=== PATIENT | male | born 1965 | race African-American/Black ===

== ENCOUNTER 2020-05-19 09:39 | Outpatient (REF) | payer MEDICAID, OTHER, SELFPAY ==
--- NOTE | 2020-05-19 09:50 | FL_ITS ---
EXAMINATION: BARIUM SWALLOW CLINICAL INFORMATION: Dysphagia. COMPARISON: None TECHNIQUE: Routine barium swallow was performed in upright and lying position. FINDINGS: Following oral administration of thick barium and barium-coated turkey, there is normal propagation of bolus from the oral cavity through the pharynx, esophagus into stomach without any evidence of obstruction, narrowing or stricture. On placing patient prone lying and oral administration of thin barium, there is good distention of the entire esophagus without any intraluminal filling defect or extrinsic compression. There is a small hiatal hernia noted. IMPRESSION: Small hiatal hernia without reflux.
--- NOTE | 2020-05-19 09:51 | XR_ITS ---
EXAMINATION: XR CHEST CLINICAL INFORMATION: Cough. COMPARISON: None TECHNIQUE: 2 views of the chest were obtained. FINDINGS: The lungs are well-expanded and clear. The heart size and pulmonary vascularity is normal. No gross bony abnormality seen. IMPRESSION: Unremarkable chest exam.
== END 2020-05-19 09:40 | disposition home or self-care (01) ==
LOC: HO.XRAY 09:39
PROVIDERS: Visit Provider Nurse Practitioner Family
DX: R10.13 Epigastric pain (principal); R06.6 Hiccough
CPT/HCPCS: 71046; 74220

== ENCOUNTER 2020-07-21 08:31 | Outpatient (REF) | payer MEDICAID, OTHER, SELFPAY ==
[2020-07-21 09:15] LABS: Hematocrit 46.9 % (42-52); Hemoglobin 15.7 g/dl (14.0-18.0); Mean Corpuscular HGB Conc 33.5 g/dl (31.0-36.0); Mean Corpuscular Hemoglobin 29.7 pg (27.0-33.0); Mean Corpuscular Volume 88.7 fL (80-98); Mean Platelet Volume 8.5 fL (9.4-12.4); Platelet Count 319 X10*3/uL (160-400); Red Blood Count 5.29 X10*6/uL (4.60-5.80); Red Cell Distribution Width 12.6 % (11.0-16.0); White Blood Count 4.6 X10*3/uL (4.8-10.8)
[2020-07-21 09:55] LABS: Prostate Specific Antigen 0.93 ng/mL (<0.05-4.0)
[2020-07-25 18:32] LABS: Testosterone, Total 235 ng/dL (250-1100)
== END 2020-07-21 08:32 | disposition home or self-care (01) ==
LOC: HO.LAB 08:31
PROVIDERS: PCP Nurse Practitioner Family; Visit Provider Urology
DX: E29.1 Testicular hypofunction (principal)
CPT/HCPCS: 36415; 84153; 84403; 85027

== ENCOUNTER → 2020-08-11 09:02 | Outpatient (BNVA) | payer MEDICAID, OTHER, SELFPAY | PROVIDERS: Visit Provider Urology | DX: Z76.89 Persons encountering health services in other specified circumstances (principal) ==

== ENCOUNTER → 2021-04-05 11:06 | Outpatient (BNVA) | payer MEDICAID, OTHER, SELFPAY | PROVIDERS: Visit Provider Urology ==

== ENCOUNTER → 2021-05-06 14:48 | Outpatient (BNV) | payer SELFPAY | PROVIDERS: Visit Provider Internal Medicine Medical Oncology | DX: D72.819 Decreased white blood cell count, unspecified (principal) | CPT/HCPCS: 99213 ==

== ENCOUNTER 2022-05-12 13:40 | Outpatient (REF) | payer MEDICAID, OTHER, SELFPAY ==
--- NOTE | ~2022-05-12 | XR_ITS ---
EXAMINATION: XR KNEE, LEFT XR LOWER LEG, LEFT CLINICAL INFORMATION: Pain COMPARISON: None TECHNIQUE: Left knee is imaged in 3 views. The left lower leg is imaged in 3 separate views. There are a total of 6 views. FINDINGS: There is no acute or healing fracture, dislocation, destructive process. There are old healed fractures with mild posttraumatic deformity involving the proximal tibial metaphyseal diaphyseal junction and proximal fibular shaft. There is no significant knee joint compartment narrowing or erosive change or subchondral sclerosis. There is small to moderate suprapatellar effusion. Spurring at the quadriceps insertion patella is present and there is some minor spurring at the origin patellar tendon and insertion patella tendon proximal anterior tibia. Deep infrapatellar recess is preserved. The remainder of the left lower leg tibia and fibula are unremarkable. The ankle mortise is symmetric. Subtalar joint is unremarkable. There is a bulky posterior calcaneal spur with normal retrocalcaneal recess. XR/XR tibia fibula LT 2V IMPRESSION: 1. No acute or healing fracture or dislocation. 2. Old healed fractures proximal tibia and fibula. 3. Small to moderate suprapatellar effusion. 4. Spurring quadriceps and patella tendon enthesis. 5. Bulky posterior calcaneal spur.
--- NOTE | ~2022-05-12 | XR_ITS ---
EXAMINATION: XR KNEE, LEFT XR LOWER LEG, LEFT CLINICAL INFORMATION: Pain COMPARISON: None TECHNIQUE: Left knee is imaged in 3 views. The left lower leg is imaged in 3 separate views. There are a total of 6 views. FINDINGS: There is no acute or healing fracture, dislocation, destructive process. There are old healed fractures with mild posttraumatic deformity involving the proximal tibial metaphyseal diaphyseal junction and proximal fibular shaft. There is no significant knee joint compartment narrowing or erosive change or subchondral sclerosis. There is small to moderate suprapatellar effusion. Spurring at the quadriceps insertion patella is present and there is some minor spurring at the origin patellar tendon and insertion patella tendon proximal anterior tibia. Deep infrapatellar recess is preserved. The remainder of the left lower leg tibia and fibula are unremarkable. The ankle mortise is symmetric. Subtalar joint is unremarkable. There is a bulky posterior calcaneal spur with normal retrocalcaneal recess. XR/XR knee LT 4V IMPRESSION: 1. No acute or healing fracture or dislocation. 2. Old healed fractures proximal tibia and fibula. 3. Small to moderate suprapatellar effusion. 4. Spurring quadriceps and patella tendon enthesis. 5. Bulky posterior calcaneal spur.
== END 2022-05-12 13:41 | disposition home or self-care (01) ==
LOC: HO.XRAY 13:40
PROVIDERS: PCP Nurse Practitioner Primary Care; Visit Provider Nurse Practitioner Primary Care
DX: M25.362 Other instability, left knee (principal); M79.605 Pain in left leg; Z87.81 Personal history of (healed) traumatic fracture
CPT/HCPCS: 73564; 73590

== ENCOUNTER 2023-03-05 21:02 | Outpatient (REF) | payer MEDICAID, OTHER, SELFPAY | END 2023-03-05 21:03 | disposition home or self-care (01) | LOC: HO.HHCLNP 21:02 | PROVIDERS: Visit Provider Internal Medicine Geriatric Medicine | DX: R30.0 Dysuria (principal); R68.83 Chills (without fever); R31.0 Gross hematuria; Z87.438 Personal history of other diseases of male genital organs | CPT/HCPCS: 87086; 87088; 87147; 87186 ==

== ENCOUNTER 2023-04-10 09:49 | Outpatient (AMB) | payer MEDICAID, SELFPAY ==
--- NOTE | 2023-04-10 10:02 | MHC.OFFVIS ---
Intake Vital Signs 04/10/23 10:04 Height 5 ft 9 in Weight 187 lb 6.287 oz BMI 27.7 BP 140/74 H Blood Pressure Location Lt brachial Position Sitting Pulse 78 Intake Visit Reasons: Colonoscopy Screening Intake Note: Darin presents in the office as a colonoscopy screening. CC: Due for a colonoscopy and not having any concerns at this time. He does get severe heartburn but the omeprazole seems to help him. 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- amlodipine 5 mg PO DAILY aspirin 1 tab PO QAM atorvastatin 1 tab PO DAILY blood sugar diagnostic (FreeStyle Lite Strips) cetirizine 1 tab PO DAILY cholecalciferol (vitamin D3) 1 cap PO DAILY glipizide 10 mg PO ibuprofen 1 tab PO TID insulin glargine (Lantus Solostar U-100 Insulin) 40 units subcut BEDTIME insulin lispro (Humalog KwikPen (U-100) Insulin) 0 - 12 units subcut DIRECTED lancets (TRUEplus Lancets) naproxen 1 tab PO BID PRN omeprazole 10 mg PO DAILY polyvinyl alcohol 1.4% drps ophthalmic (eye) syringe with needle (Monoject TB Safety Syringe) As directed tadalafil 5 mg PO DAILY tamsulosin 0.4 mg PO QAM HPI Colonoscopy Screening HPI Details 57 year old? male is here today for pre colonoscopy screening.? Patient was sent to us by his PCP.? This is his first colonoscopy screening.? Patient reports that he moves his bowels without any issues. Patient reports that about couple weeks ago he started with severe epigastric burning specially when he lays down. Started taking omeprazole 10 mg and reports that it is not helping. Patient used to take omeprazole in the past for similar symptoms. Patient feels that his symptoms are worse now. Patient denies any nausea or vomiting. Denies any personal or family history of gastrointestinal disease, colon polyps, or cancer.? Denies history of difficulty with sedation or anesthesia in the past.? Negative for history of sleep apnea.? Denies any history of cardiac, renal, pulmonary, or hepatic disease.?? No history of infectious? diseases like hepatitis A, B, C, HIV or tuberculosis.? Patient is not on any anticoagulation therapy regularly, however occasionally patient will take aspirin or ibuprofen for pain PFSH Medical History Low back pain Dyslipidemia HTN (hypertension) BPH (benign prostatic hyperplasia) Incomplete emptying of bladder Weak urinary stream Peyronie's disease Erectile dysfunction due to arterial insufficiency Hypogonadism in male Elevated PSA Diabetes mellitus Surgical History (Updated 04/10/23 @ 10:06 by MARYJANE Pardo) Hx of colonoscopy History of hernia surgery Family History Mother Breast cancer Social History Household Members: Spouse and Children Housing: House Are you a primary director of health care marketing to a significant other at home: No Do you presently have visiting nurse or other home services: No Patient Tobacco Use Status: Never used Tobacco service: No Current occupational status: unemployed Review of Systems Const Denies weight gain and Denies weight loss ENT Reports no additional complaints, Denies dysphagia and Denies odynophagia Card Reports no additional complaints Resp Reports no additional complaints GI Denies abdominal pain, Denies belching, Denies melena, Denies bloating, Denies change in bowel habits, Denies dysphagia, Denies excessive flatus, Denies dyspepsia, Reports heartburn, Denies diarrhea, Denies loose stools, Denies nausea, Denies odynophagia and Denies vomiting Reports no additional complaints Musc Reports no additional complaints Neuro Reports no additional complaints Psych Reports no additional complaints Endo Reports no additional complaints Physical Exam Vital Signs: Last Vital Signs Pulse 78 04/10/23 10:04 BP 140/74 H 04/10/23 10:04 BMI result Body Mass Index 27.7 Const General: healthy appearing, no acute distress and well developed Nutritional Appearance: well nourished Orientation/consciousness: patient oriented x3 HEENT Head: Yes normal to inspection, Yes normocephalic and Yes atraumatic Face and sinus: Yes normal facial exam Mouth: Normal oral and palatal mucosa present Throat: Yes posterior oropharynx normal, Yes tonsils normal and Yes uvula midline Eyes General: appearance normal, both eyes and all related structures Neck Neck: Yes normal visual inspection, Yes full ROM and Yes trachea midline Thyroid: Thyroid normal Resp Effort & Inspection: normal respiratory effort, able to speak in complete sentences, no tracheal deviation and symmetric chest movement Auscultation: clear to auscultation bilaterally Cardio Rate: regular rate Heart sounds: S1 normal heart sound present and S2 normal heart sound present GI Inspection: Yes normal to inspection and No distended Palpation (GI): Soft to palpation, not firm, nontender and No hepatosplenomegaly present Auscultation: normal bowel sounds General: Yes no CVA tenderness Back/Spine/Pelvis Back: no CVA tenderness Skin General skin exam: elasticity normal, turgor normal and dry skin Neuro General: patient oriented x3 Psych Appearance: grossly normal Mental Status: mental status grossly normal Speech and movement: Normal speech and movement present Assessment & Plan Assessment & Plan (1) Screen for colon cancer: Code(s): Z12.11 - Encounter for screening for malignant neoplasm of colon Plan: Patient denies any cardiac or respiratory symptoms.? Denies any issues with anesthesia in the past.? Denies any history of sleep apnea.? No history infectious diseases in the past or present.? Not on any anticoagulation therapy, however patient does use aspirin and ibuprofen occasionally. Patient was encouraged to stop that week before the procedure..? No family or personal history of colon cancer or polyps.? Patient denies melena, hematochezia, unintentional weight loss or ribbon like stools.? Patient will return in 5 weeks to discuss going for procedure. Severe epigastric discomfort and acid reflux now. (2) GERD (gastroesophageal reflux disease): Code(s): K21.9 - Gastro-esophageal reflux disease without esophagitis Qualifiers: Esophagitis presence: esophagitis presence not specified Qualified Code(s): K21.9 - Gastro-esophageal reflux disease without esophagitis Plan: Patient reports severe acid reflux. Patient reports severe burning in the chest specially when he lays down at nighttime. He is currently taking omeprazole 10 mg. Will stop that and start him on pantoprazole 40 mg in the morning. Patient can take famotidine at bedtime. Will send him to get H pylori testing. Will treat empirically if positive. Patient will also be sent for upper endoscopy to further evaluate for gastritis, esophagitis, duodenitis, gastric or peptic ulcers, H pylori, better at. I will see him in 5 weeks, sooner on as needed basis. Patient is agreeable to this plan and verbalizes understanding of instructions. He was given the opportunity to ask questions and all questions answered. Thank you for allowing me to participate in his care Orders: Orders H pylori Ag Stool Today K21.9 - Gastro-esophageal reflux disease without esophagitis Medications: New pantoprazole take one tablet half an hour before breakfast 40 mg PO DAILY 30 tabs 2RF K21.9 - Gastro-esophageal reflux disease without esophagitis famotidine (Pepcid) 20 mg PO BEDTIME 30 tabs 3RF K21.9 - Gastro-esophageal reflux disease without esophagitis Coding Level of Care Code New Pt Level 4 (99432) Diagnoses Screen for colon cancer Z12.11 Gastroesophageal reflux disease, unspecified whether esophagitis present K21.9 Esophagitis presence: esophagitis presence not specified Time Spent (min) 45 Comment 30 minutes spent with patient and additional 15 minutes spent reviewing his records
[2023-04-10 10:04] VITALS: BP 140/74; PULSE 78; BMI 27.7
== END 2023-04-10 10:37 | disposition home or self-care (01) ==
PROVIDERS: PCP Nurse Practitioner Primary Care; Visit Provider Nurse Practitioner Family
DX: Z12.11 Encounter for screening for malignant neoplasm of colon (principal); K21.9 Gastro-esophageal reflux disease without esophagitis; Z01.818 Encounter for other preprocedural examination
CPT/HCPCS: 99204

== ENCOUNTER → 2023-04-10 09:49 | Outpatient (BNVA) | payer MEDICAID, OTHER, SELFPAY | PROVIDERS: PCP Nurse Practitioner Primary Care; Visit Provider Nurse Practitioner Family | DX: Z01.818 Encounter for other preprocedural examination (principal); K21.9 Gastro-esophageal reflux disease without esophagitis; Z79.899 Other long term (current) drug therapy | CPT/HCPCS: 99212 ==

== ENCOUNTER 2023-04-23 14:20 | Outpatient (REF) | payer MEDICAID, OTHER, SELFPAY | END 2023-04-23 14:21 | disposition home or self-care (01) | LOC: HO.LNP 14:20 | PROVIDERS: Visit Provider Nurse Practitioner Family | DX: K21.9 Gastro-esophageal reflux disease without esophagitis (principal) | CPT/HCPCS: 87338 ==

== ENCOUNTER 2023-05-10 11:22 | Outpatient (AMB) | payer SELFPAY ==
--- NOTE | 2023-05-10 11:38 | A.OFFVIS_ITS ---
Intake Intake Visit Reasons: follow up Intake Note: Patient is Present for Follow Up Urology Medication: Tadalafil, Tamsulosin Antibiotic Allergies:None Blood Thinners: Aspirin Pharmacy: [facility] Allergies No Known Allergies [No Known Allergies*] Allergy (Verified 05/10/23 11:39) HPI HPI Comments History of Present Illness Details Darin is a very pleasant [facility] male. He is seen for the following urologic conditions. Dr Kelly - hypogonadism - erectile dysfunction in setting of elisa arelissteve Has not been seen a number of years Continues to take daily tadalafil 5 mg for bladder control and erections Refill provided 3 month follow-up lab work Hypogonadism: He presents today for further evaluation and followup of his hypogonadism - stop taking the injectables approximately 1 year ago Initial symptoms include erectile dysfunction Yes decreased libido Yes change in mood/depression Yes in muscle size/strength Yes increased fatigue/malaise Yes increased abdominal fat No tender breasts/gynecomastia No hair loss No osteopenia No The onset of symptoms has been gradual. Associate conditions include obstructive sleep apnea No CAD No diabetes Yes dyslipidemia Yes hypertension Yes obesity No stress - financial, family, employment No heavy alcohol or illicit drug use No He has been taking previously tried gels without symptomatic success. Laboratory results Baseline T is borderline lw 250-300 on repeat testing Clomid Testing 07/14 , testosterone 373 09/15 - T 340, HbA1c 8.8 01/13 , PSA 0.65 05/15 , testosterone 499 11/14 PSA 1.1 T 232 05/16 PSA 3.5 CBC NAD T level 01/15 PSA 2.7 06/17 T 527 PSA 1.04 CBC 48 01/16 T 550 PSA 3.0 Hct 47, 07/18 T240 PSA 1.1 HCT 46 - 01/17 T 300 PSA 0.6, Hct 47 Current therapy includes - no therapy Response to therapy has been review labs in 6m. Erectile dysfunction: He presents today for for continued evaluation and management of erectile dysfunction - has been using penile constriction ring. This is been somewhat helpful. Not currently using medications Procedure(s)/Diagnosis causing dysfunction include diabetes. Current treatment includes no current oral pills Treatment side effects include back pain with cialis, headache with cialis Prior therapies include oral medications. At this time he experiences erections are partial and adequate for vaginal penetration, SKYLER 8-11 Moderate ED. Nocturnal erections do not occur. Currently they are in a stable relationship. Associated problems hypertension No diabetes Yes dyslipidemia Yes Overall he is satisfied with the current management. Therapeutic plan includes maintaining current therapy PFSH Medical History Low back pain Dyslipidemia HTN (hypertension) BPH (benign prostatic hyperplasia) Incomplete emptying of bladder Weak urinary stream Peyronie's disease Erectile dysfunction due to arterial insufficiency Hypogonadism in male Elevated PSA Diabetes mellitus Surgical History Hx of colonoscopy History of hernia surgery Family History Mother Breast cancer Social History Household Members: Spouse and Children Housing: House Are you a primary critical care nurse to a significant other at home: No Do you presently have visiting nurse or other home services: No Patient Tobacco Use Status: Never used Tobacco service: No Current occupational status: unemployed Review of Systems Const Denies chills and Denies fever(s) Card Reports no additional complaints and Denies syncope Resp Denies cough GI Denies abdominal pain and Denies heartburn Reports as per HPI and Denies change in libido Neuro Denies syncope Psych Denies change in libido Endo Denies change in libido Physical Exam Const General: cooperative, healthy appearing, comfortable and no acute distress Orientation/consciousness: patient oriented x3 HEENT Face and sinus: Yes normal facial exam Mouth: moist mucous membranes Neck Neck: Yes normal visual inspection, Yes full ROM and Yes trachea midline Chest Chest palpation & inspection: normal inspection of the chest Resp Effort & Inspection: normal respiratory effort, able to speak in complete sentences and no respiratory distress GI Inspection: Yes normal to inspection Back/Spine/Pelvis Cervical Spine: normal cervical lordosis Thoracic/Lumbar Spine: thoracic and lumbar spine normal to inspection Skin General skin exam: no rashes or lesions noted Neuro General: patient oriented x3, gait normal, tone normal and moves all extremities Extrem General: Yes normal to inspection and Yes capillary refill normal Assessment & Plan Assessment & Plan (1) Weak urinary stream: Code(s): R39.12 - Poor urinary stream (2) Hypogonadism in male: Code(s): E29.1 - Testicular hypofunction (3) Erectile dysfunction due to arterial insufficiency: Code(s): N52.01 - Erectile dysfunction due to arterial insufficiency Plan Three follow-up labs Orders: Orders Prostate Specific Antigen 3 Months E29.1 - Testicular hypofunction Testosterone, Free/Total 3 Months E29.1 - Testicular hypofunction Patient Instructions: Imaging studies, laboratory and physical exam results were discussed and reviewed in detail. No major barriers to patient understanding were identified. An opportunity to ask questions regarding the treatment plan was provided. All questions were answered. The patient expressed understanding and agreement with the above treatment plan. The patient is aware they should contact our office by phone for worsening of their current condition or the appearance of new urologic symptoms. Compliance is encouraged with any medications and followup testing that is ordered. It is a privilege to participate in the urologic care of your patient. If you have any questions or concerns regarding treatment for the above conditions, or other urologic issues, please do not hesitate to contact me. The office telephone contact is [phone]. This note is constructed using voice recognition software. While every effort has been made to ensure accuracy supervisor aluminum boat assembly errors may have been included. Yours sincerely, Dr Hernan Gordon MD, [facility] - Urology Providers of Expert, Compassionate Care for the Genitourinary System Coding Level of Care Code Est Pt Level 4 (64289) Diagnoses Weak urinary stream R39.12 Hypogonadism in male E29.1 Erectile dysfunction due to arterial insufficiency N52.01
== END 2023-05-10 12:30 | disposition home or self-care (01) ==
PROVIDERS: PCP Nurse Practitioner Primary Care; Visit Provider Urology
DX: R39.12 Poor urinary stream (principal); E29.1 Testicular hypofunction; N52.01 Erectile dysfunction due to arterial insufficiency
CPT/HCPCS: 99213

== ENCOUNTER → 2023-05-10 11:22 | Outpatient (BNVA) | payer MEDICAID, OTHER, SELFPAY | PROVIDERS: PCP Nurse Practitioner Primary Care; Visit Provider Urology | DX: E29.1 Testicular hypofunction (principal); R39.12 Poor urinary stream; N52.01 Erectile dysfunction due to arterial insufficiency | CPT/HCPCS: 99212 ==

== ENCOUNTER 2023-05-15 09:43 | Outpatient (AMB) | payer SELFPAY ==
[2023-05-15 10:00] VITALS: BP 146/73; PULSE 85; BMI 28.5
--- NOTE | 2023-05-15 10:00 | A.OFFVIS_ITS ---
Intake Vital Signs 05/15/23 10:00 Height 5 ft 9 in Weight 193 lb 1.999 oz BMI 28.5 BP 146/73 H Blood Pressure Location Lt brachial Position Sitting Pulse 85 Pulse Source Pulse Oximeter Intake Visit Reasons: 5 week follow up Intake Note: Pt presents to the office today for a 5 week follow up. Pt states his acid reflux is doing better and states it is not as bad as before. Pt also denies any N/V/D. Allergies No Known Allergies [No Known Allergies*] Allergy (Verified 05/15/23 10:03) HPI 5 week follow up HPI Details LAST VISIT Screen for colon cancer Patient denies any cardiac or respiratory symptoms.? Denies any issues with anesthesia in the past.? Denies any history of sleep apnea.? No history infectious diseases in the past or present.? Not on any anticoagulation therapy, however patient does use aspirin and ibuprofen occasionally. Patient was encouraged to stop that week before the procedure..? No family or personal history of colon cancer or polyps.? Patient denies melena, hematochezia, unintentional weight loss or ribbon like stools.? Patient will return in 5 weeks to discuss going for procedure. Severe epigastric discomfort and acid reflux now. GERD (gastroesophageal reflux disease) Patient reports severe acid reflux. Patient reports severe burning in the chest specially when he lays down at nighttime. He is currently taking omeprazole 10 mg. Will stop that and start him on pantoprazole 40 mg in the morning. Patient can take famotidine at bedtime. Will send him to get H pylori testing. Will treat empirically if positive. Patient will also be sent for upper endoscopy to further evaluate for gastritis, esophagitis, duodenitis, gastric or peptic ulcers, H pylori, Hendrickson's. I will see him in 5 weeks, sooner on as needed basis. Patient is agreeable to this plan and verbalizes understanding of instructions. He was given the opportunity to ask questions and all questions answered. ? TODAY'S VISIT Patient is here today for follow-up. Patient reports that he started taking pantoprazole and famotidine and only uses 1 or 2 times a week if he has acid reflux. Patient reports he has scratchy throat whenever he eats peanuts, walnuts or any other nuts. Patient reports that he never had a colonoscopy, however upon reviewing his records noted that patient had colonoscopy in november of 2013. Colonoscopy was normal, no polyps, mild diverticulosis to right side of his colon. No family history of colorectal cancer. Patient denies issues with anesthesia in the past. Not on any anticoagulation therapy, however is on his MAR. Patient states that he only uses aspirin or ibuprofen occasionally. No history of sleep apnea. Patient denies any nausea or vomiting. Denies any abdominal pain or discomfort. Moving his bowels without any issues. Patient denies melena, hematochezia, unintentional weight loss or ribbon like stools. Occasional dyspepsia without dysphagia or odynophagia. ON LICENSE OF [facility] Medical History Low back pain Dyslipidemia HTN (hypertension) BPH (benign prostatic hyperplasia) Incomplete emptying of bladder Weak urinary stream Peyronie's disease Erectile dysfunction due to arterial insufficiency Hypogonadism in male Elevated PSA Diabetes mellitus Surgical History Hx of colonoscopy History of hernia surgery Family History Mother Breast cancer Social History Household Members: Spouse and Children Housing: House Are you a primary home care consultant to a significant other at home: No Do you presently have visiting nurse or other home services: No Patient Tobacco Use Status: Never used Tobacco service: No Current occupational status: unemployed Review of Systems Const Denies weight gain and Denies weight loss ENT Reports no additional complaints, Denies dysphagia and Denies odynophagia Card Reports no additional complaints Resp Reports no additional complaints GI Denies abdominal pain, Denies belching, Denies melena, Denies bloating, Denies change in bowel habits, Denies dysphagia, Denies excessive flatus, Denies dyspepsia, Denies heartburn, Denies diarrhea, Denies loose stools, Denies nausea, Denies odynophagia and Denies vomiting Reports no additional complaints Musc Reports no additional complaints Neuro Reports no additional complaints Psych Reports no additional complaints Endo Reports no additional complaints Physical Exam Vital Signs: Last Vital Signs Pulse 85 05/15/23 10:00 BP 146/73 H 05/15/23 10:00 BMI result Body Mass Index 28.5 Const General: healthy appearing, no acute distress and well developed Nutritional Appearance: well nourished Orientation/consciousness: patient oriented x3 HEENT Head: Yes normal to inspection, Yes normocephalic and Yes atraumatic Face and sinus: Yes normal facial exam Mouth: Normal oral and palatal mucosa present Throat: Yes posterior oropharynx normal, Yes tonsils normal and Yes uvula midline Eyes General: appearance normal, both eyes and all related structures Neck Neck: Yes normal visual inspection, Yes full ROM and Yes trachea midline Thyroid: Thyroid normal Resp Effort & Inspection: normal respiratory effort, able to speak in complete sentences, no tracheal deviation and symmetric chest movement Auscultation: clear to auscultation bilaterally Cardio Rate: regular rate Heart sounds: S1 normal heart sound present and S2 normal heart sound present GI Inspection: Yes normal to inspection and No distended Palpation (GI): Soft to palpation, not firm, nontender and No hepatosplenomegaly present Auscultation: normal bowel sounds General: Yes no CVA tenderness Back/Spine/Pelvis Back: no CVA tenderness Skin General skin exam: elasticity normal, turgor normal and dry skin Neuro General: patient oriented x3 Psych Appearance: grossly normal Mental Status: mental status grossly normal Speech and movement: Normal speech and movement present Assessment & Plan Assessment & Plan (1) Screen for colon cancer: Code(s): Z12.11 - Encounter for screening for malignant neoplasm of colon (2) GERD (gastroesophageal reflux disease): Code(s): K21.9 - Gastro-esophageal reflux disease without esophagitis Qualifiers: Esophagitis presence: esophagitis presence not specified Qualified Code(s): K21.9 - Gastro-esophageal reflux disease without esophagitis Plan Patient will use famotidine on as needed basis. Discussed with patient avoiding dietary triggers and late night snacking. Patient will be sent for upper endoscopy. Patient reports feeling scratchy throat every time he eats any type of not. Will send him for RAST allergy in test. Patient denies dyspepsia, dysphagia or odynophagia. H pylori negative. Patient never had colonoscopy in the past. Denies any issues with anesthesia in the past. No history of sleep apnea. Not on any anticoagulation medication per patient even though on the list. Please verify with patient that he is not taking aspirin. What to expect before during and after the procedure discussed with patient. Clear liquid diet stressed as well as good bowel prep. I will see patient after the procedure, sooner on as needed basis. Patient is agreeable to this plan and verbalizes understanding of instructions. He was given the opportunity to ask questions and all questions answered. Thank you for allowing me to participate in his care Orders: Orders Rast Allergen Today K21.9 - Gastro-esophageal reflux disease without esophagitis Medications: New bisacodyl (Dulcolax (bisacodyl)) take 4 tabs at noon the day before your colonoscopy 20 mg (4 x 5 mg) PO ONCE 1 day 4 tabs 0RF Z12.11 - Encounter for screening for malignant neoplasm of colon polyethylene glycol 3350 (Miralax) As directed by gastroenterology department at [facility] 238 grams PO ONCE 238 grams 0RF Z12.11 - Encounter for screening for malignant neoplasm of colon Coding Level of Care Code Est Pt Level 3 (75522) Diagnoses Screen for colon cancer Z12.11 Gastroesophageal reflux disease, unspecified whether esophagitis present K21.9 Esophagitis presence: esophagitis presence not specified Time Spent (min) 30 Comment 20 minutes spent with patient and additional 10 minutes spent reviewing his records
== END 2023-05-15 11:37 | disposition home or self-care (01) ==
PROVIDERS: PCP Nurse Practitioner Primary Care; Visit Provider Nurse Practitioner Family
DX: K21.9 Gastro-esophageal reflux disease without esophagitis (principal); Z12.11 Encounter for screening for malignant neoplasm of colon
CPT/HCPCS: 99213

== ENCOUNTER → 2023-05-15 09:43 | Outpatient (BNVA) | payer MEDICAID, OTHER, SELFPAY | PROVIDERS: PCP Nurse Practitioner Primary Care; Visit Provider Nurse Practitioner Family ==

== ENCOUNTER 2023-05-15 11:22 | Outpatient (REF) | payer MEDICAID, OTHER, SELFPAY | END 2023-05-15 11:23 | disposition home or self-care (01) | LOC: HO.HHCL 11:22 | PROVIDERS: Visit Provider Nurse Practitioner Family | DX: Z01.818 Encounter for other preprocedural examination (principal); K21.9 Gastro-esophageal reflux disease without esophagitis | CPT/HCPCS: 36415; 86003; 99212 ==

== ENCOUNTER 2023-07-24 10:15 | Outpatient (REF) | payer SELFPAY ==
[2023-07-24 11:14] LABS: MANUAL DIFF FLAG NO
[2023-07-24 11:31] LABS: Basophils Percent Auto 0.5 % (0-2); Eosinophils Absolute Auto 0.2 X10*3/uL (0.0-0.4); Eosinophils Percent Auto 3.5 % (0-4); Hematocrit 43.3 % (42.0-52.0); Hemoglobin 14.6 g/dl (14.0-18.0); Imm Gran Abs Auto 0.01 X10*3/uL (0.00-0.03); Imm Gran Pct Auto 0.2 % (0.0-0.4); Lymphocytes Absolute Auto 2.3 X10*3/uL (1.2-4.9); Lymphocytes Percent Auto 54.3 % (20-40); Mean Corpuscular HGB Conc 33.7 g/dl (31.0-36.0); Mean Corpuscular Hemoglobin 29.1 pg (27.0-33.0); Mean Corpuscular Volume 86.4 fL (80.0-98.0); Mean Platelet Volume 8.9 fL (9.4-12.4); Monocytes Absolute Auto 0.4 X10*3/uL (0.1-1.2); Neutrophils Absolute Auto 1.4 x10*3/uL (2.0-8.3); Neutrophils Percent Auto 31.5 % (45-73); Platelet Count 310 X10*3/uL (160-400); Red Blood Count 5.01 X10*6/uL (4.60-5.80); Red Cell Distribution Width 12.9 % (11.0-16.0); White Blood Count 4.3 X10*3/uL (4.8-10.8)
[2023-07-24 11:54] LABS: Alanine Aminotransferase 26 U/L (0-40); Albumin Level 4.3 g/dL (3.5-5.0); Alkaline Phosphatase 62 U/L (39-117); Anion Gap 13 (12-20); Aspartate Amino Transferase 28 U/L (5-37); Bilirubin Total 0.6 mg/dL (0.0-1.0); Blood Urea Nitrogen 10 mg/dL (9-16); Calcium 9.8 mg/dL (8.4-10.2); Carbon Dioxide 27 mmol/L (22-29); Chloride 109 mmol/L (96-108); Estimated Glomerular Filt Rate > 60; Glucose Random 99 mg/dL (60-115); Sodium 145 mmol/L (135-145); Total Protein 6.9 g/dL (6.5-8.0)
== END 2023-07-24 10:16 | disposition home or self-care (01) ==
LOC: HO.HHCL 10:15
PROVIDERS: Visit Provider Internal Medicine Medical Oncology
DX: D72.819 Decreased white blood cell count, unspecified (principal)
CPT/HCPCS: 36415; 80053; 85025

== ENCOUNTER 2023-08-09 09:19 | Outpatient (REF) | payer MEDICAID, OTHER, SELFPAY ==
[2023-08-09 12:21] LABS: Prostate Specific Antigen 0.67 ng/mL (<0.05-4.0)
[2023-08-20 11:43] LABS: Testosterone, Total 272 ng/dL (250-1100)
== END 2023-08-09 09:20 | disposition home or self-care (01) ==
LOC: HO.HHCL 09:19
PROVIDERS: Visit Provider Urology
DX: E29.1 Testicular hypofunction (principal); Z12.5 Encounter for screening for malignant neoplasm of prostate
CPT/HCPCS: 36415; 84153; 84402; 84403

== ENCOUNTER 2023-08-22 15:15 | Outpatient (AMB) | payer SELFPAY ==
--- NOTE | 2023-08-22 15:16 | MHC.OFFVIS ---
Intake Intake Visit Reasons: follow up/PSA(set) Intake Note: Patient presents today for a follow-up on: PSA Meds- Tamsulosin, Tadalafil Allergies to Antibiotic- No Known Allergies Blood Thinner- Aspirin (Patient stated not longer taking Aspirin) Adult Basic Education Teacher Required: No Allergies No Known Allergies [No Known Allergies*] Allergy (Verified 08/22/23 15:19) HPI HPI Comments History of Present Illness Details Darin is a very pleasant [facility] male. He is a patient of Dr. John. He is seen for the following urologic conditions. - hypogonadism - erectile dysfunction in setting of diabetes Telemedicine Evaluation 15 min Consultation [employer] Kayley Video attempted Three-month follow-up tele Lab work shows Continues to take daily tadalafil 5 mg for bladder control and erections 3 month follow-up lab work 08/22 T 272 P 0.7 Hypogonadism: He presents today for further evaluation and followup of his hypogonadism - stop taking the injectables approximately 1 year ago Initial symptoms include erectile dysfunction Yes decreased libido Yes change in mood/depression Yes in muscle size/strength Yes increased fatigue/malaise Yes increased abdominal fat No tender breasts/gynecomastia No hair loss No osteopenia No The onset of symptoms has been gradual. Associate conditions include obstructive sleep apnea No CAD No diabetes Yes dyslipidemia Yes hypertension Yes obesity No stress - financial, family, employment No heavy alcohol or illicit drug use No He has been taking previously tried gels without symptomatic success. Laboratory results Baseline T is borderline lw 250-300 on repeat testing Clomid Testing 07/14 , testosterone 373 09/15 - T 340, HbA1c 8.8 01/13 , PSA 0.65 05/15 , testosterone 499 11/14 PSA 1.1 T 232 05/16 PSA 3.5 CBC NAD T level 01/15 PSA 2.7 06/17 T 527 PSA 1.04 CBC 48 01/16 T 550 PSA 3.0 Hct 47, 07/18 T240 PSA 1.1 HCT 46 - 01/17 T 300 PSA 0.6, Hct 47 Current therapy includes - no therapy Response to therapy has been review labs in 6m. Erectile dysfunction: He presents today for for continued evaluation and management of erectile dysfunction - has been using penile constriction ring. This is been somewhat helpful. Not currently using medications Procedure(s)/Diagnosis causing dysfunction include diabetes. Current treatment includes no current oral pills Treatment side effects include back pain with cialis, headache with cialis Prior therapies include oral medications. At this time he experiences erections are partial and adequate for vaginal penetration, SKYLER 8-11 Moderate ED. Nocturnal erections do not occur. Currently they are in a stable relationship. Associated problems hypertension No diabetes Yes dyslipidemia Yes Overall he is satisfied with the current management. Therapeutic plan includes maintaining current therapy PFSH Medical History Low back pain Dyslipidemia HTN (hypertension) BPH (benign prostatic hyperplasia) Incomplete emptying of bladder Weak urinary stream Peyronie's disease Erectile dysfunction due to arterial insufficiency Hypogonadism in male Elevated PSA Diabetes mellitus Surgical History Hx of colonoscopy History of hernia surgery Family History Mother Breast cancer Social History Household Members: Spouse and Children Housing: House Are you a primary rn medicare to a significant other at home: No Do you presently have visiting nurse or other home services: No Patient Tobacco Use Status: Never used Tobacco service: No Current occupational status: unemployed Review of Systems Const All systems reviewed & are unremarkable except as noted in HPI and below Reports no additional complaints Resp Reports no additional complaints GI Reports no additional complaints Reports as per HPI Musc Reports no additional complaints Physical Exam Telemedicine evaluation Appropriate responses Regular breathing rate and rhythm HEENT Head: Yes normal to inspection Ears: hearing grossly normal bilaterally Eyes General: appearance normal, both eyes and all related structures Neck Neck: Yes normal visual inspection Chest Chest palpation & inspection: normal inspection of the chest Resp Effort & Inspection: normal respiratory effort and able to speak in complete sentences Assessment & Plan Assessment & Plan (1) Hypogonadism in male: Code(s): E29.1 - Testicular hypofunction (2) Erectile dysfunction due to arterial insufficiency: Code(s): N52.01 - Erectile dysfunction due to arterial insufficiency (3) Peyronie's disease: Code(s): N48.6 - Induration penis plastica Plan Six-month follow-up Patient Instructions: Imaging studies, laboratory and physical exam results were discussed and reviewed in detail. No major barriers to patient understanding were identified. An opportunity to ask questions regarding the treatment plan was provided. All questions were answered. The patient expressed understanding and agreement with the above treatment plan. The patient is aware they should contact our office by phone for worsening of their current condition or the appearance of new urologic symptoms. Compliance is encouraged with any medications and followup testing that is ordered. It is a privilege to participate in the urologic care of your patient. If you have any questions or concerns regarding treatment for the above conditions, or other urologic issues, please do not hesitate to contact me. The office telephone contact is [phone]. This note is constructed using voice recognition software. While every effort has been made to ensure accuracy railroad signal operator errors may have been included. Yours sincerely, Dr Hernan Gordon MD, PATR[facility] - Urology Providers of Expert, Compassionate Care for the Genitourinary System Telehealth Telehealth Location of provider rendering services: practice address Location of patient: address on file Patient Identification confirmed using: Name, : Yes Telehealth method: voice only Patient verbally consented to treatment: Yes Patient verbally consented to billing insurance company: Yes Patient informed of any privacy concerns related to visit: Yes Coding Level of Care Code Tele Est Pt Level 3 (35766) Diagnoses Hypogonadism in male E29.1 Erectile dysfunction due to arterial insufficiency N52.01 Peyronie's disease N48.6
== END 2023-08-22 15:46 | disposition home or self-care (01) ==
LOC: HO.HUSH 15:16
PROVIDERS: PCP Nurse Practitioner Primary Care; Visit Provider Urology
DX: E29.1 Testicular hypofunction (principal); N52.01 Erectile dysfunction due to arterial insufficiency; N48.6 Induration penis plastica
CPT/HCPCS: 99213

== ENCOUNTER → 2023-08-22 15:15 | Outpatient (BNVA) | payer SELFPAY | PROVIDERS: PCP Nurse Practitioner Primary Care; Visit Provider Urology ==

== ENCOUNTER 2023-11-22 10:27 | Outpatient (REF) | payer MEDICAID, OTHER, SELFPAY ==
[2023-11-22 11:30] LABS: MANUAL DIFF FLAG NO
[2023-11-22 11:39] LABS: Basophils Percent Auto 0.2 % (0-2); Eosinophils Absolute Auto 0.1 X10*3/uL (0.0-0.4); Eosinophils Percent Auto 3.2 % (0-4); Hematocrit 45.2 % (42.0-52.0); Hemoglobin 15.7 g/dl (14.0-18.0); Imm Gran Abs Auto 0.01 X10*3/uL (0.00-0.03); Imm Gran Pct Auto 0.2 % (0.0-0.4); Lymphocytes Percent Auto 46.4 % (20-40); Mean Corpuscular HGB Conc 34.7 g/dl (31.0-36.0); Mean Corpuscular Hemoglobin 29.9 pg (27.0-33.0); Mean Corpuscular Volume 86.1 fL (80.0-98.0); Mean Platelet Volume 9.3 fL (9.4-12.4); Monocytes Absolute Auto 0.3 X10*3/uL (0.1-1.2); Monocytes Percent Auto 7.8 % (2-11); Neutrophils Absolute Auto 1.8 x10*3/uL (2.0-8.3); Neutrophils Percent Auto 42.2 % (45-73); Platelet Count 303 X10*3/uL (160-400); Red Blood Count 5.25 X10*6/uL (4.60-5.80); Red Cell Distribution Width 12.5 % (11.0-16.0); White Blood Count 4.4 X10*3/uL (4.8-10.8)
[2023-11-22 11:44] LABS: Alanine Aminotransferase 25 U/L (0-40); Albumin Level 4.3 g/dL (3.5-5.0); Alkaline Phosphatase 71 U/L (39-117); Anion Gap 9 (12-20); Aspartate Amino Transferase 25 U/L (5-37); Bilirubin Total 0.7 mg/dL (0.0-1.0); Blood Urea Nitrogen 9 mg/dL (9-16); Calcium 9.5 mg/dL (8.4-10.2); Carbon Dioxide 30 mmol/L (22-29); Chloride 109 mmol/L (96-108); Cholesterol 175 mg/dL (<200); Estimated Glomerular Filt Rate > 60; Glucose Random 92 mg/dL (60-115); HDL Cholesterol 41 mg/dL (>40); LDL Cholesterol Calculated 114 mg/dL (<100); Potassium 3.9 mmol/L (3.3-5.1); Sodium 144 mmol/L (135-145); Total Protein 7.1 g/dL (6.5-8.0); Triglycerides 103 mg/dL (<150)
== END 2023-11-22 10:28 | disposition home or self-care (01) ==
LOC: HO.HHCL 10:27
PROVIDERS: Internal Medicine Medical Oncology; Visit Provider Nurse Practitioner Primary Care
DX: E11.69 Type 2 diabetes mellitus with other specified complication (principal); E78.5 Hyperlipidemia, unspecified; R74.8 Abnormal levels of other serum enzymes; D72.819 Decreased white blood cell count, unspecified
CPT/HCPCS: 36415; 80053; 80061; 82550; 85025

== ENCOUNTER 2024-02-19 10:47 | Outpatient (AMB) | payer MEDICAID, SELFPAY ==
--- NOTE | 2024-02-19 11:27 | MHC.OFFVIS ---
Intake Visit Reasons: 6m/PVR Intake Note: Patient presents today for a 6m follow-up and PVR Meds- Tamsulosin, Tadalafil Allergies to Antibiotic- NoNE Blood Thinner- NONE Transfer Table Operator Helper Required: No Allergies No Known Allergies [No Known Allergies*] Allergy (Verified 02/19/24 11:29) HPI Comments Details: Darin is a very pleasant [facility] male. He is a patient of Dr. John. He is seen for the following urologic conditions. - hypogonadism - erectile dysfunction in setting of diabetes Six-month follow-up Continues to take daily tadalafil 5 mg for bladder control and erections 3 month follow-up lab work 08/22 T 272 P 0.7 Hypogonadism: He presents today for further evaluation and followup of his hypogonadism - stop taking the injectables approximately 1 year ago Initial symptoms include erectile dysfunction Yes decreased libido Yes change in mood/depression Yes in muscle size/strength Yes increased fatigue/malaise Yes increased abdominal fat No tender breasts/gynecomastia No hair loss No osteopenia No The onset of symptoms has been gradual. Associate conditions include obstructive sleep apnea No CAD No diabetes Yes dyslipidemia Yes hypertension Yes He has been taking previously tried gels without symptomatic success. Laboratory results Baseline T is borderline lw 250-300 on repeat testing Clomid Testing 07/14 , testosterone 373 09/15 - T 340, HbA1c 8.8 01/13 , PSA 0.65 05/15 , testosterone 499 11/14 PSA 1.1 T 232 05/16 PSA 3.5 CBC NAD T level 01/15 PSA 2.7 06/17 T 527 PSA 1.04 CBC 48 01/16 T 550 PSA 3.0 Hct 47, 07/18 T240 PSA 1.1 HCT 46 - 01/17 T 300 PSA 0.6, Hct 47 Current therapy includes - no therapy Response to therapy has been review labs in 6m. Erectile dysfunction: He presents today for for continued evaluation and management of erectile dysfunction - has been using penile constriction ring. This is been somewhat helpful. Not currently using medications Procedure(s)/Diagnosis causing dysfunction include diabetes. Current treatment includes no current oral pills Treatment side effects include back pain with cialis, headache with cialis Prior therapies include oral medications. At this time he experiences erections are partial and adequate for vaginal penetration, SKYLER 8-11 Moderate ED. Nocturnal erections do not occur. Currently they are in a stable relationship. Associated problems hypertension No diabetes Yes dyslipidemia Yes Overall he is satisfied with the current management. Therapeutic plan includes maintaining current therapy PFSH Medical History Low back pain Dyslipidemia HTN (hypertension) BPH (benign prostatic hyperplasia) Incomplete emptying of bladder Weak urinary stream Peyronie's disease Erectile dysfunction due to arterial insufficiency Hypogonadism in male Elevated PSA Diabetes mellitus Surgical History Hx of colonoscopy History of hernia surgery Family History Mother Breast cancer Social History Household Members: Spouse and Children Housing: House Are you a primary neonatal intensive care nurse to a significant other at home: No Do you presently have visiting nurse or other home services: No Patient Tobacco Use Status: Never used Tobacco service: No Current occupational status: unemployed Review of Systems Const Denies chills and Denies fever(s) Card Reports no additional complaints and Denies syncope Resp Denies cough GI Denies abdominal pain and Denies heartburn Reports as per HPI and Denies change in libido Neuro Denies syncope Psych Denies change in libido Endo Denies change in libido Physical Exam Const General: cooperative, healthy appearing, comfortable and no acute distress Orientation/consciousness: patient oriented x3 HEENT Face and sinus: Yes normal facial exam Mouth: moist mucous membranes Neck Neck: Yes normal visual inspection, Yes full ROM and Yes trachea midline Chest Chest palpation & inspection: normal inspection of the chest Resp Effort & Inspection: normal respiratory effort, able to speak in complete sentences and no respiratory distress GI Inspection: Yes normal to inspection Back/Spine/Pelvis Cervical Spine: normal cervical lordosis Thoracic/Lumbar Spine: thoracic and lumbar spine normal to inspection Skin General skin exam: no rashes or lesions noted Neuro General: patient oriented x3, gait normal, tone normal and moves all extremities Extrem General: Yes normal to inspection and Yes capillary refill normal Results AMB Urinalysis, Automated UA Leukoctes 0 Janell/uL Last Edit by XOCHITL Walters on 02/19/24 11:38 UA Nitrite Negative Last Edit by XOCHITL Walters on 02/19/24 11:38 UA Urobilinogen 0.2 mg/dL Last Edit by XOCHITL Walters on 02/19/24 11:38 UA Protein 30 mg/dL Last Edit by XOCHITL Walters on 02/19/24 11:38 UA pH 6.5 Last Edit by XOCHITL Walters on 02/19/24 11:38 UA Blood 0 Jonah/uL Last Edit by XOCHITL Walters on 02/19/24 11:38 UA Specific Sen[place] 1.020 Last Edit by XOCHITL Walters on 02/19/24 11:38 UA Ketone Positive Last Edit by XOCHITL Walters on 02/19/24 11:38 UA Bilirubin 0 mg/dL Last Edit by XOCHITL Walters on 02/19/24 11:38 UA Glucose 1000 mg/dL Last Edit by XOCHITL Walters on 02/19/24 11:38 Results Reviewed Results Reviewed: Laboratory Last Values Urine pH (Auto) 6.5 02/19/24 11:37 Specific Seneca (Auto) 1.020 02/19/24 11:37 Urine Protein (Auto) 30 mg/dL 02/19/24 11:37 Glucose (UA)(Auto) 1000 mg/dL 02/19/24 11:37 Urine Ketones (Auto) Positive 02/19/24 11:37 Urine Blood (Auto) 0 Jonah/uL 02/19/24 11:37 Urine Nitrite (Auto) Negative 02/19/24 11:37 Urine Bilirubin (Auto) 0 mg/dL 02/19/24 11:37 Urine Urobilinogen (Auto) 0.2 mg/dL 02/19/24 11:37 Leukocyte Esterase (Auto) 0 Janell/uL 02/19/24 11:37 Assessment & Plan Assessment & Plan (1) Hypogonadism in male: Code(s): E29.1 - Testicular hypofunction Category: Medical (2) Erectile dysfunction due to arterial insufficiency: Code(s): N52.01 - Erectile dysfunction due to arterial insufficiency Category: Medical (3) Weak urinary stream: Code(s): R39.12 - Poor urinary stream Category: Medical Plan Six-month follow-up testosterone and PSA Orders: Orders Testosterone, Total 6 Months E29.1 - Testicular hypofunction AMB Urinalysis Automated 02/19/24 Z13.9 - Encounter for screening, unspecified Prostate Specific Antigen 6 Months E29.1 - Testicular hypofunction Patient Instructions: Imaging studies, laboratory and physical exam results were discussed and reviewed in detail. No major barriers to patient understanding were identified. An opportunity to ask questions regarding the treatment plan was provided. All questions were answered. The patient expressed understanding and agreement with the above treatment plan. The patient is aware they should contact our office by phone for worsening of their current condition or the appearance of new urologic symptoms. Compliance is encouraged with any medications and followup testing that is ordered. It is a privilege to participate in the urologic care of your patient. If you have any questions or concerns regarding treatment for the above conditions, or other urologic issues, please do not hesitate to contact me. The office telephone contact is [phone]. This note is constructed using voice recognition software. While every effort has been made to ensure accuracy film processing utility worker errors may have been included. Yours sincerely, Dr Hernan Gordon MD, PATRIC[facility] - Urology Providers of Expert, Compassionate Care for the Genitourinary System Coding Level of Care Code Est Pt Level 3 (00797) Diagnoses Hypogonadism in male E29.1 Erectile dysfunction due to arterial insufficiency N52.01 Weak urinary stream R39.12
== END 2024-02-19 12:16 | disposition home or self-care (01) ==
PROVIDERS: PCP Nurse Practitioner Primary Care; Visit Provider Urology
DX: E29.1 Testicular hypofunction (principal); N52.01 Erectile dysfunction due to arterial insufficiency; R39.12 Poor urinary stream
CPT/HCPCS: 99213

== ENCOUNTER → 2024-02-19 10:47 | Outpatient (BNVA) | payer SELFPAY | PROVIDERS: PCP Nurse Practitioner Primary Care; Visit Provider Urology | DX: E29.1 Testicular hypofunction (principal); N52.01 Erectile dysfunction due to arterial insufficiency; R39.12 Poor urinary stream | CPT/HCPCS: 81003; 99212 ==

== ENCOUNTER 2024-11-14 09:08 | Outpatient (REF) | payer MEDICAID, SELFPAY ==
--- OUTSIDE RECORDS SUMMARY | 2024-11-14 09:35 | XMS_ITS | Encounter Summary ---
Author Organization [employer] Address [address] [facility] 7t [place] [address] Care Team Providers Care Dump Motor Operator Name Role Phone Litzy John Primary Care Provider [phone] Kb Tineo PharmD Unavailable [phone] Reason for Visit * Reason Onset Date Comments Nurse Triage 08/21/2023 Encounter Details Date Type Department Care Team ([facility] st Contact Info) Description 08/21/2023 Telephone [facility] [address] [place], [place] [phone] Litzy John ANP [address] [place], [place] [phone] Nurse Triage Social History Tobacco Use Types Packs/Day Years Used Date Smoking Tobacco: Never Smokeless Tobacco: Never Alcohol Use Standard Drinks/Week Comments Not Currently 0 (1 standard drink = 0.6 oz pur e alcohol) Housing Stability Answer Date Recorded What is your housing situation today? I have ashley reina 05/15/[address] you li ve. Do you have problems with any of the following? None of the above 05/15/2023 Food Insecurity Answer Date Recorded Within the past 12 months, y ou worried that your food would run out before you got money to buy more: Never True 05/15/2023 Within the past 12 months,th e food you bought just didn't last and you didn't have enough money to get more: Never True Transportation Answer Date Recorded In the past 12 months, has l ack of transportation kept you from medical appts, meetings, work or from getting things needed for daily living? No 05/15/2023 Utilities Answer Date Recorded In the past 12 months, has t he electric, gas, oil or water company threatened to shut off services in your home? No 05/15/2023 Depression Answer Date Recorded Patient Health Questionnaire-2 Score 0 01/04/2023 Sex and Gender Information Value Date Recorded Sex Assigned at Male 05/29/2022 10:20 AM EDT Legal Sex Male 10:20 AM EDT Gender Identity Male 05/29/2022 10:20 AM EDT Sexual Orientation Straight 05/29/2022 10 :20 AM EDT documented as of this encounter Miscellaneous Notes * Telephone Encounter - Carin De La Cruz RN - 08/21/2023 1:58 PM EST Triage call , Pt reports covid positive via home test today 08/21/23. Pt symptoms are a low grade fever, 99.6, cough, nasal congestion, drainage, sneezing. Pt is advised reasons to seek assist in ED is if fever of 103 or higher, difficulty breathing with chest pain/pressure. Pt denies these symptoms. Pt is given home care advise, increase liquids to 6-8 glasses daily warm liquids like decaf tea with honey and lemon , broth , juices and water. Use honey 1-2 tsp for cough, sore throat. cough dropsor OTC cough syrups that are cough suppressant. Use tylenol/motrin for discomfort. 5 days of isolation starting 08/22/23. Good hand washing. Pt is given phone number for [facility] [employer] televisit for milena [phone]. No further questions offered. Will call back if needed. Protocol Used: COVID-19 - Diagnosed or Suspected (Adult) Care Advice Discussed: * Reassurance and Education - Positive COVID-19 Lab Test and Mild Symptoms * General Care Advice for COVID-19 Symptoms * Cough Medicines * Cough Syrup With Dextromethorphan * Humidifier * Coughing Spells * Pain and Fever Medicines * Reasons To Call Back - Fever over 103 F (39.4 C) - Fever lasts over 3 days - Fever returns after being gone for 24 hours - Chest pain or difficulty breathing occurs - You become worse * COVID-19 - How to Protect Others - When You Are Sick With COVID-19 * Clean Your Hands Often * Telephone Encounter - Rhonda Quiñones - 08/21/2023 11:46 AM EST Symptom: COVID-19 positive today 08/21/23 Outcome: Schedule a same-day appointment or talk to a nurse or provider today Reason: Caller denied all higher acuity questions The caller accepted this outcome Pt informs has fever and cough documented in this encounter Plan of Treatment Upcoming Encounters Date Type Department Care Team (Late st Contact Info) Description 11/26/2024 2:00 PM EDT Office Visit [facility] OPT[facility] [address] [place] [address] Tika Juan, OD [address] [place] [address] 12/08/2024 1:00 PM EDT Medication Management [facility] [address] [place] [address] Kb Tineo, PharmD [address] [place] [address] documented as of this encounter Visit Diagnoses Not on filedocumented in this encounter Care Teams Dump Motor Operator Relationship Specialty Start Date End Date Litzy John ANP [address] [place] [address] PCP - General Family Medicine 03/23/21 Kb Tineo, PharmD [address] [place] [address] Pharmacist Internal Medicine 06/25/24 documented as of this encounter
--- OUTSIDE RECORDS SUMMARY | 2024-11-14 09:35 | XMS_ITS | Referral Summary ---
Author Organization [facility] Address [address] [place] [address] Care Team Providers Care Volunteer Coordinator Name Role Phone Litzy John Primary Care Provider [phone] Allergies No known active allergies Medications ProAir HFA 90 mcg/actuation inhaler INHALE 2 PUFFS BY MOUTH EVERY 4 TO 6 HOURS NEEDED 0 Active atorvastatin (LIPITOR) 10 mg tablet Take 10 mg by mouth daily. 1 Active blood pressure test kit-large kit USE TO CHECK BLOOD PRESSURE 0 Active Freestyle Lite test strips TEST BLOOD SUGAR 4 TIMES A DAY 1 Active FreeStyle [place] Lite meter TEST BLOOD SUGAR 4 TIMES A DAY 0 Active cholecalcifero l (VITAMIN D3) 2,000 unit capsule Take 1 capsule by mouth daily. 1 Active glipiZIDE (GLUCOTROL) 10 mg tablet TAKE 2 TABLETS BY MOUTH TWICE DAILY WITH BREAKFAST & WITH DINNER 1 Active ibuprofen (MOTRIN) 600 mg tablet Take 600 mg by mouth 3 times a day with meals. 1 Active Lantus Solostar U-100 Insulin 100 unit/mL (3 mL) insulin pen INJECT 40 UNITS SUBCUTANEOUSLY AT BEDTIME DIRECTED 1 Active HumaLOG KwikPen Insulin 100 unit/mL insulin pen INJECT 0-12 UNITS SUBCUTANEOUSLY BEFORE MEALS DIRECTED 1 Active TRUEplus Lancets lancet 33 gauge TEST BLOOD SUGAR FOUR TIMES DAILY 1 Active losartan (COZAAR) 50 mg tablet Take 50 mg by mouth daily. 1 Active naproxen (NAPROSYN) 500 mg tablet TAKE 1 TABLET BY MOUTH TWICE DAILY WITH FOOD NEEDED 0 Active Hypodermic [place] 23 gauge x 1 1/2 needle USE TO inject testosterone 0 Active omeprazole (PriLOSEC) 20 mg capsule TAKE 1 CAPSULE BY MOUTH TWICE DAILY 30-60 MINUTES BEFORE A MEAL 1 Active Pentips 4 mm x 32 g USE FOUR TIMES DAILY WITH lantus AND humalog 1 Active Artificial Tears, polyvin alc, 1.4 % ophthalmic solution PLACE 1 DROP INTO THE AFFECTED EYE(S) 4-6 TIMES DAILY DIRECTED 1 Active simvastatin (ZOCOR) 20 mg tablet Simvastatin 20 MG Oral Tablet Refills: 0 Active Active BD Tuberculin Syringe 1 mL 27 x 1/2 syringe USE TO draw UP testosterone 0 Active amLODIPine (NORVASC) 5 mg tablet Take 5 mg by mouth once a day. 2 Active cetirizine (ZyrTEC) 10 mg tablet Take 10 mg by mouth once a day. 2 Active docusate sodium (COLACE) 100 mg capsule Colace CAPS Refills: 0 Active Active montelukast (SINGULAIR) 10 mg tablet SMARTSI Tablet(s) By Mouth Every Evening 2 Active terazosin (HYTRIN) 5 mg capsule Take 5 mg by mouth nightly. 1 Active triamcinolone acetonide (KENALOG) 0.1% cream Apply topically to the affected area 2 times a day. 1 Active triamcinolone acetonide (KENALOG) 0.5% ointment Apply topically to the affected area 2 times a day. 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 Social History Tobacco Use Types Packs/Day Years Used Date Smoking Tobacco: Never Smokeless Tobacco: Never Comments:: Sex and Gender Information Value Date Recorded Sex Assigned at Not on file Legal Sex Male 4:40 PM EDT Gender Identity Not on file Sexual Orientation Not on file Last Filed Vital Signs Vital Sign Reading Time Taken Comments Blood Pressure 153/81 09/12/2021 9:53 AM EST Pulse 80 09/12/2021 9:53 AM EST Temperature - - Respiratory Rate - - Oxygen Saturation - - Inhaled Oxygen Concentration - - Weight - - Height - - Body Mass Index - - Plan of Treatment Upcoming Encounters Date Type Department Care Team (Late st Contact Info) Description 03/12/2025 1:00 PM EDT Office Visit [facility] [address] [place] [address] Electric Frying Pan Repairer: Chantal Pisano MD [address] [place] [address] [id number] Insurance [employer] HSNO/FREE CARE Care Teams Volunteer Coordinator Relationship Specialty Start Date End Date Litzy John [address] [place] [address] [facility] - General 01/26/23
--- OUTSIDE RECORDS SUMMARY | 2024-11-14 09:35 | XMS_ITS | Patient Health Record ---
Author Organization [facility] Address [address] [place] [phone] Care Team Providers Care Digital Sales Representative Name Role Phone Eliseo, Rell Primary Care Provider Renard Salas [phone] Reason For Referral No Information Encounters Encounter Location Date Provider Diagnosis [facility] [address] [place] [phone] 01/22/2024 Renard Chiu Plan Of Treatment No Information Insurance Providers Payer Name Payer Address Payer Phone Subscriber Number Group Number Insured Name Patient Relationship to Insured Coverage Start Date Coverage End Date [facility] [address] [facility] [phone] [id number] LIEN BHATT Self - patient is the insured
--- OUTSIDE RECORDS SUMMARY | 2024-11-14 09:35 | XMS_ITS | Clinical Summary ---
Author Organization [facility] Address [address] [place] [address] Care Team Providers Care Rotary Adjuster Name Role Phone Litzy John Primary Care Provider [phone] Allergies No known active allergies Medications ProAir HFA 90 mcg/actuation inhaler INHALE 2 PUFFS BY MOUTH EVERY 4 TO 6 HOURS NEEDED 0 Active atorvastatin (LIPITOR) 10 mg tablet Take 10 mg by mouth daily. 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 Family History Medical History Relation Name Comments No Known Problems Father Other Mother Family History of cancer Other Sister Family History of diabetes mellitus Relation Name Status Comments Father Alive Mother Sister Social History Tobacco Use Types Packs/Day Years [...] Description 03/12/2025 1:00 PM EDT Office Visit [facility] [address] [place] [address] Motor Vehicle Clerk: Chantal Pisano MD [address] [place] [address] Health Maintenance Due Date Last Done Comments Basic Metabolic Panel 1965 Cologuard 1965 Colon Cancer Screening 1965 Colonoscopy 1965 FOBT / Fit Test 1965 HIV Screening 1965 Hepatitis C Screening 1965 Sigmoidoscopy 1965 Urine Microalbumin 1973 Hepatitis B Vaccines (2 of 3 - 19+ 3-dose series) 05/01/2012 04/03/2012 Ophthalmology Exam 01/25/2022 01/25/2021, 0 01/25/2021, 01/25/2021, Additional history exists RSV Vaccine (60+ years old a nd patients) (1 - Risk 60-74 years 1-dose series) 2023 Alcohol/Substance Use Screening 07/30/2024 Depression Screening and Follow-Up 07/30/2024 Social Drivers of Health Melony ual Screening 07/30/2024 Hemoglobin A1C 12/21/2024 06/23/2024, 02/21/2024 DTaP,Tdap,and Td Vaccines (2 - Td or Tdap) 07/06/2025 07/06/2015 Zoster Vaccines Completed 08/11/2020, 05/24/2020 Influenza Vaccine Completed 06/23/2024, , 04/11/2022, Additional history exists Pneumococcal Vaccine: 50+ Years Completed , 04/30/2009 COVID-19 Vaccine Completed 08/11/2024, 04/2024, 09/04/2022, Additional history exists [place] [address] [place] [address] HSNO/FREE CARE Care Teams Rotary Adjuster Relationship Specialty Start Date End Date Litzy John [address] [place] [address] PCP - General 01/26/23
--- OUTSIDE RECORDS SUMMARY | 2024-11-14 09:35 | XMS_ITS | Encounter Summary ---
Author Organization [employer] Address [address] [place] [address] 7 [place] [address] Care Team Providers Care Database Security Administrator Name Role Phone Alvaro Litzy EDGAR Primary Care Provider [phone] Kb Tineo PharmD Unavailable [phone] Encounter Details Date Type Department Care Team (Latest Contact Info) Description 01/20/2022 Abstract [facility] Dental, Provider, DDS Social History Tobacco Use Types Packs/Day Years Used Date Smoking Tobacco: Never Assessed Sex and Gender Information Value Date Recorded Sex Assigned at Male 05/29/2022 10:20 AM EDT Legal Sex Male 10:20 AM EDT Gender Identity Male 05/29/2022 10:20 AM EDT Sexual Orientation Straight 05/29/2022 10 :20 AM EDT documented as of this encounter Plan of Treatment Upcoming Encounters Date Type Department Care Team (Late st Contact Info) Description 11/26/2024 2:00 PM EDT Office Visit [facility] [address] [place] [address] Drake, Tika, OD [address] [place] [address] 12/08/2024 1:00 PM EDT Medication Management [facility] [address] [place] [address] Kb Tineo, PharmD [address] [place] [address] documented as of this encounter Visit Diagnoses Not on filedocumented in this encounter Care Teams Database Security Administrator Relationship Specialty Start Date End Date Litzy John ANP [address] [place] [address] PCP - General Family Medicine 03/23/21 Kb Tineo, Keli [address] [place] [address] Pharmacist Internal Medicine 06/25/24 documented as of this encounter
--- OUTSIDE RECORDS SUMMARY | 2024-11-14 09:35 | XMS_ITS | Encounter Summary ---
Author Organization [employer] Address [address] [place] [address] [address] [place] [address] Care Team Providers Care Punch Press Operator Name Role Phone Alvaro Litzy EDGAR Primary Care Provider [phone] Kb Tineo PharmD Unavailable [phone] Encounter Details Date Type Department Care Team (Late st Contact Info) Description 08/21/2022 Abstract [facility] [address] [place] [address] Meryl Pettit, PharmD [address] [place] [address] Social History Tobacco Use Types Packs/Day Years [...] Description 11/26/2024 2:00 PM EDT Office Visit [facility] [address] [place] [address] Tika Juan, OD [address] [place] [address] 12/08/2024 1:00 PM EDT Medication Management [facility] [address] [place] [address] Kb Tineo, PharmD [address] [place] [address] documented as of this encounter Visit Diagnoses Not on filedocumented in this encounter Care Teams Punch Press Operator Relationship Specialty Start Date End Date Litzy John ANP [address] [place] [address] PCP - General Family Medicine 03/23/21 Kb Tineo, PharmD [address] [place] [address] Pharmacist Internal Medicine 06/25/24 documented as of this encounter
--- OUTSIDE RECORDS SUMMARY | 2024-11-14 09:35 | XMS_ITS | Encounter Summary ---
Author Organization [employer] Address [address] [place] [address] 7 [place] [address] Care Team Providers Care Nocturnist Name Role Phone Alvaro Litzy EDGAR Primary Care Provider [phone] Kb Tineo PharmD Unavailable [phone] Encounter Details Date Type Department Care Team (Latest Contact Info) Description 09/03/2020 Abstract [facility] Dental, Provider, DDS Social History Tobacco [...] Description 11/26/2024 2:00 PM EDT Office Visit [facility] OPT[facility] [address] [place] [address] Drake, Tika, OD [address] [place] [address] 12/08/2024 1:00 PM EDT Medication Management [facility] MED[facility] [address] [place] [address] Kb Tineo, PharmD [address] [place] [address] documented as of this encounter Visit Diagnoses Not on filedocumented in this encounter Care Teams Nocturnist Relationship Specialty Start Date End Date Litzy John ANP [address] [place] [address] PCP - General Family Medicine 03/23/21 Kb Tineo, Keli [address] [place] [address] Pharmacist Internal Medicine 06/25/24 documented as of this encounter
--- OUTSIDE RECORDS SUMMARY | 2024-11-14 09:35 | XMS_ITS | Encounter Summary ---
Author Organization [facility] Address [address] [place] [address] Care Team Providers Care Conical Mixer Name Role Phone Litzy John Primary Care Provider [phone] Encounter Details Date Type Department Care Team (Late st Contact Info) Description 03/20/2024 Telephone [facility] Phys[facility] Referral Services [address] [place] [address] Litzy John [address] [place] [address] Social History Tobacco Use Types Packs/Day Years Used Date Smoking Tobacco: Never Smokeless Tobacco: Never Comments:: Sex and Gender Information Value Date Recorded Sex Assigned at Not on file Legal Sex Male 4:40 PM EDT Gender Identity Not on file Sexual Orientation Not on file documented as of this encounter Plan of Treatment Upcoming Encounters Date Type Department Care Team (Late st Contact Info) Description 03/12/2025 1:00 PM EDT Office Visit [facility] [address] [place] [address] Help Desk Intern: Chantal Pisano MD [address] [place] [address] documented as of this encounter Visit Diagnoses Not on filedocumented in this encounter Care Teams Conical Mixer Relationship Specialty Start Date End Date Litzy John [address] [place] [address] PCP - General 01/26/23 documented as of this encounter
--- OUTSIDE RECORDS SUMMARY | 2024-11-14 09:35 | XMS_ITS | Encounter Summary ---
Author Organization [employer] Address [address] [place] [address] 7 [place] [address] Care Team Providers Care Exterior Door Installer Name Role Phone Litzy John HERVE Primary Care Provider [phone] Kb Tineo PharmD Unavailable [phone] Encounter Details Date Type Department Care Team (Late st Contact Info) Description 08/21/2022 Orders Only [facility] PEDS [address] [place] [address] Chantal Grant LPN Social History Tobacco Use Types Packs/Day Years [...] Description 11/26/2024 2:00 PM EDT Office Visit [facility] OPTOMETRY [address] [place] [address] Drake, Tika, OD [address] [place] [address] 12/08/2024 1:00 PM EDT Medication Management [facility] MEDICINE [address] [place] [address] Kb Tineo, PharmD [address] [place] [address] documented as of this encounter Visit Diagnoses Not on filedocumented in this encounter Care Teams Exterior Door Installer Relationship Specialty Start Date End Date Litzy John ANP [address] [place] [address] PCP - General Family Medicine 03/23/21 Kb Tineo PharmD [address] [place] [address] Pharmacist Internal Medicine 06/25/24 documented as of this encounter
--- OUTSIDE RECORDS SUMMARY | 2024-11-14 09:35 | XMS_ITS | Encounter Summary ---
Author Organization [employer] Address [address] [place] [address] [address]t [place] [address] Care Team Providers Care Lockstitch Tunnel Elastic Operator Name Role Phone Litzy John Primary Care Provider [phone] Kb Tineo PharmD Unavailable [phone] Encounter Details Date Type Department Care Team (Late Contact Info) Description 02/13/2023 Orders Only [facility] MEDICINE [address] [place], [place] [phone] Litzy John ANP [address] [place], [place] [phone] Elevated CK (Primary Dx) Social History Tobacco Use Types Packs/Day Years Used Date Smoking Tobacco: Never Smokeless Tobacco: Never Alcohol Use Standard Drinks/Week Comments Not Currently 0 (1 standard drink = 0.6 oz pur e alcohol) Depression Answer Date Recorded Patient Health Questionnaire-2 Score 0 01/04/2023 Sex and Gender Information Value Date Recorded Sex Assigned at Male 05/29/2022 10:20 AM EDT Legal Sex Male 10:20 AM EDT Gender Identity Male 05/29/2022 10:20 AM EDT Sexual Orientation Straight 05/29/2022 10 :20 AM EDT COVID-19 Exposure Response Date Recorded In the last 10 days, have yo u been in contact with someone who was confirmed or suspected to have Coronavirus/COVID-19? No / Unsure 01/17/2023 9:23 AM EDT documented as of this encounter Plan of Treatment Upcoming Encounters Date Type Department Care Team (Late Contact Info) Description 11/26/2024 2:00 PM EDT Office Visit [facility] OPT[facility]ET[facility] [address] [place] [address] Tika Juan, OD [address] [place] [address] 12/08/2024 1:00 PM EDT Medication Management [facility] MEDICINE [address] [place] [address] Kb Tineo, PharmDianne [address] [place] [address] documented as of this encounter Visit Diagnoses Diagnosis Elevated CK- Primary Other nonspecific abnormal serum enzyme levels documented in this encounter Care Teams Lockstitch Tunnel Elastic Operator Relationship Specialty Start Date End Date Litzy John ANP [address] [place] [address] PCP - General Family Medicine 03/23/21 Kb Tineo, PharmD [address] [place] [address] Pharmacist Internal Medicine 06/25/24 documented as of this encounter
--- OUTSIDE RECORDS SUMMARY | 2024-11-14 09:36 | XMS_ITS | Clinical Summary ---
Author Organization [facility] Address [address] [place] [address] Care Team Providers Care Shop Helper Name Role Phone Unavailable Primary Care Provider Unavailabl e Source Comments PLEASE NOTE, if this patient is a minor, it may be UNLAWFUL to discuss sensitive information that is contained in these records (such as FAMILY PLANNING, MENTAL HEALTH or SUBSTANCE ABUSE) with the minor patient's parent or other person without the patient's specific authorization.[facility] Immunizations Immunization Administration Dates Next Due Moderna COVID-19 Vaccine, re d cap blue label, 12+ Primary Series 06/08/2021,11/16/2020,10/19/2020 Social History Tobacco Use Types Packs/Day Years Used Date Smoking Tobacco: Never Assessed Social Connections Answer Date Recorded Social Connections and Isolation 0 10/19/2020 Financial Resource Strain Answer Date R ecorded Financial Resource Strain 0 2020 Stress Answer Date Recorded Stress 0 10/19/2020 Physical Activity Answer Date Recorded Physical Activity 0 10/19/2020 Food Insecurity Answer Date Recorded Food 0 10/19/2020 Transportation Needs Answer Date Record ed Transportation 0 10/19/2020 Housing Stability Answer Date Recorded Housing 0 10/19/2020 Safety and Environment Answer Date Dylon rded Safety 0 10/19/2020 Utilities Answer Date Recorded Utilities 0 10/19/2020 Employment Answer Date Recorded Employment 0 10/19/2020 Sex and Gender Information Value Date Recorded Sex Assigned at Not on file Legal Sex Male 11:25 AM PDT Gender Identity Not on file Sexual Orientation Not on file Plan of Treatment Health Maintenance Due Date Last Done Comments Anxiety Screening 1963 Diabetes Screening 1963 Hepatitis C Screening 1963 Lipid Screening 1963 Tobacco Screening 1963 HIV Screening 1978 Hypertension Screening (#1) 1981 Imm-DTaP/Tdap/Td (1 - Tdap) 1982 CT Colonography 2008 Colonoscopy 2008 Colorectal Cancer Screening 2008 FIT/gFOBT 2008 Fecal DNA 2008 Flexible Sigmoidoscopy 2008 Imm-Zoster, Recombinant (1 of 2) 2013 [id number] ( season) 2024 06/08/2021, 11/16/2020, 10/19/2020 Imm-Influenza (#1) 2024 Alcohol and Drug Screen 07/30/2024 Depression Annual Screen 07/30/2024 Insurance [place] Member Subscriber Plan / Payer (Ef fective 2020-Present) Name:Darin Hopkins Relation to Subscriber:Self Name:Darin Hopkins Payer ID:[id number] Group ID:Not on file Type:Medicaid Address: [address] SAFETY NET
--- OUTSIDE RECORDS SUMMARY | 2024-11-14 09:36 | XMS_ITS | Encounter Summary ---
Author Organization [employer] Address [address] [place] [address] Care Team Providers Care Information Architect Name Role Phone Alvaro Litzy EDGAR Primary Care Provider [phone] Kb Tineo PharmD Unavailable [phone] Encounter Details Date Type Department Care Team (Latest Contact Info) Description 11/10/2024 Travel Social History Tobacco Use Types Packs/Day Years Used Date Smoking Tobacco: Never Smokeless Tobacco: Never Alcohol Use Standard Drinks/Week Comments Not Currently 0 (1 standard drink = 0.6 oz pur e alcohol) Depression Answer Date Recorded Patient Health Questionnaire-9 Score 1 02/21/2024 Patient Health Questionnaire-9 Score 1 02/21/2024 Last PHQ-9: Questionnaire Data Not on file 0 02/21/2024 Housing Stability Answer Date Recorded What is your housing situation today? I have ashley reina 11/10/[address] you li ve. Do you have problems with any of the following? None of the above 11/10/2024 Food Insecurity Answer Date Recorded Within the past 12 months, y ou worried that your food would run out before you got money to buy more: Never True 11/10/2024 Within the past 12 months,th e food [...] t he electric, gas, oil or water [employer] threatened to shut off services in your home? No 11/10/2024 Depression Answer Date Recorded Patient Health Questionnaire-2 Score 0 02/21/2024 Internet Access Answer Date Recorded Internet Access Q1 Yes 03/31/2024 Internet Access Q2 Not on file 03/31/2024 Sex and Gender Information Value Date Recorded Sex Assigned at Male 05/29/2022 10:20 AM EDT Legal Sex Male 10:20 AM EDT Gender Identity Male 05/29/2022 10:20 AM EDT Sexual Orientation Straight 05/29/2022 10 :20 AM EDT documented as of this encounter Plan of Treatment Upcoming Encounters Date Type Department Care Team (Late st Contact Info) Description 11/26/2024 2:00 PM EDT Office Visit [facility] OPTOMETRY [address] [place] [address] Darke, Tika, OD [address] [place] [address] 12/08/2024 1:00 PM EDT Medication Management [facility] MEDICINE [address] [place] [address] Kb Tineo, PharmD [address] [place] [address] documented as of this encounter Visit Diagnoses Not on filedocumented in this encounter Additional Health Concerns Assessment Noted Time PHQ-9 Depression Total Score: 1 02/21/20 24 11:15 AM EDT documented as of this encounter Care Teams Information Architect Relationship Specialty Start Date End Date Litzy John ANP [address] [place] [phone] PCP - General Family Medicine 03/23/21 Kb Tineo, AsifD [address] [place] [phone] Pharmacist Internal Medicine 06/25/24 documented as of this encounter
--- OUTSIDE RECORDS SUMMARY | 2024-11-14 09:36 | XMS_ITS | Clinical Summary ---
Author Organization [employer] Address [address] [place] [address] 7[address] [place] [address] Care Team Providers Care Car Ferrier Name Role Phone Alvaro Litzy EDGAR Primary Care Provider [phone] Kb Tineo PharmD Unavailable [phone] Allergies Active Allergy Reactions Criticality Noted Date Comments Empagliflozin Rash Low 06/06/2022 Other reaction(s): Rash Ezetimibe Abdominal Pain 06/25/2024 Self discontinued due to abdominal pain and exacerbation of GERD symptoms Statins 06/09/2022 Other reaction(s): Muscle pain Medications ProAir HFA 108 (90 Base) MCG/ACT inhaler INHALE 2 PUFFS EVERY 4 TO 6 HOURS NEEDED 022 Active polyvinyl alcohol (Liquifilm Tears) 1.4 % ophthalmic solution PLACE 1 DROP INTO THE AFFECTED EYE(S) 4 TO 6 TIMES A DAY 023 Active famotidine (Pepcid) 20 MG tablet Take 20 mg by mouth at bedtime. 024 Active glipiZIDE (Glucotrol) 10 MG tabletIndication s:Hypertension associated with diabetes ([facility]/HCC) TAKE 2 TABLET BY MOUTH IN THE MORNING BEFORE MEAL 180 tablet 3 024 Active Continuous Glucose Mortgage Assistant (FreeStyle Gisell 2 [place]) deviceIndication s:Type 2 diabetes mellitus with hyperlipidemia (CMS/HCC) ([facility]) Scan sensor every 8 hours 1 each 024 Active glucose blood (FreeStyle Precision Connor Test) test stripIndications :Type 2 diabetes mellitus with hyperlipidemia (CMS/HCC) ([facility]) Use to test blood sugar 5 times daily 100 each 12 024 2024 Active D3 Super Strength 50 MCG (2000 UT) capsule TAKE 1 CAPSULE BY MOUTH EVERY DAY 90 capsule 3 024 Active FREESTYLE LITE test stripIndications :Type 2 diabetes mellitus without complications ([facility]/HCC) Use to test blood sugar 3 times daily 100 each 12 024 2024 Active Blood Glucose Monitoring Suppl (FreeStyle [place] Lite) w/Device kitIndications:T ype 2 diabetes mellitus without complications ([facility]/HCC) Use to test blood sugar 3 times daily 1 kit 024 Active TRUEplus Lancets 33G miscIndications: Type 2 diabetes mellitus without complications ([facility]) USE DIRECTED TO TEST BLOOD SUGAR THREE TIMES DAILY 100 each 3 024 Active Alcohol Swabs (Alcohol Prep) 70 % padsIndications: Type 2 diabetes mellitus without complications ([facility]) USE TO CLEAN SKIN AND CHECK BLOOD SUGAR THREE TIMES DAILY 100 each 3 024 Active Continuous Glucose Sensor (FreeStyle Gisell 2 Sensor) miscIndications: Type 2 diabetes mellitus with hyperlipidemia (CMS/HCC) ([facility]) USE DIRECTED TO TEST BLOOD SUGAR. CHANGE EVERY 14 DAYS 2 each 3 025 Active Semaglutide, 2 MG/DOSE, (Ozempic, 2 MG/DOSE,) 8 MG/3ML solution pen-injectorIndi cations:Type 2 diabetes mellitus with hyperlipidemia (CMS/HCC) ([facility]) Inject 0.75 mL (2 mg) under the skin 1 (one) time per week. 3 mL 5 025 Active insulin glargine (Lantus SoloStar) 100 UNIT/ML penIndications:T ype 2 diabetes mellitus with hyperlipidemia (CMS/HCC) ([facility]) INJECT 36 UNITS SUBCUTANEOUSLY AT BEDTIME DIRECTED 15 mL 3 025 Active aspirin 81 MG chewable tabletIndication s:Type 2 diabetes mellitus with hyperlipidemia (CMS/HCC) ([facility]/HCC) Take 1 tablet by mouth daily 90 tablet 3 025 Active amLODIPine (Norvasc) 5 MG tabletIndication s:Hypertension associated with diabetes ([facility]) TAKE 1 TABLET BY MOUTH EVERY DAY 90 tablet 3 025 Active insulin pen needle (BD Pen Needle Latosha U/F) 32G x 4 mm miscIndications: Type 2 diabetes mellitus with hyperlipidemia (CMS/HCC) ([facility]) USE FOUR TIMES DAILY WITH INSULIN 100 each 5 025 Active tamsulosin (Flomax) 0.4 MG 24 hr capsuleIndicatio ns:Benign prostatic hyperplasia without urinary obstruction TAKE 1 CAPSULE BY MOUTH EVERY DAY IN THE MORNING 90 capsule 1 025 Active insulin lispro (HumaLOG) 100 UNIT/ML injectionIndicat ions:Type 2 diabetes mellitus with hyperlipidemia (CMS/HCC) ([facility]) INJECT 0 TO 12 UNITS SUBCUTANEOUSLY BEFORE MEALS DIRECTED PER SLIDING SCALE 15 mL 2 025 Active tadalafil (Cialis) 5 MG tabletIndication s:Benign prostatic hyperplasia without urinary obstruction Take 1 tablet (5 mg) by mouth Once per day. 90 tablet 1 025 Active evolocumab (Repatha SureClick) 140 MG/ML injectionIndicat ions:Type 2 diabetes mellitus with hyperlipidemia (CMS/HCC) ([facility]),Statin intolerance,Card iovascular event risk Inject 1 mL (140 mg) under the skin every 14 (fourteen) days. 2.1 mL 11 025 Active tadalafil (Cialis) 5 MG tablet Take 1 tablet by mouth in the morning. 023 2024 Discontinued(R eorder (will not trigger notification to Pharmacy)) tamsulosin (Flomax) 0.4 MG 24 hr capsuleIndicatio ns:Benign prostatic hyperplasia without urinary obstruction TAKE 1 CAPSULE BY MOUTH EVERY MORNING 90 capsule 1 024 2024 Discontinued insulin lispro (HumaLOG) 100 UNIT/ML injectionIndicat ions:Type 2 diabetes mellitus with hyperlipidemia (CMS/HCC) ([facility]) INJECT 0 TO 12 UNITS SUBCUTANEOUSLY BEFORE MEALS DIRECTED PER SLIDING SCALE 15 mL 2 024 2024 Discontinued Active Problems Problem Noted Date Diagnosed Date Tooth sensitivity 03/25/2024 Keratoconjunctivitis sicca 02/06/2024 Elevated creatine kinase 02/06/2024 Leukopenia 02/06/2024 Missing teeth, acquired 09/04/2023 Right sided sciatica 02/09/2023 Assessment & Plan (02/09/2023 3:20 PM EDT): Possibly pain described is from sciatica vs muscular in nature w no alarming features and normal neuro exam. -warm compresses in area of pain. -Tylenol PRN for mild pain. -NSAIDs 400 mg PRN for moderate pain -advise to return to clinic if no improvement in next week for further evaluation. 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, associated with type 2 diabetes mellitus 11/24/2022 Combined form of age-related cataract, both eyes 11/24/2022 Cardiovascular event risk 09/04/2022 Overview (09/04/2022): 10-yr ASCVD risk 30.2% 05/2022 Environmental and seasonal allergies 08/21/2022 Weak urinary stream 08/21/2022 Muscle pain 06/19/2022 Heartburn 01/14/2018 Hypercholesterolemia 05/12/2014 Pinguecula of both eyes 05/12/2014 Presbyopia of both eyes 05/12/2014 Hyperlipidemia 12/06/2012 Hypoalphalipoproteinemia 12/06/2012 Hypertension 07/12/2012 Assessment & Plan (02/09/2023 3:18 PM EDT): Today BP 158/87 and after manual recheck 142/90. Pt reports taking his BP meds regularly (Amlodipine at night) and states home BP never above 140/90. Reports at dentist today his BP was 136/80. Possibly elevated BP is secondary to pain. -advise pt to check home BP 3 times / wk and bring readings to PCP at next appt already scheduled for 2 mo. Keratitis 07/12/2012 Low back pain 04/03/2012 Benign prostatic hyperplasia without urinary obs truction 12/21/2011 Shoulder joint pain 12/21/2011 Type 2 diabetes mellitus with hyperlipidemia ([facility]/HCC) 12/18/2011 Overview (02/21/2024): Lab Results Component Value Date HGBA1C 11.3 (A) 02/21/2024 HGBA1C 10.1 (A) 11/22/2023 HGBA1C 9.6 (A) 04/12/2023 A1c remains far above goal </= 7.0 Taking all meds except mealtime insulin. Will refer to CDTM. CGM pending PA approval. Not taking 6 units mealtime insulin w/ breakfast & dinner (Rx to adds 2 units for every 50 above 200) - does not want to take at this time, would prefer to see CDTM b/f re-starting or adding additional PO meds. Cont this and Cont Lantus 46 units daily humalog 6 units BID (not taking, would prefer to avoid) Glipizide 10mg 2 tabs AM Ozempic 1mg every 7d Subcutaneously Had genital rash w/ SGLT2i, trialed x2 Intolerant to statin w/ muscle pain and elevated CK Not on ACEi, yes on ASA (had side effects w/ ARB, not clear ACEi tried) eye exam: 05/20/2022 mild NPDR with subtle macular edema in both eyes. Trulicity was trialed in past and caused GI side effects but we're not sure quite what. Likely bloating. Did have diarrhea w/ metformin. Tolerating ozempic well. Resolved Problems Problem Noted Date Diagnosed Date Resolved Date Increased frequency of urination 08/21/2022 09/04/2022 Encounters Date Type Department Care Team Description 11/10/2024 3:00 PM EDT Office Visit [facility] MEDICINE [address] [place] [address] Litzy John ANP Screening for malignant neoplasm of colon (Primary Dx); Screening for colon cancer; Benign prostatic hyperplasia without urinary obstruction; Type 2 diabetes mellitus with hyperlipidemia (CMS/HCC) ([facility]/HCC); Elevated creatine kinase; Statin intolerance; Healthcare maintenance; Cardiovascular event risk 11/10/2024 Travel 11/04/2024 Refill [facility] MEDICINE [address] [place], [place] [phone] Litzy John ANP Type 2 diabetes mellitus with hyperlipidemia (CMS/HCC) ([facility]/HCC) 11/02/2024 Refill [facility] MEDICINE [address] [place] [address] Litzy John ANP Benign prostatic hyperplasia without urinary obstruction 10/14/2024 Refill [facility] PEDS [address] [facility] [place] [address] Litzy John ANP Type 2 diabetes mellitus with hyperlipidemia (CMS/HCC) ([facility]) 09/28/2024 Refill [facility] [address] [place] [address] Litzy John ANP Hypertension associated with diabetes (CMS/HCC) ([facility]/HCC) 09/26/2024 3:00 PM EST Office Visit [facility] ADULT DENTAL [address] [place] [address] Sandra Sanz Dental plaque (Primary Dx); Tooth sensitivity 09/26/2024 Travel from Last 3 Months Immunizations Name Administration Dates Next Due Hep A, Adult 04/03/2012,07/27/2011 Hep B, adult 04/03/2012 HepB-CpG 09/26/2024,08/11/2024 Influenza injectable quadriv alent IIV4 with preservative 04/17/2018,04/30/2017,05/15/2016,04/26 Influenza injectable quadriv alent preservative free 04/12/2023,04/11/2022,07/07/2021,05/12,05/27/2019 Influenza, IIV3, injectable 05/04/2014 Influenza, Split (incl. josé fied surface antigen) 07/15/2013,04/03/2012 Influenza, seasonal, injecta ble, preservative free 06/23/2024 MMR 07/27/2011 Moderna Covid-19 Vaccine 12+ 02/24/2022 Moderna Covid-19 Vaccine 6+ Bivalent 09/04/2022 Pfizer Covid-19 Vaccine 12+ 08/11/2024, Pneumococcal Conjugate PCV 20 06/23/2024 Pneumococcal Polysaccharide PPSV23 04/30/2009 Tdap 07/06/2015 Zoster, Recombinant 08/11/2020,05/24/2020 Family History Medical History Relation Name Comments Hypertension Mother Diabetes Sister Relation Name Status Comments Mother Sister Social History Tobacco Use Types Packs/Day Years Used Date Smoking Tobacco: Never Smokeless Tobacco: Never Tobacco Cessation:Counseling Given: Not Answered Alcohol Use Standard Drinks/Week Comments Not Currently [...] Orientation Straight 05/29/2022 10 :20 AM EDT Last Filed Vital Signs Vital Sign Reading Time Taken Comments Blood Pressure 139/82 11/10/2024 3:08 PM EDT Pulse 90 11/10/2024 3:08 PM EDT Temperature 36.8 ??C (98.3 ??F) 11/10/2024 3:08 PM ED T Respiratory Rate 14 11/10/2024 3:08 PM EDT Oxygen Saturation 96% 11/10/2024 3:08 PM EDT Inhaled Oxygen Concentration - - Weight 86 kg (189 lb 9.6 oz) 11/10/2024 3:08 PM EDT Height 175.3 cm (5' 9 ) 02/21/2024 11:07 AM EDT Body Mass Index 28 02/21/2024 11:07 AM EDT Plan of Treatment Upcoming Encounters Date Type Department Care Team (Late st Contact Info) Description 11/26/2024 2:00 PM EDT Office Visit [facility] OPTOMETRY [address] [place] [address] Drake, Tika, OD [address] [place] [address] 12/08/2024 1:00 PM EDT Medication Management [facility] MEDICINE [address] [place] [address] Kb Tineo, PharmD [address] [place] [address] Health Maintenance Due Date Last Done Comments CT Colonography 1963 FIT DNA/Cologuard 1963 FIT 1963 FOBT 1963 HIV Screening 1963 Sigmoidoscopy 1963 Diabetes: Foot Exam 1973 Alcohol/Substance Use Screening 1975 Hepatitis C Screening 1981 RSV Patients and Patients Aged 60 years or older (1 - Risk 60-74 years 1-dose series) 2023 Colonoscopy 12/17/2023 12/16/2013 Colorectal Cancer Screening 12/17/2023 Diabetes: Urine Protein Screening 01/06/2024 01/05/2023, 11/21/2021, 02/25/2021, Additional history exists Dental Oral Exam 09/26/2024 03/25/2024, 01/05/2023 Lipid Panel 11/21/2024 11/22/2023, 06/0 03/2023, 06/16/2022, Additional history exists Diabetes: Hemoglobin A1C 12/24/2024 025, 06/23/2024, 02/21/2024, Additional history exists Depression Screening 02/20/2025 02/21/2024, 02/21/20 Dental X-Ray: Bitewings 03/26/2025 03/25/2024, 01/05 Dental Prophylaxis 03/27/2025 09/26/2024, 0 03/25/2024, 09/04/2023, Additional history exists Eye Exam 05/27/2025 05/27/2024, 04/30, 05/27/2024, Additional history exists DTaP/Tdap/Td Vaccines (2 - Td or Tdap) 07/06/2025 07/06/2015 SDOH Screening 11/10/2025 11/10/2024 Tobacco Screening 11/10/2025 11/10/2024 Dental X-Ray: Full Mouth 03/26/2027 03/25/2024, 10/2020 Hepatitis A Vaccines Aged Out 04/03/2012, 07/27/20 11 No longer eligible based on patient's age to complete this topic Zoster Vaccines Completed 08/11/2020, 05/24/2020 Influenza Vaccine Completed 06/23/2024, , 04/11/2022, Additional history exists Pneumococcal Vaccine: 50+ Years Completed 06/23/2024, 04/30/2009 COVID-19 Vaccine Completed 08/11/2024, 04/2024, 09/04/2022, Additional history exists Hepatitis B Vaccines Completed 09/26/2024, 08/11/2024, 04/03/2012 HIB Vaccines Aged Out No longer eligi ble based on patient's age to complete this topic HPV Vaccines Aged Out No longer eligi ble based on patient's age to complete this topic IPV Vaccines Aged Out No longer eligi ble based on patient's age to complete this topic Meningococcal Vaccine Aged Out No idalia alissa eligible based on patient's age to complete this topic RSV under 20 months Aged Out No longe r eligible based on patient's age to complete this topic Rotavirus Vaccines Aged Out No longer eligible based on patient's age to complete this topic Procedures Procedure Name Priority Date/Time Associated Diagnosis Comments CASE PRESENTATION, DETAILED AND EXTENSIVE TREATMENT PLANNING Routine 09/26/2024 3:00 PM EST Dental plaque ORAL HYGIENE INSTRUCTIONS Routine 09/26/2024 3:00 PM EST Dental plaque PROPHYLAXIS - ADULT Routine 09/26/2024 3 :00 PM EST Dental plaque POCT GLYCATED HEMOGLOBIN, TOTAL Routine 09/26/2024 1:55 PM EST Type 2 diabetes mellitus with hyperlipidemia (CMS/HCC) ([facility]) INTRAORAL - COMPLETE SERIES OF RADIOGRAPHIC IMAGES Routine 03/25/2024 1:00 PM EDT Tooth sensitivity Missing teeth, acquired Dental plaque PERIODIC ORAL EVALUATION - ESTABLISHED PATIENT Routine 03/25/2024 1:00 PM EDT LIPID PANEL, STANDARD Routine 11/22/2023 10:28 AM EDT Type 2 diabetes mellitus with hyperlipidemia (CMS/HCC) (CMS/HCC) ALBUMIN, RANDOM URINE W/CREATININE Routine 01/05/2023 10:29 AM EDT HM COLONOSCOPY Routine 12/16/2013 from Last 3 Months or Most Recently Relevant to Health Maintenance Results * (ABNORMAL) POCT HGB A1C (09/26/2024 1:55 PM EST) Hemoglobin A1C 7.0(A) 4.0 - 6.0 % QC Media Lot # [id number] Lot# Expiration Date Blood 09/26/2024 1:55 PM EST [facility] POINT OF CARE TEST ENTER/EDIT OR DERABLES Final Result * (ABNORMAL) Lipid Panel, Standard (11/22/2023 10:28 AM EDT) Triglycerides 103 <150 mg/dL [facility] Comment:Desirable Triglyceri de: less than 150 mg/dLBorderline High Triglyceride 150-199 mg/dLHigh Triglyceride: 200-499 mg/dLVery High Triglyceride: greater than or equal to 5OO mg/dL Cholesterol 175 <200 mg/dL [facility] Comment:Desirable Cholestero l: less than 200 mg/dLBorderline High Cholesterol: 200-239 mg/dLHigh Cholesterol: greater than 239 mg/dL LDL Cholesterol Calculated 114(H) <100 mg/dL [facility] Comment:Desirable LDL: less than 100 mg/dLNear Optimal/Above Optimal LDL: 110- 129 mg/dLBorderline High LDL: 130-159 mg/dLHigh LDL: 160-189 mg/dLVery High LDL: greater than or equal to 190 mg/dL HDL Cholesterol 41 >40 mg/dL [facility] Comment:Desirable HDL: great er than 40 mg/dL Note: This HDL assay may give artificially low results in patients with liver disease. Blood Venous blood specimen / Unknown 11/22/2023 10:28 AM EDT 11/22/2023 11:26 AM EDT Litzy John ANP LAB BLOOD ORDERABLES Final Resul t Performing Organization Address City/[facility] Co de Phone Number [facility] [address] [place] [address] [phone] * Albumin, Random Urine W/Creatinine (01/05/2023 10:29 AM EDT) Creatinine, Random Urine 260 20 - 320 mg/dL [facility] [place] [facility] Albumin, Urine 1.0 See Note: mg/dL [facility] [place] [facility] Comment: Reference Range: Reference Range Not established Albumin/Creatinin e Ratio, Random Urine 4 <30 mcg/mg creat [facility] [place] [facility] Comment: The ADA defines abnormalities in albumin excretion as follows: Albuminuria Category ?Result (mcg/mg creatinine) Normal to Mildly increased ?? <30 Moderately increased ? 30-299 Severely increased ? > OR = 300 The ADA recommends that at least two of three specimens collected within a 3-6 month period be abnormal before considering a patient to be within a diagnostic category. 01/05/2023 10:2 9 AM EDT 01/05/2023 10:30 AM EDT Narrative [facility] - 01/10/2023 3:14 PM EDT FASTING:YES FASTING: YES Litzy John ANP LAB URINE ORDERABLES Final Resul t Performing Organization Address City/[facility] Co de Phone Number [facility] [address], [place] [address] [facility] [place] [facility] [address] [place] [address] * Hm Colonoscopy (12/16/2013) Colonoscopy Normal Normal us Historical Provider HEALTH MAINTENANCE Final Result from Last 3 Months or Most Recently Relevant to Health Maintenance Insurance HEALTH LIMITED [place] ADULT DENTAL - [facility] FULL (MEDICAID) Care Teams Car Ferrier Relationship Specialty Start Date End Date Litzy John, HERVE [address] [place] [address] PCP - General Family Medicine 03/23/21 Kb Tineo, AsifD [address] [place] [address] Pharmacist Internal Medicine 06/25/24
--- OUTSIDE RECORDS SUMMARY | 2024-11-14 09:36 | XMS_ITS | Encounter Summary ---
Author Organization [employer] Address [address] [facility] 7t [place] [address] Care Team Providers Care Automotive Design Drafter Name Role Phone Litzy John Primary Care Provider [phone] Kb Tineo PharmD Unavailable [phone] Reason for Visit * Reason Onset Date Comments Nurse Triage 06/25/2023 Encounter Details Date Type Department Care Team ([facility] st Contact Info) Description 06/25/2023 Telephone [facility] [address] [place], [place] [phone] Litzy John ANP [address] [place], [place] [phone] Nurse Triage Social History Tobacco Use Types [...] - Carin De La Cruz RN - 06/25/2023 10:57 AM EST Triage call Pt reports excessive diarrhea Pt unable to count how many episodes in a day. Pt reports 06/20/23 had a crown put on a tooth and in brim plater 06/21/23 Pt started with episodes of diarrhea and hasn't stopped. Pt reports that the dental work was the only thing done differently. Pt denies abdominal pain, neg for fever, temp is 97.1, hasn't traveled outside the country. Pt is drinking adequate liquids and continues to eat but, eating doesn't trigger diarrhea it just happens all day long. Diarrhea is described as watery, brownish-yellow in color. Pt is advised to come to [facility] today, open till 8pm. Pt is advised will probably be given an apt to come back later in afternoon and Pt agrees with this disposition. Insurance is verified as active prior to booking. Protocol Used: Diarrhea (Adult) Protocol-Based Disposition: See in Office or Video Visit Today Video visit not offered Positive Triage Question: * Severe diarrhea (e.g., 7 or more times / day more than normal) and present > 24 hours (1 day) * All higher-acuity triage questions were negative Care Advice Discussed: * Reassurance and Education - Diarrhea * Fluid Therapy During Severe Diarrhea * Food and Nutrition During Severe Diarrhea * Wash Your Hands * Expected Course * Reasons To Call Back - Signs of dehydration occur (e.g., no urine over 12 hours, very dry mouth, lightheaded, etc.) - Severe diarrhea lasts more than a day - Diarrhea lasts over 7 days - You become worse * Telephone Encounter - Yary Scott - 06/25/2023 10:35 AM EST Symptom: Diarrhea Outcome: Schedule an appointment to be seen within 24 hours Reason: Caller denied all higher acuity questions The caller accepted this outcome Please contact pt at [phone] documented in this encounter Plan of Treatment Upcoming Encounters Date Type Department Care Team (Late st Contact Info) Description 11/26/2024 2:00 PM EDT Office Visit [facility] [address] [place] [address] Tika Juan, OD [address] [place] [address] 12/08/2024 1:00 PM EDT Medication Management [facility] [address] [place] [address] Kb Tineo, PharmD [address] [place] [address] documented as of this encounter Visit Diagnoses Not on filedocumented in this encounter Care Teams Automotive Design Drafter Relationship Specialty Start Date End Date Litzy John ANP [address] [place] [address] PCP - General Family Medicine 03/23/21 Kb Tineo, PharmD [address] [place] [id number] Pharmacist Internal Medicine 06/25/24 documented as of this encounter
--- OUTSIDE RECORDS SUMMARY | 2024-11-14 09:36 | XMS_ITS | Encounter Summary ---
Author Organization [employer] Address [address] [facility] 7t [place] [address] Care Team Providers Care Paper Guillotine Operator Name Role Phone Litzy John Primary Care Provider [phone] Kb Tineo PharmD Unavailable [phone] Reason for Visit * Reason Comments follow up extended Encounter Details Date Type Department Care Team (Latest Contact Info) Description 11/10/2024 3:00 PM EDT Office Visit [facility] MEDICINE [address] [place], [place] [phone] Litzy John ANP [address] [place], [place] [phone] Screening for malignant neoplasm of colon (Primary Dx); Screening for colon cancer; Benign prostatic hyperplasia without urinary obstruction; Type 2 diabetes mellitus with hyperlipidemia (CMS/HCC) (CMS/HCC); Elevated creatine kinase; Statin intolerance; Healthcare maintenance; Cardiovascular event risk Social History Tobacco Use Types Packs/Day Years [...] the past 12 months, has t he [employer], gas, oil or water company threatened to [...] AM EDT documented as of this encounter Last Filed Vital Signs Vital Sign Reading [...] 9.6 oz) 11/10/2024 3:08 PM EDT Height - - Body Mass Index 28 02/21/2024 11:07 AM EDT documented in this encounter Progress Notes * HERVE Castillo - 11/10/2024 3:00 PM EDT Subjective Patient ID: Darin Hopkins is a 59 y.o. male who presents for follow up extended. HPI Here today for follow-up DM/BPH. Lab Results Component Value Date HGBA1C 7.0 (A) 09/26/2024 HGBA1C 8.1 (A) 06/23/2024 HGBA1C 11.3 (A) 02/21/2024 Meeting with [facility] pharmacist Kb Tineo, next appt 12/08/24. The 10-year ASCVD risk score (Ar HERNANDEZ, et al., 2019) is: 28.9% Values used to calculate the score: Age: 59 years Sex: Male Is Non- : Yes Diabetic: Yes Tobacco smoker: No Systolic Blood Pressure: 139 mmHg Is BP treated: Yes HDL Cholesterol: 41 mg/dL Total Cholesterol: 175 mg/dL He is intolerant to statins and had muscle pain and weakness with associated elevated CK. He also had abdominal pain and worsening GERD with zetia (tried 09/2022-04/2024, earlier tried 02/2015-06/2015). I would like him to be on PCSK9i given intolerance to statins and zetia, h/o DM w/ hyperlipidemia and high ASCVD risk. Will pursue PA. Lab Results Component Value Date CKTOTAL 478 (H) 11/22/2023 CKTOTAL 643 (H) 01/05/2023 He is unable to attend specialist appts in [place] (where his insurance is accepted) for rheum eval (sent d/t CK elevation). Denies muscle pain today, will recheck CK. BPH: was following w/ urology but now unable to d/t insurance. Taking cialis 5mg daily and tamsulosin 0.4mg daily. Sx moderately controlled but still w/ urinary frequency intermittently. Would like to try a new med if one were available. Non-smoker Review of Systems Constitutional: Negative for fatigue, fever and unexpected weight change. HENT: Negative for sore throat. Respiratory: Negative for chest tightness, shortness of breath and wheezing. Gastrointestinal: Negative for constipation. Endocrine: Negative for polydipsia, polyphagia and polyuria. Genitourinary: Positive for decreased urine volume and frequency. Negative for difficulty urinating, dysuria, flank pain, hematuria, penile pain and urgency. Musculoskeletal: Negative for back pain. Skin: Negative for rash. Neurological: Negative for headaches. Psychiatric/Behavioral: Negative for sleep disturbance. The patient is nervous/anxious. Objective BP 139/82 (BP Location: Left arm, Patient Position: Sitting, BP Cuff Size: Adult) Pulse90 Temp 98.3 ??F (36.8 ??C) (Temporal) Resp 14 Wt 189 lb 9.6 oz (86 kg) SpO2 96% BMI 28.00 kg/m?? Physical Exam Vitals reviewed. Constitutional: General: He is not in acute distress. Appearance: Normal appearance. He is not ill-appearing. HENT: Head: Normocephalic and atraumatic. Eyes: General: No scleral icterus. Extraocular Movements: Extraocular movements intact. Pupils: Pupils are equal, round, and reactive to light. Cardiovascular: Rate and Rhythm: Normal rate and regular rhythm. Heart sounds: No murmur heard. Pulmonary: Effort: Pulmonary effort is normal. No accessory muscle usage or respiratory distress. Musculoskeletal: Right lower leg: No edema. Left lower leg: No edema. Neurological: Mental Status: He is alert and oriented to person, place, and time. Gait: Gait normal. Psychiatric: Mood and Affect: Mood normal. Behavior: Behavior normal. Assessment/Plan Diagnoses and all orders for this visit: Screening for malignant neoplasm of colon Screening for colon cancer Referred previously to GI due to stool change however patient reports this was diet related and hasresolved. Will send for Cologuard given he is unable to travel at present to specialist elsewhere in the state. - Cologuard?? colon cancer screening Benign prostatic hyperplasia without urinary obstruction He will continue Cialis and tamsulosin daily I will look to see if there is any additional researchdoes support other medication including possibly adding finasteride. He continues to have some weakstream and urinary frequency. - PSA,Total; Future - tadalafil (Cialis) 5 MG tablet; Take 1 tablet (5 mg) by mouth Once per day. Type 2 diabetes mellitus with hyperlipidemia (CMS/HCC) (CMS/HCC) A1c is at goal. Continue to follow with CDE TM He is intolerant to statins and had muscle pain and weakness with associated elevated CK. He also had abdominal pain and worsening GERD with zetia (tried 09/2022-04/2024, earlier tried 02/2015-06/2015). I would like him to be on PCSK9i given intolerance to statins and zetia, h/o DM w/ hyperlipidemia and high ASCVD risk. Will pursue PA. Foot exam at follow-up. Lab Results Component Value Date HGBA1C 7.0 (A) 09/26/2024 PMH: Type 2 DM, HTN, hyperlipidemia, BPH, mild nonproliferative diabetic retinopathy with macular edema, sciatica Medication trial hx: Jardiance- rash Statin- muscle pain Ezetimibe- abdominal pain, exacerbation of GERD Losartan- discontinued 2021 due to nasal congestion and flushing DM Current Pharmacologic Therapy: Glipizide 20 mg (2 x 10 mg) po QAM before a meal Lantus 36 units subcutaneously at bedtime (actual use: 30-36 units) Humalog 0-12 units subcutaneously three times daily before meals as directed by sliding scale (actual use: varies) Ozempic 2 mg subcutaneously once weekly Additional recommendations per ADA: On aspirin: Yes, for primary prevention On statin: No (does not tolerate statin or ezetimibe, referral to cardiology) On ACEI/ARB: No (discontinued 2021 d/t intolerance) Dental Exam in the past 6 mo: No ([facility] Dental scheduled 09/26/2024) Eye Exam in the past 12 mo: Yes ([facility] Eye care, 05/27/24 mild nonproliferative diabetic retinopathy with macular edema) - Lipid Panel, Standard; Future - Comprehensive Metabolic Panel; Future - Albumin, Random Urine W/Creatinine - CBC auto differential; Future Elevated creatine kinase - Creatine Kinase, Total; Future Statin intolerance Healthcare maintenance - Hepatitis C Antibody with Reflex to HCV, RNA, Quantitative, Real-Time PCR; Future Future Appointments Date Time Provider Department Center 11/26/2024 2:00 PM Tika Juan, [facility] 12/08/2024 1:00 PM Asif PerezD MEDICINE [facility] documented in this encounter Plan of Treatment Upcoming Encounters Date Type Department Care Team (Late st Contact Info) Description 11/26/2024 2:00 PM EDT Office Visit [facility] OPTOM[facility] [address] [place] [address] Tika Juan, OD [address] [place] [address] 12/08/2024 1:00 PM EDT Medication Management [facility] MEDICINE [address] [place] [address] Kb Tineo, PharmD [address] [place] [address] Scheduled Orders Name Type Priority Associated Diagnoses Orde r Schedule Cologuard?? colon cancer screening Lab Routine Screening for colon cancer Ordered: 11/10/2024 PSA,Total Lab Routine Benign prostatic hyperplasia without urinary obstruction Expected: 11/10/2024 (Approximate), Expires: 11/10/2025 Lipid Panel, Standard Lab Routine Type 2 diabetes mellitus with hyperlipidemia (CMS/HCC) (CMS/HCC) Expected: 11/10/2024 (Approximate), Expires: 11/10/2025 Comprehensive Metabolic Panel Lab Routine Type 2 diabetes mellitus with hyperlipidemia (CMS/HCC) (CMS/HCC) Expected: 11/10/2024 (Approximate), Expires: 11/10/2025 Albumin, Random Urine W/Creatinine Lab Routine Type 2 diabetes mellitus with hyperlipidemia (CMS/HCC) (CMS/HCC) Ordered: 11/10/2024 Creatine Kinase, Total Lab Routine Elevated creatine kinase Expected: 11/10/2024 (Approximate), Expires: 11/10/2025 CBC auto differential Lab Routine Type 2 diabetes mellitus with hyperlipidemia (CMS/HCC) (CMS/HCC) Expected: 11/10/2024 (Approximate), Expires: 11/10/2025 Hepatitis C Antibody with Reflex to HCV, RNA, Quantitative, Real-Time PCR Lab Routine Healthcare maintenance Expected: 11/10/2024 (Approximate), Expires: 11/10/2025 documented as of this encounter Visit Diagnoses Diagnosis Screening for malignant neoplasm of colon- Primary Screening for colon cancer Special screening for malignant neoplasms, colon Benign prostatic hyperplasia without urinary obstruction Type 2 diabetes mellitus with hyperlipidemia (CMS/HCC) (CMS/HCC) Elevated creatine kinase Other nonspecific abnormal serum enzyme levels Statin intolerance Healthcare maintenance Cardiovascular event risk documented in this encounter Additional Health Concerns Assessment Noted Time PHQ-9 Depression Total Score: 1 02/21/20 24 11:15 AM EDT documented as of this encounter Care Teams Paper Guillotine Operator Relationship Specialty Start Date End Date Litzy John ANP [address] [place] [address] PCP - General Family Medicine 03/23/21 Kb Tineo, PharmD [address] [place] [id number] Pharmacist Internal Medicine 06/25/24 documented as of this encounter
--- OUTSIDE RECORDS SUMMARY | 2024-11-14 09:36 | XMS_ITS ---
Author Organization [facility] Address [address] [place] [phone] Care Team Providers Care Automotive Technician Name Role Phone Rell Gomes Primary Care Provider Renard Salas [phone] REASON FOR VISIT colon screening Encounters Encounter Location Date Provider Diagnosis [facility] [address] [place] [phone] 03/12/2024 Renard Chiu Plan Of Treatment No Information Progress Notes * LIEN BHATTDOB:1965 (59 yo M)Acc No.[id number]:03/12/2024 Progress Notes Patient:?LIEN BHATT Provider:?Renard Chiu MD :1965???Age:58 Y???Sex:Male Jemal e:03/12/2024 Address:[address] [place] [address] Pcp:Rell Gomes Subjective: * Chief Complaints: * ???1. Colon screening. * Medical History:? Objective: * Vitals:? Assessment: Plan: * Treatment: * * The named appointment provid er may or may not be the originator of this progress note, and it is not deemed complete until electronically signed by the appointment provider. Sign off status: Pending * Provider:?Renard Chiu MD Date:? 024 Generated for Cesar maharaj/Sonal/eTjasonsmitting on:?11/14/2024 09:35 AM EDT
--- OUTSIDE RECORDS SUMMARY | 2024-11-14 09:36 | XMS_ITS ---
Author Organization [facility] Address [address] [place] [phone] Care Team Providers Care Porcelain Turner Name Role Phone Rell Gomes Primary Care Provider Renard Salas [phone] REASON FOR VISIT APPT WITH DR BASILIO CAMERON 03-12-2024 Encounters Encounter Location Date Provider Diagnosis [facility] [address] [place] [phone] 01/22/2024 Renard Chiu Plan Of Treatment No Information Progress Notes * LIEN BHATTDOB:1965 (58 yo M)Acc No.[id number]:01/22/2024 Patient:?LIEN BHATT :1965???Age:58 Y???Sex:Male Address:[address] [place] [address] [facility] , [place], [address] * true * Date:? Generated for Cesar maharaj/Sonal/eTransmitting on:?11/14/2024 09:35 AM EDT
[2024-11-14 11:22] LABS: MANUAL DIFF FLAG NO
[2024-11-14 11:27] LABS: Basophils Percent Auto 0.5 % (0-2); Eosinophils Absolute Auto 0.2 X10*3/uL (0.0-0.4); Eosinophils Percent Auto 3.5 % (0-4); Hematocrit 41.1 % (42.0-52.0); Hemoglobin 14.2 g/dl (14.0-18.0); Imm Gran Abs Auto 0.01 X10*3/uL (0.00-0.03); Imm Gran Pct Auto 0.2 % (0.0-0.4); Lymphocytes Percent Auto 46.6 % (20-40); Mean Corpuscular HGB Conc 34.5 g/dl (31.0-36.0); Mean Corpuscular Hemoglobin 29.6 pg (27.0-33.0); Mean Corpuscular Volume 85.6 fL (80.0-98.0); Monocytes Absolute Auto 0.4 X10*3/uL (0.1-1.2); Monocytes Percent Auto 8.5 % (2-11); Neutrophils Absolute Auto 1.7 x10*3/uL (2.0-8.3); Neutrophils Percent Auto 40.7 % (45-73); Platelet Count 339 X10*3/uL (160-400); Red Cell Distribution Width 12.7 % (11.0-16.0); White Blood Count 4.2 X10*3/uL (4.8-10.8)
[2024-11-14 11:58] LABS: Prostate Specific Antigen 0.92 ng/mL (<0.05-4.0)
[2024-11-14 14:54] LABS: Alanine Aminotransferase 29 U/L (0-40); Albumin Level 4.2 g/dL (3.5-5.0); Anion Gap 13 (12-20); Aspartate Amino Transferase 31 U/L (5-37); Bilirubin Total 0.4 mg/dL (0.0-1.0); Blood Urea Nitrogen 10 mg/dL (9-16); Calcium 9.5 mg/dL (8.4-10.2); Carbon Dioxide 26 mmol/L (22-29); Chloride 109 mmol/L (96-108); Cholesterol 169 mg/dL (<200); Estimated Glomerular Filt Rate > 60; Glucose Random 101 mg/dL (60-115); HDL Cholesterol 30 mg/dL (>40); LDL Cholesterol Calculated 112 mg/dL (<100); Sodium 144 mmol/L (135-145); Total Protein 6.4 g/dL (6.5-8.0); Triglycerides 137 mg/dL (<150)
[2024-11-14 19:10] LABS: Alkaline Phosphatase 67 U/L (39-117)
[2024-11-15 08:21] LABS: ~HepC Num1 0.06 S/CO (0.00-0.79); ~Hepatitis C Antibody Nonreactive (Nonreactive)
[2024-11-18 16:58] LABS: Testosterone, Total 203 ng/dL (250-1100)
== END 2024-11-14 09:09 | disposition home or self-care (01) ==
LOC: HO.HHCL 09:08
PROVIDERS: Internal Medicine Medical Oncology; Urology; Visit Provider Nurse Practitioner Primary Care
DX: Z00.00 Encounter for general adult medical examination without abnormal findings (principal); E11.69 Type 2 diabetes mellitus with other specified complication; R74.8 Abnormal levels of other serum enzymes; D72.819 Decreased white blood cell count, unspecified; E29.1 Testicular hypofunction
CPT/HCPCS: 36415; 80053; 80061; 82550; 84153; 84403; 85025; 86803

== ENCOUNTER 2024-12-12 16:12 | Outpatient (REF) | payer MEDICAID, SELFPAY ==
--- OUTSIDE RECORDS SUMMARY | 2024-12-12 16:15 | XMS_ITS | Encounter Summary ---
Author Organization [employer] Address [address] [place] [address] [address] [place] [address] Care Team Providers Care Internal Grinding Machine Operator Name Role Phone Litzy John HERVE Primary Care Provider [phone] Kb Tineo PharmD Unavailable [phone] Encounter Details Date Type Department Care Team (Late st Contact Info) Description 08/21/2022 Abstract [facility] MEDICINE [address] [place] [address] Meryl Pettit, PharmD [address] [place] [address] Social History Tobacco Use Types Packs/Day Years [...] Department Care Team (Late Contact Info) Description 12/24/2024 3:30 PM EDT Telemedicine [facility] MEDICINE [address] [place] [address] Kb Tineo, PharmD [address] [place] [address] 05/29/2025 1:00 PM EDT Office Visit [facility] OPT[facility]RY [address] [place] [address] Tika Juan, OD [address] [place] [address] documented as of this encounter Visit Diagnoses Not on filedocumented in this encounter Care Teams Internal Grinding Machine Operator Relationship Specialty Start Date End Date Litzy John ANP [address] [place] [address] PCP - General Family Medicine 03/23/21 Kb Tineo, AsifD [address] [place] [address] Pharmacist Internal Medicine 06/25/24 documented as of this encounter
--- OUTSIDE RECORDS SUMMARY | 2024-12-12 16:15 | XMS_ITS | Encounter Summary ---
Author Organization [employer] Address [address] [facility] 7t [place] [address] Care Team Providers Care Toll Collector Supervisor Name Role Phone Litzy John HERVE Primary Care Provider [phone] Kb Tineo PharmD Unavailable [phone] Encounter Details Date Type Department Care Team (Late st Contact Info) Description 08/21/2022 Orders Only [facility] [address] [place] [address] Chantal Grant LPN Social History Tobacco Use [...] Care Team (Late st Contact Info) Description 12/24/2024 3:30 PM EDT Telemedicine [facility] MEDICINE [address] [place] [address] Kb Tineo, PharmD [address] [place] [address] 05/29/2025 1:00 PM EDT Office Visit [facility] OPTOMETRY [address] [place] [address] Tika Juan, OD [address] [place] [address] documented as of this encounter Visit Diagnoses Not on filedocumented in this encounter Care Teams Toll Collector Supervisor Relationship Specialty Start Date End Date Litzy John ANP [address] [place] [address] PCP - General Family Medicine 03/23/21 Kb Tineo PharmD [address] [place] [address] Pharmacist Internal Medicine 06/25/24 documented as of this encounter
--- OUTSIDE RECORDS SUMMARY | 2024-12-12 16:15 | XMS_ITS | Clinical Summary ---
Author Organization [facility] Address [address] [place] [address] Care Team Providers Care Marine Gear Keeper Name Role Phone Unavailable Primary Care Provider [...] 2008 Imm-Zoster, Recombinant (1 of 2) 2013 [id number] ( season) 2024 06/08/2021, 11/16/2020, 10/19/2020 Imm-Influenza (#1) 2024 Alcohol and Drug Screen 07/30/2024 Depression Annual Screen 07/30/2024 Insurance [place] MEDICAID Member Subscriber Plan / Payer (Ef fective 2020-Present) Name:Darin Hopkins Relation to Subscriber:Self Name:Darin Hopkins Payer ID:[id number] Group ID:Not on file Type:Medicaid Address: [address] [employer]
--- OUTSIDE RECORDS SUMMARY | 2024-12-12 16:15 | XMS_ITS | Clinical Summary ---
Author Organization [employer] Address [address] [place] [address] 7[address] [place] [address] Care Team Providers Care Retail Equipment Associate Name Role Phone Litzy John Primary Care Provider [phone] Kb Tineo PharmD Unavailable [phone] Allergies Active Allergy Reactions Criticality Noted [...] mg by mouth at bedtime. 024 Active Continuous Glucose Hydraulic Hammer Operator (FreeStyle Gisell 2 [place]) deviceIndication s:Type 2 diabetes mellitus with hyperlipidemia (CMS/HCC) ([facility]) Scan sensor every 8 hours 1 each 024 Active D3 Super Strength 50 MCG (1999 UT) capsule TAKE 1 CAPSULE BY MOUTH EVERY DAY 90 capsule 3 024 Active FREESTYLE LITE test stripIndications :Type 2 diabetes mellitus without complications (CMS/HCC) Use to test blood sugar 3 times daily 100 each 12 024 2024 Active Blood Glucose Monitoring Suppl (FreeStyle Ravenna Lite) w/Device kitIndications:T ype 2 diabetes mellitus without complications ([facility]/HCC) Use to test blood sugar 3 times daily 1 kit 024 Active TRUEplus Lancets 33G miscIndications: Type 2 diabetes mellitus without complications ([facility]/HCC) USE DIRECTED TO TEST BLOOD SUGAR THREE TIMES DAILY 100 each 3 024 Active Alcohol Swabs (Alcohol Prep) 70 % padsIndications: Type 2 diabetes mellitus without complications ([facility]/HCC) USE TO CLEAN SKIN AND CHECK BLOOD SUGAR THREE TIMES DAILY 100 each 3 024 Active Semaglutide, 2 MG/DOSE, (Ozempic, 2 MG/DOSE,) 8 MG/3ML solution pen-injectorIndi cations:Type 2 diabetes mellitus with hyperlipidemia (CMS/HCC) ([facility]) Inject 0.75 mL (2 mg) under the skin 1 (one) time per week. 3 mL 5 025 Active insulin glargine (Lantus SoloStar) 100 UNIT/ML penIndications:T ype 2 diabetes mellitus with hyperlipidemia (CMS/HCC) ([facility]) INJECT 36 UNITS SUBCUTANEOUSLY AT BEDTIME DIRECTED 15 mL 3 025 Active aspirin 81 MG chewable tabletIndication s:Type 2 diabetes mellitus with hyperlipidemia (CMS/HCC) ([facility]) Take 1 tablet by mouth daily 90 tablet 3 025 Active amLODIPine (Norvasc) 5 MG tabletIndication s:Hypertension associated with diabetes ([facility]) TAKE 1 TABLET BY MOUTH EVERY DAY 90 tablet 3 025 Active insulin pen needle (BD Pen Needle Latosha U/F) 32G x 4 mm miscIndications: Type 2 diabetes mellitus with hyperlipidemia (CMS/HCC) ([facility]) USE FOUR TIMES DAILY WITH INSULIN 100 each 5 025 Active tamsulosin (Flomax) 0.4 MG 24 hr capsuleIndicatio ns:Benign prostatic hyperplasia without urinary obstruction TAKE 1 CAPSULE BY MOUTH EVERY DAY IN THE MORNING 90 capsule 1 025 Active insulin lispro (HumaLOG) 100 UNIT/ML injectionIndicat ions:Type 2 diabetes mellitus with hyperlipidemia (CMS/HCC) ([facility]) INJECT 0 TO 12 UNITS SUBCUTANEOUSLY BEFORE MEALS DIRECTED PER SLIDING SCALE 15 mL 2 025 Active tadalafil (Cialis) 5 MG tabletIndication s:Benign prostatic hyperplasia without urinary obstruction Take 1 tablet (5 mg) by mouth Once per day. 90 tablet 1 025 Active evolocumab (Repatha SureClick) 140 MG/ML injectionIndicat ions:Type 2 diabetes mellitus with hyperlipidemia (CMS/HCC) (CMS/HCC),Statin intolerance,Card iovascular event risk Inject 1 mL (140 mg) under the skin every 14 (fourteen) days. 2.1 mL 11 025 Active Continuous Glucose Sensor (FreeStyle Gisell 2 Sensor) miscIndications: Type 2 diabetes mellitus with hyperlipidemia (CMS/HCC) ([facility]) USE DIRECTED TO TEST BLOOD SUGAR. CHANGE EVERY 14 DAYS 2 each 3 025 Active glipiZIDE XL (Glucotrol XL) 10 MG 24 hr tabletIndication s:Type 2 diabetes mellitus with hyperlipidemia (CMS/HCC) ([facility]/H[facility]) Take 2 tablets (20 mg) by mouth Once per day. Do not crush, chew, or split. 60 tablet 11 025 Active glipiZIDE (Glucotrol) 10 MG tabletIndication s:Hypertension associated with diabetes (CMS/HCC) TAKE 2 TABLET BY MOUTH IN THE MORNING BEFORE MEAL 180 tablet 3 024 2024 Discontinued(A lternate therapy) glucose blood (FreeStyle Precision Connor Test) test stripIndications :Type 2 diabetes mellitus with hyperlipidemia (CMS/HCC) ([facility]) Use to test blood sugar 5 times daily 100 each 12 024 2024 Continuous Glucose Sensor (FreeStyle Gisell 2 Sensor) miscIndications: Type 2 diabetes mellitus with hyperlipidemia (CMS/HCC) ([facility]) USE DIRECTED TO TEST BLOOD SUGAR. CHANGE EVERY 14 DAYS 2 each 3 025 2024 Discontinued Active Problems Problem Noted Date [...] Encounters Date Type Department Care Team Description 12/12/2024 3:30 PM EDT Office Visit [facility] [address] [place] [phone] Radha Hickman FNP Type 2 diabetes mellitus with hyperlipidemia (CMS/HCC) (CMS/HCC) (Primary Dx); Left lower quadrant abdominal pain 12/12/2024 Travel 12/11/2024 Telephone [facility] [address] [place], [place] [phone] Luciana Rebollar MA Chart Prep 12/11/2024 Telephone [facility] [address] [place] [address] Litzy John ANP Nurse Triage 12/10/2024 Results Follow-Up [address] [address] Litzy John ANP Cologuard?? 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 (CMS/HCC) (Primary Dx); Combined form of age-related cataract, both eyes; Presbyopia of both eyes; Bilateral ocular hypertension 11/26/2024 Travel 11/24/2024 Refill [facility] [address] [place] [address] Litzy John ANP Type 2 diabetes mellitus with hyperlipidemia (CMS/HCC) (CMS/HCC) 11/18/2024 Telephone [facility] [address] [place] [address] Litzy John ANP Prior Auth Prescription (Repatha) 11/14/2024 Orders Only GENERIC EXTERNAL DATA DEPARTMENT Provider, Generic External Data 11/10/2024 3:00 PM EDT Office Visit [facility] [address] [place] [address] Litzy John ANP Screening for malignant neoplasm of colon (Primary Dx); Screening for colon cancer; Benign prostatic hyperplasia without urinary obstruction; Type 2 diabetes mellitus with hyperlipidemia (CMS/HCC) (CMS/HCC); Elevated creatine kinase; Statin intolerance; Healthcare maintenance; Cardiovascular event risk 11/10/2024 Travel 11/04/2024 Refill [facility] [address] [place] [address] Litzy John ANP Type 2 diabetes mellitus with hyperlipidemia (CMS/HCC) (CMS/HCC) 11/02/2024 Refill [facility] [address] [place] [address] Litzy John ANP Benign prostatic hyperplasia without urinary obstruction 10/14/2024 Refill [facility] [address] [place] [address] Litzy John ANP Type 2 diabetes mellitus with hyperlipidemia (CMS/HCC) (CMS/HCC) 09/28/2024 Refill [facility] [address] [place], [place] [phone] Litzy John ANP Hypertension associated with diabetes (CMS/HCC) (CMS/HCC) 09/26/2024 3:00 PM EST Office Visit [facility] ADULT DENTAL [address] [place] [address] Gibson Sanzaris Dental plaque (Primary Dx); Tooth sensitivity 09/26/2024 Travel from Last 3 Months Immunizations Immunization Administration Dates Next Due Hep A, Adult [...] Sign Reading Time Taken Comments Blood Pressure 122/71 12/12/2024 3:18 PM EDT Pulse 97 12/12/2024 3:18 PM EDT Temperature 36.8 ??C (98.3 ??F) 12/12/2024 3:18 PM ED T Respiratory Rate 22 12/12/2024 3:18 PM EDT Oxygen Saturation 96% 11/10/2024 3:08 PM EDT Inhaled Oxygen Concentration - - Weight 86.3 kg (190 lb 4 oz) 12/12/2024 3:18 PM EDT Height 175.3 cm (5' 9 ) 12/12/2024 3:18 PM EDT Body Mass Index 28.1 12/12/2024 3:18 PM EDT Plan of Treatment Upcoming Encounters Date Type Department Care Team (Late st Contact Info) Description 12/24/2024 3:30 PM EDT Telemedicine [facility] [address] [place] [address] Kb Tineo, PharmD [address] [place] [address] 05/29/2025 1:00 PM EDT Office Visit [facility] [address], [place] [phone] Drake, Tika, OD [address] [place] [address] Health Maintenance Due Date Last Done Comments CT Colonography 1963 FIT 1963 FOBT 1963 HIV Screening 1963 Sigmoidoscopy 1963 Diabetes: Foot Exam 1973 RSV Patients and Patients Aged 60 years or older (1 - Risk 60-74 years 1-dose series) 2023 Colonoscopy 12/17/2023 12/16/2013 Diabetes: Urine Protein Screening 01/06/2024 01/05/2023, 11/21/2021, 02/25/2021, Additional history exists Dental Oral Exam 09/26/2024 03/25/2024, 01/05/2023 Depression Screening 02/20/2025 02/21/2024, 02/21/20 Dental X-Ray: Bitewings 03/26/2025 03/25/2024, 01/05 Dental Prophylaxis 03/27/2025 09/26/2024, 0 03/25/2024, 09/04/2023, Additional history exists Diabetes: Hemoglobin A1C 06/14/2025 025, 09/26/2024, 06/23/2024, Additional history exists DTaP/Tdap/Td Vaccines (2 - Td or Tdap) 07/06/2025 07/06/2015 SDOH Screening 11/10/2025 11/10/2024 Lipid Panel 11/14/2025 11/14/2024, 10/29, 01/05/2023, Additional history exists Eye Exam 11/26/2025 11/26/2024, 10/30, 11/26/2024, Additional history exists Alcohol/Substance Use Screening 12/12/2025 12/12/2024 Tobacco Screening 12/12/2025 12/12/2024 Dental X-Ray: Full Mouth 03/26/2027 03/25/2024, 02/0 10/2020 Colorectal Cancer Screening 12/04/2027 FIT DNA/Cologuard 12/04/2027 12/03/2024 Hepatitis A Vaccines Aged Out 04/03/2012, 07/27/20 11 No longer eligible based on patient's age to complete this topic Zoster Vaccines Completed 08/11/2020, 05/24/2020 Influenza Vaccine Completed 06/23/2024, , 04/11/2022, Additional history exists Pneumococcal Vaccine: 50+ Years Completed 06/23/2024, 04/30/2009 COVID-19 Vaccine Completed 08/11/2024, 04/2024, 09/04/2022, Additional history exists Hepatitis B Vaccines Completed 09/26/2024, 08/11/2024, 04/03/2012 Hepatitis C Screening Completed 11/14/2024 HIB Vaccines Aged Out No longer eligi ble based on patient's age to complete this topic HPV Vaccines Aged Out No longer eligi ble based on patient's age to complete this topic IPV Vaccines Aged Out No longer eligi ble based on patient's age to complete this topic Meningococcal B Vaccine Aged Out No l onger eligible based on patient's age to complete [...] Procedure Name Priority Date/Time Associated Diagnosis Comments POCT GLYCATED HEMOGLOBIN, TOTAL Routine 12/12/2024 3:21 PM EDT Type 2 diabetes mellitus with hyperlipidemia (CMS/HCC) (CMS/HCC) POCT GLUCOSE Routine 12/12/2024 3:20 PM EDT Type 2 diabetes mellitus with hyperlipidemia (CMS/HCC) (CMS/HCC) LAB COLOGUARD?? COLON CANCER SCREEN Routine 12/03/2024 9:15 AM EDT Screening for colon cancer TESTOSTERONE, TOTAL, MALES (ADULT), IA Routine 11/14/2024 9:12 AM EDT COMPREHENSIVE METABOLIC PANEL Routine 11/14/2024 9:12 AM EDT PSA, TOTAL Routine 11/14/2024 9:12 AM EDT CBC WITH AUTO DIFFERENTIAL Routine 11/14/2024 9:12 AM EDT HEPATITIS C AB W/REFL TO HCV RNA, QN, PCR Routine 11/14/2024 9:12 AM EDT Healthcare maintenance CREATINE KINASE, TOTAL Routine 11/14/2024 9:12 AM EDT Elevated creatine kinase LIPID PANEL, STANDARD Routine 11/14/2024 9:12 AM EDT Type 2 diabetes mellitus with hyperlipidemia (CMS/HCC) (CMS/HCC) CASE PRESENTATION, DETAILED AND EXTENSIVE TREATMENT PLANNING Routine 09/26/2024 3:00 PM EST Dental plaque ORAL HYGIENE INSTRUCTIONS Routine 09/26/2024 3:00 PM EST Dental plaque PROPHYLAXIS - ADULT Routine 09/26/2024 3 :00 PM EST Dental plaque POCT GLYCATED HEMOGLOBIN, TOTAL Routine 09/26/2024 1:55 PM EST Type 2 diabetes mellitus with hyperlipidemia (CMS/HCC) (CMS/HCC) INTRAORAL - COMPLETE SERIES OF RADIOGRAPHIC IMAGES Routine 03/25/2024 1:00 PM EDT Tooth sensitivity Missing teeth, acquired Dental plaque PERIODIC ORAL EVALUATION - ESTABLISHED PATIENT Routine 03/25/2024 1:00 PM EDT ALBUMIN, RANDOM URINE W/CREATININE Routine 01/05/2023 10:29 AM EDT HM COLONOSCOPY Routine 12/16/2013 from Last 3 Months or Most Recently Relevant to Health Maintenance Results * (ABNORMAL) POCT HGB A1C (12/12/2024 3:21 PM EDT) Only the most recent of2 resultswithin the time period is included. Hemoglobin A1C 6.8(A) 4.0 - 6.0 % QC Media Lot # [id number] Lot# Expiration Date , Blood 12/12/2024 3:21 PM EDT Radhaflory Garciaso [facility] POINT OF CARE TEST ENTER/EDIT ORDERABLES Final Result * POCT Glucose (12/12/2024 3:20 PM EDT) Glucose Blood, POC 66 60 - 200 mg/dL QC Media Lot # [id number] Lot# Expiration Date 522 Blood Capillary blood specimen / Unknown 12/12/2024 3:20 PM EDT Radhachemo Garciaso [facility] POINT OF CARE TEST ENTER/EDIT ORDERABLES Final Result * Cologuard?? colon cancer screening (12/03/2024 9:15 AM EDT) Cologuard Result Negative Negative 12/10/19 12:39 PM EDT [facility] (CLIA #:[id number]) Comment: The Cologuard (TM) test was performed on this specimen. NEGATIVE TEST RESULT. A negative Cologuard result indicates a low likelihood that a colorectal cancer (CRC) or advanced adenoma (adenomatous polyps with more advanced pre-malignant features) is present. The chance that a person with a negative Cologuard test has a colorectal cancer is less than 1 in 1500 (negative predictive value >99.9%) or has an advanced adenoma is less than 5.3% (negative predictive value 94.7%). These data are based on a prospective cross-sectional study of 10,000 individuals at average risk for colorectal cancer who were screened with both Cologuard and colonoscopy. (Sabrina Davalos al, N Engl J Med 2014;370(14):1286- 1297) The normal value (reference range) for this assay is negative. COLOGUARD RE-SCREENING RECOMMENDATION: Periodic colorectal cancer screening is an important part of preventive healthcare for asymptomatic individuals at average risk for colorectal cancer. Following a negative Cologuard result, the [place] [employer] and U.S. Multi-Society Task Force screening guidelines recommend a Cologuard re-screening interval of 3 years. References: [place] [employer] Guideline for Colorectal Cancer Screening: https://www.cancer.org/cancer/nzqyt-yvsdbc-zrwmas/xbwcpggrr-asufcbpud-cbknrfn/ac s-rec ommendations.html.; Db DK, Mitzy CR, Patti GrullonK, Colorectal Cancer Screening: Recommendations for Physicians and Patients from the U.S. Multi-Society Task Force on Colorectal Cancer Screening , Am J Gastroenterology 2017; 112:2021-4699. TEST DESCRIPTION: Composite algorithmic analysis of stool DNA-biomarkers with hemoglobin immunoassay. ?? Quantitative values of individual biomarkers are not reportable and are not associated with individual biomarker result reference ranges. Cologuard is intended for colorectal cancer screening of adults of either sex, 45 years or older, who are at average-risk for colorectal cancer (CRC). Cologuard has been approved for use by the U.S. FDA. The performance of Cologuard was established in a cross sectional study of average-risk adults aged 50-84. Cologuard performance in patients ages 45 to 49 years was estimated by sub-group analysis of near-age groups. Colonoscopies performed for a positive result may find as the most clinically significant lesion: colorectal cancer [4.0%], advanced adenoma (including sessile serrated polyps greater than or equal to 1cm diameter) [20%] or non- advanced adenoma [31%]; or no colorectal neoplasia [45%]. These estimates are derived from a prospective cross-sectional screening study of 10,000 individuals at average risk for colorectal cancer who were screened with both Cologuard and colonoscopy. (Sabrina Davalos al, N Engl J Med 2014;370(14):0026-9670.) Cologuard may produce a false negative or false positive result (no colorectal cancer or precancerous polyp present at colonoscopy follow up). A negative Cologuard test result does not guarantee the absence of CRC or advanced adenoma (pre-cancer). The current Cologuard screening interval is every 3 years. ([place] [employer] and U.S. Multi-Society Task Force). Cologuard performance data in a 10,000 patient pivotal study using colonoscopy as the reference method can be accessed at the following location: www.[employer]/results. Additional description of the Cologuard test process, warnings and precautions can be found at www.[employer]. Stool specimen (specimen) 12/03/2024 9:15 AM EDT 12/04/2024 10:[address] [facility] MOLECULAR DIAGNOSTICS ORDERA BLES Final Result [facility] (CLIA #:[id number]) [address] [place] [address], * (ABNORMAL) CBC auto differential (11/14/2024 9:12 AM EDT) White Blood Count 4.2(L) 4.8 - 10.8 X10*3/uL [facility] Red Blood Count 4.80 4.60 - 5.80 X10*6/uL [facility] Hemoglobin 14.2 14.0 - 18.0 g/dl [facility] Hematocrit 41.1(L) 42.0 - 52.0 % [facility] Mean Corpuscular Volume 85.6 80.0 - 98.0 fL [facility] Mean Corpuscular Hemoglobin 29.6 27.0 - 33.0 pg [facility] Mean Corpuscular HGB Conc 34.5 31.0 - 36.0 g/dl [facility] Red Cell Distribution Width 12.7 11.0 - 16.0 % [facility] Platelet Count 339 160 - 400 X10*3/uL [facility] Mean Platelet Volume 9.0(L) 9.4 - 12.4 fL [facility] Neutrophils Percent Auto 40.7(L) 45 - 73 % [facility] Imm Gran Pct Auto 0.2 0.0 - 0.4 % [facility] Lymphocytes Percent Auto 46.6(H) 20 - 40 % [facility] Monocytes Percent Auto 8.5 2 - 11 % [facility] Eosinophils Percent Auto 3.5 0 - 4 % [facility] Basophils Percent Auto 0.5 0 - 2 % [facility] NRBC Pct Auto 0.0 0.0 - 0.2 /100WBC [facility] Neutrophils Absolute Auto 1.7(L) 2.0 - 8.3 x10*3/uL [facility] Imm Gran Abs Auto 0.01 0.00 - 0.03 X10*3/uL [facility] Lymphocytes Absolute Auto 2.0 1.2 - 4.9 X10*3/uL [facility] Monocytes Absolute Auto 0.4 0.1 - 1.2 X10*3/uL [facility] Eosinophils Absolute Auto 0.2 0.0 - 0.4 X10*3/uL [facility] Basophils Absolute Auto 0.0 0.0 - 0.2 X10*3/uL [facility] NRBC Abs Auto 0.000 0.0 - 0.012 X10*3/uL [facility] 11/14/2024 9:12 AM EDT 11/14/2024 11:17 AM EDT [facility] [place] LAB BLOOD ORDERAB LES Final Result Performing Organization Address City/[facility]/ZIP Co de Phone Number [facility] [address] [place] [phone] * Hepatitis C Antibody with Reflex to HCV, RNA, Quantitative, Real-Time PCR (11/14/2024 9:12 AM EDT) Hepatitis C Antibody Nonreactive Nonreactive [facility] Comment:Antibodies to HCV no t detected; does not exclude early acuteHCV infection. Blood Venous blood specimen / Unknown 11/14/2024 9:12 AM EDT 11/14/2024 11:17 AM EDT Litzy John [facility] LAB BLOOD ORDERABLES Final Resul t Performing Organization Address City/[facility]/ZIP Co de Phone Number [facility] [address] [place] [phone] * (ABNORMAL) Testosterone, Total, males (Adult), IA (11/14/2024 9:12 AM EDT) Testosterone, Total 203(A) 250 - 1100 ng/dL [facility] Comment:Men with clinically significant hypogonadalsymptoms and testosterone values repeatedly inthe range of the 200-300 ng/dL or less, maybenefit from testosterone treatment afteradequate risk and benefits counseling.For additional information, please refer tohttp://education.[employer]/faq/NbmgySlyktasixnhpERHELAXPZ744(This link is being provided for informational/educational purposes only.)This test was developed and its analytical performancecharacteristics have been determined by [employer] [place], [place]. It hasnot been cleared or approved by the U.S. Food and DrugAdministration. This assay has been validated pursuantto the CLIA regulations and is used for clinicalpurposes.THIS TEST WAS PERFORMED AT:[employer]/[facility] [place] [address]IECIPOBPRASHANTH LEGGETT MD,PHD 11/14/2024 9:12 AM EDT 11/14/2024 11:17 AM EDT us Generic External Data Provider LAB BLOOD ORDERAB LES Final Result [facility] [address] [place] [phone] * PSA,Total (11/14/2024 9:12 AM EDT) Prostate Specific Antigen 0.92 <0.05 - 4.0 ng/mL [facility] Comment:PSA methodology: Abb krysta Alinity i ChemiluminescentMicroparticle Immunoassay (CMIA) 11/14/2024 9:12 AM EDT 11/14/2024 11:17 AM EDT us Generic External Data Provider LAB BLOOD ORDERAB LES Final Result Performing Organization Address City/[facility]/ZIP Co de Phone Number [facility] [address] [place] [phone] * (ABNORMAL) Creatine Kinase, Total (11/14/2024 9:12 AM EDT) Creatine Kinase Total 452(H) 38 - 174 U/L [facility] Blood Venous blood specimen / Unknown 11/14/2024 9:12 AM EDT 11/14/2024 11:17 AM EDT [facility] LAB BLOOD ORDERABLES Final Resul t Performing Organization Address [facility] Co de Phone Number [facility] [address] [place] [phone] * (ABNORMAL) Lipid Panel, Standard (11/14/2024 9:12 AM EDT) Triglycerides 137 <150 mg/dL [facility] Comment:Desirable Triglyceri de: less than 150 mg/dLBorderline High Triglyceride 150-199 mg/dLHigh Triglyceride: 200-499 mg/dLVery High Triglyceride: greater than or equal to 5OO mg/dL Cholesterol 169 <200 mg/dL [facility] Comment:Desirable Cholestero l: less than 200 mg/dLBorderline High Cholesterol: 200-239 mg/dLHigh Cholesterol: greater than 239 mg/dL LDL Cholesterol Calculated 112(H) <100 mg/dL [facility] Comment:Desirable LDL: less than 100 mg/dLNear Optimal/Above Optimal LDL: 110- 129 mg/dLBorderline High LDL: 130-159 mg/dLHigh LDL: 160-189 mg/dLVery High LDL: greater than or equal to 190 mg/dL HDL Cholesterol 30(L) >40 mg/dL [facility] Comment:Desirable HDL: great er than 40 mg/dL Note: This HDL assay may give artificially low results in patients with liver disease. Blood Venous blood specimen / Unknown 11/14/2024 9:12 AM EDT 11/14/2024 11:17 AM EDT us Litzy EDGAR LAB BLOOD ORDERABLES Final Resul t Performing Organization Address City/[facility]/ZIP Co de Phone Number [facility] [address] [place] [phone] * (ABNORMAL) Comprehensive Metabolic Panel (11/14/2024 9:12 AM EDT) Sodium 144 135 - 145 mmol/L [facility] Potassium 4.0 3.3 - 5.1 mmol/L [facility] Chloride 109(H) 96 - 108 mmol/L [facility] Carbon Dioxide 26 22 - 29 mmol/L [facility] Anion Gap 13 12 - 20 [facility] Urea Nitrogen (BUN) 10 9 - 16 mg/dL [facility] Creatinine, Serum 1.03 0.5 - 1.4 mg/dL [facility] Estimated Glomerular Filt Rate >60 [facility] Comment:Chronic Kidney Disea se: Estimated GFR < 60 mL/min/1.48b2Vzegxi Kidney Disease: Estimated GFR < 15 mL/min/1.73m2 Glucose 101 60 - 115 mg/dL [facility] Calcium 9.5 8.4 - 10.2 mg/dL [facility] Bilirubin, Total 0.4 0.0 - 1.0 mg/dL [facility] Aspartate Amino Transferase 31 5 - 37 U/L [facility] Alanine Aminotransferase 29 0 - 40 U/L [facility] Total Protein 6.4(L) 6.5 - 8.0 g/dL [facility] Albumin Level 4.2 3.5 - 5.0 g/dL [facility] Alkaline Phosphatase 67 39 - 117 U/L [facility] 11/14/2024 9:12 AM EDT 11/14/2024 11:17 AM EDT us Generic External Data Provider LAB BLOOD ORDERAB LES Final Result [facility] [address] [place] [phone] [phone] * Albumin, Random Urine W/Creatinine (01/05/2023 10:29 AM EDT) Pathologist [facility] [place] Creatinine, Random Urine 260 20 - 320 mg/dL [facility] Albumin, Urine 1.0 See Note: mg/dL [facility] Comment: Reference Range: Reference Range Not established Albumin/Creatinin e Ratio, Random Urine 4 <30 mcg/mg creat [facility] Comment: The ADA defines abnormalities in albumin [...] 3:14 PM EDT FASTING:YES FASTING: YES Litzy EDGAR LAB URINE ORDERABLES Final Resul t [facility] [address], [place] [address] [facility] [address] [place] [address] * Colonoscopy (12/16/2013) Pathologist [facility] [place] Colonoscopy Normal Normal Historical Provider HEALTH MAINTENANCE Final Result from Last 3 Months or Most Recently Relevant to Health Maintenance Insurance [employer] [place] ADULT DENTAL - HSN FULL (MEDICAID) Care Teams Retail Equipment Associate Relationship Specialty Start Date End Date Litzy John ANP [address] [place] [address] PCP - General Family Medicine 03/23/21 Kb Tineo, AsifD [address] [place] [address] Pharmacist Internal Medicine 06/25/24
--- OUTSIDE RECORDS SUMMARY | 2024-12-12 16:15 | XMS_ITS | Encounter Summary ---
Author Organization [employer] Address [address] [place] [address] [address] [address] Care Team Providers Care Pulp Tester Name Role Phone Litzy John Primary Care Provider [phone] Kb Tineo PharmD Unavailable [phone] Encounter Details Date Type Department Care Team (Latest Contact Info) Description 01/20/2022 Abstract [facility] CONVERSIONS Dental, Provider, DDS Social History Tobacco [...] Info) Description 12/24/2024 3:30 PM EDT Telemedicine [facility] MEDICINE [address] [place] [address] Kb Tineo, PharmD [address] [place] [address] 05/29/2025 1:00 PM EDT Office Visit [facility] OPTOMETRY [address] [place] [address] Tika Juan, OD [address] [place] [address] documented as of this encounter Visit Diagnoses Not on filedocumented in this encounter Care Teams Pulp Tester Relationship Specialty Start Date End Date Litzy John ANP [address] [place] [address] PCP - General Family Medicine 03/23/21 Kb Tineo, Keli [address] [place] [address] Pharmacist Internal Medicine 06/25/24 documented as of this encounter
--- OUTSIDE RECORDS SUMMARY | 2024-12-12 16:15 | XMS_ITS | Encounter Summary ---
Author Organization [employer] Address [address] [place] [address] [address] [address] Care Team Providers Care Skimmer Reverberatory Name Role Phone Litzy John Primary Care Provider [phone] Kb Tineo PharmD Unavailable [phone] Encounter Details Date Type Department Care Team (Latest Contact Info) Description 09/03/2020 Abstract [facility] CONVERSIONS Dental, Provider, DDS Social History Tobacco [...] Info) Description 12/24/2024 3:30 PM EDT Telemedicine [facility] MEDICINE [address] [place] [address] Kb Tineo, PharmD [address] [place] [address] 05/29/2025 1:00 PM EDT Office Visit [facility] OPTOMETRY [address] [place] [address] Tika Juan, OD [address] [place] [address] documented as of this encounter Visit Diagnoses Not on filedocumented in this encounter Care Teams Skimmer Reverberatory Relationship Specialty Start Date End Date Litzy John ANP [address] [place] [address] PCP - General Family Medicine 03/23/21 Kb Tineo, Keli [address] [place] [address] Pharmacist Internal Medicine 06/25/24 documented as of this encounter
--- OUTSIDE RECORDS SUMMARY | 2024-12-12 16:15 | XMS_ITS ---
Author Organization [facility] Address [address] [place] [phone] Care Team Providers Care Asbestos Shingle Inspector Name Role Phone Rell Gomes Primary Care Provider Renard Salas [phone] REASON FOR VISIT APPT WITH DR BASILIO CAMERON 03-12-2024 Encounters Encounter Location Date Provider Diagnosis [facility] [address] [place] [phone] 01/22/2024 Renard Chiu Plan Of Treatment No Information Progress Notes * LIEN BHATTDOB:1965 (58 yo M)Acc No.[id number]:01/22/2024 Patient:?LIEN BHATT :1965???Age:58 Y???Sex:Male Address:[address] [place] [address] [address] [facility] , [place], [address] * true * Date:? Generated for Cesar maharaj/Sonal/eTransmitting on:?12/12/2024 04:15 PM EDT
--- OUTSIDE RECORDS SUMMARY | 2024-12-12 16:15 | XMS_ITS | Encounter Summary ---
Author Organization [email or web address] Address [address] [facility] 7t [place] [address] Care Team Providers Care Cloth Framer Name Role Phone Litzy John Primary Care Provider [phone] Kb Tineo PharmD Unavailable [phone] Reason for Visit * Reason Comments follow up extended Encounter Details Date Type Department Care Team (Latest Contact Info) Description 11/10/2024 3:00 PM EDT Office Visit [facility] MEDICINE [address] [place], [place] [phone] Litzy John ANP [address] [place] [address] Screening for malignant neoplasm of colon (Primary [...] 06/23/2024 HGBA1C 11.3 (A) 02/21/2024 Meeting with [facility] pharmacist Kb Tineo, next appt 12/08/24. ASCVD risk 31.1% He is intolerant to statins and had muscle pain and weakness with associated elevated CK. He also had abdominal pain and worsening GERD with zetia (tried 09/2022-04/2024, earlier tried 02/2015-06/2015). I would like him to be on PCSK9i given intolerance to statins and zetia, h/o DM w/ hyperlipidemia and high ASCVD risk. Will pursue PA. Lab Results Component Value Date CKTOTAL 452 (H) 11/14/2024 CKTOTAL 478 (H) 11/22/2023 CKTOTAL 643 (H) 01/05/2023 He is unable to attend specialist appts in [place] (where his insurance is accepted) for rheum eval (sent d/t CK elevation). Denies muscle pain today, will recheck CK. BPH: was following w/ urology but now unable to d/t insurance. Taking cialis 5mg daily and tamsulosin 0.4mg daily. Sx moderately controlled but still w/ urinary frequency intermittently. Would like to try a new med if one were available. Non-smoker Lab Results Component Value Date CHOLESTEROL 149 01/05/2023 HDLCHOL 39 (L) 01/05/2023 LDLCHOL 93 01/05/2023 TRIG 137 11/14/2024 TRIG 83 01/05/2023 Lab Results Component Value Date CHOL 169 11/14/2024 HDL 30 (L) 11/14/2024 LDLCHOLCAL 112 (H) 11/14/2024 TRIG 137 11/14/2024 TRIG 83 01/05/2023 Review of Systems Constitutional: Negative for fatigue, [...] Type 2 diabetes mellitus with hyperlipidemia (CMS/HCC) ([facility]) A1c is at goal. Continue to follow with CDTM He is intolerant to statins and had muscle pain and weakness with associated elevated CK. He also had abdominal pain and worsening GERD with zetia (tried 09/2022-04/2024, earlier tried 02/2015-06/2015). Trialed atorvastatin 40mg 11/2019-12/2020 and then trialed lower dose, pravastatin, simvastatin. Allyielded muscle pain and elevated CK. Trialed zetia 09/2022-04/2024, earlier tried 02/2015-06/2015, both with LIS abdominal pain and GERD sx I would like him to be on PCSK9i given intolerance to statins and zetia, h/o DM w/ hyperlipidemia and high ASCVD risk. He needs cardiovascular risk reduction. Will pursue PA. Foot exam at follow-up. [...] Exam in the past 6 mo: No ([facility] Dental scheduled 09/26/2024) Eye Exam in the past 12 mo: Yes ([facility] Eye care, 05/27/24 mild nonproliferative diabetic retinopathy with macular edema) - Lipid Panel, Standard; Future - Comprehensive Metabolic Panel; Future - Albumin, Random Urine W/Creatinine - CBC auto differential; Future Elevated creatine kinase - Creatine Kinase, Total; Future Statin intolerance Healthcare maintenance - Hepatitis C Antibody with Reflex to HCV, RNA, Quantitative, Real-Time PCR; Future Future Appointments Date Time Provider Department Center 12/24/2024 3:30 PM Kb Tineo, AsifD MEDICINE [facility] 05/29/2025 1:00 PM Tika Juan, OD [facility] documented in this encounter Plan of Treatment Upcoming Encounters Date Type Department Care Team (Late st Contact Info) Description 12/24/2024 3:30 PM EDT Telemedicine [facility] MEDICINE [address] [place] [address] Kb Tineo, PharmD [address] [place] [address] 05/29/2025 1:00 PM EDT Office Visit [facility] OPTOMETRY [address] [place] [address] Drake, Tika, OD [address] [place] [address] Scheduled Orders Name Type Priority Associated Diagnoses Orde r Schedule PSA,Total Lab Routine Benign prostatic hyperplasia without urinary obstruction Expected: 11/10/2024 (Approximate), Expires: 11/10/2025 Comprehensive Metabolic Panel Lab Routine Type 2 diabetes mellitus with hyperlipidemia (CMS/HCC) (CMS/HCC) Expected: 11/10/2024 (Approximate), Expires: 11/10/2025 Albumin, Random Urine W/Creatinine Lab Routine Type 2 diabetes mellitus with hyperlipidemia (CMS/HCC) (CMS/HCC) Ordered: 11/10/2024 CBC auto differential Lab Routine Type 2 diabetes mellitus with hyperlipidemia (CMS/HCC) (CMS/HCC) Expected: 11/10/2024 (Approximate), Expires: 11/10/2025 documented as of this encounter Procedures Procedure Name Priority Date/Time Associated Diagnosis Comments LAB COLOGUARD?? COLON CANCER SCREEN Routine 12/03/2024 9:15 AM EDT Screening for colon cancer HEPATITIS C AB W/REFL TO HCV RNA, QN, PCR Routine 11/14/2024 9:12 AM EDT Healthcare maintenance CREATINE KINASE, TOTAL Routine 11/14/2024 9:12 AM EDT Elevated creatine kinase LIPID PANEL, STANDARD Routine 11/14/2024 9:12 AM EDT Type 2 diabetes mellitus with hyperlipidemia (CMS/HCC) (CMS/HCC) documented in this encounter Results * Cologuard?? colon cancer screening (12/03/2024 9:15 AM EDT) Cologuard Result Negative Negative 12/10/19 12:39 PM EDT Diana (CLIA #:[id number]) Comment: The Cologuard (TM) test was performed [...] cancer. Following a negative Cologuard result, the [place] Cancer Society and U.S. Multi-Society Task Force screening guidelines recommend a Cologuard re-screening interval of 3 years. References: [place] [employer] Guideline for Colorectal Cancer Screening: https://www.cancer.org/cancer/soncu-zfiquw-reugfg/xzfcafepf-qqsbclptp-hububly/ac s-rec ommendations.html.; Db HERNANDEZ, Mitzy CR, Patti GrullonK, Colorectal Cancer Screening: Recommendations for Physicians and Patients from the U.S. Multi-Society Task Force on Colorectal Cancer Screening , Am J Gastroenterology 2017; 112:8777-5474. TEST DESCRIPTION: Composite algorithmic analysis of stool [...] (Sabrina Davalos al, N Engl J Med 2014;370(14):8853-5011.) Cologuard may produce a false negative or false positive result (no colorectal cancer or precancerous polyp present at colonoscopy follow up). A negative Cologuard test result does not guarantee the absence of CRC or advanced adenoma (pre-cancer). The current Cologuard screening interval is every 3 years. ([place] [employer] Society and U.S. Multi-Society Task Force). Cologuard performance data in a 10,000 patient pivotal study using colonoscopy as the reference method can be accessed at the following location: www.[employer]/results. Additional description of the Cologuard test process, warnings and precautions can be found at www.AgLocalrd.com. Stool specimen (specimen) 12/03/2024 9:15 AM EDT 12/04/2024 10:37 AM EDT [facility] MOLECULAR DIAGNOSTICS ORDERA BLES Final Result Diana (CLIA #:[id number]) [address] [place] [address], * Hepatitis C Antibody with Reflex to HCV, RNA, Quantitative, Real-Time PCR (11/14/2024 9:12 AM EDT) Hepatitis C Antibody Nonreactive Nonreactive [facility] Comment:Antibodies to HCV no t detected; does not exclude early acuteHCV infection. Blood Venous blood specimen / Unknown 11/14/2024 9:12 AM EDT 11/14/2024 11:17 AM EDT Litzy John ANP LAB BLOOD ORDERABLES Final Resul t Performing Organization Address City/[facility]/ZIP Co de Phone Number [facility] [address] [place] [phone] * (ABNORMAL) Creatine Kinase, Total (11/14/2024 9:12 AM EDT) Creatine Kinase Total 452(H) 38 - 174 U/L [facility] Blood Venous blood specimen / Unknown 11/14/2024 9:12 AM EDT 11/14/2024 11:17 AM EDT Litzy John [facility] LAB BLOOD ORDERABLES Final Resul t Performing Organization Address [facility] Co de Phone Number [facility] [address] [place] [phone] * (ABNORMAL) Lipid Panel, Standard (11/14/2024 9:12 AM EDT) Triglycerides 137 <150 mg/dL [facility] Comment:Desirable Triglyceri de: less than 150 mg/dLBorderline High Triglyceride 150-199 mg/dLHigh Triglyceride: 200-499 mg/dLVery High Triglyceride: greater than or equal to 5OO mg/dL Cholesterol 169 <200 mg/dL [facility] Comment:Desirable Cholestero l: less than 200 mg/dLBorderline High Cholesterol: 200-239 mg/dLHigh Cholesterol: greater than 239 mg/dL LDL Cholesterol Calculated 112(H) <100 mg/dL [facility] Comment:Desirable LDL: less than 100 mg/dLNear Optimal/Above Optimal LDL: 110- 129 mg/dLBorderline High LDL: 130-159 mg/dLHigh LDL: 160-189 mg/dLVery High LDL: greater than or equal to 190 mg/dL HDL Cholesterol 30(L) >40 mg/dL [facility] Comment:Desirable HDL: great er than 40 mg/dL Note: This HDL assay may give artificially low results in patients with liver disease. Blood Venous blood specimen / Unknown 11/14/2024 9:12 AM EDT 11/14/2024 11:17 AM EDT Litzy EDGAR LAB BLOOD ORDERABLES Final Resul t [facility] [address] [place] [phone] documented in this encounter Visit Diagnoses Diagnosis Screening for [...] documented as of this encounter Care Teams Cloth Framer Relationship Specialty Start Date End Date Litzy John ANP [address] [place] [address] PCP - General Family Medicine 03/23/21 Kb Tineo PharmD [address] [place] [address] Pharmacist Internal Medicine 06/25/24 documented as of this encounter
--- OUTSIDE RECORDS SUMMARY | 2024-12-12 16:15 | XMS_ITS | Encounter Summary ---
Author Organization [employer] Address [address] [facility] 7t [place] [address] Care Team Providers Care Quality Assurance Engineer Name Role Phone Litzy John ANP Primary Care Provider [phone] Kb Tineo PharmD Unavailable [phone] Encounter Details Date Type Department Care Team (Late Contact Info) Description 02/13/2023 Orders Only [facility] MEDICINE [address] [place] [address] [phone] Litzy John ANP [address] [place] [address] Elevated CK (Primary Dx) Social History Tobacco [...] Info) Description 12/24/2024 3:30 PM EDT Telemedicine [facility] MEDICINE [address] [place] [address] Kb Tineo, PharmD [address] [place] [address] 05/29/2025 1:00 PM EDT Office Visit [facility] OPTOMETRY [address] [place] [address] Tika Juan, OD [address] [place] [address] documented as of this encounter Visit Diagnoses Diagnosis Elevated CK- Primary Other nonspecific abnormal serum enzyme levels documented in this encounter Care Teams Quality Assurance Engineer Relationship Specialty Start Date End Date Litzy John ANP [address] [place] [address] PCP - General Family Medicine 03/23/21 Kb Tineo, PharmD [address] [place] [phone] Pharmacist Internal Medicine 06/25/24 documented as of this encounter
--- OUTSIDE RECORDS SUMMARY | 2024-12-12 16:15 | XMS_ITS ---
Author Organization [facility] Address [address] [place] [phone] Care Team Providers Care Assistant Grocery Name Role Phone Rell Gomes Primary Care Provider Renard Salas [phone] REASON FOR VISIT colon screening Encounters Encounter Location Date Provider Diagnosis [facility] [address] [place] [phone] 03/12/2024 Renard Chiu Plan Of Treatment No Information Progress Notes * LIEN BHATTDOB:1965 (59 yo M)Acc No.[id number]:03/12/2024 Progress Notes Patient:?LIEN BHATT Provider:?Renard Chiu MD :1965???Age:58 Y???Sex:Male Jemal e:03/12/2024 Address:[address] [place] [address] Pcp:Rell Gomes Subjective: * Chief Complaints: * [...] MD Date:? 024 Generated for Cesar maharaj/Sonal/eTjasonsmitting on:?12/12/2024 03:37 PM EDT
--- OUTSIDE RECORDS SUMMARY | 2024-12-12 16:15 | XMS_ITS | Patient Health Record ---
Author Organization [facility] Address [address] [place] [phone] Care Team Providers Care Electrical Engineer Mep Name Role Phone Eliseo, Rell Primary Care Provider Renard Salas [phone] Reason For Referral No Information Encounters Encounter Location Date Provider Diagnosis [facility] [address] [place] [phone] 01/22/2024 Renard Chiu Plan Of Treatment No Information Insurance Providers Payer Name Payer Address Payer Phone Subscriber Number Group Number Insured Name Patient Relationship to Insured Coverage Start Date Coverage End Date MEDICAID OF [facility] [address] [place] [phone] [id number] LIEN BHATT Self - patient is the insured
--- OUTSIDE RECORDS SUMMARY | 2024-12-12 16:16 | XMS_ITS | Encounter Summary ---
Author Organization [employer] Address [address] [facility] 7t [place] [address] Care Team Providers Care Patient Educator Name Role Phone Litzy John Primary Care Provider [phone] Kb Tineo PharmD Unavailable [phone] Reason for Visit * Reason Onset Date Comments Chart Prep 12/11/2024 Encounter Details Date Type Department Care Team (Late st Contact Info) Description 12/11/2024 Telephone [facility] MEDICINE [address] [place] [address] Luciana Rebollar MA Chart Prep Social History Tobacco Use Types Packs/Day Years [...] encounter Miscellaneous Notes * Telephone Encounter - Luciana Rebollar MA - 12/11/2024 3:33 PM EDT Chart Prep Labs: done Images: done Referrals: [facility] Ophthalmology Vaccines due: RSV Screenings: Urine protein, HIV Overdue care gaps: A1c, Glucose, SBIRT, PHQ-9, BRITTNEE-7, Oral health screening, and Tobacco documented in this encounter Plan of Treatment Upcoming Encounters Date Type Department Care Team (Late st Contact Info) Description 12/24/2024 3:30 PM EDT Telemedicine [facility] MEDICINE [address] [place] [address] Kb Tineo, PharmD [address] [place] [address] 05/29/2025 1:00 PM EDT Office Visit [facility] OPTOMETRY [address] [place] [address] Tika Juan, OD [address] [place] [address] documented as of this encounter Visit Diagnoses Not on filedocumented in this encounter Additional Health Concerns Assessment Noted Time PHQ-9 Depression Total Score: 1 02/21/20 24 11:15 AM EDT documented as of this encounter Care Teams Patient Educator Relationship Specialty Start Date End Date Litzy John ANP [address] [place] [address] PCP - General Family Medicine 03/23/21 Kb Tineo PharmD [address] [place] [address] Pharmacist Internal Medicine 06/25/24 documented as of this encounter
--- OUTSIDE RECORDS SUMMARY | 2024-12-12 16:16 | XMS_ITS | Encounter Summary ---
Author Organization [email or web address] Address [address] [facility] 7 [place] [address] Care Team Providers Care Kosher Dietary Service Supervisor Name Role Phone Litzy John Primary Care Provider [phone] Kb Tineo PharmD Unavailable [phone] Reason for Visit * Reason Onset Date Comments Nurse Triage 12/11/2024 Encounter Details Date Type Department Care Team (Late st Contact Info) Description 12/11/2024 Telephone [facility] MEDICINE [address] [place], [place] [phone] Litzy John ANP [address] [place], [place] [phone] Nurse Triage Social History Tobacco Use Types [...] encounter Miscellaneous Notes * Telephone Encounter - Rosmery Pelayo RN - 12/11/2024 2:30 PM EDT Call returned to Darin Hopkins to triage below. Reports having lower abdominal abdominal pain x 1 week. Per pt left lower quadrant. Not radiating to groin/testicles. No urinary sx. Denies any back/flank pain. No N/V,diarrhea or constipation. Pt advised of disposition, agrees to sick onsite with team provider. Reviewed home care advise, ER precautions and reasons to call back. Protocol Used: Abdominal Pain - Male (Adult) Protocol-Based Disposition: See in Office or Video Visit Today or Tomorrow Future Appointments Date Time Provider Department Center 12/12/2024 3:30 PM CONCEPCION Rucker MEDICINE [facility] 12/24/2024 3:30 PM Kb Tineo PharmD MEDICINE [facility] 05/29/2025 1:00 PM Tika Juan OD [facility] Insurance verified as active per Real Time Eligibility in [facility]. Positive Triage Question: * Mild pain (e.g., does not interfere with normal activities) and pain comes and goes (cramps) lasts > 48 hours (Exception: This same abdominal pain is a chronic symptom recurrent or ongoing AND present > 4 weeks.) * All higher-acuity triage questions were negative Care Advice Discussed: * Reassurance and Education - Stomach Pain * Drink Clear Fluids * Pass a Stool * Reasons To Call Back - Severe pain lasts over 1 hour - Constant pain lasts over 2 hours - You become worse * Telephone Encounter - Montez De Jesus - 12/11/2024 2:10 PM EDT Symptom: Abdominal Pain - Male Outcome: Schedule an appointment to be seen within 24 hours Reason: Caller denied all higher acuity questions The caller accepted this outcome. documented in this encounter Plan of Treatment Upcoming Encounters Date Type Department Care Team (Late st Contact Info) Description 12/24/2024 3:30 PM EDT Telemedicine [facility] MEDICINE [address] [place] [address] Kb Tineo, AsifD [address] [place] [address] 05/29/2025 1:00 PM EDT Office Visit [facility] OPTOMETRY [address] [place] [address] Drake, Tika, OD [address] [place] [address] documented as of this encounter Visit Diagnoses Not on filedocumented in this encounter Additional Health Concerns Assessment Noted Time PHQ-9 Depression Total Score: 1 02/21/20 24 11:15 AM EDT documented as of this encounter Care Teams Kosher Dietary Service Supervisor Relationship Specialty Start Date End Date Litzy John ANP [address] [place] [address] PCP - General Family Medicine 03/23/21 Kb Tineo, PharmD [address] [place] [address] Pharmacist Internal Medicine 06/25/24 documented as of this encounter
--- OUTSIDE RECORDS SUMMARY | 2024-12-12 16:16 | XMS_ITS | Encounter Summary ---
Author Organization [facility] Address [address] [place] [address] Care Team Providers Care Spark Tester Name Role Phone Alvaro Litzy Primary Care Provider Encounter Details Date Type Department Care Team (Late st Contact Info) Description 03/20/2024 Telephone [facility] Physician Referral Services [address] [place] [address] Litzy John [address] [place] [address] Social History Tobacco Use Types Packs/Day Years Used Date Smoking Tobacco: Never Smokeless Tobacco: Never Comments:: Sex and Gender Information Value Date Recorded Sex Assigned at Not on file Legal Sex Male 4:40 PM EDT Gender Identity Not on file Sexual Orientation Not on file documented as of this encounter Plan of Treatment Not on file documented as of this encounter Visit Diagnoses Not on filedocumented in this encounter Care Teams Spark Tester Relationship Specialty Start Date End Date Litzy John [address] [place] [address] PCP - General 01/26/23 documented as of this encounter
--- OUTSIDE RECORDS SUMMARY | 2024-12-12 16:16 | XMS_ITS | Encounter Summary ---
Author Organization [employer] Address [address] [facility] 7t [place] [address] Care Team Providers Care Lending Manager Name Role Phone Litzy John Primary Care Provider [phone] Kb Tineo PharmD Unavailable [phone] Encounter Details Date Type Department Care Team (Latest Contact Info) Description 12/12/2024 3:30 PM EDT Office Visit [facility] MEDICINE [address] [place], [place] [phone] Radha Hickman FNP [address] [place], [place] [phone] Type 2 diabetes mellitus with hyperlipidemia (CMS/HCC) (CMS/HCC) (Primary Dx); Left lower quadrant abdominal pain Social History Tobacco Use Types Packs/Day Years [...] 22 12/12/2024 3:18 PM EDT Oxygen Saturation - - Inhaled Oxygen Concentration - - Weight 86.3 kg (190 lb 4 oz) 12/12/2024 3:18 PM EDT Height 175.3 cm (5' 9 ) 12/12/2024 3:18 PM EDT Body Mass Index 28.1 12/12/2024 3:18 PM EDT documented in this encounter Plan of Treatment Upcoming Encounters Date Type Department Care Team (Late st Contact Info) Description 12/24/2024 3:30 PM EDT Telemedicine [facility] MEDICINE [address] [place], [place] [phone] Kb Tineo, PharmD [address] [place] [address] 05/29/2025 1:00 PM EDT Office Visit [facility] OPTOMETRY [address] [place], [place] [phone] Tika Juan, OD 230 [facility] [place] [address] Scheduled Orders Name Type Priority Associated Diagnoses Orde r Schedule CBC auto differential Lab Routine Left lower quadrant abdominal pain Expected: 12/12/2024 (Approximate), Expires: 12/11/2025 documented as of this encounter Procedures Procedure Name Priority Date/Time Associated Diagnosis Comments POCT GLYCATED HEMOGLOBIN, TOTAL Routine 12/12/2024 3:21 PM EDT Type 2 diabetes mellitus with hyperlipidemia ([facility]/HCC) ([facility]) POCT GLUCOSE Routine 12/12/2024 3:20 PM EDT Type 2 diabetes mellitus with hyperlipidemia (CMS/HCC) ([facility]) documented in this encounter Results * (ABNORMAL) POCT HGB A1C (12/12/2024 3:21 PM EDT) Hemoglobin A1C 6.8(A) 4.0 - 6.0 % Probity Lot # [id number] Lot# Expiration Date ,919,803 Blood 12/12/2024 3:21 PM EDT [employer] POINT OF CARE TEST ENTER/EDIT ORDERABLES Final Result * POCT Glucose (12/12/2024 3:20 PM EDT) Glucose Blood, POC 66 60 - 200 mg/dL Probity Lot # [id number] Lot# Expiration Date ,63,923 Blood Capillary blood specimen / Unknown 12/12/2024 3:20 PM EDT [employer] POINT OF CARE TEST ENTER/EDIT ORDERABLES Final Result documented in this encounter Visit Diagnoses Diagnosis Type 2 diabetes mellitus with hyperlipidemia (CMS/HCC) ([facility])- Primary Left lower quadrant abdominal pain documented in this encounter Additional Health Concerns Assessment Noted Time PHQ-9 Depression Total Score: 1 02/21/20 11:15 AM EDT documented as of this encounter Care Teams Lending Manager Relationship Specialty Start Date End Date Litzy Jonh ANP [address] [place] [address] PCP - General Family Medicine 03/23/21 Kb Tineo PharmD [address] [place] [address] Pharmacist Internal Medicine 06/25/24 documented as of this encounter
--- OUTSIDE RECORDS SUMMARY | 2024-12-12 16:16 | XMS_ITS | Encounter Summary ---
Author Organization [employer] Address [address] [facility] 7t [place] [address] Care Team Providers Care Alodize Machine Helper Name Role Phone Litzy John ANP Primary Care Provider [phone] Kb Tineo PharmD Unavailable [phone] Reason for Visit * Reason Onset Date Comments Nurse Triage 06/25/2023 Encounter Details Date Type Department Care Team ([facility] st Contact Info) Description 06/25/2023 Telephone [facility] MEDICINE [address] [place], [place] [phone] Litzy John ANP [address] [place] [address] Nurse Triage Social History Tobacco Use Types [...] 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 Pt is advised to come to [facility] today, open till 8pm. Pt is [...] accepted this outcome Please contact pt at [phone] documented in this encounter Plan of Treatment Upcoming Encounters Date Type Department Care Team (Late st Contact Info) Description 12/24/2024 3:30 PM EDT Telemedicine [facility] MEDICINE [address] [place] [address] Kb Tineo, Keli [address] [place] [address] 05/29/2025 1:00 PM EDT Office Visit [facility] OPTOMETRY [address] [place] [address] Tika Juan, OD 230 [place] [address] documented as of this encounter Visit Diagnoses Not on filedocumented in this encounter Care Teams Alodize Machine Helper Relationship Specialty Start Date End Date Litzy John ANP [address] [place] [address] PCP - General Family Medicine 03/23/21 Kb Tineo, PharmD [address] [place] [address] Pharmacist Internal Medicine 06/25/24 documented as of this encounter
--- OUTSIDE RECORDS SUMMARY | 2024-12-12 16:16 | XMS_ITS | Encounter Summary ---
Author Organization [employer] Address [address] [facility] 7t [place] [address] Care Team Providers Care Guest Relations Officer Name Role Phone Litzy John Primary Care Provider Kb Tineo PharmD Unavailable [phone] Encounter Details Date Type Department Care Team ([facility] st Contact Info) Description 12/10/2024 Results Follow-Up [facility] MEDICINE [address] [place], [place] [phone] Litzy John ANP [address] [place] [address] Cologuard?? colon cancer screening, Lipid Panel, Standard, Creatine Kinase, Total, Hepatitis C Antibody with Reflex to HCV, RNA, Quantitative, Real-Time PCR Social History Tobacco Use Types Packs/Day Years [...] Info) Description 12/24/2024 3:30 PM EDT Telemedicine [facility] MEDICINE [address] [place] [address] Kb Tineo, Keli [address] [place] [address] 05/29/2025 1:00 PM EDT Office Visit [facility] OPTOMETRY [address] [place] [address] Drake, Tika, OD 230 [place] [address] documented as of this encounter Visit Diagnoses Not on filedocumented in this encounter Additional Health Concerns Assessment Noted Time PHQ-9 Depression Total Score: 1 02/21/20 24 11:15 AM EDT documented as of this encounter Care Teams Guest Relations Officer Relationship Specialty Start Date End Date Litzy John ANP [address] [place] [address] PCP - General Family Medicine 03/23/21 Kb Tineo, PharmD [address] [place] [address] Pharmacist Internal Medicine 06/25/24 documented as of this encounter
--- OUTSIDE RECORDS SUMMARY | 2024-12-12 16:16 | XMS_ITS | Encounter Summary ---
Author Organization [employer] Address 75 [facility] 7t [place] [address] Care Team Providers Care Manuscripts Archivist Name Role Phone Litzy John Primary Care Provider [phone] Kb Tineo PharmD Unavailable [phone] Encounter Details Date Type Department Care Team (Latest Contact Info) Description 12/12/2024 Travel Social History Tobacco Use Types Packs/Day [...] Info) Description 12/24/2024 3:30 PM EDT Telemedicine [facility] MEDICINE [address] [place] [address] Kb Tineo, PharmD [address] [place] [address] 05/29/2025 1:00 PM EDT Office Visit [facility] OPTOMETRY [address] [place] [address] Drake, Tika, OD 230 [place] [address] documented as of this encounter Visit Diagnoses Not on filedocumented in this encounter Additional Health Concerns Assessment Noted Time PHQ-9 Depression Total Score: 1 02/21/20 24 11:15 AM EDT documented as of this encounter Care Teams Manuscripts Archivist Relationship Specialty Start Date End Date Litzy John ANP [address] [place] [address] PCP - General Family Medicine 03/23/21 Kb Tineo, PharmD [address] [place] [address] Pharmacist Internal Medicine 06/25/24 documented as of this encounter
--- OUTSIDE RECORDS SUMMARY | 2024-12-12 16:16 | XMS_ITS | Clinical Summary ---
Author Organization [facility] Address [address] [place] [address] Care Team Providers Care Irrigation System Installer Name Role Phone Litzy John Primary Care Provider [phone] Allergies No known active allergies Medications ProAir HFA 90 mcg/actuation inhaler INHALE 2 PUFFS BY MOUTH EVERY 4 TO 6 HOURS NEEDED 0 Active atorvastatin (LIPITOR) 10 mg tablet Take 10 mg by mouth daily. 1 Active blood pressure test kit-large kit USE TO CHECK BLOOD PRESSURE 0 Active Freestyle Lite test strips TEST BLOOD SUGAR 4 TIMES A DAY 1 Active FreeStyle [place] Lite meter TEST BLOOD SUGAR 4 TIMES [...] DAILY WITH FOOD NEEDED 0 Active Hypodermic [place] 23 gauge x 1 1/2 needle USE [...] Mass Index - - Plan of Treatment Health Maintenance Due Date [...] 08/11/2024, 04/2024, 09/04/2022, Additional history exists Insurance [place] Care Teams Irrigation System Installer Relationship Specialty Start Date End Date Litzy John [address] [place] [address] PCP - General 01/26/23
--- OUTSIDE RECORDS SUMMARY | 2024-12-12 16:16 | XMS_ITS | Encounter Summary ---
Author Organization [employer] Address 75 [facility] 7t [place] [address] Care Team Providers Care Heading Up Machine Operator Name Role Phone Litzy John Primary Care Provider [phone] Kb Tineo PharmD Unavailable [phone] Reason for Visit * Reason Onset Date Comments Nurse Triage 08/21/2023 Encounter Details Date Type Department Care Team ([facility] st Contact Info) Description 08/21/2023 Telephone [facility] MEDICINE [address] [place], [place] [phone] Litzy John ANP [address] [place], [place] [phone] Nurse Triage Social History Tobacco Use Types [...] washing. Pt is given phone number for [employer] televisit for keirabianca [phone]. No further questions offered. Will call back [...] Info) Description 12/24/2024 3:30 PM EDT Telemedicine [facility] MEDICINE [address] [place] [address] Kb Tineo, Keli [address] [place] [address] 05/29/2025 1:00 PM EDT Office Visit [facility] OPTOMETRY [address] [place] [address] Drake, Tika, OD [address] [place] [address] documented as of this encounter Visit Diagnoses Not on filedocumented in this encounter Care Teams Heading Up Machine Operator Relationship Specialty Start Date End Date Litzy John ANP [address] [place] [address] PCP - General Family Medicine 03/23/21 Kb Tineo, PharmD [address] [place] [address] Pharmacist Internal Medicine 06/25/24 documented as of this encounter
--- OUTSIDE RECORDS SUMMARY | 2024-12-12 16:16 | XMS_ITS | Encounter Summary ---
Author Organization [employer] Address [address] [facility] 7t [place] [address] Care Team Providers Care Crop Ranch Hand Name Role Phone Litzy John Primary Care Provider [phone] Kb Tineo PharmD Unavailable [phone] Encounter Details Date Type Department Care Team (Latest Contact Info) Description 12/08/2024 Travel Social History Tobacco Use Types Packs/Day [...] Info) Description 12/24/2024 3:30 PM EDT Telemedicine [facility] MEDICINE [address] [place] [address] Kb Tineo, PharmD [address] [place] [address] 05/29/2025 1:00 PM EDT Office Visit [facility] OPTOMETRY [address] [place] [address] Drake, Tiak, OD [address] [place] [address] documented as of this encounter Visit Diagnoses Not on filedocumented in this encounter Additional Health Concerns Assessment Noted Time PHQ-9 Depression Total Score: 1 02/21/20 24 11:15 AM EDT documented as of this encounter Care Teams Crop Ranch Hand Relationship Specialty Start Date End Date Litzy John ANP [address] [place] [address] PCP - General Family Medicine 03/23/21 Kb Tineo, PharmD [address] [place] [address] Pharmacist Internal Medicine 06/25/24 documented as of this encounter
--- OUTSIDE RECORDS SUMMARY | 2024-12-12 16:16 | XMS_ITS | Referral Summary ---
Author Organization [facility] Address [address] [place] [address] Care Team Providers Care Forest Patrolman Name Role Phone Litzy John Primary Care Provider [phone] Allergies No known active allergies Medications ProAir HFA 90 mcg/actuation inhaler INHALE 2 PUFFS BY MOUTH EVERY 4 TO 6 HOURS NEEDED 0 Active atorvastatin (LIPITOR) 10 mg tablet Take 10 mg by mouth daily. 1 Active blood pressure test kit-large kit USE TO CHECK BLOOD PRESSURE 0 Active Freestyle Lite test strips TEST BLOOD SUGAR 4 TIMES A DAY 1 Active FreeStyle [place] Lite meter TEST BLOOD SUGAR 4 TIMES [...] DAILY WITH FOOD NEEDED 0 Active Hypodermic [place] 23 gauge x 1 1/2 needle USE [...] Mass Index - - Plan of Treatment Not on file Insurance [place] Care Teams Forest Patrolman Relationship Specialty Start Date End Date Litzy John [address] [place] [id number] PCP - General 01/26/23
[2024-12-12 17:48] LABS: MANUAL DIFF FLAG NO
[2024-12-12 18:05] LABS: Alanine Aminotransferase 27 U/L (0-40); Albumin Level 4.4 g/dL (3.5-5.0); Alkaline Phosphatase 67 U/L (39-117); Anion Gap 12 (12-20); Aspartate Amino Transferase 30 U/L (5-37); Bilirubin Total 0.4 mg/dL (0.0-1.0); Blood Urea Nitrogen 13 mg/dL (9-16); Calcium 9.7 mg/dL (8.4-10.2); Carbon Dioxide 27 mmol/L (22-29); Chloride 106 mmol/L (96-108); Estimated Glomerular Filt Rate > 60; Glucose Random 109 mg/dL (60-115); Potassium 3.9 mmol/L (3.3-5.1); Sodium 141 mmol/L (135-145)
[2024-12-12 18:15] LABS: Basophils Percent Auto 0.2 % (0-2); Eosinophils Absolute Auto 0.1 X10*3/uL (0.0-0.4); Eosinophils Percent Auto 2.6 % (0-4); Hemoglobin 14.8 g/dl (14.0-18.0); Imm Gran Abs Auto 0.02 X10*3/uL (0.00-0.03); Imm Gran Pct Auto 0.4 % (0.0-0.4); Lymphocytes Absolute Auto 2.5 X10*3/uL (1.2-4.9); Lymphocytes Percent Auto 45.6 % (20-40); Mean Corpuscular HGB Conc 34.4 g/dl (31.0-36.0); Mean Corpuscular Hemoglobin 29.6 pg (27.0-33.0); Mean Platelet Volume 8.7 fL (9.4-12.4); Monocytes Absolute Auto 0.4 X10*3/uL (0.1-1.2); Monocytes Percent Auto 8.2 % (2-11); Neutrophils Absolute Auto 2.3 x10*3/uL (2.0-8.3); Platelet Count 325 X10*3/uL (160-400); Red Cell Distribution Width 12.6 % (11.0-16.0); White Blood Count 5.4 X10*3/uL (4.8-10.8)
[2024-12-12 18:29] LABS: Prostate Specific Antigen 1.09 ng/mL (<0.05-4.0)
== END 2024-12-12 16:13 | disposition home or self-care (01) ==
LOC: HO.HHCL 16:12
PROVIDERS: Nurse Practitioner Primary Care; Visit Provider Nurse Practitioner Family
DX: R10.32 Left lower quadrant pain (principal); N40.0 Benign prostatic hyperplasia without lower urinary tract symptoms; E11.69 Type 2 diabetes mellitus with other specified complication; E78.5 Hyperlipidemia, unspecified
CPT/HCPCS: 36415; 80053; 84153; 85025

== ENCOUNTER 2025-02-16 15:12 | Emergency (ER) | payer MEDICAID, OTHER, SELFPAY ==
[2025-02-16 15:17] VITALS: BP 171/82; PULSE 76; RESP 16; TEMP 36.4; O2SAT 98; BMI 28.1
--- NOTE | 2025-02-16 15:17 | ED.GENADULT ---
HPI - General Adult General Chief complaint: General Medical Stated complaint: arm numbness Time Seen by Provider: 02/16/25 16:10 Related Data Home Medications ?Medication ?Instructions ?Recorded ?Confirmed atorvastatin 10 mg tablet 1 tab PO DAILY 05/06/21 12/08/24 blood sugar diagnostic (FreeStyle 05/06/21 12/08/24 Lite Strips) cetirizine 10 mg tablet 1 tab PO DAILY 05/06/21 12/08/24 cholecalciferol (vitamin D3) 50 1 cap PO DAILY 05/06/21 12/08/24 mcg (2,000 unit) capsule ibuprofen 600 mg tablet 1 tab PO TID 05/06/21 12/08/24 insulin glargine 100 unit/mL (3 40 unit subcut BEDTIME 05/06/21 12/08/24 mL) subcutaneous pen (Lantus Solostar U-100 Insulin) insulin lispro 100 unit/mL 0 - 12 unit subcut DIRECTED 05/06/21 12/08/24 subcutaneous pen (Humalog KwikPen (U-100) Insulin) lancets 33 gauge (TRUEplus Lancets) 05/06/21 12/08/24 naproxen 500 mg tablet 1 tab PO BID PRN Pain 05/06/21 12/08/24 amlodipine 5 mg tablet 5 mg PO DAILY 04/10/23 12/08/24 aspirin 81 mg chewable tablet 1 tab PO QAM 04/10/23 12/08/24 glipizide 10 mg tablet 10 mg PO DAILY 04/10/23 12/08/24 polyvinyl alcohol 1.4 % eye drops 1.4 drp ophthalmic (eye) DAILY 04/10/23 12/08/24 tamsulosin 0.4 mg capsule 0.4 mg PO QAM 04/10/23 12/08/24 Previous Rx's ?Medication ?Instructions ?Recorded syringe with needle 1 mL 25 gauge #4 ea 08/17/20 x 5/8 (Monoject TB Safety Syringe) pantoprazole 40 mg tablet,delayed 40 mg PO DAILY #30 tabs 04/10/23 release bisacodyl 5 mg tablet,delayed 20 mg (4 x 5 mg) PO ONCE 1 day #4 05/15/23 release (Dulcolax (bisacodyl)) tabs polyethylene glycol 3350 17 238 g PO ONCE #238 grams 05/15/23 gram/dose oral powder (Miralax) tadalafil 5 mg tablet 5 mg PO DAILY 90 days #90 tabs 02/19/24 famotidine 20 mg tablet 20 mg PO BEDTIME 90 days #90 tabs 09/08/24 Allergies Allergy/AdvReac Type Severity Reaction Status Date / Time No Known Allergies (No Known Allergy Verified 02/16/25 15:19 Allergies*) [facility] Past Medical History Medical History Low back pain Dyslipidemia HTN (hypertension) BPH (benign prostatic hyperplasia) Incomplete emptying of bladder Weak urinary stream Peyronie's disease Erectile dysfunction due to arterial insufficiency Hypogonadism in male Elevated PSA Diabetes mellitus Surgical History Hx of colonoscopy History of hernia surgery Family History Family History Mother Breast cancer Social History Social History Household Members: Spouse and Children Housing: House Are you a primary health care technician to a significant other at home: No Do you presently have visiting nurse or other home services: No Patient Tobacco Use Status: Never used Tobacco Smoked in Last 30 Days: No Use of substances other than those prescribed or required for medical reasons: No Advance Directives: No Advance Directives Information Provided: No Do you have a plan to hurt others: No Plan service: No Current occupational status: unemployed Physical Exam ED Vital Signs: Vital Signs - 24 hr 02/16/25 15:17 02/16/25 18:47 02/16/25 19:02 Temperature 97.5 F 97.5 F Pulse Rate 76 74 74 Respiratory Rate 16 18 18 Blood Pressure 171/82 H 108/72 108/72 Pulse Oximetry 98 98 98 Oxygen Delivery Method Room Air Room Air Room Air BMI result Body Mass Index 28.1 NIH Stroke Scale Internal: Initial- Upon Arrival Level of Consciousness: Alert Level of Consciousness Questions: Answers both questions correctly Level of Consciousness Commands: Performs both tasks correctly Best Gaze: Normal Visual: No visual loss Facial Palsy: Normal Motor Arm (Right): No drift Motor Arm (Left): No drift Motor Leg (Right): No drift Motor Leg (Left): No drift Limb Ataxia: Absent Sensory: Normal Best Language: No aphasia Dysarthia: Normal Extinction and Inattention: No abnormality Score: 0 Course Course Course Narrative: This is an RME performed by Ge Velasquez CNP: Additional HPI, ROS, PE not included below will be deferred to primary provider. Patient is a 59-year-old male, history of type 2 diabetes, hypertension who presents emergency department for evaluation. He states that he has been experiencing numbness to the right upper arm mid humerus to the elbow intermittently up to the shoulder over the past 2 weeks. However increase in numbness and duration since yesterday. No associated neck or shoulder pain. No numbness pain or weakness to the lower portion of the arm. Reports still having a strong rehab aide. Received call from [facility], Dr. Torres, patient advised to come to ED for work-up for TIA. NIH stroke score 0, no neurological deficits, full AROM to right shoulder and elbow Plan: serum labs, head CT, ECG Reevaluation(s) Reevaluation #1: see additional note from Dr. Burkett dated 02/16/25 Medications Administered Discontinued Medications Generic Name Dose Route Start Last Admin Trade Name Freq PRN Reason Stop Dose Admin Sodium Chloride 1,000 mls @ 999 mls/hr 02/16/25 17:37 02/16/25 18:42 Ns IV 02/16/25 18:37 Infused .Q1H1M ONE Infusion Medical Decision Making Lab Data 02/16/25 15:36 02/16/25 15:36 Labs: Lab Results 02/16/25 Range/Units 15:36 WBC 4.5 L (4.8-10.8) X10*3/uL RBC 4.90 (4.60-5.80) X10*6/uL Hgb 14.6 (14.0-18.0) g/dl Hct 41.8 L (42.0-52.0) % MCV 85.3 (80.0-98.0) fL MCH 29.8 (27.0-33.0) pg MCHC 34.9 (31.0-36.0) g/dl RDW 12.5 (11.0-16.0) % Plt Count 294 (160-400) X10*3/uL MPV 8.5 L (9.4-12.4) fL Immature Gran % (Auto) 0.2 (0.0-0.4) % Neut % (Auto) 37.8 L (45-73) % Lymph % (Auto) 48.1 H (20-40) % Hernando % (Auto) 9.1 (2-11) % Eos % (Auto) 4.4 H (0-4) % Baso % (Auto) 0.4 (0-2) % Lymph # (Auto) 2.2 (1.2-4.9) X10*3/uL Hernando # (Auto) 0.4 (0.1-1.2) X10*3/uL Eos # (Auto) 0.2 (0.0-0.4) X10*3/uL Baso # (Auto) 0.0 (0.0-0.2) X10*3/uL Abs Immat Gran (auto) 0.01 (0.00-0.03) X10*3/uL Absolute Neuts (auto) 1.7 L (2.0-8.3) x10*3/uL Absolute Nucleated RBC 0.000 (0.0-0.012) X10*3/uL Nucleated RBC % (auto) 0.0 (0.0-0.2) /100WBC PT 13.0 H (10.9-12.4) SEC INR 1.1 (0.9-1.1) Sodium 142 (135-145) mmol/L Potassium 3.9 (3.3-5.1) mmol/L Chloride 110 H (96-108) mmol/L Carbon Dioxide 24 (22-29) mmol/L Anion Gap 12 (12-20) BUN 12 (9-16) mg/dL Creatinine 1.01 (0.5-1.4) mg/dL Estim Creat Clear Calc 83.5 Estimated GFR > 60 Random Glucose 185 H (60-115) mg/dL Calcium 8.8 D (8.4-10.2) mg/dL Total Bilirubin 0.4 (0.0-1.0) mg/dL Direct Bilirubin 0.2 (0.0-0.5) mg/dL AST 41 H (5-37) U/L ALT 35 (0-40) U/L Alkaline Phosphatase 64 (39-117) U/L Total Creatine Kinase 808 H (38-174) U/L Total Protein 6.6 (6.5-8.0) g/dL Albumin 4.3 (3.5-5.0) g/dL TSH 0.94 (0.32-4.0) uIU/mL Discharge Plan Discharge Clinical Impression: Rhabdomyolysis Patient Disposition: Home, Self-Care Instructions: Rhabdomyolysis (ED) Additional Instructions: Drink plenty of fluids Your pain in the muscle is from the lack of fluids Follow with your PCP Prescriptions: No Action (DME) Monoject TB Safety Syringe 1 mL 25 gauge x 5/8 syringe See Rx Instructions .ROUTE .MEDSUPPLY Qty: 4 11RF Rx Instructions: As directed tadalafil 5 mg tablet 5 mg PO DAILY 90 Days Qty: 90 1RF famotidine 20 mg tablet 20 mg PO BEDTIME 90 Days Qty: 90 3RF cetirizine 10 mg tablet 1 tab PO DAILY atorvastatin 10 mg tablet 1 tab PO DAILY (DME) FreeStyle Lite Strips Strip MISCELLANEOUS QID ibuprofen 600 mg tablet 1 tab PO TID naproxen 500 mg tablet 1 tab PO BID PRN (Reason: Pain) insulin lispro [Humalog KwikPen Insulin] 100 unit/mL insulin pen 0 - 12 unit subcut DIRECTED insulin glargine [Lantus Solostar U-100 Insulin] 100 unit/mL (3 mL) insulin pen 40 unit subcut BEDTIME cholecalciferol (vitamin D3) 50 mcg (2,000 unit) capsule 1 cap PO DAILY (DME) lancets [TRUEplus Lancets] 33 gauge misc MISCELLANEOUS QID bisacodyl [Dulcolax (bisacodyl)] 5 mg tablet,delayed release (DR/EC) 20 mg PO ONCE 1 Days Qty: 4 0RF Rx Instructions: take 4 tabs at noon the day before your colonoscopy polyethylene glycol 3350 [Miralax] 17 gram/dose powder 238 g PO ONCE Qty: 238 0RF Rx Instructions: As directed by gastroenterology department at [facility] tamsulosin 0.4 mg capsule 0.4 mg PO QAM aspirin 81 mg tablet,chewable 1 tab PO QAM amlodipine 5 mg tablet 5 mg PO DAILY glipizide 10 mg tablet 10 mg PO DAILY polyvinyl alcohol 1.4 % drops 1.4 drp ophthalmic (eye) DAILY pantoprazole 40 mg tablet,delayed release (DR/EC) 40 mg PO DAILY Qty: 30 2RF Rx Instructions: take one tablet half an hour before breakfast Interventions: ED Discharge Assessment Last Done: 02/16/25 19:02 Discharge Date/Time: 02/16/25 19:03 Print Language: Romansh
--- NOTE | 2025-02-16 15:22 | ECG_ITS ---
Test Reason : parasites Blood Pressure : */* mmHG Vent. Rate : 77 BPM Atrial Rate : 77 BPM P-R Int : 198 ms QRS Dur : 102 ms QT Int : 360 ms P-R-T Axes : 47 255 47 degrees QTcB Int : 407 ms Normal sinus rhythm Right superior axis deviation Abnormal ECG When compared with ECG of 27-Apr-2014 10:00, No significant change was found Referred By: Elizabeth Velasquez Electronically Signed By: Dillon Owens
[2025-02-16 15:47] LABS: MANUAL DIFF FLAG NO
[2025-02-16 15:49] LABS: Hematocrit 41.8 % (42.0-52.0); Hemoglobin 14.6 g/dl (14.0-18.0); Imm Gran Abs Auto 0.01 X10*3/uL (0.00-0.03); Imm Gran Pct Auto 0.2 % (0.0-0.4); Lymphocytes Absolute Auto 2.2 X10*3/uL (1.2-4.9); Mean Corpuscular HGB Conc 34.9 g/dl (31.0-36.0); Mean Corpuscular Hemoglobin 29.8 pg (27.0-33.0); Mean Corpuscular Volume 85.3 fL (80.0-98.0); NRBC Abs Auto 0.000 X10*3/uL (0.0-0.012); NRBC Pct Auto 0.0 /100WBC (0.0-0.2); Platelet Count 294 X10*3/uL (160-400); Red Blood Count 4.90 X10*6/uL (4.60-5.80); White Blood Count 4.5 X10*3/uL (4.8-10.8)
[2025-02-16 16:00] LABS: INTERNATIONAL NORM RATIO 1.1 (0.9-1.1); Prothrombin Time 13.0 SEC (10.9-12.4)
--- OUTSIDE RECORDS SUMMARY | 2025-02-16 16:10 | XMS_ITS | Encounter Summary ---
Author Organization [employer] Address [address] [place] [address] [address] [place] [address] Care Team Providers Care Textbook Associate Name Role Phone Litzy John Primary Care Provider Kb Tineo PharmD Unavailable [phone] Encounter Details Date Type Department Care Team (Late st Contact Info) Description 08/21/2022 Abstract [facility] MEDICINE [address] [place] [address] Meryl Pettit, PharmD [address] [place] [address] Social History Tobacco Use Types Packs/Day Years [...] Care Team (Late st Contact Info) Description 04/28/2025 10:15 AM EDT Office Visit [facility] MEDICINE [address] [place] [address] Litzy John ANP [address] [place] [address] 05/29/2025 1:00 PM EDT Office Visit [facility] OPTOMETRY [address] [place] [address] Tika Juan, OD [address] [place] [address] documented as of this encounter Visit Diagnoses Not on filedocumented in this encounter Care Teams Textbook Associate Relationship Specialty Start Date End Date Litzy John ANP [address] [place] [address] PCP - General Family Medicine 03/23/21 Kb Tineo, AsifD [address] [place] [address] Pharmacist Internal Medicine 06/25/24 documented as of this encounter
--- OUTSIDE RECORDS SUMMARY | 2025-02-16 16:10 | XMS_ITS | Encounter Summary ---
Author Organization [facility] Address [address] [place] [address] Care Team Providers Care Marine Firer Name Role Phone Alvaro Litzy Primary Care Provider [phone] Encounter Details Date Type Department Care Team (Late st Contact Info) Description 03/20/2024 Telephone [facility] Physician Referral Services [address] [place] [address] Litzy John [address] [place] [address] Social History Tobacco Use Types Packs/Day Years [...] on filedocumented in this encounter Care Teams Marine Firer Relationship Specialty Start Date End Date Litzy John [address] [place] [address] PCP - General 01/26/23 documented as of this encounter
--- OUTSIDE RECORDS SUMMARY | 2025-02-16 16:10 | XMS_ITS | Clinical Summary ---
Author Organization [facility] Address [address] [place] [address] Care Team Providers Care Burring Wheel Operator Name Role Phone Unavailable Primary Care Provider [...] 2008 Fecal DNA 2008 Flexible Sigmoidoscopy 2008 Imm-Pneumococcal 50+ (1 of 1 - PCV) 2013 Imm-Zoster, Recombinant (1 of 2) 2013 Tun-[id number] ( season) 2024 06/08/2021, 11/16/2020, 10/19/2020 Alcohol and Drug Screen 07/30/2024 Depression Annual Screen 07/30/2024 Imm-Influenza (#1) 2025 Insurance [place] MED[place] HE[place]AF[place]Y NET
--- OUTSIDE RECORDS SUMMARY | 2025-02-16 16:10 | XMS_ITS | Patient Health Record ---
Author Organization [facility] Address [address] [place] [address] Care Team Providers Care Pain Management Nurse Name Role Phone Rell Gomes Primary Care Provider Renard Salas [phone] Reason For Referral No Information Plan Of Treatment No Information Insurance Providers Payer Name Payer Address Payer Phone Subscriber Number Group Number Insured Name Patient Relationship to Insured Coverage Start Date Coverage End Date MEDICAID OF [facility] [address] [place] [id number] LIEN BHATT Self - patient is the insured
[2025-02-16 16:25] LABS: Alanine Aminotransferase 35 U/L (0-40); Albumin Level 4.3 g/dL (3.5-5.0); Alkaline Phosphatase 64 U/L (39-117); Anion Gap 12 (12-20); Aspartate Amino Transferase 41 U/L (5-37); Blood Urea Nitrogen 12 mg/dL (9-16); Calcium 8.8 mg/dL (8.4-10.2); Carbon Dioxide 24 mmol/L (22-29); Chloride 110 mmol/L (96-108); Creatinine Clr Calc Pharmacy 83.5; Estimated Glomerular Filt Rate > 60; Potassium 3.9 mmol/L (3.3-5.1); Sodium 142 mmol/L (135-145); Total Protein 6.6 g/dL (6.5-8.0)
--- NOTE | 2025-02-16 16:58 | ED.GENADULT ---
HPI - General Adult General Chief complaint: General Medical Stated complaint: arm numbness Time Seen by Provider: 02/16/25 16:10 Source: patient Mode of arrival: ambulatory Limitations: no limitations History of Present Illness ED Provider: HPI narrative: Patient's history of hypotension diabetes hyperlipidemia not on any statin comes here for right upper extremity pain/muscular cramps for last 2 weeks off and on history of same in the past when was taking statins no headache no weakness no chest pain no shortness of breath Related Data Home Medications ?Medication ?Instructions ?Recorded ?Confirmed atorvastatin 10 mg tablet 1 tab PO DAILY 05/06/21 12/08/24 blood sugar diagnostic (FreeStyle 05/06/21 12/08/24 Lite Strips) cetirizine 10 mg tablet 1 tab PO DAILY 05/06/21 12/08/24 cholecalciferol (vitamin D3) 50 1 cap PO DAILY 05/06/21 12/08/24 mcg (2,000 unit) capsule ibuprofen 600 mg tablet 1 tab PO TID 05/06/21 12/08/24 insulin glargine 100 unit/mL (3 40 unit subcut BEDTIME 05/06/21 12/08/24 mL) subcutaneous pen (Lantus Solostar U-100 Insulin) insulin lispro 100 unit/mL 0 - 12 unit subcut DIRECTED 05/06/21 12/08/24 subcutaneous pen (Humalog KwikPen (U-100) Insulin) lancets 33 gauge (TRUEplus Lancets) 05/06/21 12/08/24 naproxen 500 mg tablet 1 tab PO BID PRN Pain 05/06/21 12/08/24 amlodipine 5 mg tablet 5 mg PO DAILY 04/10/23 12/08/24 aspirin 81 mg chewable tablet 1 tab PO QAM 04/10/23 12/08/24 glipizide 10 mg tablet 10 mg PO DAILY 04/10/23 12/08/24 polyvinyl alcohol 1.4 % eye drops 1.4 drp ophthalmic (eye) DAILY 04/10/23 12/08/24 tamsulosin 0.4 mg capsule 0.4 mg PO QAM 04/10/23 12/08/24 Previous Rx's ?Medication ?Instructions ?Recorded syringe with needle 1 mL 25 gauge #4 ea 08/17/20 x 5/8 (Monoject TB Safety Syringe) pantoprazole 40 mg tablet,delayed 40 mg PO DAILY #30 tabs 04/10/23 release bisacodyl 5 mg tablet,delayed 20 mg (4 x 5 mg) PO ONCE 1 day #4 05/15/23 release (Dulcolax (bisacodyl)) tabs polyethylene glycol 3350 17 238 g PO ONCE #238 grams 05/15/23 gram/dose oral powder (Miralax) tadalafil 5 mg tablet 5 mg PO DAILY 90 days #90 tabs 02/19/24 famotidine 20 mg tablet 20 mg PO BEDTIME 90 days #90 tabs 09/08/24 Allergies Allergy/AdvReac Type Severity Reaction Status Date / Time No Known Allergies (No Known Allergy Verified 02/16/25 15:19 Allergies*) Review of Systems Review of Systems: Yes all other systems are reviewed and are negative [facility] Past Medical History Medical History Low back pain Dyslipidemia HTN (hypertension) BPH (benign prostatic hyperplasia) Incomplete emptying of bladder Weak urinary stream Peyronie's disease Erectile dysfunction due to arterial insufficiency Hypogonadism in male Elevated PSA Diabetes mellitus Surgical History Hx of colonoscopy History of hernia surgery Family History Family History Mother Breast cancer Social History Social History Household Members: Spouse and Children Housing: House Are you a primary rn homecare to a significant other at home: No Do you presently have visiting nurse or other home services: No Patient Tobacco Use Status: Never used Tobacco Smoked in Last 30 Days: No Use of substances other than those prescribed or required for medical reasons: No Advance Directives: No Advance Directives Information Provided: No Do you have a plan to hurt others: No Plan service: No Current occupational status: unemployed Physical Exam ED Exam Exam: Appearance: Alert. Oriented X3. No acute distress. Eyes: PERRLA, No Nystagmus ENT: Pharynx normal. Oral Mucosa moist Neck: Normal inspection. Neck supple. CVS: Normal heart rate and rhythm. Pulses normal. Respiratory: No respiratory distress. Equal air entry bilateral, no wheezing/rales/rhonchi Abdomen: Soft and nontender. Bowel sounds are present, no mass palpable, no CVA tenderness Skin: Skin warm and dry. Normal skin color. Normal skin turgor. Extremities: No lower extremity edema. No calf tenderness Neuro: Oriented X 3. No motor deficit. No sensory deficit.No cerebellar signs , cranial nerves II-XII intact Vital Signs: Vital Signs - 24 hr 02/16/25 15:17 Temperature 97.5 F Pulse Rate 76 Respiratory Rate 16 Blood Pressure 171/82 H Pulse Oximetry 98 Oxygen Delivery Method Room Air BMI result Body Mass Index 28.1 NIH Stroke Scale Internal: Initial- Upon Arrival Level of Consciousness: Alert Level of Consciousness Questions: Answers both questions correctly Level of Consciousness Commands: Performs both tasks correctly Best Gaze: Normal Visual: No visual loss Facial Palsy: Normal Motor Arm (Right): No drift Motor Arm (Left): No drift Motor Leg (Right): No drift Motor Leg (Left): No drift Limb Ataxia: Absent Sensory: Normal Best Language: No aphasia Dysarthia: Normal Extinction and Inattention: No abnormality Score: 0 Medications Administered Generic Name Dose Route Start Last Admin Trade Name Freq PRN Reason Stop Dose Admin Sodium Chloride 1,000 mls @ 999 mls/hr 02/16/25 17:37 02/16/25 17:41 Ns IV 02/16/25 18:37 999 mls/hr .Q1H1M ONE Administration Medical Decision Making Medical Decision Making [facility] Narrative: Patient with muscular pain in the right arm similar to that when he used to take statin in the past patient has had elevated CPK lab shows CPK of 808 patient was given 1 L of IV fluids and p.o. fluids feeling much better will discharge patient home Differential Diagnosis Differential Diagnoses: The differential diagnosis associated with the presentation includes Myalgia/rhabdomyolysis Lab Data [facility] Lab Attestation statement: I reviewed the patient's lab results. 02/16/25 15:36 02/16/25 15:36 Labs: Lab Results 02/16/25 Range/Units 15:36 WBC 4.5 L (4.8-10.8) X10*3/uL RBC 4.90 (4.60-5.80) X10*6/uL Hgb 14.6 (14.0-18.0) g/dl Hct 41.8 L (42.0-52.0) % MCV 85.3 (80.0-98.0) fL MCH 29.8 (27.0-33.0) pg MCHC 34.9 (31.0-36.0) g/dl RDW 12.5 (11.0-16.0) % Plt Count 294 (160-400) X10*3/uL MPV 8.5 L (9.4-12.4) fL Immature Gran % (Auto) 0.2 (0.0-0.4) % Neut % (Auto) 37.8 L (45-73) % Lymph % (Auto) 48.1 H (20-40) % [place]te % (Auto) 9.1 (2-11) % Eos % (Auto) 4.4 H (0-4) % Baso % (Auto) 0.4 (0-2) % Lymph # (Auto) 2.2 (1.2-4.9) X10*3/uL [place] # (Auto) 0.4 (0.1-1.2) X10*3/uL Eos # (Auto) 0.2 (0.0-0.4) X10*3/uL Baso # (Auto) 0.0 (0.0-0.2) X10*3/uL Abs Immat Gran (auto) 0.01 (0.00-0.03) X10*3/uL Absolute Neuts (auto) 1.7 L (2.0-8.3) x10*3/uL Absolute Nucleated RBC 0.000 (0.0-0.012) X10*3/uL Nucleated RBC % (auto) 0.0 (0.0-0.2) /100WBC PT 13.0 H (10.9-12.4) SEC INR 1.1 (0.9-1.1) Sodium 142 (135-145) mmol/L Potassium 3.9 (3.3-5.1) mmol/L Chloride 110 H (96-108) mmol/L Carbon Dioxide 24 (22-29) mmol/L Anion Gap 12 (12-20) BUN 12 (9-16) mg/dL Creatinine 1.01 (0.5-1.4) mg/dL Estim Creat Clear Calc 83.5 Estimated GFR > 60 Random Glucose 185 H (60-115) mg/dL Calcium 8.8 D (8.4-10.2) mg/dL Total Bilirubin 0.4 (0.0-1.0) mg/dL Direct Bilirubin 0.2 (0.0-0.5) mg/dL AST 41 H (5-37) U/L ALT 35 (0-40) U/L Alkaline Phosphatase 64 (39-117) U/L Total Creatine Kinase 808 H (38-174) U/L Total Protein 6.6 (6.5-8.0) g/dL Albumin 4.3 (3.5-5.0) g/dL TSH 0.94 (0.32-4.0) uIU/mL Independent Interpretation I performed an independent interpretation of an: EKG Interpretation: Normal sinus rhythm ventricular rate 77 beats per minute normal interval normal axis no acute ST-T changes no acute ischemia Discharge Plan Discharge Clinical Impression: Rhabdomyolysis Patient Disposition: Home, Self-Care Instructions: Rhabdomyolysis (ED) Additional Instructions: Drink plenty of fluids Your pain in the muscle is from the lack of fluids Follow with your PCP Prescriptions: No Action (DME) Monoject TB Safety Syringe 1 mL 25 gauge x 5/8 syringe See Rx Instructions .ROUTE .MEDSUPPLY Qty: 4 11RF Rx Instructions: As directed tadalafil 5 mg tablet 5 mg PO DAILY 90 Days Qty: 90 1RF famotidine 20 mg tablet 20 mg PO BEDTIME 90 Days Qty: 90 3RF cetirizine 10 mg tablet 1 tab PO DAILY atorvastatin 10 mg tablet 1 tab PO DAILY (DME) FreeStyle Lite Strips Strip MISCELLANEOUS QID ibuprofen 600 mg tablet 1 tab PO TID naproxen 500 mg tablet 1 tab PO BID PRN (Reason: Pain) insulin lispro [Humalog KwikPen Insulin] 100 unit/mL insulin pen 0 - 12 unit subcut DIRECTED insulin glargine [Lantus Solostar U-100 Insulin] 100 unit/mL (3 mL) insulin pen 40 unit subcut BEDTIME cholecalciferol (vitamin D3) 50 mcg (2,000 unit) capsule 1 cap PO DAILY (DME) lancets [TRUEplus Lancets] 33 gauge misc MISCELLANEOUS QID bisacodyl [Dulcolax (bisacodyl)] 5 mg tablet,delayed release (DR/EC) 20 mg PO ONCE 1 Days Qty: 4 0RF Rx Instructions: take 4 tabs at noon the day before your colonoscopy polyethylene glycol 3350 [Miralax] 17 gram/dose powder 238 g PO ONCE Qty: 238 0RF Rx Instructions: As directed by gastroenterology department at [facility] tamsulosin 0.4 mg capsule 0.4 mg PO QAM aspirin 81 mg tablet,chewable 1 tab PO QAM amlodipine 5 mg tablet 5 mg PO DAILY glipizide 10 mg tablet 10 mg PO DAILY polyvinyl alcohol 1.4 % drops 1.4 drp ophthalmic (eye) DAILY pantoprazole 40 mg tablet,delayed release (DR/EC) 40 mg PO DAILY Qty: 30 2RF Rx Instructions: take one tablet half an hour before breakfast Print Language: Turkish
[2025-02-16 18:47] VITALS: BP 108/72; PULSE 74; RESP 18; O2SAT 98
[2025-02-16 19:02] VITALS: BP 108/72; PULSE 74; RESP 18; TEMP 36.4; O2SAT 98
[2025-02-17 18:13] LABS: Lyme Abs Screen <0.90 index
[2025-02-17 22:18] LABS: A. Phagocytphilium DNA,RT-PCR NOT DETECTED (NOT DETECTED); Babesia Microti DNA, RT-PCR NOT DETECTED (NOT DETECTED); Borrelia Miyamotoi,DNA RT-PCR NOT DETECTED (NOT DETECTED); E.Chaffeensis DNA RT-PCR NOT DETECTED (NOT DETECTED); Lyme(Borrelia ssp)DNA RT-PCR NOT DETECTED (NOT DETECTED)
== END 2025-02-16 19:03 | disposition home or self-care (01) ==
PROVIDERS: Nurse Practitioner Family; Emergency Provider Internal Medicine; PCP Nurse Practitioner Primary Care
DX: M62.82 Rhabdomyolysis (principal); R20.0 Anesthesia of skin; R29.700 NIHSS score 0; E11.9 Type 2 diabetes mellitus without complications; I10 Essential (primary) hypertension; E78.5 Hyperlipidemia, unspecified; M79.601 Pain in right arm; Z79.02 Long term (current) use of antithrombotics/antiplatelets; Z79.4 Long term (current) use of insulin; Z79.899 Other long term (current) drug therapy; Z79.82 Long term (current) use of aspirin
CPT/HCPCS: 36415; 80048; 80076; 82550; 84443; 85025; 85610; 86617; 86618; 87468; 87469; 87478; 87484; 87798; 93005; 96360; 99284; 99285

== ENCOUNTER → 2025-02-16 15:22 | Outpatient (BNV) | payer SELFPAY | PROVIDERS: Emergency Provider Internal Medicine; PCP Nurse Practitioner Primary Care; Visit Provider Internal Medicine Cardiovascular Disease | DX: R94.31 Abnormal electrocardiogram [ECG] [EKG] (principal); R20.2 Paresthesia of skin | CPT/HCPCS: 93010 ==

== ENCOUNTER 2025-02-20 13:41 | Outpatient (REF) | payer MEDICAID, OTHER, SELFPAY ==
--- NOTE | ~2025-02-20 | XR_ITS ---
EXAMINATION: XR SHOULDER, RIGHT CLINICAL INFORMATION: pain COMPARISON: None available. TECHNIQUE: AP external rotation, Grashey, scapular Y, and axillary views of the right shoulder. FINDINGS: No acute cortical disruption or malalignment. No lytic or blastic lesions. No metallic or radiopaque foreign body. No subcutaneous emphysema. XR/XR shoulder RT min 2V IMPRESSION: No acute fracture or dislocation. Negative x-ray examination. Electronically signed by: Adriano Ashraf MD 02/20/2025 02:08 PM EDT
--- OUTSIDE RECORDS SUMMARY | 2025-02-20 13:44 | XMS_ITS | Encounter Summary ---
Author Organization [facility] Address [address] [place] [address] Care Team Providers Care Gun Stocker Name Role Phone Alvaro Litzy Primary Care Provider [phone] Encounter Details Date Type Department Care Team (Late st Contact Info) Description 03/20/2024 Telephone [facility] Physician Referral Services [address] [place] [address] Litzy John [address] [place] [address] Social History Tobacco Use Types Packs/Day Years [...] on filedocumented in this encounter Care Teams Gun Stocker Relationship Specialty Start Date End Date Litzy John [address] [place] [address] PCP - General 01/26/23 documented as of this encounter
--- OUTSIDE RECORDS SUMMARY | 2025-02-20 13:44 | XMS_ITS | Clinical Summary ---
Author Organization [facility] Address [address] [place] [address] Care Team Providers Care Telephone Instrument Supervisor Name Role Phone Unavailable Primary Care Provider [...] 2013 Imm-Zoster, Recombinant (1 of 2) 2013 [id number] ( season) 2024 06/08/2021, 11/16/2020, 10/19/2020 Alcohol and Drug Screen 07/30/2024 Depression Annual Screen 07/30/2024 Imm-Influenza (#1) 2025 Insurance [place] MEDICAID HEALTH SAFETY NET
--- OUTSIDE RECORDS SUMMARY | 2025-02-20 13:44 | XMS_ITS | Patient Health Record ---
Author Organization [facility] Address [address] [place] [id number] Care Team Providers Care Controls Operator Molded Goods Name Role Phone Rell Gomes Primary Care Provider Renard Salas [phone] Reason For Referral No Information Plan Of Treatment No Information Insurance Providers Payer Name Payer Address Payer Phone Subscriber Number Group Number Insured Name Patient Relationship to Insured Coverage Start Date Coverage End Date MEDICAID OF [facility] [address] [place] [phone] [id number] LIEN BHATT Self - patient is the insured
[2025-02-20 13:51] LABS: MANUAL DIFF FLAG NO
[2025-02-20 14:24] LABS: Hematocrit 44.0 % (42.0-52.0); Hemoglobin 14.9 g/dl (14.0-18.0); Imm Gran Abs Auto 0.01 X10*3/uL (0.00-0.03); Imm Gran Pct Auto 0.3 % (0.0-0.4); Lymphocytes Absolute Auto 1.1 X10*3/uL (1.2-4.9); Mean Corpuscular HGB Conc 33.9 g/dl (31.0-36.0); Mean Corpuscular Hemoglobin 29.0 pg (27.0-33.0); Mean Corpuscular Volume 85.6 fL (80.0-98.0); NRBC Abs Auto 0.000 X10*3/uL (0.0-0.012); NRBC Pct Auto 0.0 /100WBC (0.0-0.2); Platelet Count 328 X10*3/uL (160-400); Red Blood Count 5.14 X10*6/uL (4.60-5.80); White Blood Count 3.1 X10*3/uL (4.8-10.8)
[2025-02-20 14:48] LABS: Alanine Aminotransferase 34 U/L (0-40); Albumin Level 4.5 g/dL (3.5-5.0); Alkaline Phosphatase 68 U/L (39-117); Anion Gap 9 (12-20); Aspartate Amino Transferase 45 U/L (5-37); Blood Urea Nitrogen 11 mg/dL (9-16); Calcium 9.3 mg/dL (8.4-10.2); Carbon Dioxide 28 mmol/L (22-29); Chloride 107 mmol/L (96-108); Estimated Glomerular Filt Rate > 60; Magnesium 2.1 mg/dL (1.6-2.6); Potassium 3.9 mmol/L (3.3-5.1); Sodium 140 mmol/L (135-145); Total Protein 7.0 g/dL (6.5-8.0)
[2025-02-24 20:29] LABS: CK-BB None Detected (None Detected); CK-MB 0 % (<5); CK-MM 98 % (95-100); Creatine Kinase Isoenzyme Itrp MACRO CK TYPE 1; Creatine Kinase,Total,Serum 957 U/L (22-308)
== END 2025-02-20 13:42 | disposition home or self-care (01) ==
LOC: HO.XRAY 13:41
PROVIDERS: PCP Nurse Practitioner Primary Care; Visit Provider Internal Medicine
DX: M25.511 Pain in right shoulder (principal); M62.82 Rhabdomyolysis
CPT/HCPCS: 36415; 73030; 80053; 82552; 83735; 84100; 85025

== ENCOUNTER → 2025-02-20 13:52 | Outpatient (BNV) | payer SELFPAY | PROVIDERS: PCP Nurse Practitioner Primary Care; Visit Provider Radiology Diagnostic Radiology | DX: M25.511 Pain in right shoulder (principal) | CPT/HCPCS: 73030 ==

== ENCOUNTER 2025-02-24 14:29 | Outpatient (REF) | payer MEDICAID, OTHER, SELFPAY ==
--- OUTSIDE RECORDS SUMMARY | 2025-02-24 15:08 | XMS_ITS | Encounter Summary ---
Author Organization [facility] Address [address] [place] [address] Care Team Providers Care University Tutor Name Role Phone Alvaro Litzy Primary Care Provider [phone] Encounter Details Date Type Department Care Team (Late st Contact Info) Description 03/20/2024 Telephone [facility] Physician Referral Services [address] [place] [address] Litzy John [address] [place] [address] Social History Tobacco Use Types Packs/Day Years [...] on filedocumented in this encounter Care Teams University Tutor Relationship Specialty Start Date End Date Litzy John [address] [place] [address] PCP - General 01/26/23 documented as of this encounter
--- OUTSIDE RECORDS SUMMARY | 2025-02-24 15:08 | XMS_ITS | Patient Health Record ---
Author Organization [facility] Address [address] [place] [id number] Care Team Providers Care Chief Controller Name Role Phone Rell Gomes Primary Care Provider Renard Salas [phone] Reason For Referral No Information Plan Of Treatment No Information Insurance Providers Payer Name Payer Address Payer Phone Subscriber Number Group Number Insured Name Patient Relationship to Insured Coverage Start Date Coverage End Date MEDICAID OF [facility] [address] [place] [phone] [id number] LIEN BHATT Self - patient is the insured
--- OUTSIDE RECORDS SUMMARY | 2025-02-24 15:08 | XMS_ITS | Encounter Summary ---
Author Organization [facility] Address [address] 7 [place] [address] Care Team Providers Care Import/Export Freight Forwarder Name Role Phone Litzy John Primary Care Provider [phone] Kb Tineo PharmD Unavailable [phone] Encounter Details Date Type Department Care Team (Late st Contact Info) Description 08/21/[address] [facility] MEDICINE [address] [place] [id number] Meryl Pettit, PharmD [address] [place] [phone] Social History Tobacco Use Types Packs/Day Years [...] Care Team (Late st Contact Info) Description 02/24/2025 3:20 PM EDT Office Visit [facility] W[facility]-IN [facility] [address] [place] [address] Arrived 04/28/2025 10:15 AM EDT Office Visit [facility] MEDICINE [address] [place] [phone] Litzy John ANP [address] [place] [phone] 05/29/2025 1:00 PM EDT Office Visit [facility] OPTOMETRY [address] [place], [place] [phone] Tika Juan, TEDDY [address] [place] [address] documented as of this encounter Visit Diagnoses Not on filedocumented in this encounter Care Teams Import/Export Freight Forwarder Relationship Specialty Start Date End Date Litzy John ANP [address] [place] [address] PCP - General Family Medicine 03/23/21 Kb Tineo, Keli [address] [place] [address] Pharmacist Internal Medicine 06/25/24 documented as of this encounter
--- OUTSIDE RECORDS SUMMARY | 2025-02-24 15:08 | XMS_ITS | Clinical Summary ---
Author Organization [facility] Address [address] [place] [address] Care Team Providers Care Simonizer Name Role Phone Unavailable Primary Care Provider [...] 2013 Imm-Zoster, Recombinant (1 of 2) 2013 [id number] ( season) 2024 06/08/2021, 11/16/2020, 10/19/2020 Alcohol and Drug Screen 07/30/2024 Depression Annual Screen 07/30/2024 Imm-Influenza (#1) 2025 Insurance [place] MEDICAID HEALTH SAFETY NET
[2025-02-24 16:09] LABS: MANUAL DIFF FLAG NO
[2025-02-24 16:27] LABS: Hematocrit 39.3 % (42.0-52.0); Hemoglobin 13.6 g/dl (14.0-18.0); Imm Gran Abs Auto 0.01 X10*3/uL (0.00-0.03); Imm Gran Pct Auto 0.2 % (0.0-0.4); Lymphocytes Absolute Auto 1.9 X10*3/uL (1.2-4.9); Mean Corpuscular HGB Conc 34.6 g/dl (31.0-36.0); Mean Corpuscular Hemoglobin 29.3 pg (27.0-33.0); Mean Corpuscular Volume 84.7 fL (80.0-98.0); NRBC Abs Auto 0.000 X10*3/uL (0.0-0.012); NRBC Pct Auto 0.0 /100WBC (0.0-0.2); Platelet Count 330 X10*3/uL (160-400); Red Blood Count 4.64 X10*6/uL (4.60-5.80); White Blood Count 5.2 X10*3/uL (4.8-10.8)
[2025-03-01 14:49] LABS: Testosterone, Free 57.8 pg/mL (35.0-155.0)
== END 2025-02-24 14:30 | disposition home or self-care (01) ==
LOC: HO.HHCL 14:29
PROVIDERS: Internal Medicine; PCP Nurse Practitioner Primary Care; Referring Provider Internal Medicine; Visit Provider Nurse Practitioner Primary Care
DX: M79.601 Pain in right arm (principal); M62.82 Rhabdomyolysis; E11.69 Type 2 diabetes mellitus with other specified complication; E78.5 Hyperlipidemia, unspecified; E55.9 Vitamin D deficiency, unspecified
CPT/HCPCS: 36415; 82306; 82550; 84402; 84403; 85025; 85652; 86140

== ENCOUNTER 2025-02-25 12:28 | Emergency (ER) | payer MEDICAID, OTHER, SELFPAY ==
[2025-02-25 12:34] VITALS: BP 157/74; PULSE 84; RESP 16; TEMP 36.8; O2SAT 96; BMI 28.1
--- NOTE | 2025-02-25 12:38 | ED.GENADULT ---
HPI - General Adult General Chief complaint: Recheck/Abnormal Lab/Rx Stated complaint: pt states Cpk # elevated since last time checked Time Seen by Provider: 02/25/25 13:09 Source: patient Mode of arrival: ambulatory Limitations: no limitations History of Present Illness ED Provider: Kanika Clark PA-C HPI narrative: Patient is a 59 year old assigned male at with a history of DM, GERD, ED, peyronie's disease, and elevated total CK presenting to the emergency department today with continued elevation of total CK. Patient states that he was seen on 02/16 for muscle cramping and was found to have elevated CK. Patient states that he was given some fluids, felt better, and was discharged home. Patient states that he followed up with his PCP who got repeat CK levels and they remain elevated. Patient denies any statin use, exercise, or any physical activity. Patient denies any dizziness, lightheadedness, abdominal pain, nausea, vomiting, fever, chills, blurry vision, double vision, loss of vision, chest pain, difficulty breathing, shortness of breath, back pain, night sweats, pain with urination, increased urinary frequency, increased urinary urgency, blood in his urine or stool, syncope or a near syncopal episode, recent trauma or falls, bowel incontinence, bladder incontinence, or any other complaints at this time. Patient's primary care provider, Litzy John, called and stated the patient has a mildly elevated ESR and CRP on outpatient labs. Also states that they are in the process of getting the patient into rheumatology for a muscle biopsy. Relieving factors: none Exacerbating factors: none Associated symptoms: denies other symptoms Related Data Home Medications ?Medication ?Instructions ?Recorded ?Confirmed atorvastatin 10 mg tablet 1 tab PO DAILY 05/06/21 12/08/24 blood sugar diagnostic (FreeStyle 05/06/21 12/08/24 Lite Strips) cetirizine 10 mg tablet 1 tab PO DAILY 05/06/21 12/08/24 cholecalciferol (vitamin D3) 50 1 cap PO DAILY 05/06/21 12/08/24 mcg (2,000 unit) capsule ibuprofen 600 mg tablet 1 tab PO TID 05/06/21 12/08/24 insulin glargine 100 unit/mL (3 40 unit subcut BEDTIME 10/08/21 05/12/25 mL) subcutaneous pen (Lantus Solostar U-100 Insulin) insulin lispro 100 unit/mL 0 - 12 unit subcut DIRECTED 05/06/21 12/08/24 subcutaneous pen (Humalog KwikPen (U-100) Insulin) lancets 33 gauge (TRUEplus Lancets) 05/06/21 12/08/24 naproxen 500 mg tablet 1 tab PO BID PRN Pain 05/06/21 12/08/24 amlodipine 5 mg tablet 5 mg PO DAILY 04/10/23 12/08/24 aspirin 81 mg chewable tablet 1 tab PO QAM 04/10/23 12/08/24 glipizide 10 mg tablet 10 mg PO DAILY 04/10/23 12/08/24 polyvinyl alcohol 1.4 % eye drops 1.4 drp ophthalmic (eye) DAILY 04/10/23 12/08/24 tamsulosin 0.4 mg capsule 0.4 mg PO QAM 04/10/23 12/08/24 Previous Rx's ?Medication ?Instructions ?Recorded syringe with needle 1 mL 25 gauge #4 ea 08/17/20 x 5/8 (Monoject TB Safety Syringe) pantoprazole 40 mg tablet,delayed 40 mg PO DAILY #30 tabs 04/10/23 release bisacodyl 5 mg tablet,delayed 20 mg (4 x 5 mg) PO ONCE 1 day #4 05/15/23 release (Dulcolax (bisacodyl)) tabs polyethylene glycol 3350 17 238 g PO ONCE #238 grams 05/15/23 gram/dose oral powder (Miralax) tadalafil 5 mg tablet 5 mg PO DAILY 90 days #90 tabs 02/19/24 famotidine 20 mg tablet 20 mg PO BEDTIME 90 days #90 tabs 09/08/24 Allergies Allergy/AdvReac Type Severity Reaction Status Date / Time No Known Allergies (No Known Allergy Verified 02/25/25 12:36 Allergies*) Review of Systems Constitutional: Constitutional: Reports no additional constitutional complaints, Denies chills, Denies fever(s) and Denies night sweats Eyes: Eyes: Reports no additional eye complaints, Denies blurry vision, Denies change in vision, Denies diplopia, Denies eye discharge, Denies loss of vision and Denies eye pain ENT: Denies dizziness Cardiovascular: Cardiovascular: Reports no additional cardiovascular complaints, Denies chest pain, Denies lightheadedness, Denies Loss of Consciousness and Denies dyspnea Respiratory: Respiratory: Reports no additional respiratory complaints and Denies dyspnea Gastrointestinal: Gastrointestinal: Reports no additional gastrointestinal complaints, Denies abdominal pain, Denies melena, Denies hematochezia, Denies change in bowel habits and Denies change in stool character Genitourinary: Genitourinary: Reports no additional male genitourinary complaints, Denies hematuria, Denies oliguria, Denies difficulty urinating, Denies dysuria, Denies urinary frequency, Denies urinary hesitancy, Denies urinary incontinence and Denies urinary urgency Musculoskeletal: Musculoskeletal: Reports no additional musculoskeletal complaints, Denies numbness and Denies tingling Neurologic: Denies dizziness, Denies loss of vision, Denies numbness and Denies tingling Psychiatric: Psychiatric: Reports no additional psychiatric complaints Endocrine: Endocrine: Reports no additional endocrine complaints Hematologic/Lymphatic: Hematologic/Lymphatic: Reports no additional hematologic/lymphatic complaints Allergic/Immunologic: Allergic/Immunologic: Reports no additional allergic/immunologic complaints [facility] Past Medical History Attestation statement: The following information was validated with the patient. Source: old records reviewed and nursing notes reviewed Medical History Low back pain Dyslipidemia HTN (hypertension) BPH (benign prostatic hyperplasia) Incomplete emptying of bladder Weak urinary stream Peyronie's disease Erectile dysfunction due to arterial insufficiency Hypogonadism in male Elevated PSA Diabetes mellitus Surgical History Hx of colonoscopy History of hernia surgery Family History Family History Mother Breast cancer Social History Social History Household Members: Spouse and Children Housing: House Are you a primary animal caregiver to a significant other at home: No Do you presently have visiting nurse or other home services: No Patient Tobacco Use Status: Never used Tobacco Smoked in Last 30 Days: No Use of substances other than those prescribed or required for medical reasons: No Advance Directives: No Advance Directives Information Provided: Yes service: No Current occupational status: unemployed Physical Exam ED Vital Signs: Vital Signs - 24 hr 02/25/25 12:34 02/25/25 14:20 02/25/25 16:00 Temperature 98.2 F 98.2 F Pulse Rate 84 77 71 Respiratory Rate 16 17 16 Blood Pressure 157/74 H 156/77 H 164/76 H Pulse Oximetry 96 98 98 Oxygen Delivery Method Room Air Room Air Room Air 02/25/25 18:24 02/25/25 19:02 Temperature 98.3 F 98.3 F Pulse Rate 74 74 Respiratory Rate 22 H 20 Blood Pressure 135/75 135/75 Pulse Oximetry 98 98 Oxygen Delivery Method Room Air Room Air BMI result Body Mass Index 28.1 Const General: cooperative, no acute distress, alert and awake Nutritional Appearance: well nourished Orientation/consciousness: patient oriented x3 HENMT Head: Yes normal to inspection and Yes atraumatic Ears: hearing grossly normal bilaterally and external ears normal General nose exam: Normal external nose present, no nasal discharge noted and no epistaxis Face and sinus: Yes normal facial exam, No abrasion and No laceration Mouth: Normal oral and palatal mucosa present, no drooling and no muffled voice Eyes General: appearance normal, both eyes and all related structures Periorbital: periorbital findings normal Eyelids: Yes eyelids normal Conjunctivae: conjunctivae normal Pupils: Equal, round and reactive pupils present EOM: EOMs intact bilaterally Neck Neck: Yes normal visual inspection, Yes full ROM and Yes no lymphadenopathy Resp Effort & Inspection: normal respiratory effort and able to speak in complete sentences Neuro General: patient oriented x3, moves all extremities and CN's II-XI intact bilaterally Cranial nerves: Yes Equal, round and reactive pupils present Cognition (Neuro): normal cognition Extrem General: Yes normal to inspection, Yes full ROM and Yes capillary refill normal Psych Appearance: grossly normal Mental Status: mental status grossly normal Affect: normal affect Attitude: cooperative Thought process: Normal thought process present Thought content: Normal thought content present Insight: Good insight present (Psych) Course Course Course Narrative: RME, this is a rapid medical exam performed by Holden Aly please refer to primary provider for complete H&P- 59-year-old male presents for evaluation of elevated CPK. He was seen here on 02/16/2025 and had an elevated CPK. He was discharged home after IV fluids and followed up in his doctor. He had repeat labs on 02/20/2025 and again yesterday. His CPK has been approximately the same level of 808 on his initial visit, 957 on the and 835 yesterday. He complains of some right shoulder and arm pain but denies any diffuse body aches. He reports that his glipizide was recently changed from long-acting to fast acting about 2 weeks ago but has not had any other medication changes. He reports feeling well otherwise. Plan for repeat labs including urinalysis and kidney function. Consultations Consultation #1: Attending note: Dr. Hood: The patient is a 59-year-old male who was sent to the emergency room because of elevated CPKs. He was seen here 9 days ago on February 16 with a chief complaint of muscle aches. At that visit he had a CPK of 808. He had outpatient testing on February 20 and again on February 24. CPKs were 957 and 835. He was apparently sent back to the emergency room by his PCP office because of this elevation of his CPK. His CPK today is 833. After 2 L of fluid his CPK was 842. A review of old records shows that in October of 2024 he had a CPK of 452. His renal function is at baseline and is normal. His urinalysis shows glucosuria but is negative for protein. A CPK of 800 or 900, although elevated, is not high enough to require hospitalization. I do not think that his CPKs are related to an acute muscle injury. The patient is otherwise medically stable and asymptomatic today. I do not think additional investigations or management from the emergency room is indicated. I think the patient may be discharged to follow up with his primary care doctor to pursue an outpatient workup of this problem. Medications Administered Discontinued Medications Generic Name Dose Route Start Last Admin Trade Name Freq PRN Reason Stop Dose Admin Sodium Chloride 1,000 mls @ 999 mls/hr 02/25/25 13:15 02/25/25 15:00 Ns IV 02/25/25 14:15 Infused .Q1H1M LIBBY Infusion Sodium Chloride 1,000 mls @ 999 mls/hr 02/25/25 15:00 02/25/25 16:45 Ns IV 02/25/25 16:00 Infused .Q1H1M LIBBY Infusion Medical Decision Making Medical Decision Making MDM Narrative: Patient is a 59 year old assigned male at with a history of DM, GERD, ED, peyronie's disease, and elevated total CK presenting to the emergency department today with continued elevation of total CK. Patient's physical exam was unremarkable. Patient's blood work showed total CK was 833. Patient's urine showed no acute process. I explained my physical exam findings as well as all test results to the patient. I answered all questions asked by the patient. Patient received 2 liters of IV fluid and a repeat CK was drawn at 842. I consulted with my attending physician, Dr. Hood, who stated there was nothing else to address emergently and the patient is already being established with a rheumatolgist on an outpatient basis which is who he needs to see to continue this work up on a non-emergent basis. I stressed the importance of the patient taking his medication as directed (either prescribed or as the over the counter packaging recommends). I stressed the importance of the patient following up with his primary care provider. I stressed the importance of the patient returning to the emergency department immediately if he were to develop any dizziness, shortness of breath, difficulty breathing, chest pain, blurry vision, loss of vision, nausea, vomiting, abdominal pain, fever, chills, back pain, or any other complaints. Patient verbalized agreement and understanding with this treatment plan and discharge. Differential Diagnosis Differential Diagnoses: The differential diagnosis associated with the presentation includes Autoimmune disease Transiently elevated total CK Admission/Observation Consideration of admission/observation: Escalation of care including admission/observation considered Patient would have been admitted to the hospital had his work up had any findings where hospital admission was appropriate and his clinical presentation warranted hospital admission. Consult Healthcare Provider Management of the patient was discussed with: Colon And Rectal Surgeon (consulted with my attending physician, Dr. Hood, as noted in the MDM Rationale portion of this note. ) and Primary Care Provider (spoke with Litzy John as noted in the MDM Rationale portion of this note) Lab Data [facility] Lab Attestation statement: I reviewed the patient's lab results. My interpretation of these results are in the MDM Rationale portion of this note. 02/25/25 12:43 02/25/25 12:43 Labs: Lab Results 02/25/25 02/25/25 02/25/25 Range/Units 12:43 13:15 17:09 WBC 5.1 (4.8-10.8) X10*3/uL RBC 4.89 (4.60-5.80) X10*6/uL Hgb 14.3 (14.0-18.0) g/dl Hct 41.3 L (42.0-52.0) % MCV 84.5 (80.0-98.0) fL MCH 29.2 (27.0-33.0) pg MCHC 34.6 (31.0-36.0) g/dl RDW 12.2 (11.0-16.0) % Plt Count 345 (160-400) X10*3/uL MPV 8.5 L (9.4-12.4) fL Immature Gran % (Auto) 0.2 (0.0-0.4) % Neut % (Auto) 49.5 (45-73) % Lymph % (Auto) 36.6 (20-40) % Dickenson % (Auto) 8.5 (2-11) % Eos % (Auto) 4.8 H (0-4) % Baso % (Auto) 0.4 (0-2) % Lymph # (Auto) 1.9 (1.2-4.9) X10*3/uL Dickenson # (Auto) 0.4 (0.1-1.2) X10*3/uL Eos # (Auto) 0.2 (0.0-0.4) X10*3/uL Baso # (Auto) 0.0 (0.0-0.2) X10*3/uL Abs Immat Gran (auto) 0.01 (0.00-0.03) X10*3/uL Absolute Neuts (auto) 2.5 (2.0-8.3) x10*3/uL Absolute Nucleated RBC 0.000 (0.0-0.012) X10*3/uL Nucleated RBC % (auto) 0.0 (0.0-0.2) /100WBC Sodium 141 (135-145) mmol/L Potassium 4.0 (3.3-5.1) mmol/L Chloride 105 (96-108) mmol/L Carbon Dioxide 27 (22-29) mmol/L Anion Gap 13 (12-20) BUN 7 L (9-16) mg/dL Creatinine 1.05 (0.5-1.4) mg/dL Estim Creat Clear Calc 80.3 Estimated GFR > 60 Random Glucose 230 H (60-115) mg/dL Calcium 9.7 (8.4-10.2) mg/dL Total Bilirubin 0.4 (0.0-1.0) mg/dL AST 41 H (5-37) U/L ALT 29 (0-40) U/L Alkaline Phosphatase 60 (39-117) U/L Total Creatine Kinase 833 H 842 H (38-174) U/L Total Protein 7.2 (6.5-8.0) g/dL Albumin 4.4 (3.5-5.0) g/dL Urine Color Yellow Urine Appearance Clear Urine pH 6.5 (5.0-9.0) Ur Specific Emerson 1.015 (1.005-1.025) Urine Protein Negative (Neg-Trace) mg/dL Urine Glucose (UA) 500 H (Negative) mg/dL Urine Ketones Negative (Negative) mg/dL Urine Blood Negative (Negative) Urine Nitrite Negative (Negative) Ur Leukocyte Esterase Small (1+) H (Negative) Urine RBC 0-2 (0-2) /HPF Urine WBC 6-10 H (0-5) /HPF Ur Squamous Epith Cells 0-2 (0-2) /HPF Urine Bacteria None Seen (None Seen) Hyaline Casts 0-2 (0-2) /LPF Urine Opiates Screen Not Detected (Not Detect) Ur Buprenorphine Scrn Not Detected (Not Detect) ng/mL Ur Oxycodone Screen Not Detected (Not Detect) ng/mL Urine Methadone Screen Not Detected (Not Detect) ng/mL Urine Fentanyl Screen Not Detected (Not Detect) Ur Barbiturates Screen Not Detected (Not Detect) Ur Phencyclidine Scrn Not Detected (Not Detect) Ur Amphetamines Screen Not Detected (Not Detect) U Benzodiazepines Scrn Not Detected (Not Detect) Urine Cocaine Screen Not Detected (Not Detect) U Marijuana (THC) Screen Not Detected (Not Detect) Discharge Plan Discharge Clinical Impression: Elevated CK Patient Disposition: Home, Self-Care Additional Instructions: Continue your outpatient work up for your elevated total CK, as directed. Follow up with your primary care provider. Return to the emergency department immediately if you develop any muscle cramping, numbness, tingling, dizziness, shortness of breath, difficulty breathing, chest pain, blurry vision, loss of vision, nausea, vomiting, abdominal pain, fever, chills, back pain, or any other complaints. Please see the information below about our Patient Portal. If you are not yet enrolled in the [facility] Patient Portal, you will receive an enrollment email invitation following your visit to any [facility] care setting. You may also self-enroll in the Patient Portal by visiting our website: [email or web address] The following information is required to access the Patient Portal: - Your [facility] Medical [place] Number - Your personal home email address (must match what is in your electronic medical record, Registration staff can assist with this) - Name - Date of Capabilities of the Patient Portal: - Message some providers - View upcoming appointments - Access your health summary, medical history, and visit history - View current conditions and allergies - View procedure and lab results - View your medications, including guidelines, side effects, and precautions - Complete pre-appointment questionnaires requested by your provider - Ready summary reports of your office visits and procedures To access the Patient Portal Mobile [employer], follow these directions: - Search [facility] in the [employer] Store or [employer] Store - Download the [employer] - Search for [facility] - Enter your login/password Prescriptions: No Action (DME) Monoject TB Safety Syringe 1 mL 25 gauge x 5/8 syringe See Rx Instructions .ROUTE .MEDSUPPLY Qty: 4 11RF Rx Instructions: As directed tadalafil 5 mg tablet 5 mg PO DAILY 90 Days Qty: 90 1RF famotidine 20 mg tablet 20 mg PO BEDTIME 90 Days Qty: 90 3RF cetirizine 10 mg tablet 1 tab PO DAILY atorvastatin 10 mg tablet 1 tab PO DAILY (DME) FreeStyle Lite Strips Strip MISCELLANEOUS QID ibuprofen 600 mg tablet 1 tab PO TID naproxen 500 mg tablet 1 tab PO BID PRN (Reason: Pain) insulin lispro [Humalog KwikPen Insulin] 100 unit/mL insulin pen 0 - 12 unit subcut DIRECTED insulin glargine [Lantus Solostar U-100 Insulin] 100 unit/mL (3 mL) insulin pen 40 unit subcut BEDTIME cholecalciferol (vitamin D3) 50 mcg (2,000 unit) capsule 1 cap PO DAILY (DME) lancets [TRUEplus Lancets] 33 gauge [facility] MISCELLANEOUS QID bisacodyl [Dulcolax (bisacodyl)] 5 mg tablet,delayed release (DR/EC) 20 mg PO ONCE 1 Days Qty: 4 0RF Rx Instructions: take 4 tabs at noon the day before your colonoscopy polyethylene glycol 3350 [Miralax] 17 gram/dose powder 238 g PO ONCE Qty: 238 0RF Rx Instructions: As directed by gastroenterology department at [facility] tamsulosin 0.4 mg capsule 0.4 mg PO QAM aspirin 81 mg tablet,chewable 1 tab PO QAM amlodipine 5 mg tablet 5 mg PO DAILY glipizide 10 mg tablet 10 mg PO DAILY polyvinyl alcohol 1.4 % drops 1.4 drp ophthalmic (eye) DAILY pantoprazole 40 mg tablet,delayed release (DR/EC) 40 mg PO DAILY Qty: 30 2RF Rx Instructions: take one tablet half an hour before breakfast Referrals: Litzy John ENVIRONMENTAL SCIENCES PROFESSOR [Primary Care Provider, Internal Medicine] Interventions: ED Discharge Assessment Last Done: 02/25/25 19:02 Discharge Date/Time: 02/25/25 19:02 Print Language: Georgian
[2025-02-25 12:47] LABS: MANUAL DIFF FLAG NO
[2025-02-25 12:49] LABS: Hematocrit 41.3 % (42.0-52.0); Hemoglobin 14.3 g/dl (14.0-18.0); Imm Gran Abs Auto 0.01 X10*3/uL (0.00-0.03); Imm Gran Pct Auto 0.2 % (0.0-0.4); Lymphocytes Absolute Auto 1.9 X10*3/uL (1.2-4.9); Mean Corpuscular HGB Conc 34.6 g/dl (31.0-36.0); Mean Corpuscular Hemoglobin 29.2 pg (27.0-33.0); Mean Corpuscular Volume 84.5 fL (80.0-98.0); NRBC Abs Auto 0.000 X10*3/uL (0.0-0.012); NRBC Pct Auto 0.0 /100WBC (0.0-0.2); Platelet Count 345 X10*3/uL (160-400); Red Blood Count 4.89 X10*6/uL (4.60-5.80); White Blood Count 5.1 X10*3/uL (4.8-10.8)
[2025-02-25 13:06] LABS: Alanine Aminotransferase 29 U/L (0-40); Albumin Level 4.4 g/dL (3.5-5.0); Alkaline Phosphatase 60 U/L (39-117); Anion Gap 13 (12-20); Aspartate Amino Transferase 41 U/L (5-37); Blood Urea Nitrogen 7 mg/dL (9-16); Calcium 9.7 mg/dL (8.4-10.2); Carbon Dioxide 27 mmol/L (22-29); Chloride 105 mmol/L (96-108); Creatinine Clr Calc Pharmacy 80.3; Estimated Glomerular Filt Rate > 60; Potassium 4.0 mmol/L (3.3-5.1); Sodium 141 mmol/L (135-145); Total Protein 7.2 g/dL (6.5-8.0)
--- NOTE | 2025-02-25 13:19 | PC.NURSE ---
Pt A&O X4 VSS NSR on monitor states onl complaint is cramps i arms and abnormal labs per his PCP.Pt onfull monitor
[2025-02-25 13:37] LABS: Appearance Urine Clear; Glucose Urine UA 500 mg/dL (Negative); PH 6.5 (5.0-9.0); Specific Gravity - Urine 1.015 (1.005-1.025); UMIC TRIGGER UACC YES
[2025-02-25 13:39] LABS: UACC Culture Trigger YES
--- OUTSIDE RECORDS SUMMARY | 2025-02-25 13:54 | XMS_ITS | Encounter Summary ---
Author Organization [facility] [employer] Address [address] [place] [address] Care Team Providers Care Hard Metals Engraver Hand Name Role Phone Litzy John Primary Care Provider [phone] Kb Tineo PharmD Unavailable [phone] Encounter Details Date Type Department Care Team (Late st Contact Info) Description 08/21/2022 Abstract [facility] [address] [place] [address] Meryl Pettit, PharmD [address] [place] [address] Social History Tobacco Use Types Packs/Day Years [...] Department Care Team (Late Contact Info) Description 04/28/2025 10:15 AM EDT Office Visit [facility] [address] [place] [address] Litzy John ANP [address] [place] [address] 05/29/2025 1:00 PM EDT Office Visit [facility] [address] [place] [id number] Tika Juan, OD [address] [place] [address] documented as of this encounter Visit Diagnoses Not on filedocumented in this encounter Care Teams Hard Metals Engraver Hand Relationship Specialty Start Date End Date Litzy John ANP [address] [place] [address] PCP - General Family Medicine 03/23/21 Kb Tineo, Keli [address] [place] [address] Pharmacist Internal Medicine 06/25/24 documented as of this encounter
--- OUTSIDE RECORDS SUMMARY | 2025-02-25 13:54 | XMS_ITS | Clinical Summary ---
Author Organization [facility] Address [address] [place] [address] Care Team Providers Care Remote Sensing Specialist Name Role Phone Unavailable Primary Care Provider [...] 2013 Imm-Zoster, Recombinant (1 of 2) 2013 [id number] ( season) 2024 06/08/2021, 11/16/2020, 10/19/2020 Alcohol and Drug Screen 07/30/2024 Depression Annual Screen 07/30/2024 Imm-Influenza (#1) 2025 Insurance [place]
--- OUTSIDE RECORDS SUMMARY | 2025-02-25 13:54 | XMS_ITS | Patient Health Record ---
Author Organization [facility] Address [address] [place] [id number] Care Team Providers Care Chassis Mechanic Name Role Phone Rell Gomes Primary Care Provider Renard Salas [phone] Reason For Referral No Information Plan Of Treatment No Information Insurance Providers Payer Name Payer Address Payer Phone Subscriber Number Group Number Insured Name Patient Relationship to Insured Coverage Start Date Coverage End Date MEDICAID OF [facility] [address] [place] [phone] [id number] LIEN BHATT Self - patient is the insured
--- OUTSIDE RECORDS SUMMARY | 2025-02-25 13:54 | XMS_ITS | Encounter Summary ---
Author Organization [facility] Address [address] [place] [address] Care Team Providers Care Rn Case Management Name Role Phone Alvaro Litzy Primary Care Provider [phone] Encounter Details Date Type Department Care Team (Late st Contact Info) Description 03/20/2024 Telephone [facility] Phys[facility] Referral [facility] [address] [place] [address] Litzy John [address] [place] [address] Social History Tobacco Use Types Packs/Day Years [...] Care Team (Late st Contact Info) Description 04/23/2025 10:40 AM EDT Office Visit [facility] [address] [place] [address] Turnstile Collector: Brian Mejia MD [address] [place] [id number] documented as of this encounter Visit Diagnoses Not on filedocumented in this encounter Care Teams Rn Case Management Relationship Specialty Start Date End Date Litzy John [address] [place] [address] PCP - General 01/26/23 documented as of this encounter
[2025-02-25 14:20] VITALS: BP 156/77; PULSE 77; RESP 17; O2SAT 98
[2025-02-25 16:00] VITALS: BP 164/76; PULSE 71; RESP 16; TEMP 36.8; O2SAT 98
[2025-02-25 17:53] LABS: Cannabinoid Screen Urine Not Detected (Not Detect)
[2025-02-25 18:24] VITALS: BP 135/75; PULSE 74; RESP 22; TEMP 36.8; O2SAT 98
[2025-02-25 19:02] VITALS: BP 135/75; PULSE 74; RESP 20; TEMP 36.8; O2SAT 98
== END 2025-02-25 19:02 | disposition home or self-care (01) ==
PROVIDERS: Physician Assistant; Physician Assistant Medical; Emergency Provider Emergency Medicine; PCP Nurse Practitioner Primary Care
DX: R74.8 Abnormal levels of other serum enzymes (principal); R70.0 Elevated erythrocyte sedimentation rate; R79.82 Elevated C-reactive protein (CRP); E11.9 Type 2 diabetes mellitus without complications; K21.9 Gastro-esophageal reflux disease without esophagitis; N48.6 Induration penis plastica; I10 Essential (primary) hypertension; Z79.899 Other long term (current) drug therapy
CPT/HCPCS: 36415; 80053; 80307; 81001; 82550; 85025; 87086; 96360; 96361; 99284

== ENCOUNTER 2025-02-27 11:26 | Outpatient (REF) | payer MEDICAID, OTHER, SELFPAY ==
--- OUTSIDE RECORDS SUMMARY | 2025-02-27 11:29 | XMS_ITS | Encounter Summary ---
Author Organization [employer] Address [address] [facility] 7 [place] [address] Care Team Providers Care Ticket Attendant Name Role Phone Litzy John Primary Care Provider [phone] Kb Tineo PharmD Unavailable [phone] Encounter Details Date Type Department Care Team (Late st Contact Info) Description 08/21/2022 Abstract [facility] MEDICINE [address] [place] [address] Meryl Pettit, PharmD [address] [place] [address] Social History Tobacco Use Types Packs/Day Years [...] Description 04/28/2025 10:15 AM EDT Office Visit [facility] MEDICINE [address] [place] [address] Litzy John ANP [address] [place] [address] 05/29/2025 1:00 PM EDT Office Visit [facility] OPTOMETRY [address] [place] [address] Tika Juan, OD 230 [place] [address] documented as of this encounter Visit Diagnoses Not on filedocumented in this encounter Care Teams Ticket Attendant Relationship Specialty Start Date End Date Litzy John ANP [address] [place] [address] PCP - General Family Medicine 03/23/21 Kb Tineo, Keli [address] [place] [address] Pharmacist Internal Medicine 06/25/24 documented as of this encounter
--- OUTSIDE RECORDS SUMMARY | 2025-02-27 11:30 | XMS_ITS | Patient Health Record ---
Author Organization [facility] Address [address] [place] [id number] Care Team Providers Care Asphalt Screed Operator Name Role Phone Rell Gomes Primary Care Provider Renard Salas [phone] Reason For Referral No Information Plan Of Treatment No Information Insurance Providers Payer Name Payer Address Payer Phone Subscriber Number Group Number Insured Name Patient Relationship to Insured Coverage Start Date Coverage End Date MEDICAID OF [facility] [address] [place] [address] [id number] LIEN BHATT Self - patient is the insured
--- OUTSIDE RECORDS SUMMARY | 2025-02-27 11:30 | XMS_ITS | Encounter Summary ---
Author Organization [facility] Address [address] [place] [address] Care Team Providers Care Front End Developer Designer Name Role Phone Alvaro Litzy Primary Care Provider Encounter Details Date Type Department Care Team (Late st Contact Info) Description 03/20/2024 Telephone [facility] Physician Referral Services [address] [place] [address] Litzy John [address] [place] [address] Social History Tobacco Use Types Packs/Day Years [...] Description 04/23/2025 10:40 AM EDT Office Visit [facility] [address] [place] [address] Source Inspector: Brian Mejia MD [address] [place] [address] documented as of this encounter Visit Diagnoses Not on filedocumented in this encounter Care Teams Front End Developer Designer Relationship Specialty Start Date End Date Litzy John [address] [place] [address] PCP - General 01/26/23 documented as of this encounter
[2025-03-02 11:43] LABS: Anti Nuclear Antibody Screen NEGATIVE (NEGATIVE)
== END 2025-02-27 11:27 | disposition home or self-care (01) ==
LOC: HO.HHCL 11:26
PROVIDERS: Visit Provider Internal Medicine
DX: Z01.84 Encounter for antibody response examination (principal); M62.82 Rhabdomyolysis
CPT/HCPCS: 36415; 86038

== ENCOUNTER 2025-04-07 09:48 | Outpatient (REF) | payer OTHER, SELFPAY ==
--- OUTSIDE RECORDS SUMMARY | 2024-03-12 10:40 | XMS_ITS ---
Author Organization [facility] Address [address] [place] [id number] Care Team Providers Care Wood Casket Assembler Name Role Phone Rell Gomes Primary Care Provider Renard Salas [phone] REASON FOR VISIT colon screening Encounters Encounter Location Date Provider Diagnosis [facility] [address] [place] [id number] 03/12/2024 Renard Chiu Plan Of Treatment No Information Progress Notes * LIEN BHATTDOB:1965 (59 yo M)Acc No.[id number]:03/12/2024 Progress Notes Patient: LIEN STERLING Provider: Jeff Chiu MD :1965 A ge:58 Y S ex:Male Date:03/12/2024 Address:[address] [place], [place] [id number] Pcp:Rell Gomes Subjective: * Chief Complaints: * 1 . Colon screening. * Medical History: Objective: * Vitals: Assessment: Plan: * Treatment: * * The named appointment provid er may or may not be the originator of this progress note, and it is not deemed complete until electronically signed by the appointment provider. Sign off status: Pending * Provider: Jeff Chiu MD Date: 0 03/12/2024 Generated for Cesar maharaj/Sonal/Javiitting on: 04/07/2025 11:31 AM EDT
--- OUTSIDE RECORDS SUMMARY | 2025-04-07 11:32 | XMS_ITS | Encounter Summary ---
Author Organization [employer] Address 75 [facility] 7 [place] [address] Care Team Providers Care Telecommunications Network Planner Name Role Phone Litzy John Primary Care Provider [phone] Kb Tineo PharmD Unavailable [phone] Encounter Details Date Type Department Care Team ([facility] st Contact Info) Description 02/25/2025 Telephone [facility] Walk-in Center [address] [place] [phone] Sandi Sousa LPN Social History Tobacco Use Types Packs/Day Years Used Date Smoking Tobacco: Never Smokeless Tobacco: Never Alcohol Use Standard Drinks/Week Comments Not Currently 0 (1 standard drink = 0.6 oz pur e alcohol) Depression Answer Date Recorded Patient Health Questionnaire-9 Score 0 12/12/2024 Patient Health Questionnaire-9 Score 0 12/12/2024 Last PHQ-9: Questionnaire Data Not on file 0 12/12/2024 Housing Stability Answer Date Recorded What is [...] Date Recorded Patient Health Questionnaire-2 Score 0 12/12/2024 Internet Access Answer Date Recorded Internet Access [...] Description 04/28/2025 10:15 AM EDT Office Visit [facility] MEDICINE [address] [place] [address] Litzy John ANP [address] [place] [address] 05/29/2025 1:00 PM EDT Office Visit [facility] OPTOMETRY [address] [place] [address] Drake, Tika, OD 230 [place] [address] documented as of this encounter Visit Diagnoses Not on filedocumented in this encounter Additional Health Concerns Assessment Noted Time PHQ-9 Depression Total Score: 0 12/13/19 25 4:15 PM EDT documented as of this encounter Care Teams Telecommunications Network Planner Relationship Specialty Start Date End Date Litzy John ANP [address] [place] [address] PCP - General Family Medicine 03/23/21 Kb Tineo, AsifD [address] [place] [address] Pharmacist Internal Medicine 06/25/24 documented as of this encounter
--- OUTSIDE RECORDS SUMMARY | 2025-04-07 11:32 | XMS_ITS | Clinical Summary ---
Author Organization [facility] Address [address] [place] [address] Care Team Providers Care Internet Sales Consultant Name Role Phone Unavailable Primary Care Provider [...] 2013 Imm-Zoster, Recombinant (1 of 2) 2013 Alcohol and Drug Screen 07/30/2024 Depression Annual Screen 07/30/2024 Gef-[id number]-83 ( - season) 2025 06/08/2021, 11/16/2020, 10/19/2020 Imm-Influenza (#1) 2025 Insurance [place]
--- OUTSIDE RECORDS SUMMARY | 2025-04-07 11:32 | XMS_ITS | Encounter Summary ---
Author Organization [employer] Address 75 [facility] 7 [place] [address] Care Team Providers Care Trombone Slide Assembler Name Role Phone Litzy John Primary Care Provider [phone] Kb Tineo PharmD Unavailable [phone] Encounter Details Date Type Department Care Team (Late st Contact Info) Description 08/21/[address] [facility] MEDICINE [address] [place] [address] Meryl Pettit, PharmD [address] [place] [address] Social History Tobacco Use Types Packs/Day Years [...] Description 04/28/2025 10:15 AM EDT Office Visit [facility] MEDICINE [address] [place] [address] Litzy John ANP [address] [place] [address] 05/29/2025 1:00 PM EDT Office Visit [facility] OPTOMETRY [address] [place] [address] Tika Juan, OD [address] [place] [address] documented as of this encounter Visit Diagnoses Not on filedocumented in this encounter Care Teams Trombone Slide Assembler Relationship Specialty Start Date End Date Litzy John ANP [address] [place] [address] PCP - General Family Medicine 03/23/21 Kb Tineo, Keli [address] [place] [address] Pharmacist Internal Medicine 06/25/24 documented as of this encounter
--- OUTSIDE RECORDS SUMMARY | 2025-04-07 11:32 | XMS_ITS | Encounter Summary ---
Author Organization [employer] Address 75 [facility] 7t [place] [address] Care Team Providers Care Chief Ii Dispatcher Name Role Phone Litzy John Primary Care Provider [phone] Kb Tineo PharmD Unavailable [phone] Encounter Details Date Type Department Care Team (Late Contact Info) Description 02/13/2023 Orders Only [facility] MEDICINE [address] [place] [address] Litzy John ANP [address] [place] [address] Elevated CK (Primary Dx) Social History Tobacco [...] Description 04/28/2025 10:15 AM EDT Office Visit [facility] [address] [place] [address] Litzy John ANP [address] [place] [address] 05/29/2025 1:00 PM EDT Office Visit [facility] OPTOMETRY [address] [place] [address] Tika Juan, OD [address] [place] [address] documented as of this encounter Visit Diagnoses Diagnosis Elevated CK- Primary Other nonspecific abnormal serum enzyme levels documented in this encounter Care Teams Chief Ii Dispatcher Relationship Specialty Start Date End Date Litzy John ANP [address] [place] [address] PCP - General Family Medicine 03/23/21 Kb Tineo, Keli [address] [place] [phone] Pharmacist Internal Medicine 06/25/24 documented as of this encounter
--- OUTSIDE RECORDS SUMMARY | 2025-04-07 11:32 | XMS_ITS | Encounter Summary ---
Author Organization [employer] Address 75 [facility] 7 [place] [address] Care Team Providers Care Workers Compensation Claims Adjuster Name Role Phone Litzy John Primary Care Provider [phone] Kb Tineo PharmD Unavailable [phone] Encounter Details Date Type Department Care Team (Late st Contact Info) Description 08/21/2022 Orders Only [facility] MED & PEDS [address] [place] [address] Chantal Grant LPN Social History Tobacco Use [...] Description 04/28/2025 10:15 AM EDT Office Visit [facility] MEDICINE [address] [place] [address] Litzy John ANP [address] [place] [address] 05/29/2025 1:00 PM EDT Office Visit [facility] OPTOMETRY [address] [place] [address] Tika Juan, OD [address] [place] [address] documented as of this encounter Visit Diagnoses Not on filedocumented in this encounter Care Teams Workers Compensation Claims Adjuster Relationship Specialty Start Date End Date Litzy John ANP [address] [place] [address] PCP - General Family Medicine 03/23/21 Kb Tineo PharmD [address] [place] [address] Pharmacist Internal Medicine 06/25/24 documented as of this encounter
--- OUTSIDE RECORDS SUMMARY | 2025-04-07 11:32 | XMS_ITS | Encounter Summary ---
Author Organization [employer] Address [address] 7t [place] [address] Care Team Providers Care Director Of Head Start Name Role Phone Litzy John Primary Care Provider [phone] Kb Tineo PharmD Unavailable [phone] Encounter Details Date Type Department Care Team ([facility] st Contact Info) Description 04/03/2025 Orders Only [facility] [address] [place] [address] Litzy John ANP [address] [place] [address] Elevated creatine kinase (Primary Dx) Social History Tobacco Use Types [...] AM EDT documented as of this encounter Progress Notes * HERVE Castillo - 04/03/2025 3:32 PM EDT Repeat CK documented in this encounter Plan of Treatment Upcoming Encounters Date Type Department Care Team (Late st Contact Info) Description 04/28/2025 10:15 AM EDT Office Visit [facility] MEDICINE [address] [place] [address] Litzy John ANP [address] [place] [address] 05/29/2025 1:00 PM EDT Office Visit [facility] OPTOMETRY [address] [place] [address] Drake, Tika, OD [address] [place] [address] Scheduled Orders Name Type Priority Associated Diagnoses Orde r Schedule Creatine Kinase Isoenzymes (CK Isoenzymes) w/ Total CK Lab Routine Elevated creatine kinase Expected: 04/03/2025 (Approximate), Expires: 04/03/2026 documented as of this encounter Visit Diagnoses Diagnosis Elevated creatine kinase- Primary Other nonspecific abnormal serum enzyme levels documented in this encounter Additional Health Concerns Assessment Noted Time PHQ-9 Depression Total Score: 0 12/13/19 25 4:15 PM EDT documented as of this encounter Care Teams Director Of Head Start Relationship Specialty Start Date End Date Litzy John ANP [address] [place] [address] PCP - General Family Medicine 03/23/21 Kb Tineo PharmD [address] [place] [address] Pharmacist Internal Medicine 06/25/24 documented as of this encounter
--- OUTSIDE RECORDS SUMMARY | 2025-04-07 11:32 | XMS_ITS | Encounter Summary ---
Author Organization [employer] Address 75 [facility] 7 [place] [address] Care Team Providers Care Dairy Equipment Repairer Name Role Phone Litzy John Primary Care Provider [phone] Kb iTneo PharmD Unavailable [phone] Reason for Visit * Reason Onset Date Comments Lab Orders 04/03/2025 Encounter Details Date Type Department Care Team (Late st Contact Info) Description 04/03/2025 Telephone [facility] MEDICINE [address] [place], [place] [phone] Litzy John ANP [address] [place], [place] [phone] Lab Orders Social History Tobacco Use Types Packs/Day Years [...] encounter Miscellaneous Notes * Telephone Encounter - Sheri Johnson RN - 04/03/2025 4:13 PM EDT Return call placed to the pt to inform that PCP has placed a blood work order for creatinine kinase. The pt states that he does not have an appointment with [facility] in [place] yet. The pt also wants PCP to know that he has new insurance through [facility] and hopefully he can be referred closer to [place]. The pt will follow up with PCP at 04/28 appt. * Telephone Encounter - HERVE Castillo - 04/03/2025 3:33 PM EDT Have ordered - does he have appt w/ rheum yet? * Telephone Encounter - Sheri Johnson RN - 04/03/2025 2:55 PM EDT Return call placed to the pt who states that he would an order for a total creatinine kinase ordered and drawn before his next appt with PCP on 04/28/2025. Per the pt chart it looks like this is drawnfrequently and last blood draw was on 02/25/2025. Pt would like to check as the levels has been consistently elevated. Pt informed that this request will be sent to PCP for approval * Telephone Encounter - Hawa Jenkins Syed - 04/03/2025 8:16 AM EDT Tc from pt requesting a lab order for cpk Contact pt at [phone] documented in this encounter Plan of Treatment Upcoming Encounters Date Type Department Care Team (Late st Contact Info) Description 04/28/2025 10:15 AM EDT Office Visit [facility] MEDICINE [address] [place] [address] Litzy John ANP [address] [place] [address] 05/29/2025 1:00 PM EDT Office Visit [facility] OPTOMETRY [address] [place] [address] Drake, Tika, OD [address] [place] [address] documented as of this encounter Visit Diagnoses Not on filedocumented in this encounter Additional Health Concerns Assessment Noted Time PHQ-9 Depression Total Score: 0 12/13/19 25 4:15 PM EDT documented as of this encounter Care Teams Dairy Equipment Repairer Relationship Specialty Start Date End Date Litzy John ANP [address] [place] [address] PCP - General Family Medicine 03/23/21 Kb Tineo, AsifD [address] [place] [address] Pharmacist Internal Medicine 06/25/24 documented as of this encounter
--- OUTSIDE RECORDS SUMMARY | 2025-04-07 11:32 | XMS_ITS | Encounter Summary ---
Author Organization [employer] Address 75 [facility] 7t [place] [address] Care Team Providers Care Volleyball Player Name Role Phone Litzy John Primary Care Provider [phone] Kb Tineo PharmD Unavailable [phone] Reason for Visit * Reason Onset Date Comments Nurse Triage 06/25/2023 Encounter Details Date Type Department Care Team ([facility] st Contact Info) Description 06/25/2023 Telephone [facility] MEDICINE [address] [place], [place] [phone] Litzy John ANP 230 [place], [place] [phone] Nurse Triage Social History Tobacco Use Types [...] crown put on a tooth and in sports anchor 06/21/23 Pt started with episodes of diarrhea [...] color. Pt is advised to come to [facility] today, open till 8pm. Pt is advised [...] accepted this outcome Please contact pt at [phone] documented in this encounter Plan of Treatment Upcoming Encounters Date Type Department Care Team (Late st Contact Info) Description 04/28/2025 10:15 AM EDT Office Visit [facility] MEDICINE [address] [place] [address] Litzy John ANP [address] [place] [address] 05/29/2025 1:00 PM EDT Office Visit [facility] OPTOMETRY [address] [place] [address] Drake, Tika, OD [address] [place] [address] documented as of this encounter Visit Diagnoses Not on filedocumented in this encounter Care Teams Volleyball Player Relationship Specialty Start Date End Date Litzy John ANP [address] [place] [address] PCP - General Family Medicine 03/23/21 Kb Tineo, AsifD [address] [place] [address] Pharmacist Internal Medicine 06/25/24 documented as of this encounter
--- OUTSIDE RECORDS SUMMARY | 2025-04-07 11:32 | XMS_ITS | Encounter Summary ---
Author Organization [employer] Address 75 [facility] 7 [place] [address] Care Team Providers Care Orchard Pruner Name Role Phone Litzy John Primary Care Provider [phone] Kb Tineo PharmD Unavailable [phone] Reason for Visit * Reason Onset Date Comments Prior Authorization 01/02/2025 Encounter Details Date Type Department Care Team (Late st Contact Info) Description 01/02/2025 Telephone [facility] MEDICINE [address] [place], [place] [phone] Litzy John ANP [address] [place], [place] [phone] Prior Authorization Social History Tobacco Use Types Packs/Day Years [...] encounter Miscellaneous Notes * Telephone Encounter - Keisha Mcrae - 01/05/2025 3:33 PM EDT Returned call to [facility]/Michelle who informed PA denied due to pt not meeting criteria: Baseline LDLfor Repatha needs to be equal to or greater than 190mg. No step therapy or covered alternatives suggested by [facility] pharmacy reviewer. * Telephone Encounter - Shaila Howell - 01/02/2025 12:40 PM EDT NELSON Payne at [facility] requesting a call back regarding a pa denial. Call back number is PA # [id number] documented in this encounter Plan of Treatment Upcoming Encounters Date Type Department Care Team (Late st Contact Info) Description 04/28/2025 10:15 AM EDT Office Visit [facility] MEDIC[facility] [address] [place] [address] Litzy John, ANP [address] [place] [address] 05/29/2025 1:00 PM EDT Office Visit [facility] OPTOMETRY [address] [place] [address] Tika Juan, OD [address] [place] [address] documented as of this encounter Visit Diagnoses Not on filedocumented in this encounter Additional Health Concerns Assessment Noted Time PHQ-9 Depression Total Score: 0 12/13/19 4:15 PM EDT documented as of this encounter Care Teams Orchard Pruner Relationship Specialty Start Date End Date Litzy John ANP [address] [place] [address] PCP - General Family Medicine 03/23/21 Kb Tineo, Keli [address] [place], [place] [phone] Pharmacist Internal Medicine 06/25/24 documented as of this encounter
--- OUTSIDE RECORDS SUMMARY | 2025-04-07 11:32 | XMS_ITS | Encounter Summary ---
Author Organization [facility] Address [address] [place] [address] Care Team Providers Care Vault Mechanic Name Role Phone Alvaro Litzy Primary Care Provider [phone] Encounter Details Date Type Department Care Team (Late st Contact Info) Description 03/20/2024 Telephone [facility] Physician Referral Services [address] [place] [address] Litzy John [address] [place] [address] Social History Tobacco Use Types Packs/Day Years [...] Description 04/23/2025 10:40 AM EDT Office Visit [facility]ology [facility] [address] [place] [address] Blast Furnace Tender: Brian Mejia MD [address] [place] [address] documented as of this encounter Visit Diagnoses Not on filedocumented in this encounter Care Teams Vault Mechanic Relationship Specialty Start Date End Date Litzy John [address] [place] [address] PCP - General 01/26/23 documented as of this encounter
--- OUTSIDE RECORDS SUMMARY | 2025-04-07 11:32 | XMS_ITS | Clinical Summary ---
Author Organization [employer] Address [address] [place] [address] Care Team Providers Care Developer Programmer Name Role Phone Stacey Dougherty Primary Care Provider [phone] Kb Tineo PharmD Unavailable [phone] Allergies Active Allergy Reactions Criticality Noted [...] mouth at bedtime. 024 Active Continuous Glucose Qual Research Manager (FreeStyle Gisell 2 [place]) deviceIndication s:Type 2 diabetes mellitus with hyperlipidemia (CMS/HCC) ([facility]) Scan sensor every 8 hours 1 each 024 Active Blood Glucose Monitoring Suppl (FreeStyle [place] Lite) w/Device kitIndications:T ype 2 diabetes mellitus without complications (CMS/HCC) Use to test blood sugar 3 times daily 1 kit 024 Active TRUEplus Lancets 33G miscIndications: Type 2 diabetes mellitus without complications (CMS/HCC) USE DIRECTED TO TEST BLOOD SUGAR THREE TIMES DAILY 100 each 3 024 Active aspirin 81 MG chewable tabletIndication s:Type 2 diabetes mellitus with hyperlipidemia (CMS/HCC) ([facility]) Take 1 tablet by mouth daily 90 tablet 3 025 Active amLODIPine (Norvasc) 5 MG tabletIndication s:Hypertension associated with diabetes ([facility]/HCC) TAKE 1 TABLET BY MOUTH EVERY DAY 90 tablet 3 025 Active tamsulosin (Flomax) 0.4 MG 24 hr capsuleIndicatio ns:Benign prostatic hyperplasia without urinary obstruction TAKE 1 CAPSULE BY MOUTH EVERY DAY IN THE MORNING 90 capsule 1 025 Active insulin lispro (HumaLOG) 100 UNIT/ML injectionIndicat ions:Type 2 diabetes mellitus with hyperlipidemia (CMS/HCC) ([facility]) INJECT 0 TO 12 UNITS SUBCUTANEOUSLY BEFORE MEALS DIRECTED PER SLIDING SCALE 15 mL 2 025 Active tadalafil (Cialis) 5 MG tabletIndication s:Benign prostatic hyperplasia without urinary obstruction Take 1 tablet (5 mg) by mouth Once per day. 90 tablet 1 025 Active evolocumab (Repatha SureClick) 140 MG/ML injectionIndicat ions:Type 2 diabetes mellitus with hyperlipidemia (CMS/HCC) ([facility]),Statin intolerance,Card iovascular event risk Inject 1 mL (140 mg) under the skin every 14 (fourteen) days. 2.1 mL 025 Active glipiZIDE XL (Glucotrol XL) 10 MG 24 hr tabletIndication s:Type 2 diabetes mellitus with hyperlipidemia (CMS/HCC) ([facility]) Take 2 tablets (20 mg) by mouth Once per day. Do not crush, chew, or split. 60 tablet 025 Active semaglutide (Ozempic, 1 MG/DOSE,) 4 MG/3ML solution pen-injector Inject 1 mg under the skin 1 (one) time per week. 3 mL 025 Active Alcohol Swabs (Alcohol Prep) 70 % padsIndications: Type 2 diabetes mellitus without complications ([facility]) USE DIRECTED TO TEST BLOOD SUGAR THREE TIMES DAILY 100 each 11 025 Active Lantus SoloStar 100 UNIT/ML penIndications:T ype 2 diabetes mellitus with hyperlipidemia (CMS/HCC) ([facility]) INJECT 36 UNITS SUBCUTANEOUSLY AT BEDTIME DIRECTED 15 mL 3 025 Active Continuous Glucose Sensor (FreeStyle Gisell 2 Sensor) miscIndications: Type 2 diabetes mellitus with hyperlipidemia (CMS/HCC) ([facility]) USE DIRECTED TO TEST BLOOD SUGAR CHANGE EVERY 14 DAYS 2 each 3 025 Active glucose blood (FREESTYLE LITE) test stripIndications :Type 2 diabetes mellitus without complications ([facility]) USE DIRECTED TO TEST BLOOD SUGAR THREE TIMES DAILY 100 strip 11 025 Active Pentips Generic Pen [place] 32G X 4 MM miscIndications: Type 2 diabetes mellitus with hyperlipidemia (CMS/HCC) ([facility]) USE FOUR TIMES DAILY WITH INSULIN 100 each 5 025 Active FREESTYLE LITE test stripIndications :Type 2 diabetes mellitus without complications ([facility]) Use to test blood sugar 3 times daily 100 each 12 024 2024 Discontinued insulin glargine (Lantus SoloStar) 100 UNIT/ML penIndications:T ype 2 diabetes mellitus with hyperlipidemia (CMS/HCC) ([facility]) INJECT 36 UNITS SUBCUTANEOUSLY AT BEDTIME DIRECTED 15 mL 3 025 2024 Discontinued insulin pen needle (BD Pen Needle Latosha U/F) 32G x 4 mm miscIndications: Type 2 diabetes mellitus with hyperlipidemia (CMS/HCC) ([facility]) USE FOUR TIMES DAILY WITH INSULIN 100 each 5 025 2024 Discontinued Continuous Glucose Sensor (FreeStyle Gisell 2 Sensor) miscIndications: Type 2 diabetes mellitus with hyperlipidemia (CMS/HCC) ([facility]) USE DIRECTED TO TEST BLOOD SUGAR. CHANGE EVERY 14 DAYS 2 each 3 025 2024 Discontinued(R eorder (will not trigger notification to Pharmacy)) Active Problems Problem Noted Date Diagnosed Date Right arm pain 02/20/2025 Acute pain of right shoulder 02/20/2025 Non-traumatic rhabdomyolysis 02/20/2025 Assessment & Plan (02/20/2025 3:58 PM EDT): Hi order labs to be repeated including a CK plan is if CK is persistently high or worse he will have to go back to the emergency room for IV fluids Nummular eczema 01/09/2025 Tinea pedis of right foot 01/09/2025 Assessment & Plan (01/11/2025 5:03 PM EDT): Topical azole rx for once nightly, no maceration between toes, or eruption elsewhere. Return to clinic for failure to resolve. Left lower quadrant abdominal pain 12/13/2024 Tooth sensitivity 03/25/2024 Keratoconjunctivitis sicca 02/06/2024 Elevated [...] Encounters Date Type Department Care Team Description 04/03/2025 Orders Only [facility] [address] [place] [phone] Stacey Dougherty ANP Elevated creatine kinase (Primary Dx) 04/03/[address] [address] Stacey Dougherty ANP Lab Orders 03/30/2025 Refill [facility] [address] [place] [address] Stacey Dougherty ANP Type 2 diabetes mellitus with hyperlipidemia (CMS/HCC) ([facility]) 03/17/[address] [address] Stacey Dougherty ANP Type 2 diabetes mellitus without complications (CMS/HCC) 03/13/[address] [address] Stacey Dougherty ANP Prior Authorization 03/10/[address] [address] Hubbard LakeLorenza dejesus FNP Type 2 diabetes mellitus with hyperlipidemia (CMS/HCC) (CMS/HCC) 03/09/[address] [address] Kb Tineo, Keli Type 2 diabetes mellitus with hyperlipidemia (CMS/HCC) ([facility]) 03/05/[address] [address] Stacey Dougherty ANP CTK test 03/03/2025 Orders Only [facility] [address] [place] [phone] Provider, MD Jacky 03/02/2025 Results Follow-Up [address] [address] Stacey Dougherty ANP Testosterone, Free (Dialysis) And Total, MS 02/26/[address] [address] Stacey Dougherty ANP 02/25/2025 Results Follow-Up [address] [address] Stacey Dougherty ANP C-reactive Protein, Sed Rate by Modified Westergren, REBECCA Screen,IFA, with Reflex to Titer and Pattern 02/25/2025 Telephone [facility] [address] [place] [phone] Sandi Sousa LPN 02/25/2025 Orders Only GENERIC EXTERNAL DATA DEPARTMENT Provider, Generic External Data 02/24/2025 3:20 PM EDT [facility] [address] [address] Michell Torres MD Non-traumatic rhabdomyolysis (Primary Dx) 02/24/2025 Travel 02/23/2025 Orders Only [address] [address] Rebeka Saavedra MD Right arm pain (Primary Dx) 02/23/2025 Orders Only [address] [address] Stacey Dougherty ANP Elevated creatine kinase (Primary Dx) 02/23/2025 Results Follow-Up [address] [address] Rebeka Saavedra MD CBC auto differential, Comprehensive Metabolic Panel, Magnesium, Additional followed-up results: 2 02/20/2025 1:00 PM EDT [facility] [address] [address] Rebeka Saavedra MD Right arm pain (Primary Dx); Acute pain of right shoulder; Non-traumatic rhabdomyolysis 02/20/2025 Travel 02/16/2025 2:00 PM EDT [facility] [address] [address] Michell Torres MD Cervical radiculopathy (Primary Dx) 02/16/2025 Orders Only GENERIC EXTERNAL DATA DEPARTMENT Provider, Generic External Data 02/16/2025 Travel 02/13/[address] [address] Kb Tineo, PharmD 02/05/2025 Refill [facility] [address] [address] Alix Walton NP 01/29/2025 Telephone [facility] [address] [place] [address] Stacey Dougherty ANP Prior Authorization 01/19/2025 Refill [facility] [address] [place] [address] Stacey Dougherty ANP Type 2 diabetes mellitus without complications ([facility]/HCC) 01/09/2025 4:00 PM EDT Office Visit [facility] [address] [place] [phone] Alix Walton, DAVID Tinea pedis of right foot (Primary Dx) 01/08/2025 Orders Only [facility] [address] [place] [phone] Stacey Dougherty ANP from Last 3 Months Immunizations Immunization Administration [...] Sign Reading Time Taken Comments Blood Pressure 157/83 02/24/2025 3:06 PM EDT Pulse 84 02/24/2025 3:06 PM EDT Temperature 36.9 C (98.4 F) 02/24/2025 3:06 PM EDT Respiratory Rate 17 02/24/2025 3:06 PM EDT Oxygen Saturation 98% 02/24/2025 3:06 PM EDT Inhaled Oxygen Concentration - - Weight 87.7 kg (193 lb 6.4 oz) 02/24/2025 3:06 P M EDT Height 175.3 cm (5' 9 ) 01/09/2025 3:57 PM EDT Body Mass Index 28.56 01/09/2025 3:57 PM EDT Plan of Treatment Upcoming Encounters Date Type Department Care Team (Late st Contact Info) Description 04/28/2025 10:15 AM EDT Office Visit [facility] [address] [place] [address] Stacey Dougherty, ANP [address] [place] [address] 05/29/2025 1:00 PM EDT Office Visit [facility] [address] [place], [place] [phone] Drake, Tika, OD [address] [place] [address] Health Maintenance Due Date Last Done Comments CT Colonography 1963 FIT 1963 HIV Screening 1963 Sigmoidoscopy 1963 Diabetes: Foot Exam 1973 RSV Patients and Patients Aged 60 years or older (1 - Risk 60-74 years 1-dose series) 2023 Colonoscopy 12/17/2023 12/16/2013 Diabetes: Urine Protein Screening 01/06/2024 01/05/2023, 11/21/2021, 02/25/2021, Additional history exists Dental Oral Exam 09/26/2024 03/25/2024, 01/05/2023 Dental X-Ray: Bitewings 03/26/2025 03/25/2024, 01/05 Dental Prophylaxis 03/27/2025 09/26/2024, 0 03/25/2024, 09/04/2023, Additional history exists Influenza Vaccine (#1) 2025 , 04/12/2023, 04/11/2022, Additional history exists Diabetes: Hemoglobin A1C 06/14/2025 025, 09/26/2024, 06/23/2024, Additional history exists DTaP/Tdap/Td Vaccines (2 - Td or Tdap) 07/06/2025 07/06/2015 Disability Screening 11/10/2025 11/10/2024 SDOH Screening 11/10/2025 11/10/2024 Lipid Panel 11/14/2025 11/14/2024, 10/29, 01/05/2023, Additional history exists Eye Exam 11/26/2025 11/26/2024, 10/30, 11/26/2024, Additional history exists FOBT 12/03/2025 12/03/2024 Alcohol/Substance Use Screening 12/12/2025 12/12/2024 Depression Screening 12/12/2025 12/12/2024, 12/13/19 Tobacco Screening 02/16/2026 02/16/2025 Dental X-Ray: Full Mouth 03/26/2027 03/25/2024, 10/2020 Colorectal Cancer Screening 12/04/2027 FIT DNA/Cologuard 12/04/2027 12/03/2024 Hepatitis A Vaccines Aged Out 04/03/2012, 07/27/20 11 No longer eligible based on patient's age to complete this topic Zoster Vaccines Completed 08/11/2020, 05/24/2020 Pneumococcal Vaccine: 50+ Years Completed 06/23/2024, 04/30/2009 [...] Procedure Name Priority Date/Time Associated Diagnosis Comments REBECCA SCREEN (QUEST) Routine 02/27/2025 2: 53 PM EDT REBECCA SCREEN, IFA, W/REFL TITER AND PATTERN Routine 02/27/2025 11:45 AM EDT Non-traumatic rhabdomyolysis CREATINE KINASE, TOTAL Routine 02/25/2025 5:09 PM EDT DRUG MONITOR, PANEL 1, SCREEN, URINE Routine 02/25/2025 1:15 PM EDT URINALYSIS, COMPLETE, WITH REFLEX TO CULTURE Routine 02/25/2025 1:15 PM EDT CREATINE KINASE, TOTAL Routine 02/25/2025 12:43 PM EDT COMPREHENSIVE METABOLIC PANEL Routine 02/25/2025 12:43 PM EDT CBC WITH AUTO DIFFERENTIAL Routine 02/25/2025 12:43 PM EDT CULTURE, URINE, ROUTINE Routine 02/25/2025 12:00 AM EDT SED RATE BY MODIFIED WESTERGREN Routine 02/24/2025 2:38 PM EDT Non-traumatic rhabdomyolysis C-REACTIVE PROTEIN Routine 02/24/2025 2: 38 PM EDT Non-traumatic rhabdomyolysis CREATINE KINASE, TOTAL Routine 02/24/2025 2:38 PM EDT Right arm pain VITAMIN D,25-OH,TOTAL,IA Routine 02/24/2025 2:38 PM EDT Vitamin D deficiency TESTOSTERONE, FREE (DIALYSIS) AND TOTAL,MS Routine 02/24/2025 2:38 PM EDT Hypogonadism in male CBC WITH AUTO DIFFERENTIAL Routine 02/24/2025 2:38 PM EDT Type 2 diabetes mellitus with hyperlipidemia (CMS/HCC) (CMS/HCC) XR SHOULDER 2+ VIEWS RIGHT Routine 02/20/2025 1:55 PM EDT Acute pain of right shoulder CREATINE KINASE ISOENZYMES (CK ISOENZYMES) WITH TOTAL CK Routine 02/20/2025 1:50 PM EDT Non-traumatic rhabdomyolysis PHOSPHATE ( PHOSPHORUS) Routine 02/20/2025 1:50 PM EDT Non-traumatic rhabdomyolysis MAGNESIUM Routine 02/20/2025 1:50 PM EDT Non-traumatic rhabdomyolysis COMPREHENSIVE METABOLIC PANEL Routine 02/20/2025 1:50 PM EDT Non-traumatic rhabdomyolysis CBC WITH AUTO DIFFERENTIAL Routine 02/20/2025 1:50 PM EDT Non-traumatic rhabdomyolysis TICK BORNE DISEASE BY PCR Routine 02/16/2025 3:36 PM EDT LYME DISEASE AB W/REFL TO BLOT (IGG, IGM) Routine 02/16/2025 3:36 PM EDT CREATINE KINASE, TOTAL Routine 02/16/2025 3:36 PM EDT TSH W/REFLEX TO FT4 Routine 02/16/2025 3 :36 PM EDT BASIC METABOLIC PANEL Routine 02/16/2025 3:36 PM EDT HEPATIC FUNCTION PANEL Routine 02/16/2025 3:36 PM EDT PROTHROMBIN TIME-INR Routine 02/16/2025 3:36 PM EDT CBC WITH AUTO DIFFERENTIAL Routine 02/16/2025 3:36 PM EDT POCT GLYCATED HEMOGLOBIN, TOTAL Routine 12/12/2024 3:21 PM EDT Type 2 diabetes mellitus with hyperlipidemia (CMS/HCC) (CMS/HCC) LAB COLOGUARD COLON CANCER SCREEN Routine 12/03/2024 9:15 AM EDT Screening for colon cancer HEPATITIS C AB W/REFL TO HCV RNA, QN, PCR Routine 11/14/2024 9:12 AM EDT Healthcare maintenance LIPID PANEL, STANDARD Routine 11/14/2024 9:12 AM EDT Type 2 diabetes mellitus with hyperlipidemia (CMS/HCC) (CMS/HCC) PROPHYLAXIS - ADULT Routine 09/26/2024 3 :00 PM EST Dental plaque INTRAORAL - COMPLETE SERIES OF RADIOGRAPHIC IMAGES Routine 03/25/2024 1:00 PM EDT Tooth sensitivity Missing teeth, acquired Dental plaque PERIODIC ORAL EVALUATION - ESTABLISHED PATIENT Routine 03/25/2024 1:00 PM EDT ALBUMIN, RANDOM URINE W/CREATININE Routine 01/05/2023 10:29 AM EDT HM COLONOSCOPY Routine 12/16/2013 from Last 3 Months or Most Recently Relevant to Health Maintenance Results * REBECCA SCREEN (QUEST) (02/27/2025 2:53 PM EDT) us Historical Provider LAB BLOOD ORDERABLES Becky l Result * REBECCA Screen,IFA, with Reflex to Titer and Pattern (02/27/2025 11:45 AM EDT) Anti Nuclear Antibody Screen NEGATIVE NEGATIVE [facility] Comment:REBECCA IFA is a first l ine screen for detecting thepresence of up to approximately 150 autoantibodies invarious autoimmune diseases. A negative REBECCA IFA resultsuggests an REBECCA-associated autoimmune disease is notpresent at this time, but is not definitive. If thereis high clinical suspicion for Sjogren's syndrome,testing for anti-SS-A/Ro antibody should be considered.Anti-Savanna-1 antibody should be considered for clinicallysuspected inflammatory myopathies.AC-0: NegativeInternational Consensus on REBECCA Patterns(https://doi.org/10.1515/xyiv-8121-6317)For additional information, please refer tohttp://education.[employer]/faq/ZUA148(This link is being provided for informational/educational purposes only.)THIS TEST WAS PERFORMED AT:[employer] [place] [phone] ZAZUETA MD REBECCA Titer TNP [facility] REBECCA Pattern TNP [facility] REBECCA TITER 2 (REF LAB) [facility] REBECCA Pattern 2 TNP [facility] REBECCA TITER 3 [facility] REBECCA PATTERN 3 [facility] Blood Venous blood specimen / Unknown 02/27/2025 11:45 AM EDT 02/27/2025 2:07 PM EDT us Michell Torres MD LAB BLOOD ORDERABLES Final Re sult Performing Organization Address [facility]/ZIP Co de Phone Number [facility] [address] [place] [phone] * (ABNORMAL) Creatine Kinase, Total (02/25/2025 5:09 PM EDT) Only the most recent of4 resultswithin the time period is included. Creatine Kinase Total 842(H) 38 - 174 U/L [facility] 02/25/2025 5:09 PM EDT 02/25/2025 5:12 PM EDT us Generic External Data Provider LAB BLOOD ORDERAB LES Final Result Performing Organization Address [facility]/ZIP Co de Phone Number [facility] [address] [place] [phone] * (ABNORMAL) Urinalysis, Complete, with Reflex to Culture (02/25/2025 1:15 PM EDT) Color Urine Yellow [facility] Appearance Urine Clear [facility] PH 6.5 5.0 - 9.0 [facility] Glucose Urine UA 500(A) Negative mg/dL [facility] Urine Blood Negative Negative [facility] Specific [place] - Urine 1.015 1.005 - 1.025 [facility] Urine Protein Negative Neg-Trace mg/dL [facility] Urine Ketones Negative Negative mg/dL [facility] Nitrite Urine Negative Negative [facility] Leukocyte Esterase Urine Small (1+)(A) Negative [facility] RBC Urine 0-2 0 - 2 /HPF [facility] Urine WBC 6-10(A) 0 - 5 /HPF [facility] Urine Squamous Epithelial Cell 0-2 0 - 2 /HPF [facility] Urine Bacteria None Seen None Seen [facility] Hyaline Casts, Urine 0-2 0 - 2 /LPF [facility] 02/25/2025 1:15 PM EDT 02/25/2025 1:32 PM EDT Narrative [facility] - 02/25/2025 1:40 PM EDT [id number], [employer] us Generic External Data Provider LAB URINE ORDERAB LES Final Result [facility] [address] [place] [address] [phone] * Drug Monitoring, Panel 1, Screen, Urine (02/25/2025 1:15 PM EDT) Opiate Screen Urine Not Detected Not Detect [facility] Comment:Opiate cut-off is 30 0 ng/mL.Positive results are unconfirmed and should not be used fornon-medical purposes. Barbiturates, Urine Not Detected Not Detect [facility] Comment:Barbiturate cut-off is 200 ng/mL.Positive results are unconfirmed and should not be used fornon-medical purposes. Phencyclidine Screen Urine Not Detected Not Detect [facility] Comment:Phencyclidine cut-of f is 25 ng/mL.Positive results are unconfirmed and should not be used fornon-medical purposes. Amphetamine Screen Urine Not Detected Not Detect [facility] Comment:Amphetamine cut-off is 1000 ng/mL.Positive results are unconfirmed and should not be used fornon-medical purposes. Benzodiazepines Screen Urine Not Detected Not Detect [facility] Comment:Benzodiazepine cut-o ff is 200 ng/mL.Positive results are unconfirmed and should not be used fornon-medical purposes. Cocaine Screen Urine Not Detected Not Detect [facility] Comment:Cocaine cut-off is 3 00 ng/mL.Positive results are unconfirmed and should not be used fornon-medical purposes. Cannabinoid Screen Urine Not Detected Not Detect [facility] Comment:Cannabinoid cut-off is 50 ng/mL.Positive results are unconfirmed and should not be used fornon-medical purposes. Methadone Screen, Urine Not Detected Not Detect ng/mL [facility] Comment:Methadone cut-off is 300 ng/mL.Positive results are unconfirmed and should not be used fornon-medical purposes. FENTANYL URINE Not Detected Not Detect [facility] Comment:Fentanyl cut-off is 1 ng/mL.Positive results are unconfirmed and should not be used fornon-medical purposes. Oxycodone Urine Screen Not Detected Not Detect ng/mL [facility] Comment:Oxycodone cut-off is 100 ng/mL.Positive results are unconfirmed and should not be used fornon-medical purposes. Buprenorphine Screen Not Detected Not Detect ng/mL [facility] Comment:Buprenorphine cut-of f is 5 ng/mL.Positive results are unconfirmed and should not be used fornon-medical purposes. 02/25/2025 1:15 PM EDT 02/25/2025 5:40 PM EDT Generic External Data Provider LAB URINE ORDERAB LES Final Result [facility] [address] [place] [address] [phone] * (ABNORMAL) CBC auto differential (02/25/2025 12:43 PM EDT) Only the most recent of4 resultswithin the time period is included. White Blood Count 5.1 4.8 - 10.8 X10*3/uL [facility] Red Blood Count 4.89 4.60 - 5.80 X10*6/uL [facility] Hemoglobin 14.3 14.0 - 18.0 g/dl [facility] Hematocrit 41.3(L) 42.0 - 52.0 % [facility] Mean Corpuscular Volume 84.5 80.0 - 98.0 fL [facility] Mean Corpuscular Hemoglobin 29.2 27.0 - 33.0 pg [facility] Mean Corpuscular HGB Conc 34.6 31.0 - 36.0 g/dl [facility] Red Cell Distribution Width 12.2 11.0 - 16.0 % [facility] Platelet Count 345 160 - 400 X10*3/uL [facility] Mean Platelet Volume 8.5(L) 9.4 - 12.4 fL [facility] Neutrophils Percent Auto 49.5 45 - 73 % [facility] Imm Gran Pct Auto 0.2 0.0 - 0.4 % [facility] Lymphocytes Percent Auto 36.6 20 - 40 % [facility] Monocytes Percent Auto 8.5 2 - 11 % [facility] Eosinophils Percent Auto 4.8(H) 0 - 4 % [facility] Basophils Percent Auto 0.4 0 - 2 % [facility] NRBC Pct Auto 0.0 0.0 - 0.2 /100WBC [facility] Neutrophils Absolute Auto 2.5 2.0 - 8.3 x10*3/uL [facility] Imm Gran Abs Auto 0.01 0.00 - 0.03 X10*3/uL [facility] Lymphocytes Absolute Auto 1.9 1.2 - 4.9 X10*3/uL [facility] Monocytes Absolute Auto 0.4 0.1 - 1.2 X10*3/uL [facility] Eosinophils Absolute Auto 0.2 0.0 - 0.4 X10*3/uL [facility] Basophils Absolute Auto 0.0 0.0 - 0.2 X10*3/uL [facility] NRBC Abs Auto 0.000 0.0 - 0.012 X10*3/uL [facility] 02/25/2025 12:4 3 PM EDT 02/25/2025 12:46 PM EDT us Generic External Data Provider LAB BLOOD ORDERAB LES Final Result [facility] [address] [place] [phone] * (ABNORMAL) Comprehensive Metabolic Panel (02/25/2025 12:43 PM EDT) Only the most recent of2 resultswithin the time period is included. Sodium 141 135 - 145 mmol/L [facility] Potassium 4.0 3.3 - 5.1 mmol/L [facility] Chloride 105 96 - 108 mmol/L [facility] Carbon Dioxide 27 22 - 29 mmol/L [facility] Anion Gap 13 12 - 20 [facility] Urea Nitrogen (BUN) 7(L) 9 - 16 mg/dL [facility] Creatinine, Serum 1.05 0.5 - 1.4 mg/dL [facility] Creatinine Clr Calc Pharmacy 80.3 [facility] Comment:eGFR (calculated fro m the MDRD study equation) and eCrCl(calculated from the Cockcroft-Gault equation) are based ondifferent parameters and may not yield comparable results.If eCrCl result is absurd, please check patient'sheight/weight. Estimated Glomerular Filt Rate >60 [facility] Comment:Chronic Kidney Disea se: Estimated GFR < 60 mL/min/1.53h4Klbusz Kidney Disease: Estimated GFR < 15 mL/min/1.73m2 Glucose 230(H) 60 - 115 mg/dL [facility] Calcium 9.7 8.4 - 10.2 mg/dL [facility] Bilirubin, Total 0.4 0.0 - 1.0 mg/dL [facility] Aspartate Amino Transferase 41(H) 5 - 37 U/L [facility] Alanine Aminotransferase 29 0 - 40 U/L [facility] Total Protein 7.2 6.5 - 8.0 g/dL [facility] Albumin Level 4.4 3.5 - 5.0 g/dL [facility] Alkaline Phosphatase 60 39 - 117 U/L [facility] 02/25/2025 12:4 3 PM EDT 02/25/2025 12:46 PM EDT us Generic External Data Provider LAB BLOOD ORDERAB LES Final Result Performing Organization Address City/[facility]/ZIP Co de Phone Number [facility] [address] [place] [phone] * Culture, Urine, Routine (02/25/2025 12:00 AM EDT) Urine Urine specimen obtained by clean catch procedure / Unknown 02/25/2025 02/25/2025 Comment:UACC Narrative [facility] - 02/26/2025 11:28 AM EDT Urine Culture No growth. Specimen Source: Urine clean catch Generic External Data Provider LAB MICROBIOLOGY - GENERAL ORDERABLES Final Result Performing Organization Address City/[facility] Co de Phone Number [facility] [address] [place] [phone] * Vitamin D, 25-Hydroxy, Total, Immunoassay (02/24/2025 2:38 PM EDT) Vitamin D 25-OH Total 34.2 >30 ng/mL [facility] Comment: Health Based Reference Values*< 20 ng/mL Lsoujnjpt67-22 ng/mL Insufficient> 30 ng/mL Sufficient*Cristian GUTIERREZ. N Engl J Med. 2007;357:266-280There is no well-established upper level of normal vitamin Dlevels. Some laboratories use 50 ng/mL as an upper limit ofnormal. However, toxicity is patient-dependent and may occurat any level. Careful correlation with the patient'spresentation is necessary and, if there is concern forvitamin D toxicity, treatment should be consideredirrespective of the serum level.Care must be taken in interpreting Vitamin D results fromdifferent laboratories and methodologies. Published datademonstrated that results from patients undergoinghemodialysis may show a negative bias when tested withvarious automated 25-OH vitamin D assays when compared toLC-MS/MS.When testing samples from patients whose predominant form ofVitamin D is Vitamin D2, such as patients receiving VitaminD2 supplementation, results that are subtherapeutic shouldbe confirmed with another method such as LC-MS/MS. Blood Venous blood specimen / Unknown 02/24/2025 2:38 PM EDT 02/24/2025 4:09 PM EDT us tSacey EDGAR LAB BLOOD ORDERABLES Final Resul t Performing Organization Address [facility]/ZIP Co de Phone Number [facility] [address] [place] [address] [phone] * (ABNORMAL) Sed Rate by Modified Vilma (02/24/2025 2:38 PM EDT) Erythrocyte Sedimentation Rate 30(H) 0 - 15 MM/HR [facility] Comment:Patients with polycy themia and many hemoglobin abnormalitiesmay have depressed sed rates whereas patients with anemiamay have elevated sed rates. Blood Venous blood specimen / Unknown 02/24/2025 2:38 PM EDT 02/25/2025 1:49 PM EDT us Michell Torres MD LAB BLOOD ORDERABLES Final Re sult Performing Organization Address [facility] Co de Phone Number [facility] [address] [place] [address] [phone] * Testosterone, Free (Dialysis) And Total, MS (02/24/2025 2:38 PM EDT) Testosterone, Total 265 250 - 1100 ng/dL [facility] Comment:Men with clinically significant hypogonadalsymptoms and testosterone values repeatedly inthe range of the 200-300 ng/dL or less, maybenefit from testosterone treatment afteradequate risk and benefits counseling.For additional information, please refer tohttp://education.[employer]/faq/MlyesCajsgdfkupjgHMILTBDOO954(This link is being provided for informational/educational purposes only.)This test was developed and its analytical performancecharacteristics have been determined by [employer]. It hasnot been cleared or approved by the U.S. Food and DrugAdministration. This assay has been validated pursuantto the CLIA regulations and is used for clinicalpurposes. Testosterone, Free 57.8 35.0 - 155.0 pg/mL [facility] Comment:This test was develo ped and its analytical performancecharacteristics have been determined by [employer] [place], [place]. It hasnot been cleared or approved by the U.S. Food and DrugAdministration. This assay has been validated pursuantto the CLIA regulations and is used for clinicalpurposes.THIS TEST WAS PERFORMED AT:[employer]/[facility] [place] [address]WXTZABDPRASHANTH LEGGETT MD,PHD Blood Venous blood specimen / Unknown 02/24/2025 2:38 PM EDT 02/24/2025 4:09 PM EDT us Stacey EDGAR LAB BLOOD ORDERABLES Final Resul t Performing Organization Address [facility]/ZIP Co de Phone Number [facility] [address] [place] [phone] * (ABNORMAL) C-reactive Protein (02/24/2025 2:38 PM EDT) C Reactive Protein 5.62(H) < or = 0.50 mg/dL [facility] Blood Venous blood specimen / Unknown 02/24/2025 2:38 PM EDT 02/25/2025 1:49 PM EDT us Michell Torres MD LAB BLOOD ORDERABLES Final Re sult Performing Organization Address [facility]/ZIP Co de Phone Number [facility] [address] [place] [address] [phone] * XR Shoulder 2+ Views Right (02/20/2025 1:55 PM EDT) Anatomical Region Laterality Modality Upper Extremities, Shoulder Right Radi ographic Imaging 02/20/2025 1:55 PM EDT Narrative 02/20/2025 2:11 PM EDT [address] [address] XRay Report Signed Patient: Darin Hopkins MR#: [id number] 75 : 1965 Acct:[id number] Age/Sex: 59 / M ADM Date: 02/20/25 Loc: HO.XRAY Attending Dr: Rebeka Mosqueda MD Ordering Physician: Rebeka Saavedra MD Date of Service: 02/20/25 Procedure(s): XR shoulder RT min 2V Accession Number(s): [id number] cc: Rebeka Saavedra MD; STACEY DOUGHERTY NP EXAMINATION: XR SHOULDER, RIGHT CLINICAL INFORMATION: pain COMPARISON: None available. TECHNIQUE: AP external rotation, Grashey, scapular Y, and axillary views of the right shoulder. FINDINGS: No acute cortical disruption or malalignment. No lytic or blastic lesions. No metallic or radiopaque foreign body. No subcutaneous emphysema. XR/XR shoulder RT min 2V IMPRESSION: No acute fracture or dislocation. Negative x-ray examination. Electronically signed by: Adriano Ashraf MD 02/20/2025 02:08 PM EDT Dictated By: Adriano Marino MD Signed By: <Electronically signed by Adriano Lopez MD in OV> 02/20/25 1408 DD/ 1355 TD/TT: 02/20/25 1404 Associate Dean Of Students: Procedure Note Donotuseinterpreter, Image - 02/20/[address] [address] XRay Report Signed Patient: Darin Hopkins CMR#: [id number] 75 : 1965Acct:[id number] Age/Sex: 59 / MADM Date: 02/20/25 Loc: HO.XRAY Attending Dr: Rebeka Mosqueda MD Ordering Physician: Rebeka Savaedra MD Date of Service: 02/20/25 Procedure(s): XR shoulder RT min 2V Accession Number(s): [id number] cc: Rebeka Saavedra MD; STACEY DOUGHERTY NP EXAMINATION: XR SHOULDER, RIGHT CLINICAL INFORMATION: pain COMPARISON: None available. TECHNIQUE: AP external rotation, Grashey, scapular Y, and axillary views of the right shoulder. FINDINGS: No acute cortical disruption or malalignment. No lytic or blastic lesions. No metallic or radiopaque foreign body. No subcutaneous emphysema. XR/XR shoulder RT min 2V IMPRESSION: No acute fracture or dislocation. Negative x-ray examination. Electronically signed by: Adriano Ashraf MD 02/20/2025 02:08 PM EDT RP Dictated By: Adriano Marino MD Signed By: <Electronically signed by Adriano Lopez MDin OV> 02/20/25 1408 DD/ 1355 TD/TT: 02/20/25 1404 Associate Dean Of Students: us Rebeka Mosqueda MD IMG XR PROCEDURES Mateus yolette Result - Final * Phosphate (As Phosphorus) (02/20/2025 1:50 PM EDT) Phosphorus 2.8 2.7 - 4.5 mg/dL [facility] Blood Venous blood specimen / Unknown 02/20/2025 1:50 PM EDT 02/20/2025 1:50 PM EDT us Rebeka Mosqueda MD LAB BLOOD ORDERABLES Final Result [facility] [address] [place] [phone] * Magnesium (02/20/2025 1:50 PM EDT) Magnesium 2.1 1.6 - 2.6 mg/dL [facility] Blood Venous blood specimen / Unknown 02/20/2025 1:50 PM EDT 02/20/2025 1:50 PM EDT us Rebeka Mosqueda MD LAB BLOOD ORDERABLES Final Result [facility] [address] [place], [place] [phone] * (ABNORMAL) Creatine Kinase Isoenzymes (CK Isoenzymes) w/ Total CK (02/20/2025 1:50 PM EDT) Creatine Kinase, Total 957(A) 22 - 308 U/L [facility] CK-MM 98 95 - 100 % [facility] Comment:MACRO CK TYPE 1= 2% Ck-Mb 0 <5 % [facility] CK-BB None Detected None Detected % [facility] Creatine Kinase Isoenzyme Interpretation MACRO CK TYPE 1 [facility] Comment:Macro CK type 1 migr ates to a position betweenCK-MM and CK-BB and can be interpreted as MB inquantitative assays. They are generally com-plexes of CK-BB and immunoglobulins, but in a fewcases they have been reported to be complexes ofCK- MM and IgA. Macro CK type 1 has been identi-fied as a CK-BB bound to IgG, a CK-MM bound toIgA, a CK-MB bound to IgG and a CK-BB bound to IgAor IgM. The macro CK type 1 complex predominantlyappears in older patients with an average age thatis greater than 65 years. No correlation betweenthe macro CK type 1 and any specific disease hasbeen found, although the activity of the macro CKtype 1 has been known to persist for longer thana year.THIS TEST WAS PERFORMED AT:[employer]/[facility]ITALAFCITJBZN[address] [place] [address]UELFENAPRASHANTH LEGGETT MD,PHD Blood Venous blood specimen / Unknown 02/20/2025 1:50 PM EDT 02/20/2025 1:50 PM EDT us Rebeka Mosqueda MD LAB BLOOD ORDERABLES Final Result Performing Organization Address City/[facility]/ZIP Co de Phone Number [facility] [address] [place] [phone] * TSH with Reflex to Free T4 (02/16/2025 3:36 PM EDT) Pathologist [facility] TSH reflex Free T4 0.94 0.32 - 4.0 uIU/mL [facility] 02/16/2025 3:36 PM EDT 02/16/2025 3:46 PM EDT us Generic External Data Provider LAB BLOOD ORDERAB LES Final Result Performing Organization Address [facility] Co de Phone Number [facility] [address] [place] [phone] * Tick-borne Disease, Acute Molecular Panel (02/16/2025 3:36 PM EDT) Pathologist [facility] Babesia microti DNA, Real Time PCR NOT DETECTED NOT DETECTED [facility] Comment:This test was develo ped and its analytical performancecharacteristics have been determined by [employer]. It has not been cleared or approved by theFDA. This assay has been validated pursuant to the CLIAregulations and is used for clinical purposes.THIS TEST WAS PERFORMED AT:[employer] [place] [phone] ZAZUETA MD Ehrlichia chaffensis DNA Real Time PCR NOT DETECTED NOT DETECTED [facility] Comment:This test was develo ped and its analytical performancecharacteristics have been determined by [employer]. It has not been cleared or approved by theFDA. This assay has been validated pursuant to the CLIAregulations and is used for clinical purposes.THIS TEST WAS PERFORMED AT:[employer] [place] [phone] ZAZUETA MD Anaplasma phagocytophilum DNA, QL Real Time PCR NOT DETECTED NOT DETECTED [facility] Comment:This test was develo ped and its analytical performancecharacteristics have been determined by [employer]. It has not been cleared or approved by theFDA. This assay has been validated pursuant to the CLIAregulations and is used for clinical purposes. Borrelia Species DNA, Ql Real Time PCR NOT DETECTED NOT DETECTED [facility] Comment:This test was develo ped and its analytical performancecharacteristics have been determined by [employer]. It has not been cleared or approved by theFDA. This assay has been validated pursuant to the CLIAregulations and is used for clinical purposes.For additional information, please refer tohttps://education.[employer]/faq/bcj366(This link is being provided for informational/educational purposes only.)THIS TEST WAS PERFORMED AT:[employer] [address] [phone] ZAZUETA MD Borrelia Miyamotoi DNA, Ql Real Time PCR NOT DETECTED NOT DETECTED [facility] Comment:This test was develo ped and its analytical performancecharacteristics have been determined by [employer]. It has not been cleared or approved by theFDA. This assay has been validated pursuant to the CLIAregulations and is used for clinical purposes.THIS TEST WAS PERFORMED AT:[employer] [address] [phone] ZAZUETA MD Comment SEE NOTE [facility] Comment:A negative result do es not exclude Borrelia infectionas the concentration of the organism in blood may be lowor non-existent in patients with Lyme disease, and maydepend on timing of specimen collection from onset ofsymptoms. Clinical correlation is recommended andadditional studies such as serologic testing may beindicated.THIS TEST WAS PERFORMED AT:[employer] [address] [phone] ZAZUETA MD 02/16/2025 3:36 PM EDT 02/16/2025 3:46 PM EDT us Generic External Data Provider LAB BLOOD ORDERAB LES Final Result Performing Organization Address [facility] Co de Phone Number [facility] [address] [place] [address] [phone] * Lyme Disease Ab with Reflex to Blot (IgG, IgM) (02/16/2025 3:36 PM EDT) [facility] Lyme Antibody Screen <0.90 index [facility] Comment:Index Interpretation ----- < 0.90 Negative 0.90-1.09 Equivocal > 1.09 PositiveAs recommended by the Food and Drug Administration(FDA), all samples with positive or equivocalresults in a Borrelia burgdorferi antibody screenwill be tested using a blot method. Positive orequivocal screening test results should not beinterpreted as truly positive until verified as suchusing a supplemental assay (e.g., B. burgdorferi blot).The screening test and/or blot for B. burgdorferiantibodies may be falsely negative in early stagesof Lyme disease, including the period when erythemamigrans is apparent.THIS TEST WAS PERFORMED AT:[employer] [place] [phone] ZAZUETA MD Lyme Blot [facility] 02/16/2025 3:36 PM EDT 02/16/2025 3:46 PM EDT [employer] External Data Provider LAB BLOOD ORDERAB LES Final Result Performing Organization Address [facility] Co de Phone Number [facility] [address] [place] [phone] * (ABNORMAL) Prothrombin Time-INR (02/16/2025 3:36 PM EDT) [facility] Prothrombin Time 13.0(H) 10.9 - 12.4 SEC [facility] INTERNATIONAL NORM RATIO 1.1 0.9 - 1.1 [facility] Comment:INTERNATIONAL NORMAL IZED RATIO (INR) REFERENCE RANGES Reference RangeFor patients not on anticoagulant therapy: 0.9 - 1.1INR ranges for oral anticoagulanttherapy:For prevention and treatment of venous thrombosis and pulmonary embolism: 2.0 - 3.0For acute myocardial infarction with aspirin therapy: 2.0 - 3.0For acute myocardial infarction without aspirin therapy: 3.0 - 4.0For patients with mechanical prosthetic heart valves: 2.5 - 3.5 02/16/2025 3:36 PM EDT 02/16/2025 3:46 PM EDT Generic External Data Provider LAB BLOOD ORDERAB LES Final Result Performing Organization Address [facility] Co de Phone Number [facility] [address] [place] [address] [phone] * (ABNORMAL) Hepatic Function Panel (02/16/2025 3:36 PM EDT) Bilirubin, Total 0.4 0.0 - 1.0 mg/dL [facility] Bilirubin, Direct 0.2 0.0 - 0.5 mg/dL [facility] Aspartate Amino Transferase 41(H) 5 - 37 U/L [facility] Alanine Aminotransferase 35 0 - 40 U/L [facility] Total Protein 6.6 6.5 - 8.0 g/dL [facility] Albumin Level 4.3 3.5 - 5.0 g/dL [facility] Alkaline Phosphatase 64 39 - 117 U/L [facility] 02/16/2025 3:36 PM EDT 02/16/2025 3:46 PM EDT [employer] External Data Provider LAB BLOOD ORDERAB LES Final Result Performing Organization Address [facility] Co de Phone Number [facility] [address] [place] [address] [phone] * (ABNORMAL) Basic Metabolic Panel (02/16/2025 3:36 PM EDT) Sodium 142 135 - 145 mmol/L [facility] Potassium 3.9 3.3 - 5.1 mmol/L [facility] Chloride 110(H) 96 - 108 mmol/L [facility] Carbon Dioxide 24 22 - 29 mmol/L [facility] Anion Gap 12 12 - 20 [facility] Urea Nitrogen (BUN) 12 9 - 16 mg/dL [facility] Creatinine, Serum 1.01 0.5 - 1.4 mg/dL [facility] Creatinine Clr Calc Pharmacy 83.5 [facility] Comment:eGFR (calculated fro m the MDRD study equation) and eCrCl(calculated from the Cockcroft-Gault equation) are based ondifferent parameters and may not yield comparable results.If eCrCl result is absurd, please check patient'sheight/weight. Estimated Glomerular Filt Rate >60 [facility] Comment:Chronic Kidney Disea se: Estimated GFR < 60 mL/min/1.56k0Mweelz Kidney Disease: Estimated GFR < 15 mL/min/1.73m2 Glucose 185(H) 60 - 115 mg/dL [facility] Calcium 8.8 8.4 - 10.2 mg/dL [facility] 02/16/2025 3:36 PM EDT 02/16/2025 3:46 PM EDT us Generic External Data Provider LAB BLOOD ORDERAB LES Final Result [facility] [address] [place] [phone] * (ABNORMAL) POCT HGB A1C (12/12/2024 3:21 PM EDT) Hemoglobin A1C 6.8(A) 4.0 - 6.0 % QC Media Lot # [id number] Lot# Expiration Date ,[id number],856 Blood 12/12/2024 3:21 PM EDT us Radha Hickman [employer] PILOT POINT OF CARE TEST ENTER/EDIT ORDERABLES Final Result * Cologuard?? colon cancer screening (12/03/2024 9:15 AM EDT) Cologuard Result Negative Negative 12/10/19 12:39 PM EDT [employer] (CLIA #:[id number]) Comment: The Cologuard (TM) test was performed [...] cancer. Following a negative Cologuard result, the [place] [employer] and U.S. Multi-Society Task Force screening guidelines recommend a Cologuard re-screening interval of 3 years. References: [place] [employer] Guideline for Colorectal Cancer Screening: https://www.cancer.org/cancer/ioisd-lbotfk-brvdtm/aktraksfx-seokikkvo-tognsxj/ac s-rec ommendations.html.; Db DK, Mitzy PACE, Patti GrullonK, Colorectal Cancer Screening: Recommendations for Physicians and Patients from the U.S. Multi-Society Task Force on Colorectal Cancer Screening , Am J Gastroenterology 2017; 112:6316-5497. TEST DESCRIPTION: Composite algorithmic analysis of stool DNA-biomarkers with hemoglobin immunoassay. Quantitative values of individual biomarkers are not [...] screened with both Cologuard and colonoscopy. (Sabrina Stanton et al, N Engl J Med 2014;370(14):4155-2009.) Cologuard may produce a false negative or false positive result (no colorectal cancer or precancerous polyp present at colonoscopy follow up). A negative Cologuard test result does not guarantee the absence of CRC or advanced adenoma (pre-cancer). The current Cologuard screening interval is every 3 years. ([place] [employer] and U.S. Multi-Society Task Force). Cologuard performance data in a 10,000 patient pivotal study using colonoscopy as the reference method can be accessed at the following location: www.[employer]/results. Additional description of the Cologuard test process, warnings and precautions can be found at www.[employer]og[employer]rd.com. Stool specimen (specimen) 12/03/2024 9:15 AM EDT 12/04/2024 10:37 AM EDT [facility] MOLECULAR DIAGNOSTICS ORDERA BLES Final Result [facility] (CLIA #:[id number]) [address] [place] [address], * Hepatitis C Antibody with Reflex to HCV, RNA, Quantitative, Real-Time PCR (11/14/2024 9:12 AM EDT) Hepatitis C Antibody Nonreactive Nonreactive [facility] Comment:Antibodies to HCV no t detected; does not exclude early acuteHCV infection. Blood Venous blood specimen / Unknown 11/14/2024 9:12 AM EDT 11/14/2024 11:17 AM EDT Stacey Dougherty [facility] LAB BLOOD ORDERABLES Final Resul t Performing Organization Address [facility] de Phone Number [facility] [address] [place] [phone] * (ABNORMAL) Lipid Panel, Standard (11/14/2024 9:12 AM EDT) Triglycerides 137 <150 mg/dL [facility] Comment:Desirable Triglyceri de: less than 150 mg/dLBorderline High Triglyceride 150-199 mg/dLHigh Triglyceride: 200-499 mg/dLVery High Triglyceride: greater than or equal to 5OO mg/dL Cholesterol 169 <200 mg/dL [facility] Comment:Desirable Cholestero l: less than 200 mg/dLBorderline High Cholesterol: 200-239 mg/dLHigh Cholesterol: greater than 239 mg/dL LDL Cholesterol Calculated 112(H) <100 mg/dL [facility] Comment:Desirable LDL: less than 100 mg/dLNear Optimal/Above Optimal LDL: 110- 129 mg/dLBorderline High LDL: 130-159 mg/dLHigh LDL: 160-189 mg/dLVery High LDL: greater than or equal to 190 mg/dL HDL Cholesterol 30(L) >40 mg/dL [facility] Comment:Desirable HDL: great er than 40 mg/dL Note: This HDL assay may give artificially low results in patients with liver disease. Blood Venous blood specimen / Unknown 11/14/2024 9:12 AM EDT 11/14/2024 11:17 AM EDT Stacey Dougherty AN[facility] LAB BLOOD ORDERABLES Final Resul t Performing Organization Address [facility] Co de Phone Number [facility] [address] [place] [phone] * Albumin, Random Urine W/Creatinine (01/05/2023 10:29 AM EDT) Pathologist [facility] Creatinine, Random Urine 260 20 - 320 mg/dL [facility] Albumin, Urine 1.0 See Note: mg/dL [facility] Comment: Reference Range: Reference Range Not established Albumin/Creatinin e Ratio, Random Urine 4 <30 mcg/mg creat [facility] Comment: The ADA defines abnormalities in albumin excretion as follows: Albuminuria Category Result (mcg/mg creatinine) Normal to Mildly increased <30 Moderately increased 30-299 Severely increased > OR = 300 The ADA recommends that at least two of three specimens collected within a 3-6 month period be abnormal before considering a patient to be within a diagnostic category. 01/05/2023 10:2 9 AM EDT 01/05/2023 10:30 AM EDT Narrative [facility] - 01/10/2023 3:14 PM EDT FASTING:YES FASTING: YES [facility] LAB URINE ORDERABLES Final Resul t [facility] [address], [place] [address] [employer] [place] [employer] [address] [place] [address] * Colonoscopy (12/16/2013) [facility] Colonoscopy Normal Normal Historical Provider HEALTH MAINTENANCE Final Result from Last 3 Months or Most Recently Relevant to Health Maintenance Insurance [employer] HSN FULL DENTAL-[facility] MEDICAID LIMITED ADULT DENTAL - HSN FULL (MEDICAID) Care Teams Developer Programmer Relationship Specialty Start Date End Date Stacey Dougherty ANP [address] [place] [address] PCP - General Family Medicine 03/23/21 Kb Tineo, AsifD [address] [place] [address] Pharmacist Internal Medicine 06/25/24
--- OUTSIDE RECORDS SUMMARY | 2025-04-07 11:32 | XMS_ITS | Clinical Summary ---
Author Organization [facility] Address [address] [place] [address] Care Team Providers Care Leveling Machine Operator Name Role Phone Litzy John Primary Care Provider Allergies No known active allergies Medications ProAir HFA 90 mcg/actuation inhaler INHALE 2 PUFFS BY MOUTH EVERY 4 TO 6 HOURS NEEDED 0 Active atorvastatin (LIPITOR) 10 mg tablet Take 10 mg by mouth daily. 1 Active blood pressure test kit-large kit USE TO CHECK BLOOD PRESSURE 0 Active Freestyle Lite test strips TEST BLOOD SUGAR 4 TIMES A DAY 1 Active FreeStyle Seeley Lite meter TEST BLOOD SUGAR 4 TIMES [...] DAILY WITH FOOD NEEDED 0 Active Hypodermic Elida 23 gauge x 1 1/2 needle USE [...] OU 05/12/2014 Pinguecula of both eyes 05/12/2014 Encounters Date Type Department Care Team Description 02/24/2025 Telephone [facility] [address] [place] [address] Electrician Helper: Saray Schultz Telephone Intake, Staff PAC Appt Request - New from Last 3 Months Family History Medical History Relation Name Comments [...] Description 04/23/2025 10:40 AM EDT Office Visit [facility] [address] [place] [address] Electrician Helper: Brian Mejia MD [address] [place] [address] Health Maintenance Due Date Last Done Comments Basic Metabolic Panel 1963 Cologuard 1963 Colon Cancer Screening 1963 Colonoscopy 1963 FOBT / Fit Test 1963 HIV Screening 1963 Hepatitis C Screening 1963 Sigmoidoscopy 1963 Urine Microalbumin 1973 Ophthalmology Exam 01/25/2022 01/25/2021, 0 01/25/2021, 01/25/2021, Additional history exists RSV Vaccine (60+ years old a nd patients) (1 - Risk 60-74 years 1-dose series) 2023 Alcohol/Substance Use Screening 07/30/2024 Depression Screening and Follow-Up 07/30/2024 Social Drivers of Health Melony ual Screening 07/30/2024 Hemoglobin A1C 12/21/2024 06/23/2024, 02/21/2024 Influenza Vaccine (#1) 2025 , 04/12/2023, 04/11/2022, Additional history exists DTaP,Tdap,and Td Vaccines (2 - Td or Tdap) 07/06/2025 07/06/2015 Zoster Vaccines Completed 08/11/2020, 05/24/2020 Pneumococcal Vaccine: 50+ Years Completed , 04/30/2009 COVID-19 Vaccine Completed 08/11/2024, 04/2024, 09/04/2022, Additional history exists Hepatitis B Vaccines Completed 09/26/2024, 08/11/2024, 04/03/[address] [place] [address] [place] [address] HSNO/FREE CARE Care Teams Leveling Machine Operator Relationship Specialty Start Date End Date Litzy John [address] [place] [address] PCP - General 01/26/23
--- OUTSIDE RECORDS SUMMARY | 2025-04-07 11:32 | XMS_ITS | Encounter Summary ---
Author Organization [employer] Address 75 [facility] 7t [place] [address] Care Team Providers Care Testing Coordinator Name Role Phone Litzy John Primary Care Provider [phone] Kb Tineo PharmD Unavailable [phone] Encounter Details Date Type Department Care Team ([facility] st Contact Info) Description 03/02/2025 Results Follow-Up [facility] [address] [place] [address] Litzy John ANP [address] [place] [address] Testosterone, Free (Dialysis) And Total, MS Social History Tobacco Use Types Packs/Day Years [...] Description 04/28/2025 10:15 AM EDT Office Visit [facility] [address] [place] [address] Litzy John ANP [address] [place] [address] 05/29/2025 1:00 PM EDT Office Visit [facility] OPTOMETRY [address] [place] [address] Drake, Tika, OD [address] [place] [address] documented as of this encounter Visit Diagnoses Not on filedocumented in this encounter Additional Health Concerns Assessment Noted Time PHQ-9 Depression Total Score: 0 12/13/19 4:15 PM EDT documented as of this encounter Care Teams Testing Coordinator Relationship Specialty Start Date End Date Litzy John ANP [address] [place] [address] PCP - General Family Medicine 03/23/21 Kb Tineo, AsifD [address] [place] [address] Pharmacist Internal Medicine 06/25/24 documented as of this encounter
--- OUTSIDE RECORDS SUMMARY | 2025-04-07 11:32 | XMS_ITS | Encounter Summary ---
Author Organization [employer] Address 75 [facility] [address], [place] [address] Care Team Providers Care Gas Plumbing Inspector Name Role Phone Litzy John Primary Care Provider [phone] Kb Tineo PharmD Unavailable [phone] Encounter Details Date Type Department Care Team (Latest Contact Info) Description 09/03/2020 Abstract [facility] CONVERSIONS Dental, Provider, DDS Social History [...] Description 04/28/2025 10:15 AM EDT Office Visit [facility] MEDICINE [address] [place] [address] Litzy John ANP [address] [place] [address] 05/29/2025 1:00 PM EDT Office Visit [facility] OPTOMETRY [address] [place] [address] DrakeTika law, OD [address] [place] [address] documented as of this encounter Visit Diagnoses Not on filedocumented in this encounter Care Teams Gas Plumbing Inspector Relationship Specialty Start Date End Date Litzy John ANP [address] [place] [address] PCP - General Family Medicine 03/23/21 Kb Tineo PharmD [address] [place] [address] Pharmacist Internal Medicine 06/25/24 documented as of this encounter
--- OUTSIDE RECORDS SUMMARY | 2025-04-07 11:32 | XMS_ITS | Encounter Summary ---
Author Organization [employer] Address 75 [facility] 7t [place] [address] Care Team Providers Care Paring Machine Operator Name Role Phone Litzy John Primary Care Provider [phone] Kb Tineo PharmD Unavailable [phone] Reason for Visit * Reason Comments Med Refill Encounter Details Date Type Department Care Team ([facility] st Contact Info) Description 02/05/2025 Refill [facility] [address] [place], [place] [phone] Alix Walton NP [address] [place] [address] Social History Tobacco Use Types Packs/Day Years [...] Description 04/28/2025 10:15 AM EDT Office Visit [facility] [address] [place] [address] Litzy John ANP [address] [place] [address] 05/29/2025 1:00 PM EDT Office Visit [facility] OPTOMETRY [address] [place] [address] Drake, Tika, OD [address] [place] [address] documented as of this encounter Visit Diagnoses Not on filedocumented in this encounter Additional Health Concerns Assessment Noted Time PHQ-9 Depression Total Score: 0 12/13/19 4:15 PM EDT documented as of this encounter Care Teams Paring Machine Operator Relationship Specialty Start Date End Date Litzy John ANP [address] [place] [address] PCP - General Family Medicine 03/23/21 Kb Tineo, AsifD [address] [place] [address], [place] [address] Pharmacist Internal Medicine 06/25/24 documented as of this encounter
--- OUTSIDE RECORDS SUMMARY | 2025-04-07 11:32 | XMS_ITS | Encounter Summary ---
Author Organization [employer] Address 75 [facility] [address], [place] [address] Care Team Providers Care Hotel Or Motel Room Service Supervisor Name Role Phone Litzy John Primary Care Provider [phone] Kb Tineo PharmD Unavailable [phone] Encounter Details Date Type Department Care Team (Latest Contact Info) Description 01/20/[address] [facility] CONVERSIONS Dental, Provider, DDS Social History [...] [facility] [address] [place] [address] Litzy John ANP [address] [place] [address] 05/29/2025 1:00 PM EDT Office Visit [facility] OPTOMETRY [address] [place] [address] DrakeTika law, OD [address] [place] [address] documented as of this encounter Visit Diagnoses Not on filedocumented in this encounter Care Teams Hotel Or Motel Room Service Supervisor Relationship Specialty Start Date End Date Litzy John ANP [address] [place] [address] PCP - General Family Medicine 03/23/21 Kb Tineo PharmD [address] [place] [address] Pharmacist Internal Medicine 06/25/24 documented as of this encounter
--- OUTSIDE RECORDS SUMMARY | 2025-04-07 11:32 | XMS_ITS | Encounter Summary ---
Author Organization [employer] Address 75 [facility] 7t [place] [address] Care Team Providers Care E Commerce Developer Name Role Phone Litzy John Primary Care Provider [phone] Kb Tineo PharmD Unavailable [phone] Reason for Visit * Reason Onset Date Comments Nurse Triage 08/21/2023 Encounter Details Date Type Department Care Team ([facility] st Contact Info) Description 08/21/[address] [facility] [address] [place], [place] [phone] Litzy John ANP [address] [place], [place] [phone] Nurse Triage Social History Tobacco Use Types [...] washing. Pt is given phone number for Hiri republican televisit for milena [phone]. No further questions offered. Will call back [...] Description 04/28/2025 10:15 AM EDT Office [address] [facility] [address] [place] [address] Litzy John ANP [address] [place] [address] 05/29/2025 1:00 PM EDT Office Visit [facility] OPTOMETRY [address] [place] [address] Drake, Tika, OD [address] [place] [address] documented as of this encounter Visit Diagnoses Not on filedocumented in this encounter Care Teams E Commerce Developer Relationship Specialty Start Date End Date Litzy John ANP [address] [place] [address] PCP - General Family Medicine 03/23/21 Kb Tineo, Keli [address] [place] [address] Pharmacist Internal Medicine 06/25/24 documented as of this encounter
--- OUTSIDE RECORDS SUMMARY | 2025-04-07 11:32 | XMS_ITS | Patient Health Record ---
Author Organization [facility] Address [address] [place] [address] Care Team Providers Care Television Script Writer Name Role Phone Rell Gomes Primary Care Provider Renard Salas [phone] Reason For Referral No Information Plan Of Treatment No Information Insurance Providers Payer Name Payer Address Payer Phone Subscriber Number Group Number Insured Name Patient Relationship to Insured Coverage Start Date Coverage End Date MEDICAID OF [facility] [address] [place] [address] [id number] LIEN BHATT Self - patient is the insured
--- OUTSIDE RECORDS SUMMARY | 2025-04-07 11:32 | XMS_ITS | Encounter Summary ---
Author Organization [employer] Address 75 [facility] 7 [place] [address] Care Team Providers Care Powder Blender And Pourer Name Role Phone Litzy John Primary Care Provider Kb Tineo PharmD Unavailable [phone] Encounter Details Date Type Department Care Team ([facility] Contact Info) Description 03/03/2025 Orders Only [facility] [address] [place] [address] Provider, MD Jacky Social History Tobacco Use Types Packs/Day Years [...] Description 04/28/2025 10:15 AM EDT Office Visit [facility] 230 [place] [address] Litzy John ANP [address] [place] [address] 05/29/2025 1:00 PM EDT Office Visit [facility] OPT[facility]ET[facility] [address] [place] [address] Tika Juan, OD [address] [place] [address] documented as of this encounter Procedures Procedure Name Priority Date/Time Associated Diagnosis Comments REBECCA SCREEN (QUEST) Routine 02/27/2025 2:53 PM EDT documented in this encounter Results * REBECCA SCREEN (QUEST) (02/27/2025 2:53 PM EDT) us Historical Provider LAB BLOOD ORDERABLES Becky l Result documented in this encounter Visit Diagnoses Not on filedocumented in this encounter Additional Health Concerns Assessment Noted Time PHQ-9 Depression Total Score: 0 12/13/19 25 4:15 PM EDT documented as of this encounter Care Teams Powder Blender And Pourer Relationship Specialty Start Date End Date Litzy John ANP [address] [place] [address] PCP - General Family Medicine 03/23/21 Kb Tineo, PharmD [address] [place], [place] [address]Sh[place]ank [place] [address] Pharmacist Internal Medicine 06/25/24 documented as of this encounter
[2025-04-12 02:53] LABS: CK-BB 1 % (None Detected); CK-MB 0 % (<5); CK-MM 94 % (95-100); Creatine Kinase Isoenzyme Itrp MACRO CK TYPE 1; Creatine Kinase,Total,Serum 626 U/L (22-308)
== END 2025-04-07 09:49 | disposition home or self-care (01) ==
LOC: HO.HHCL 09:48
PROVIDERS: PCP Nurse Practitioner Primary Care; Visit Provider Nurse Practitioner Primary Care
DX: R74.8 Abnormal levels of other serum enzymes (principal)
CPT/HCPCS: 36415; 82552

== ENCOUNTER 2025-04-28 16:11 | Outpatient (REF) | payer OTHER, SELFPAY ==
--- OUTSIDE RECORDS SUMMARY | 2024-03-12 10:40 | XMS_ITS ---
Author Organization [facility] Address [address] [place] [phone] Care Team Providers Care Skiagrapher Name Role Phone Rell Gomes Primary Care Provider Renard Salas [phone] REASON FOR VISIT colon screening Encounters Encounter Location Date Provider Diagnosis [facility] [address] [place] [phone] 03/12/2024 Renard Chiu Plan Of Treatment No Information Progress Notes * LIEN BHATTDOB:1965 (59 yo M)Acc No.[id number]:03/12/2024 Progress Notes Patient: LIEN STERLING Provider: Jeff Chiu MD :1965 A ge:58 Y S ex:Male Date:03/12/2024 Address:[address] [place], [place] [id number] Pcp:Rell Gomes Subjective: * Chief Complaints: * [...] 0 03/12/2024 Generated for Cesar maharaj/Sonal/Javiitting on: 0 04/28/2025 10:32 AM EDT
--- OUTSIDE RECORDS SUMMARY | 2025-04-28 10:15 | XMS_ITS | Encounter Summary ---
Author Organization [employer] Address 75 [facility] 7 [place] [address] Care Team Providers Care Human Factors Engineer Name Role Phone Litzy John Primary Care Provider [phone] Kb Tineo PharmD Unavailable [phone] Reason for Referral * Imaging (Routine) - Authorized Specialty Diagnoses / Procedures Referred By Contac t Referred To Contact Radiology Diagnoses Soft tissue mass Procedures US Head Neck Soft Tissue Litzy John ANP [address] [place] [address] Phone: tel: fax: [address] Phone: tel: fax: Referral ID Status Reason Start Date Expiration Date V isits Requested Visits Authorized [id number] Authorized 04/28/2025 04/28/2026 1 1 Reason for Visit * Reason Comments Follow-up Encounter Details Date Type Department Care Team (Latest Contact Info) Description 04/28/2025 10:15 AM EDT Office Visit [facility] [address] [place] [address] Litzy John ANP [address] [place] [address] Both eyes affected by mild nonproliferative diabetic retinopathy with macular edema, associated with type 2 diabetes mellitus (CMS/HCC) (Primary Dx); Type 2 diabetes mellitus with hyperlipidemia (CMS/HCC) (CMS/HCC); Mixed hyperlipidemia; Elevated creatine kinase; Encounter for immunization; Soft tissue mass Social History Tobacco Use Types Packs/Day Years [...] Sign Reading Time Taken Comments Blood Pressure 130/92 04/28/2025 11:06 AM EDT Pulse 96 04/28/2025 10:44 AM EDT Temperature 36.3 C (97.3 F) 04/28/2025 10:44 AM EDT Respiratory Rate 20 04/28/2025 10:44 AM EDT Oxygen Saturation 99% 04/28/2025 10:44 AM EDT Inhaled Oxygen Concentration - - Weight 86.9 kg (191 lb 8 oz) 04/28/2025 10:44 AM EDT Height 175.3 cm (5' 9 ) 04/28/2025 10:44 AM EDT Body Mass Index 28.28 04/28/2025 10:44 AM EDT documented in this encounter Plan of Treatment Upcoming Encounters Date Type Department Care Team (Late st Contact Info) Description 05/04/2025 10:30 AM EDT Medication Management [facility] [address] [place] [address] Kb Tineo, PharmD [address] [place] [address] 05/29/2025 1:00 PM EDT Office Visit [facility] OPTOMETRY [address] [place] [address] Drake, Tika, OD [address] [place] [address] Scheduled Orders Name Type Priority Associated Diagnoses Orde r Schedule US Head Neck Soft Tissue Imaging Routine Soft tissue mass Expected: 04/28/2025, Expires: 04/28/2026 documented as of this encounter Procedures Procedure Name Priority Date/Time Associated Diagnosis Comments POCT GLYCATED HEMOGLOBIN, TOTAL Routine 04/28/2025 10:47 AM EDT Type 2 diabetes mellitus with hyperlipidemia ([facility]/HCC) ([facility]) POCT GLUCOSE Routine 04/28/2025 10:45 AM EDT Type 2 diabetes mellitus with hyperlipidemia (CMS/HCC) ([facility]) documented in this encounter Results * (ABNORMAL) POCT Hgb A1c (04/28/2025 10:47 AM EDT) Hemoglobin A1C 8.5(A) 4.0 - 5.7 % QC Media Lot # [id number] Lot# Expiration Date ,194,732 Blood 04/28/2025 10:4 7 AM EDT Result Diana EDGAR POINT OF CARE TEST ENTER/EDIT OR DERABLES Final Result * POCT Glucose (04/28/2025 10:45 AM EDT) Glucose Blood, POC 137 60 - 200 mg/dL QC Media Lot # [id number] Lot# Expiration Date 151,664 Blood Capillary blood specimen / Unknown 04/28/2025 10:45 AM EDT us Litzy EDGAR POINT OF CARE TEST ENTER/EDIT OR DERABLES Final Result documented in this encounter Visit Diagnoses Diagnosis Both eyes affected by mild nonproliferative diabetic retinopathy with macular edema, associated with type 2 diabetes mellitus (HCC)- Primary Type 2 diabetes mellitus with hyperlipidemia (HCC) Mixed hyperlipidemia Elevated creatine kinase Other nonspecific abnormal serum enzyme levels Encounter for immunization Soft tissue mass Disorders of soft tissue, unspecified documented in this encounter Additional Health Concerns Assessment Noted Time PHQ-9 Depression Total Score: 0 12/13/19 25 4:15 PM EDT documented as of this encounter Care Teams Human Factors Engineer Relationship Specialty Start Date End Date Litzy John ANP [address] [place] [address] PCP - General Family Medicine 03/23/21 Kb Tineo PharmD [address] [place] [address] Pharmacist Internal Medicine 06/25/24 documented as of this encounter
--- OUTSIDE RECORDS SUMMARY | 2025-04-28 17:09 | XMS_ITS | Encounter Summary ---
Author Organization [employer] Address 75 [facility] 7t [place] [address] Care Team Providers Care Winding Machine Operator Name Role Phone Litzy John Primary Care Provider [phone] Kb Tineo PharmD Unavailable [phone] Reason for Visit * Reason Onset Date Comments chart prep 04/27/2025 Encounter Details Date Type Department Care Team (Late st Contact Info) Description 04/27/2025 Telephone [facility] MED[facility]INE [address] [place], [place] [phone] Litzy John ANP [address] [place], [place] [phone] chart prep Social History Tobacco Use Types Packs/Day Years [...] encounter Miscellaneous Notes * Telephone Encounter - Zoran Forrester [place] - 04/27/2025 9:03 AM EDT Chart Prep Labs: done Images: done Referrals: complete Vaccines due: Flu and RSV Screenings: foot exam and HIV screening Overdue care gaps: Not applicable documented in this encounter Plan of Treatment Upcoming Encounters Date Type Department Care Team (Late st Contact Info) Description 05/04/2025 10:30 AM EDT Medication Management [facility] MED[facility]INE [address] [place] [address] Kb Tineo, PharmD [address] [place] [address] 05/29/2025 1:00 PM EDT Office Visit [facility] OPTOMETRY [address] [place] [address] Tika Juan, OD [address] [place] [address] documented as of this encounter Visit Diagnoses Not on filedocumented in this encounter Additional Health Concerns Assessment Noted Time PHQ-9 Depression Total Score: 0 12/13/19 25 4:15 PM EDT documented as of this encounter Care Teams Winding Machine Operator Relationship Specialty Start Date End Date Litzy John ANP [address] [place] [address] PCP - General Family Medicine 03/23/21 Kb Tineo PharmD [address] [place] [address] Pharmacist Internal Medicine 06/25/24 documented as of this encounter
--- OUTSIDE RECORDS SUMMARY | 2025-04-28 17:09 | XMS_ITS | Encounter Summary ---
Author Organization [employer] Address 75 [facility] 7t [place] [address] Care Team Providers Care Manager Environmental Services Name Role Phone Litzy John HERVE Primary Care Provider [phone] Kb Tineo PharmD Unavailable [phone] Encounter Details Date Type Department Care Team (Latest Contact Info) Description 09/03/2020 Abstract [facility] CONVERSIONS Dental, Provider, DDS Social [...] Description 05/04/2025 10:30 AM EDT Medication Management [facility] MEDICINE [address] [place] [address] Kb Tineo, PharmD [address] [place] [address] 05/29/2025 1:00 PM EDT Office Visit [facility] OPTOMETRY [address] [place] [address] Drake, Tika, OD [address] [place] [address] documented as of this encounter Visit Diagnoses Not on filedocumented in this encounter Care Teams Manager Environmental Services Relationship Specialty Start Date End Date Litzy John ANP [address] [place], [place] [phone] PCP - General Family Medicine 03/23/21 Kb Tineo PharmD [address] [place] [address] Pharmacist Internal Medicine 06/25/24 documented as of this encounter
--- OUTSIDE RECORDS SUMMARY | 2025-04-28 17:09 | XMS_ITS | Encounter Summary ---
Author Organization [employer] Address 75 [facility] 7t [place] [address] Care Team Providers Care Insurance Examining Clerk Name Role Phone Litzy John HERVE Primary Care Provider [phone] Kb Tineo PharmD Unavailable [phone] Encounter Details Date Type Department Care Team (Late st Contact Info) Description 08/21/2022 Orders Only [facility] [address] [place] [address] Chantal Grant LPN Social History Tobacco Use [...] Department Care Team (Late Contact Info) Description 05/04/2025 10:30 AM EDT Medication Management [facility] MEDICINE [address] [place] [address] bK Tineo, PharmD [address] [place] [address] 05/29/2025 1:00 PM EDT Office Visit [facility] OPTOMETRY [address] [place] [address] Tika Juan, OD [address] [place] [address] documented as of this encounter Visit Diagnoses Not on filedocumented in this encounter Care Teams Insurance Examining Clerk Relationship Specialty Start Date End Date Litzy John ANP [address] [place] [address] PCP - General Family Medicine 03/23/21 Kb Tineo PharmD [address] [place] [address] Pharmacist Internal Medicine 06/25/24 documented as of this encounter
--- OUTSIDE RECORDS SUMMARY | 2025-04-28 17:09 | XMS_ITS | Encounter Summary ---
Author Organization [employer] Address 75 [facility] 7t [place] [address] Care Team Providers Care Hat Band Attacher Name Role Phone Litzy John Primary Care Provider [phone] Kb Tineo PharmD Unavailable [phone] Encounter Details Date Type Department Care Team (Late Contact Info) Description 02/13/2023 Orders Only [facility] [address] [place] [address] Litzy John ANP [address] [place] [address] Elevated CK (Primary Dx) Social History Tobacco [...] Description 05/04/2025 10:30 AM EDT Medication Management [facility] [address] [place] [address] Kb Tineo, PharmDianne [address] [place] [address] 05/29/2025 1:00 PM EDT Office Visit [facility] OPTOMETRY [address] [place] [address] Tika Juan, OD [address] [place] [address] documented as of this encounter Visit Diagnoses Diagnosis Elevated CK- Primary Other nonspecific abnormal serum enzyme levels documented in this encounter Care Teams Hat Band Attacher Relationship Specialty Start Date End Date Litzy John ANP [address] [place] [address] [phone] PCP - General Family Medicine 03/23/21 Kb Tineo, PharmD [address] [place] [phone] Pharmacist Internal Medicine 06/25/24 documented as of this encounter
--- OUTSIDE RECORDS SUMMARY | 2025-04-28 17:09 | XMS_ITS | Encounter Summary ---
Author Organization [employer] Address 75 [facility] 7t [place] [address] Care Team Providers Care Lay Out Helper Name Role Phone Litzy John HERVE Primary Care Provider [phone] Kb Tineo PharmD Unavailable [phone] Encounter Details Date Type Department Care Team (Latest Contact Info) Description 01/20/2022 Abstract [facility] CONVERSIONS Dental, Provider, DDS Social History [...] Description 05/04/2025 10:30 AM EDT Medication Management [facility] [address] [place] [address] Kb Tineo, PharmD [address] [place] [address] 05/29/2025 1:00 PM EDT Office Visit [facility] OPTOMETRY [address] [place] [address] Drake, Tika, OD [address] [place] [address] documented as of this encounter Visit Diagnoses Not on filedocumented in this encounter Care Teams Lay Out Helper Relationship Specialty Start Date End Date Litzy John ANP [address] [place], [place] [phone] PCP - General Family Medicine 03/23/21 Kb Tineo PharmD [address] [place] [address] Pharmacist Internal Medicine 06/25/24 documented as of this encounter
--- OUTSIDE RECORDS SUMMARY | 2025-04-28 17:09 | XMS_ITS | Patient Health Record ---
Author Organization [facility] Address [address] [place] [id number] Care Team Providers Care Housing Project Manager Name Role Phone Rell Gomes Primary Care Provider Renard Salas [phone] Reason For Referral No Information Plan Of Treatment No Information Insurance Providers Payer Name Payer Address Payer Phone Subscriber Number Group Number Insured Name Patient Relationship to Insured Coverage Start Date Coverage End Date MEDICAID OF [facility] [address] [place] [phone] [id number] LIEN BHATT Self - patient is the insured
--- OUTSIDE RECORDS SUMMARY | 2025-04-28 17:09 | XMS_ITS | Encounter Summary ---
Author Organization [employer] Address [address] [facility] 7t [place] [address] Care Team Providers Care Commercial Intelligence Manager Name Role Phone Litzy John HERVE Primary Care Provider Kb Tineo PharmD Unavailable Encounter Details Date Type Department Care Team (Late st Contact Info) Description 08/21/2022 Abstract [facility] [address] [place] [address] Meryl Pettit PharmD [address] [place] [address] Social History Tobacco Use Types Packs/Day Years [...] Description 05/04/2025 10:30 AM EDT Medication Management [facility] [address] [place] [address] Kb Tineo, PharmD [address] [place] [address] 05/29/2025 1:00 PM EDT Office Visit [facility] [address] [place] [address] [phone] DrakeAristeon, OD [address] [place] [address] documented as of this encounter Visit Diagnoses Not on filedocumented in this encounter Care Teams Commercial Intelligence Manager Relationship Specialty Start Date End Date Litzy John ANP [address] [place], [place] [phone] PCP - General Family Medicine 03/23/21 Kb Tineo, AsifD [address] [place] [address] Pharmacist Internal Medicine 06/25/24 documented as of this encounter
--- OUTSIDE RECORDS SUMMARY | 2025-04-28 17:09 | XMS_ITS | Encounter Summary ---
Author Organization [employer] Address [address] [facility] 7 [place] [address] Care Team Providers Care Public Speaking Professor Name Role Phone Litzy John Primary Care Provider [phone] Kb Tineo PharmD Unavailable [phone] Encounter Details Date Type Department Care Team (Late st Contact Info) Description 02/25/2025 Telephone [facility] [address] [place] [phone] Sandi Sousa LPN Social History Tobacco [...] Description 05/04/2025 10:30 AM EDT Medication Management [facility] [address] [place] [address] Kb Tineo, PharmD 230 [place] [address] 05/29/2025 1:00 PM EDT Office Visit [facility] [address] [place] [address] Drake, Tika, OD [address] [place] [address] documented as of this encounter Visit Diagnoses Not on filedocumented in this encounter Additional Health Concerns Assessment Noted Time PHQ-9 Depression Total Score: 0 12/13/19 25 4:15 PM EDT documented as of this encounter Care Teams Public Speaking Professor Relationship Specialty Start Date End Date Litzy John ANP [address] [place] [id number] PCP - General Family Medicine 03/23/21 Kb Tineo, PharmD [address] [place] [phone] Pharmacist Internal Medicine 06/25/24 documented as of this encounter"
--- OUTSIDE RECORDS SUMMARY | 2025-04-28 17:09 | XMS_ITS | Encounter Summary ---
Author Organization [employer] Address [address] [facility] [address] 7[address] [place] [address] Care Team Providers Care Tooth Cutter Pinion Name Role Phone John Litzy EDGAR Primary Care Provider [phone] Kb Tineo PharmD Unavailable [phone] Encounter Details Date Type Department Care Team (Latest Contact Info) Description 04/28/2025 Travel Social History Tobacco Use Types Packs/Day [...] Description 05/04/2025 10:30 AM EDT Medication Management [facility] [address] [place] [address] Kb Tineo, AsifD [address] [place] [address] 05/29/2025 1:00 PM EDT Office Visit [facility] [address] [place] [address] Drake, Tika, OD [address] [place] [address] documented as of this encounter Visit Diagnoses Not on filedocumented in this encounter Additional Health Concerns Assessment Noted Time PHQ-9 Depression Total Score: 0 12/13/19 25 4:15 PM EDT documented as of this encounter Care Teams Tooth Cutter Pinion Relationship Specialty Start Date End Date Litzy John ANP [address] [place] [id number] PCP - General Family Medicine 03/23/21 Kb Tineo, AsifD [address] [place] [phone] Pharmacist Internal Medicine 06/25/24 documented as of this encounter
--- OUTSIDE RECORDS SUMMARY | 2025-04-28 17:10 | XMS_ITS | Encounter Summary ---
Author Organization [employer] Address [address] [facility] 7t [place] [address] Care Team Providers Care Center Administrator Name Role Phone Litzy John Primary Care Provider [phone] Kb Tineo PharmD Unavailable [phone] Reason for Visit * Reason Onset Date Comments Nurse Triage 08/21/2023 Encounter Details Date Type Department Care Team (Late st Contact Info) Description 08/21/2023 Telephone [facility] [address] [place], [place] [phone] Litzy John ANP [address] [place], [place] [phone] Nurse Triage Social History Tobacco Use Types [...] washing. Pt is given phone number for [employer] democrat televisit for milena [phone]. No further questions offered. Will call back [...] Description 05/04/2025 10:30 AM EDT Medication Management [facility] [address] [place] [address] Kb Tineo, Keli [address] [place] [address] 05/29/2025 1:00 PM EDT Office Visit [facility] [address] [place] [address] Tika Juan, OD [address] [place] [address] documented as of this encounter Visit Diagnoses Not on filedocumented in this encounter Care Teams Center Administrator Relationship Specialty Start Date End Date Litzy John ANP [address] [place] [phone] PCP - General Family Medicine 03/23/21 Kb Tineo, PharmD [address] [place] [address] Pharmacist Internal Medicine 06/25/24 documented as of this encounter
--- OUTSIDE RECORDS SUMMARY | 2025-04-28 17:10 | XMS_ITS | Encounter Summary ---
Author Organization [employer] Address [address] [facility] 7t [place] [address] Care Team Providers Care Surveillance Observer Name Role Phone Litzy John Primary Care Provider [phone] Kb Tineo PharmD Unavailable [phone] Encounter Details Date Type Department Care Team (Late st Contact Info) Description 03/02/2025 Results Follow-Up [facility] [address] [place] [address] Litzy John ANP [address] [place] [address] Testosterone, Free (Dialysis) And Total, [place] Social [...] Description 05/04/2025 10:30 AM EDT Medication Management [facility] [address] [place] [address] Kb Tineo, AsifD [address] [place] [address] 05/29/2025 1:00 PM EDT Office Visit [facility] [address] [place] [address] Drake, Tika, OD [address] [place] [address] documented as of this encounter Visit Diagnoses Not on filedocumented in this encounter Additional Health Concerns Assessment Noted Time PHQ-9 Depression Total Score: 0 12/13/19 25 4:15 PM EDT documented as of this encounter Care Teams Surveillance Observer Relationship Specialty Start Date End Date Litzy John ANP [address] [place] [id number] PCP - General Family Medicine 03/23/21 Kb Tineo, PharmD [address] [place] [address] Pharmacist Internal Medicine 06/25/24 documented as of this encounter
--- OUTSIDE RECORDS SUMMARY | 2025-04-28 17:10 | XMS_ITS | Clinical Summary ---
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 024 Active Continuous Glucose Neurophysiologist (FreeStyle Gisell 2 [place]) deviceIndication s:Type 2 diabetes mellitus with hyperlipidemia (HCC) Scan sensor every 8 hours 1 each 024 Active Blood Glucose Monitoring Suppl (FreeStyle [place] Lite) w/Device kitIndications:T ype 2 diabetes mellitus without complications (HCC) Use to test blood sugar 3 times daily 1 kit 024 Active TRUEplus Lancets 33G miscIndications: Type 2 diabetes mellitus without complications (HCC) USE DIRECTED TO TEST BLOOD SUGAR THREE TIMES DAILY 100 each 024 Active aspirin 81 MG chewable tabletIndication s:Type 2 diabetes mellitus with hyperlipidemia (HCC) Take 1 tablet by mouth daily 90 tablet 3 025 Active amLODIPine (Norvasc) 5 MG tabletIndication s:Hypertension associated with diabetes (HCC) TAKE 1 TABLET BY MOUTH EVERY DAY 90 tablet 3 025 Active tamsulosin (Flomax) 0.4 MG 24 hr capsuleIndicatio ns:Benign prostatic hyperplasia without urinary obstruction TAKE 1 CAPSULE BY MOUTH EVERY DAY IN THE MORNING 90 capsule 1 025 Active insulin lispro (HumaLOG) 100 UNIT/ML injectionIndicat ions:Type 2 diabetes mellitus with hyperlipidemia (HCC) INJECT 0 TO 12 UNITS SUBCUTANEOUSLY BEFORE MEALS DIRECTED PER SLIDING SCALE 15 mL 025 Active evolocumab (Repatha SureClick) 140 MG/ML injectionIndicat ions:Type 2 diabetes mellitus with hyperlipidemia (HCC),Statin intolerance,Card iovascular event risk Inject 1 mL (140 mg) under the skin every 14 (fourteen) days. 2.1 mL 025 Active glipiZIDE XL (Glucotrol XL) 10 MG 24 hr tabletIndication s:Type 2 diabetes mellitus with hyperlipidemia (HCC) Take 2 tablets (20 mg) by mouth Once per day. Do not crush, chew, or split. 60 tablet 025 Active Alcohol Swabs (Alcohol Prep) 70 % padsIndications: Type 2 diabetes mellitus without complications (HCC) USE DIRECTED TO TEST BLOOD SUGAR THREE TIMES DAILY 100 each 025 Active Lantus SoloStar 100 UNIT/ML penIndications:T ype 2 diabetes mellitus with hyperlipidemia (HCC) INJECT 36 UNITS SUBCUTANEOUSLY AT BEDTIME DIRECTED 15 mL 025 Active Continuous Glucose Sensor (FreeStyle Gisell 2 Sensor) miscIndications: Type 2 diabetes mellitus with hyperlipidemia (HCC) USE DIRECTED TO TEST BLOOD SUGAR CHANGE EVERY 14 DAYS 2 each 025 Active glucose blood (FREESTYLE LITE) test stripIndications :Type 2 diabetes mellitus without complications (HCC) USE DIRECTED TO TEST BLOOD SUGAR THREE TIMES DAILY 100 strip 025 Active Pentips Generic Pen Paige 32G X 4 MM miscIndications: Type 2 diabetes mellitus with hyperlipidemia (HCC) USE FOUR TIMES DAILY WITH INSULIN 100 each 5 Active Tirzepatide (Mounjaro) 2.5 MG/0.5ML solution auto-injectorInd ications:Type 2 diabetes mellitus with hyperlipidemia (HCC) Inject 2.5 mg under the skin 1 (one) time per week. 2 mL Active insulin pen needle (BD Pen Needle Latosha U/F) 32G x 4 mm miscIndications: Type 2 diabetes mellitus with hyperlipidemia (HCC) USE FOUR TIMES DAILY WITH INSULIN 100 each 5 025 2024 Discontinued tadalafil (Cialis) 5 MG tabletIndication s:Benign prostatic hyperplasia without urinary obstruction Take 1 tablet (5 mg) by mouth Once per day. 90 tablet 1 025 2024 Discontinued(S sivan effects) semaglutide (Ozempic, 1 MG/DOSE,) 4 MG/3ML solution pen-injector Inject 1 mg under the skin 1 (one) time per week. 3 mL 11 025 2024 Discontinued(N on-compliance) Active Problems Problem Noted Date Diagnosed Date [...] 12/21/2011 Type 2 diabetes mellitus with hyperlipidemia Overview (02/21/2024): Lab Results Component Value Date [...] Encounters Date Type Department Care Team Description 04/28/2025 10:15 AM EDT Office Visit [facility] [address] [place] [phone] Stacey Dougherty ANP Both eyes affected by mild nonproliferative diabetic retinopathy with macular edema, associated with type 2 diabetes mellitus ([facility]) (Primary Dx); Type 2 diabetes mellitus with hyperlipidemia ([facility]/HCC) ([facility]); Mixed hyperlipidemia; Elevated creatine kinase; Encounter for immunization; Soft tissue mass 04/28/2025 Travel 04/27/2025 Telephone [facility] [address] [place] [phone] Stacey Dougherty ANP chart prep 04/03/2025 Orders Only [facility] [address] [place] [phone] Stacey Dougherty ANP Elevated creatine kinase (Primary Dx) 04/03/2025 Telephone [facility] [address] [place] [phone] Stacey Dougherty ANP Lab Orders 03/30/2025 Refill [facility] [address] [place] [address] Stacey Dougherty ANP Type 2 diabetes mellitus with hyperlipidemia ([facility]/HCC) ([facility]) 03/17/2025 Refill [facility] [address] [place] [address] Stacey Dougherty ANP Type 2 diabetes mellitus without complications ([facility]) 03/13/[address] [phone] Stacey Dougherty ANP Prior Authorization 03/10/2025 Refill [facility] [address] [place] [address] Woodcliff LakeLorenza dejesus FNP Type 2 diabetes mellitus with hyperlipidemia ([facility]/HCC) ([facility]) 03/09/2025 Refill [facility] [address] [place] [address] Kb Tineo, Keli Type 2 diabetes mellitus with hyperlipidemia ([facility]/HCC) ([facility]) 03/05/[address] [phone] Stacey Dougherty ANP CTK test 03/03/2025 Orders Only [facility] [address] [place] [address] Provider, MD Jacky 03/02/2025 Results Follow-Up [address] [phone] Stacey Dougherty ANP Testosterone, Free (Dialysis) And Total, MS 02/26/[address] [phone] Stacey Dougherty ANP 02/25/2025 Results Follow-Up [address] [phone] Stacey Dougherty ANP C-reactive Protein, Sed Rate by Modified Westergren, REBECCA Screen,IFA, with Reflex to Titer and Pattern 02/25/2025 Telephone [facility] [address] [place] [phone] Sandi Sousa LPN 02/25/2025 Orders Only GENERIC EXTERNAL DATA DEPARTMENT Provider, Generic External Data 02/24/2025 3:20 PM EDT Office Visit [facility] [address] [address] Michell Torres MD Non-traumatic rhabdomyolysis (Primary Dx) 02/24/2025 Travel 02/23/2025 Orders Only [address] [address] Rebeka Saavedra MD Right arm pain (Primary Dx) 02/23/2025 Orders Only [address] [address] Stacey Dougherty ANP Elevated creatine kinase (Primary Dx) 02/23/2025 Results Follow-Up [address] [address] Rebeka Saavedra MD CBC auto differential, Comprehensive Metabolic Panel, Magnesium, Additional followed-up results: 2 02/20/2025 1:00 PM EDT Office Visit [facility] [address] [address] Rebeka Saavedra MD Right arm pain (Primary Dx); Acute pain of right shoulder; Non-traumatic rhabdomyolysis 02/20/2025 Travel 02/16/2025 2:00 PM EDT [facility] [address] [address] Michell Torres MD Cervical radiculopathy (Primary Dx) 02/16/2025 Orders Only GENERIC EXTERNAL DATA DEPARTMENT Provider, Generic External Data 02/16/2025 Travel 02/13/[address] [address] Kb Tineo, PharmD 02/05/2025 Refill [facility] [address] [address] Alix Walton NP 01/29/2025 Telephone [facility] [address] [place], [place] [phone] Stacey Dougherty ANP Prior Authorization from Last 3 Months Immunizations Immunization Administration Dates Next Due Hep A, Adult 04/03/2012,07/27/2011 Hep B, adult 04/03/2012 HepB-CpG 09/26/2024,08/11/2024 Influenza injectable quadriv alent IIV4 with preservative 04/17/2018,04/30/2017,05/15/2016,04/26 Influenza injectable quadriv alent preservative free 04/12/2023,04/11/2022,07/07/2021,05/12,05/27/2019 Influenza, IIV3, injectable 05/04/2014 Influenza, Split (incl. josé fied surface antigen) 07/15/2013,04/03/2012 Influenza, seasonal, injecta ble, preservative free 04/28/2025,06/23/2024 MMR 07/27/2011 Moderna Covid-19 Vaccine 12+ 02/24/2022 [...] Mass Index 28.28 04/28/2025 10:44 AM EDT Plan of Treatment Upcoming Encounters Date Type Department Care Team (Late st Contact Info) Description 05/04/2025 10:30 AM EDT Medication Management [facility] [address] [place] [address] Kb Tineo, PharmD [address] [place] [address] 05/29/2025 1:00 PM EDT Office Visit [facility] OPTOMETRY [address] [place] [address] Tika Juan, OD [address] [place] [address] Health Maintenance Due Date Last Done Comments [...] 09/26/2024, 0 03/25/2024, 09/04/2023, Additional history exists DTaP/Tdap/Td Vaccines (2 - Td or Tdap) 07/06/2025 07/06/2015 Diabetes: Hemoglobin A1C 07/28/2025 025, 12/12/2024, 09/26/2024, Additional history exists Disability Screening 11/10/2025 11/10/2024 SDOH Screening 11/10/2025 11/10/2024 Lipid Panel 11/14/2025 11/14/2024, 10/29, 01/05/2023, Additional history exists Eye Exam 11/26/2025 11/26/2024, 10/30, 11/26/2024, Additional history exists FOBT 12/03/2025 12/03/2024 Alcohol/Substance Use Screening 12/12/2025 12/12/2024 Depression Screening 12/12/2025 12/12/2024, 12/13/19 Tobacco Screening 04/28/2026 04/28/2025 Dental X-Ray: Full Mouth 03/26/2027 03/25/2024, 02/10/2020 Colorectal Cancer Screening 12/04/2027 FIT DNA/Cologuard 12/04/2027 12/03/2024 Hepatitis A Vaccines Aged Out 04/03/2012, 07/27/20 11 No longer eligible based on patient's age to complete this topic Zoster Vaccines Completed 08/11/2020, 05/24/2020 Pneumococcal Vaccine: 50+ Years Completed 06/23/2024, 04/30/2009 COVID-19 Vaccine Completed 08/11/2024, 04/2024, 09/04/2022, Additional history exists Hepatitis B Vaccines Completed 09/26/2024, 08/11/2024, 04/03/2012 Hepatitis C Screening Completed 11/14/2024 Influenza Vaccine Completed 04/28/2025, , 04/12/2023, Additional history exists HIB Vaccines Aged Out No longer eligi [...] Type 2 diabetes mellitus with hyperlipidemia (CMS/HCC) ([facility]) POCT GLUCOSE Routine 04/28/2025 10:45 AM EDT Type 2 diabetes mellitus with hyperlipidemia (CMS/HCC) ([facility]) CREATINE KINASE ISOENZYMES (CK ISOENZYMES) WITH TOTAL CK Routine 04/07/2025 9:55 AM EDT Elevated creatine kinase REBECCA SCREEN (QUEST) Routine 02/27/2025 2: 53 [...] AUTO DIFFERENTIAL Routine 02/16/2025 3:36 PM EDT LAB COLOGUARD COLON CANCER SCREEN Routine 12/03/2024 [...] to Health Maintenance Results * (ABNORMAL) POCT Hgb A1c (04/28/2025 10:47 AM EDT) Hemoglobin A1C 8.5(A) 4.0 - 5.7 % QC Media Lot # [id number] Lot# Expiration Date 486, Blood 04/28/2025 10:4 7 AM EDT Stacey Dougherty ANP POINT OF CARE TEST ENTER/EDIT OR DERABLES Final Result * POCT Glucose (04/28/2025 10:45 AM EDT) Pathologist [facility] Glucose Blood, POC 137 60 - 200 mg/dL QC Media Lot # [id number] Lot# Expiration Date [id number] Blood Capillary blood specimen / Unknown 04/28/2025 10:45 AM EDT [facility] Dougherty ANP POINT OF CARE TEST ENTER/EDIT OR DERABLES Final Result * (ABNORMAL) Creatine Kinase Isoenzymes (CK Isoenzymes) w/ Total CK (04/07/2025 9:55 AM EDT) Only the most recent of2 resultswithin the time period is included. Pathologist [facility] Creatine Kinase, Total 626(A) 22 - 308 U/L [facility] CK-MM 94(A) 95 - 100 % [facility] Comment:MACRO CK TYPE 1= 5% Ck-Mb 0 <5 % [facility] CK-BB 1(A) None Detected % [facility] Creatine Kinase Isoenzyme Interpretation MACRO CK TYPE 1 [facility] Comment: Macro CK type 1 migrates to a position betweenCK-MM and CK-BB and can be interpreted as MB inquantitative assays. They are generally com-plexes of CK-BB and immunoglobulins, but in a fewcases they have been reported to be complexes ofCK-MM and IgA. Macro CK type 1 has [...] been known to persist for longer thana year.* BB BAND PRESENT.This isoenzyme is not present in normal serum. BB hasbeen observed in association with a variety ofcarcinomas (lung, gut, bladder, prostate) plus hearttrauma, shock, open heart surgery, and connectivetissue disorders.THIS TEST WAS PERFORMED AT:[facility] [place] [phone] LEGGETT MD,PHD Blood Venous blood specimen / Unknown 04/07/2025 9:55 AM EDT 04/07/2025 11:20 AM EDT [facility] LAB BLOOD ORDERABLES Final Resul t [facility] [address] [place] [address] [phone] * REBECCA SCREEN (QUEST) (02/27/2025 2:53 PM EDT) Historical Provider LAB BLOOD ORDERABLES Becky l Result * REBECCA Screen,IFA, with Reflex to Titer and Pattern (02/27/2025 11:45 AM EDT) Anti Nuclear Antibody Screen NEGATIVE NEGATIVE [facility] Comment:REBECCA IFA is a first [...] clinicallysuspected inflammatory myopathies.AC-0: NegativeInternational Consensus on REBECCA Patterns(https://doi.org/10.1515/wulv-9931-4662)For additional information, please refer tohttp://education.[employer]/faq/MJT773(This link is being provided for informational/educational purposes only.)THIS TEST WAS PERFORMED AT:[employer] [place] [phone] ZAZUETA MD REBECCA Titer TNP [facility] REBECCA Pattern [facility] REBECCA TITER 2 (REF LAB) [facility] REBECCA Pattern [facility] REBECCA TITER 3 [facility] REBECCA PATTERN 3 KSP [facility] Blood Venous blood specimen / Unknown 02/27/2025 11:45 AM EDT 02/27/2025 2:07 PM EDT Michell Torres MD LAB BLOOD ORDERABLES Final Re sult [facility] [address] [place] [address] [phone] * (ABNORMAL) Creatine Kinase, Total (02/25/2025 5:09 PM EDT) Only the most recent of4 resultswithin the time period is included. Creatine Kinase Total 842(H) 38 - 174 U/L [facility] 02/25/2025 5:09 PM EDT 02/25/2025 5:12 PM EDT us Generic External Data Provider LAB BLOOD ORDERAB LES Final Result Performing Organization Address [facility]/ZIP Co de Phone Number [facility] [address] [place] [phone] * (ABNORMAL) Urinalysis, Complete, with Reflex to Culture (02/25/2025 1:15 PM EDT) Color Urine Yellow [facility] Appearance Urine Clear [facility] PH 6.5 5.0 - 9.0 [facility] Glucose Urine UA 500(A) Negative mg/dL [facility] Urine Blood Negative Negative [facility] Specific Roca - Urine 1.015 1.005 - 1.025 [facility] Urine Protein Negative Neg-Trace mg/dL [facility] Urine Ketones Negative Negative mg/dL [facility] Nitrite Urine Negative Negative [facility] Leukocyte Esterase Urine Small (1+)(A) Negative [facility] RBC Urine 0-2 0 - 2 /HPF [facility] Urine WBC 6-10(A) 0 - 5 /HPF [facility] Urine Squamous Epithelial Cell 0-2 0 - 2 /HPF [facility] Urine Bacteria None Seen None Seen [facility] Hyaline Casts, Urine 0-2 0 - 2 /LPF [facility] 02/25/2025 1:15 PM EDT 02/25/2025 1:32 PM EDT Narrative [facility] - 02/25/2025 1:40 PM EDT [id number], Clean Catch us Generic External Data Provider LAB URINE ORDERAB LES Final Result Performing Organization Address [facility] Co de Phone Number [facility] [address] [place] [phone] * Drug Monitoring, Panel 1, Screen, Urine (02/25/2025 1:15 PM EDT) Opiate Screen Urine Not Detected Not Detect [facility] Comment:Opiate cut-off is 30 0 ng/mL.Positive results are unconfirmed and should not be used fornon-medical purposes. Barbiturates, Urine Not Detected Not Detect [facility] Comment:Barbiturate cut-off is 200 ng/mL.Positive results are unconfirmed and should not be used fornon-medical purposes. Phencyclidine Screen Urine Not Detected Not Detect [facility] Comment:Phencyclidine cut-of f is 25 ng/mL.Positive results are unconfirmed and should not be used fornon-medical purposes. Amphetamine Screen Urine Not Detected Not Detect [facility] Comment:Amphetamine cut-off is 1000 ng/mL.Positive results are unconfirmed and should not be used fornon-medical purposes. Benzodiazepines Screen Urine Not Detected Not Detect [facility] Comment:Benzodiazepine cut-o ff is 200 ng/mL.Positive results are unconfirmed and should not be used fornon-medical purposes. Cocaine Screen Urine Not Detected Not Detect [facility] Comment:Cocaine cut-off is 3 00 ng/mL.Positive results are unconfirmed and should not be used fornon-medical purposes. Cannabinoid Screen Urine Not Detected Not Detect [facility] Comment:Cannabinoid cut-off is 50 ng/mL.Positive results are unconfirmed and should not be used fornon-medical purposes. Methadone Screen, Urine Not Detected Not Detect ng/mL [facility] Comment:Methadone cut-off is 300 ng/mL.Positive results are unconfirmed and should not be used fornon-medical purposes. FENTANYL URINE Not Detected Not Detect [facility] Comment:Fentanyl cut-off is 1 ng/mL.Positive results are unconfirmed and should not be used fornon-medical purposes. Oxycodone Urine Screen Not Detected Not Detect ng/mL [facility] Comment:Oxycodone cut-off is 100 ng/mL.Positive results are unconfirmed and should not be used fornon-medical purposes. Buprenorphine Screen Not Detected Not Detect ng/mL [facility] Comment:Buprenorphine cut-of f is 5 ng/mL.Positive results are unconfirmed and should not be used fornon-medical purposes. 02/25/2025 1:15 PM EDT 02/25/2025 5:40 PM EDT us Generic External Data Provider LAB URINE ORDERAB LES Final Result [facility] [address] [place] [phone] [phone] * (ABNORMAL) CBC auto differential (02/25/2025 12:43 PM EDT) Only the most recent of4 resultswithin the time period is included. White Blood Count 5.1 4.8 - 10.8 X10*3/uL [facility] Red Blood Count 4.89 4.60 - 5.80 X10*6/uL [facility] Hemoglobin 14.3 14.0 - 18.0 g/dl [facility] Hematocrit 41.3(L) 42.0 - 52.0 % [facility] Mean Corpuscular Volume 84.5 80.0 - 98.0 fL [facility] Mean Corpuscular Hemoglobin 29.2 27.0 - 33.0 pg [facility] Mean Corpuscular HGB Conc 34.6 31.0 - 36.0 g/dl [facility] Red Cell Distribution Width 12.2 11.0 - 16.0 % [facility] Platelet Count 345 160 - 400 X10*3/uL [facility] Mean Platelet Volume 8.5(L) 9.4 - 12.4 fL [facility] Neutrophils Percent Auto 49.5 45 - 73 % [facility] Imm Gran Pct Auto 0.2 0.0 - 0.4 % [facility] Lymphocytes Percent Auto 36.6 20 - 40 % [facility] Monocytes Percent Auto 8.5 2 - 11 % [facility] Eosinophils Percent Auto 4.8(H) 0 - 4 % [facility] Basophils Percent Auto 0.4 0 - 2 % [facility] NRBC Pct Auto 0.0 0.0 - 0.2 /100WBC [facility] Neutrophils Absolute Auto 2.5 2.0 - 8.3 x10*3/uL [facility] Imm Gran Abs Auto 0.01 0.00 - 0.03 X10*3/uL [facility] Lymphocytes Absolute Auto 1.9 1.2 - 4.9 X10*3/uL [facility] Monocytes Absolute Auto 0.4 0.1 - 1.2 X10*3/uL [facility] Eosinophils Absolute Auto 0.2 0.0 - 0.4 X10*3/uL [facility] Basophils Absolute Auto 0.0 0.0 - 0.2 X10*3/uL [facility] NRBC Abs Auto 0.000 0.0 - 0.012 X10*3/uL [facility] 02/25/2025 12:4 3 PM EDT 02/25/2025 12:46 PM EDT us Generic External Data Provider LAB BLOOD ORDERAB LES Final Result [facility] [address] [place] [phone] * (ABNORMAL) Comprehensive Metabolic Panel (02/25/2025 12:43 PM EDT) Only the most recent of2 resultswithin the time period is included. Sodium 141 135 - 145 mmol/L [facility] Potassium 4.0 3.3 - 5.1 mmol/L [facility] Chloride 105 96 - 108 mmol/L [facility] Carbon Dioxide 27 22 - 29 mmol/L [facility] Anion Gap 13 12 - 20 [facility] Urea Nitrogen (BUN) 7(L) 9 - 16 mg/dL [facility] Creatinine, Serum 1.05 0.5 - 1.4 mg/dL [facility] Creatinine Clr Calc Pharmacy 80.3 [facility] Comment:eGFR (calculated fro m the MDRD study equation) and eCrCl(calculated from the Cockcroft-Gault equation) are based ondifferent parameters and may not yield comparable results.If eCrCl result is absurd, please check patient'sheight/weight. Estimated Glomerular Filt Rate >60 [facility] Comment:Chronic Kidney Disea se: Estimated GFR < 60 mL/min/1.02o8Otfifs Kidney Disease: Estimated GFR < 15 mL/min/1.73m2 Glucose 230(H) 60 - 115 mg/dL [facility] Calcium 9.7 8.4 - 10.2 mg/dL [facility] Bilirubin, Total 0.4 0.0 - 1.0 mg/dL [facility] Aspartate Amino Transferase 41(H) 5 - 37 U/L [facility] Alanine Aminotransferase 29 0 - 40 U/L [facility] Total Protein 7.2 6.5 - 8.0 g/dL [facility] Albumin Level 4.4 3.5 - 5.0 g/dL [facility] Alkaline Phosphatase 60 39 - 117 U/L [facility] 02/25/2025 12:4 3 PM EDT 02/25/2025 12:46 PM EDT Generic External Data Provider LAB BLOOD ORDERAB LES Final Result Performing Organization Address City/[facility]/ZIP Co de Phone Number [facility] [address] [place] [phone] * Culture, Urine, Routine (02/25/2025 12:00 AM EDT) Urine Urine specimen obtained by clean catch procedure / Unknown 02/25/2025 02/25/2025 Comment:UACC Narrative [facility] - 02/26/2025 11:28 AM EDT Urine Culture No growth. Specimen Source: Urine clean catch Generic External Data Provider LAB MICROBIOLOGY - GENERAL ORDERABLES Final Result Performing Organization Address [facility]/ZIP Co de Phone Number [facility] [address] [place] [phone] * Vitamin D, 25-Hydroxy, Total, Immunoassay (02/24/2025 2:38 PM EDT) Vitamin D 25-OH Total 34.2 >30 ng/mL [facility] Comment: Health Based Reference Values*< 20 ng/mL Miptgaigg36-00 ng/mL Insufficient> 30 ng/mL Sufficient*Cristian GUTIERREZ. N [...] EDGAR LAB BLOOD ORDERABLES Final Resul t [facility] [address] [place] [phone] * (ABNORMAL) Sed Rate by Modified Vilma (02/24/2025 2:38 PM EDT) Erythrocyte Sedimentation Rate 30(H) 0 - 15 MM/HR [facility] Comment:Patients with polycy themia and many hemoglobin abnormalitiesmay have depressed sed rates whereas patients with anemiamay have elevated sed rates. Blood Venous blood specimen / Unknown 02/24/2025 2:38 PM EDT 02/25/2025 1:49 PM EDT us Michell Torres MD LAB BLOOD ORDERABLES Final Re sult [facility] [address] [place] [address] [phone] * Testosterone, Free (Dialysis) And Total, MS (02/24/2025 2:38 PM EDT) Testosterone, Total 265 250 - 1100 ng/dL [facility] Comment:Men with clinically significant hypogonadalsymptoms and testosterone values repeatedly inthe range of the 200-300 ng/dL or less, maybenefit from testosterone treatment afteradequate risk and benefits counseling.For additional information, please refer tohttp://education.Smart Plate/faq/ZbczwAbwvnkbokgyuUFNIVNQKX727(This link is being provided for informational/educational purposes only.)This test was developed and its analytical performancecharacteristics have been determined by [employer] [place]. It hasnot been cleared or approved by the U.S. Food and DrugAdministration. This assay has been validated pursuantto the CLIA regulations and is used for clinicalpurposes. Testosterone, Free 57.8 35.0 - 155.0 pg/mL [facility] Comment:This test was develo ped and its analytical performancecharacteristics have been determined by [employer] [place] [place]. It hasnot been cleared or approved by the U.S. Food and DrugAdministration. This assay has been validated pursuantto the CLIA regulations and is used for clinicalpurposes.THIS TEST WAS PERFORMED AT:[facility] [id number] [place] [address]RQCWMLDPRASHANTH LEGGETT MD,PHD Blood Venous blood specimen / Unknown 02/24/2025 2:38 PM EDT 02/24/2025 4:09 PM EDT Stacey Dougherty [facility] LAB BLOOD ORDERABLES Final Resul t Performing Organization Address [facility] Co de Phone Number [facility] [address] [place] [address] [phone] * (ABNORMAL) C-reactive Protein (02/24/2025 2:38 PM EDT) C Reactive Protein 5.62(H) < or = 0.50 mg/dL [facility] Blood Venous blood specimen / Unknown 02/24/2025 2:38 PM EDT 02/25/2025 1:49 PM EDT us Michell Torres MD LAB BLOOD ORDERABLES Final Re sult [facility] [address] [place] [phone] * XR Shoulder 2+ Views Right (02/20/2025 1:55 PM EDT) Anatomical Region Laterality Modality Upper Extremities, Shoulder Right Radi ographic Imaging 02/20/2025 1:55 PM EDT Narrative 02/20/2025 2:11 PM EDT [address] [address] XRay Report Signed Patient: Darin Hopkins MR#: [id number] [birth year] : 1965 Acct:[id number] Age/Sex: 59 / M ADM Date: 02/20/25 Loc: HO.JOSHUA Attending Dr: Rebeka Mosqueda MD Ordering Physician: Rebeka Saavedra MD Date of Service: 02/20/25 Procedure(s): XR shoulder RT min 2V Accession Number(s): [id number] cc: Rebeka Saavedra MD; STACEY DOUGHERTY NP [...] signed by Adriano Lopez MD in OV> 02/20/251407 DD/ 54 TD/TT: 02/20/251403 Office Assistance: Procedure Note Donotuseinterpreter, Image - 02/20/[address] [address] XRay Report Signed Patient: Darin Hopkins CMR#: [id number] 75 : 1965Acct:[id number] Age/Sex: 59 / MADM Date: 02/20/25 Loc: HO.XRAY Attending Dr: Rebeka Mosqueda MD Ordering Physician: Rebeka Saavedra MD Date of Service: 02/20/25 Procedure(s): XR shoulder RT min 2V Accession Number(s): [id number] cc: Rebeka Saavedra MD; STACEY DOUGHERTY NP [...] <Electronically signed by Adriano Lopez MDin OV> 02/20/251407 DD/ 54 TD/TT: 02/20/251403 Office Assistance: Rebeka Mosqueda MD IMG XR PROCEDURES Mateus yolette Result - Final * Phosphate (As Phosphorus) (02/20/2025 1:50 PM EDT) Pathologist [facility] Phosphorus 2.8 2.7 - 4.5 mg/dL [facility] Blood Venous blood specimen / Unknown 02/20/2025 1:50 PM EDT 02/20/2025 1:50 PM EDT us Rebeka Mosqueda MD LAB BLOOD ORDERABLES Final Result Performing Organization Address [facility] Co de Phone Number [facility] [address] [place] [phone] * Magnesium (02/20/2025 1:50 PM EDT) [facility] Magnesium 2.1 1.6 - 2.6 mg/dL [facility] Blood Venous blood specimen / Unknown 02/20/2025 1:50 PM EDT 02/20/2025 1:50 PM EDT us Rebeka Mosqueda MD LAB BLOOD ORDERABLES Final Result Performing Organization Address [facility] Co de Phone Number [facility] [address] [place] [phone] * TSH with Reflex to Free T4 (02/16/2025 3:36 PM EDT) [facility] TSH reflex Free T4 0.94 0.32 - 4.0 uIU/mL [facility] 02/16/2025 3:36 PM EDT 02/16/2025 3:46 PM EDT us Generic External Data Provider LAB BLOOD ORDERAB LES Final Result Performing Organization Address [facility] Co de Phone Number [facility] [address] [place] [phone] * Tick-borne Disease, Acute Molecular Panel (02/16/2025 3:36 PM EDT) [facility] Babesia microti DNA, Real Time PCR NOT DETECTED NOT DETECTED [facility] Comment:This test was develo ped and its analytical performancecharacteristics have been determined by [employer]. It has not been cleared or approved by theFDA. This assay has been validated pursuant to the CLIAregulations and is used for clinical purposes.THIS TEST WAS PERFORMED AT:[facility] [address] [address]TETCNLINDA ZAZUETA MD Ehrlichia chaffensis DNA Real Time PCR NOT DETECTED NOT DETECTED [facility] Comment:This test was develo ped and its analytical performancecharacteristics have been determined by [employer]. It has not been cleared or approved by theFDA. This assay has been validated pursuant to the CLIAregulations and is used for clinical purposes.THIS TEST WAS PERFORMED AT:[facility] [address] [id number] ZAZUETA MD Anaplasma phagocytophilum DNA, QL Real Time PCR NOT DETECTED NOT DETECTED [facility] Comment:This test was develo ped and its analytical performancecharacteristics have been determined by [employer]. It has not been cleared or approved by theFDA. This assay has been validated pursuant to the CLIAregulations and is used for clinical purposes. Borrelia Species DNA, Ql Real Time PCR NOT DETECTED NOT DETECTED [facility] Comment:This test was develo ped and its analytical performancecharacteristics have been determined by [employer]. It has not been cleared or approved by theFDA. This assay has been validated pursuant to the CLIAregulations and is used for clinical purposes.For additional information, please refer tohttps://education.[employer].Walkabout/faq/air408(This link is being provided for informational/educational purposes only.)THIS TEST WAS PERFORMED AT:[facility] [address] [address]ANPIDLINDA ZAZUETA MD Borrelia Miyamotoi DNA, Ql Real Time PCR NOT DETECTED NOT DETECTED [facility] Comment:This test was develo ped and its analytical performancecharacteristics have been determined by [employer]. It has not been cleared or approved by theA. This assay has been validated pursuant to the CLIAregulations and is used for clinical purposes.THIS TEST WAS PERFORMED AT:[facility] [address] [address]MABVVLINDA ZAZUETA MD Comment SEE NOTE [facility] Comment:A negative result do es not exclude Borrelia infectionas the concentration of the organism in blood may be lowor non-existent in patients with Lyme disease, and maydepend on timing of specimen collection from onset ofsymptoms. Clinical correlation is recommended andadditional studies such as serologic testing may beindicated.THIS TEST WAS PERFORMED AT:[facility] [address] [address]AGITKLINDA ZAZUETA MD 02/16/2025 3:36 PM EDT 02/16/2025 3:46 PM EDT us Generic External Data Provider LAB BLOOD ORDERAB LES Final Result [facility] [address] [place] [address] [phone] * Lyme Disease Ab with Reflex to Blot (IgG, IgM) (02/16/2025 3:36 PM EDT) Pathologist [facility] Lyme Antibody Screen <0.90 index [facility] Comment:Index Interpretation ----- < 0.90 [...] when erythemamigrans is apparent.THIS TEST WAS PERFORMED AT:[facility] [place] [address]VRSRRLINDA ZAZUETA MD Lyme Blot TNP [facility] 02/16/2025 3:36 PM EDT 02/16/2025 3:46 PM EDT Generic External Data Provider LAB BLOOD ORDERAB LES Final Result Performing Organization Address [facility] Co de Phone Number [facility] [address] [place] [phone] * (ABNORMAL) Prothrombin Time-INR (02/16/2025 3:36 PM EDT) Prothrombin Time 13.0(H) 10.9 - 12.4 SEC [facility] INTERNATIONAL NORM RATIO 1.1 0.9 - 1.1 [facility] Comment:INTERNATIONAL NORMAL IZED RATIO (INR) [...] ORDERAB LES Final Result Performing Organization Address [facility] Co de Phone Number [facility] [address] [place] [phone] * (ABNORMAL) Hepatic Function Panel (02/16/2025 3:36 PM EDT) Bilirubin, Total 0.4 0.0 - 1.0 mg/dL [facility] Bilirubin, Direct 0.2 0.0 - 0.5 mg/dL [facility] Aspartate Amino Transferase 41(H) 5 - 37 U/L [facility] Alanine Aminotransferase 35 0 - 40 U/L [facility] Total Protein 6.6 6.5 - 8.0 g/dL [facility] Albumin Level 4.3 3.5 - 5.0 g/dL [facility] Alkaline Phosphatase 64 39 - 117 U/L [facility] 02/16/2025 3:36 PM EDT 02/16/2025 3:46 PM EDT us Generic External Data Provider LAB BLOOD ORDERAB LES Final Result [facility] [address] [place] [phone] [phone] * (ABNORMAL) Basic Metabolic Panel (02/16/2025 3:36 PM EDT) Sodium 142 135 - 145 mmol/L [facility] Potassium 3.9 3.3 - 5.1 mmol/L [facility] Chloride 110(H) 96 - 108 mmol/L [facility] Carbon Dioxide 24 22 - 29 mmol/L [facility] Anion Gap 12 12 - 20 [facility] Urea Nitrogen (BUN) 12 9 - 16 mg/dL [facility] Creatinine, Serum 1.01 0.5 - 1.4 mg/dL [facility] Creatinine Clr Calc Pharmacy 83.5 [facility] Comment:eGFR (calculated fro m the MDRD study equation) and eCrCl(calculated from the Cockcroft-Gault equation) are based ondifferent parameters and may not yield comparable results.If eCrCl result is absurd, please check patient'sheight/weight. Estimated Glomerular Filt Rate >60 [facility] Comment:Chronic Kidney Disea se: Estimated GFR < 60 mL/min/1.83u1Wyngoz Kidney Disease: Estimated GFR < 15 mL/min/1.73m2 Glucose 185(H) 60 - 115 mg/dL [facility] Calcium 8.8 8.4 - 10.2 mg/dL [facility] 02/16/2025 3:36 PM EDT 02/16/2025 3:46 PM EDT us Generic External Data Provider LAB BLOOD ORDERAB LES Final Result [facility] [address] [place] [phone] * Cologuard?? colon cancer screening (12/03/2024 9:15 AM EDT) Cologuard Result Negative Negative 12/10/19 12:39 PM EDT [facility] (CLIA #:[id number]) Comment: The Cologuard (TM) test was performed [...] cancer. Following a negative Cologuard result, the French Cancer Society and U.S. Multi-Society Task Force screening guidelines recommend a Cologuard re-screening interval of 3 years. References: French Cancer Society Guideline for Colorectal Cancer Screening: https://www.cancer.org/cancer/xmntq-zswcxw-lkmsef/aocmffhaa-chqfbeflt-hqskjia/ac s-rec ommendations.html.; Db HERNANDEZ, Mitzy PACE, Patti WILHELM, Colorectal Cancer Screening: Recommendations for Physicians and Patients from the U.S. Multi-Society Task Force on Colorectal Cancer Screening , Am J Gastroenterology 2017; 112:3932-2953. TEST DESCRIPTION: Composite algorithmic analysis of stool [...] (Sabrina Davalos al, N Engl J Med 2014;370(14):6346-5583.) Cologuard may produce a false negative or false positive result (no colorectal cancer or precancerous polyp present at colonoscopy follow up). A negative Cologuard test result does not guarantee the absence of CRC or advanced adenoma (pre-cancer). The current Cologuard screening interval is every 3 years. (French Cancer Society and U.S. Multi-Society Task Force). Cologuard performance data in a 10,000 patient pivotal study using colonoscopy as the reference method can be accessed at the following location: www.[employer]/results. Additional description of the Cologuard test process, warnings and precautions can be found at www.Amedrixrd.com. Stool specimen (specimen) 12/03/2024 9:15 AM EDT 12/04/2024 10:37 AM EDT [facility] MOLECULAR DIAGNOSTICS ORDERA BLES Final Result [facility] (CLIA #:[id number]) [address] [place] [address], * Hepatitis C Antibody with Reflex to HCV, RNA, Quantitative, Real-Time PCR (11/14/2024 9:12 AM EDT) Hepatitis C Antibody Nonreactive Nonreactive [facility] Comment:Antibodies to HCV no t detected; does not exclude early acuteHCV infection. Blood Venous blood specimen / Unknown 11/14/2024 9:12 AM EDT 11/14/2024 11:17 AM EDT us [facility] LAB BLOOD ORDERABLES Final Resul t [facility] [address] [place] [phone] * (ABNORMAL) Lipid Panel, Standard (11/14/2024 9:12 AM EDT) Pathologist [facility] Triglycerides 137 <150 mg/dL [facility] Comment:Desirable Triglyceri de: less than 150 mg/dLBorderline High Triglyceride 150-199 mg/dLHigh Triglyceride: 200-499 mg/dLVery High Triglyceride: greater than or equal to 5OO mg/dL Cholesterol 169 <200 mg/dL [facility] Comment:Desirable Cholestero l: less than 200 mg/dLBorderline High Cholesterol: 200-239 mg/dLHigh Cholesterol: greater than 239 mg/dL LDL Cholesterol Calculated 112(H) <100 mg/dL [facility] Comment:Desirable LDL: less than 100 mg/dLNear Optimal/Above Optimal LDL: 110- 129 mg/dLBorderline High LDL: 130-159 mg/dLHigh LDL: 160-189 mg/dLVery High LDL: greater than or equal to 190 mg/dL HDL Cholesterol 30(L) >40 mg/dL [facility] Comment:Desirable HDL: great er than 40 mg/dL Note: This HDL assay may give artificially low results in patients with liver disease. Blood Venous blood specimen / Unknown 11/14/2024 9:12 AM EDT 11/14/2024 11:17 AM EDT Stacey Dougherty ANP LAB BLOOD ORDERABLES Final Resul t Performing Organization Address City/[facility]/ZIP Co de Phone Number [facility] [address] [place] [phone] * Albumin, Random Urine W/Creatinine (01/05/2023 10:29 AM EDT) Creatinine, Random Urine 260 20 - 320 mg/dL [facility] Albumin, Urine 1.0 See Note: mg/dL [facility] Comment: Reference Range: Reference Range Not established Albumin/Creatinin e Ratio, Random Urine 4 <30 mcg/mg creat [facility] Comment: The ADA defines abnormalities in albumin [...] 01/10/2023 3:14 PM EDT FASTING:YES FASTING: YES Stacey Dougherty ANP LAB URINE ORDERABLES Final Resul t Performing Organization Address [facility] Co de Phone Number [facility] [address], [place] [phone] [facility] [address] [place] [phone] * Hm Colonoscopy (12/16/2013) Colonoscopy Normal Normal Historical Provider HEALTH MAINTENANCE Final Result from Last 3 Months or Most Recently Relevant to Health Maintenance Insurance [place] [facility] ADULT DENTAL - HSN FULL (MEDICAID) Care Teams Electric Drill Operator Relationship Specialty Start Date End Date Stacey Dougherty ANP [address] [place] [address] PCP - General Family Medicine 03/23/21 Kb Tineo, Keli [address] [place] [phone] Pharmacist Internal Medicine 06/25/24
--- OUTSIDE RECORDS SUMMARY | 2025-04-28 17:10 | XMS_ITS | Encounter Summary ---
Author Organization [employer] Address [address] [facility] 7t [place] [address] Care Team Providers Care Cutter V Groove Name Role Phone Litzy John Primary Care Provider [phone] Kb Tineo PharmD Unavailable [phone] Reason for Visit * Reason Onset Date Comments Nurse Triage 06/25/2023 Encounter Details Date Type Department Care Team ([facility] st Contact Info) Description 06/25/2023 Telephone [facility] [address] [place], [place] [phone] Litzy John ANP [address] [place], [place] [phone] Nurse Triage Social History Tobacco Use Types [...] 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 Pt is advised to come to [facility] today, open till 8pm. Pt is [...] become worse * Telephone Encounter - Yary Tyler - 06/25/2023 10:35 AM EST Symptom: Diarrhea Outcome: Schedule an appointment to be seen within 24 hours Reason: Caller denied all higher acuity questions The caller accepted this outcome Please contact pt at [phone] documented in this encounter Plan of Treatment Upcoming Encounters Date Type Department Care Team (Late st Contact Info) Description 05/04/2025 10:30 AM EDT Medication Management [facility] [address] [place] [address] Kb Tineo, PharmDianne [address] [place] [address] 05/29/2025 1:00 PM EDT Office Visit [facility] [address] [place] [address] Drake, Tika, OD [address] [place] [address] documented as of this encounter Visit Diagnoses Not on filedocumented in this encounter Care Teams Cutter V Groove Relationship Specialty Start Date End Date Litzy John ANP [address] [place] [address] PCP - General Family Medicine 03/23/21 Kb Tineo, PharmD [address] [place] [address] Pharmacist Internal Medicine 06/25/24 documented as of this encounter
--- OUTSIDE RECORDS SUMMARY | 2025-04-28 17:10 | XMS_ITS | Clinical Summary ---
Author Organization [facility] Address [address] [place] [address] Care Team Providers Care Carbonation Equipment Operator Name Role Phone Unavailable Primary Care [...] Drug Screen 07/30/2024 Depression Annual Screen 07/30/2024 [id number] ( - season) 2025 06/08/2021, 11/16/2020, 10/19/2020 Imm-Influenza (#1) 2025 Insurance ID MEDICAID HEALTH SAFETY NET
--- OUTSIDE RECORDS SUMMARY | 2025-04-28 17:10 | XMS_ITS | Clinical Summary ---
Author Organization [facility] Address [address] [place] [address] Care Team Providers Care Production Broaching Machine Operator Name Role Phone Litzy John Primary Care Provider [phone] Allergies No known active allergies Medications ProAir HFA 90 mcg/actuation inhaler INHALE 2 PUFFS BY MOUTH EVERY 4 TO 6 HOURS NEEDED 0 Active atorvastatin (LIPITOR) 10 mg tablet Take 10 mg by mouth daily. 1 Active blood pressure test kit-large kit USE TO CHECK BLOOD PRESSURE 0 Active Freestyle Lite test strips TEST BLOOD SUGAR 4 TIMES A DAY 1 Active FreeStyle [place] Lite meter TEST BLOOD SUGAR 4 TIMES [...] DAILY WITH FOOD NEEDED 0 Active Hypodermic [place] 23 gauge x 1 1/2 needle USE [...] Type Department Care Team Description 02/24/2025 Telephone [facility] [address] [place] [address] Financial Aid Counselor: Saray Schultz Telephone Intake, Staff PAC Appt [...] Care Team (Late st Contact Info) Description 07/16/2025 10:30 AM EST Office Visit [facility] [address] [place] [address] Financial Aid Counselor: Brian Mejia MD [address] [place] [phone] Health Maintenance Due Date Last Done Comments [...] B Vaccines Completed 09/26/2024, 08/11/2024, 04/03/[address] [address] [place] [address] HSNO/FREE CARE Care Teams Production Broaching Machine Operator Relationship Specialty Start Date End Date Litzy John [address] [place] [phone] PCP - General 01/26/23
--- OUTSIDE RECORDS SUMMARY | 2025-04-28 17:10 | XMS_ITS | Encounter Summary ---
Author Organization [facility] Address [address] [place] [address] Care Team Providers Care Pick Up Name Role Phone Alvaro Litzy Primary Care Provider [phone] Encounter Details Date Type Department Care Team (Late st Contact Info) Description 03/20/2024 Telephone [facility] Physician Referral Services [address] [place] [address] Alvaro Litzy [address] [place] [address] Social History Tobacco Use Types Packs/Day Years [...] Description 07/16/2025 10:30 AM EST Office Visit [facility]ology Clinic [address] [place] [address] Film Spooler: Brian Mejia MD [address] [place] [phone] documented as of this encounter Visit Diagnoses Not on filedocumented in this encounter Care Teams Pick Up Relationship Specialty Start Date End Date Alvaro Litzy [address] [place] [address] PCP - General 01/26/23 documented as of this encounter
--- OUTSIDE RECORDS SUMMARY | 2025-04-28 17:10 | XMS_ITS | Encounter Summary ---
Author Organization [employer] Address [address] [facility] [address] 7[address] [place] [address] Care Team Providers Care Concrete Analyst Name Role Phone Litzy John Primary Care Provider [phone] Kb Tineo PharmD Unavailable [phone] Reason for Visit * Reason Comments Med Refill Encounter Details Date Type Department Care Team ([facility] st Contact Info) Description 02/05/2025 Refill [facility] [address] [place], [place] [phone] Alix Walton NP [address] [place], [place] [phone] Social History Tobacco Use Types Packs/Day Years [...] Description 05/04/2025 10:30 AM EDT Medication Management [facility] [address] [place] [address] Kb Tineo, Keli [address] [place] [address] 05/29/2025 1:00 PM EDT Office Visit [facility] [address] [place] [address] Drake, Tika, OD [address] [place] [address] documented as of this encounter Visit Diagnoses Not on filedocumented in this encounter Additional Health Concerns Assessment Noted Time PHQ-9 Depression Total Score: 0 12/13/19 25 4:15 PM EDT documented as of this encounter Care Teams Concrete Analyst Relationship Specialty Start Date End Date Litzy John ANP [address] [place] [address] PCP - General Family Medicine 03/23/21 Kb Tineo, PharmD [address] [place] [address] Pharmacist Internal Medicine 06/25/24 documented as of this encounter
--- OUTSIDE RECORDS SUMMARY | 2025-04-28 17:10 | XMS_ITS | Encounter Summary ---
Author Organization [employer] Address [address] [place] [address] Care Team Providers Care Manager Life Insurance Name Role Phone Litzy John Primary Care Provider [phone] Kb Tineo PharmD Unavailable [phone] Encounter Details Date Type Department Care Team (Late st Contact Info) Description 03/03/2025 Orders Only [facility] [address] [place] [address] Provider, MD Jacky Social History Tobacco Use [...] Description 05/04/2025 10:30 AM EDT Medication Management [facility] [address] [place] [address] Kb Tineo, PharmD [address] [place] [address] 05/29/2025 1:00 PM EDT Office Visit [facility]OM[facility] [address] [place] [address] Tika Juan, OD [address] [place] [address] documented as of this encounter Procedures Procedure [...] documented as of this encounter Care Teams Manager Life Insurance Relationship Specialty Start Date End Date Litzy John ANP [address] [place] [address] PCP - General Family Medicine 03/23/21 Kb Tineo, AsifD [address] [place] [address] Pharmacist Internal Medicine 06/25/24 documented as of this encounter
== END 2025-04-28 16:12 | disposition home or self-care (01) ==
LOC: HO.HHCLNP 16:11
PROVIDERS: Visit Provider Nurse Practitioner Primary Care
DX: E11.69 Type 2 diabetes mellitus with other specified complication (principal); E78.5 Hyperlipidemia, unspecified
CPT/HCPCS: 36415; 82040; 82570